=== PATIENT | male | born 1945 | race Caucasian/White ===

== ENCOUNTER 2021-03-04 10:43 | Emergency (ER) | payer OTHER ==
[~2021-03-04] VITALS: Ht 172 cm; Wt 83.9 kg
[2021-03-04] MEDS ORDERED: TRM50T PO (12:24)
[2021-03-04] MEDS ORDERED: PREG100C PO (12:24)
--- NOTE | 2021-03-04 12:25 | ED Lower Extremity ---
General Chief Complaint: Lower Extremity Stated Complaint: LOWER EXT PAIN Nursing Triage Note: PT AMBULATORY TO ER. PT REPORTS HX OF DIABETIC NEUROPATHY. PT STATES HAS BEEN OUT OF HIS LYRICA FOR THE PAST 8-10 DAYS, [facility] DENIES INJURY/TRAUMA. (LIBRADO HERNANDES) History of Present Illness Date Seen by Provider: Mar 04, 2021 Time Seen by Provider: 11:30 Initial Comments 75 year old male presents for chronic leg pain, due to diabetic neuropathy. [facility], they usually arrive approximately 5 to 7 days after he runs out of his medication. He has noncompliant with his management of his diabetes, he takes his medications but does not ever check his blood sugar and is not willing to have his blood sugar checked while here today. [facility] and was referred here after making a comment about how bad the pain was and the only way he will be pain free is after he dies. He denies suicidal or homicidal thoughts. Reporting he has no way to harm himself, even if he wanted to. He recently moved from [place] to [place], because his sister sold the house he was staying in. His healthcare is through the [facility] [place]. He has no family in [place], he does talk to his daughter in [place] and son in . He has a dog and speaks about how important the dog is and that he wouldn't hurt himself because no one would take care of the dog. He admits to his leg pain being so severe, he has to take Ambien at night and many nights he cries for hours because of the pain. He also reports on rare occasion taking 2 Lyrica at bedtime, to help with the pain. K-[facility] reviewed, Lyrica was filled in [place] on 03/02/21 but the shipment hasn't arrived at his home. Onset: other (ongoing) Severity: moderate Pain/Injury Location: bilateral leg, bilateral thigh Method of Injury: other (LIBRADO HERNANDES) Allergies and Home Medications Allergies Coded Allergies: No Known Drug Allergies (Unverified , 03/04/21) Patient Home Medication List Home Medication List Reviewed: Yes (LIBRADO HERNANDES) Pregabalin (Lyrica) 100 Mg Capsule, 100 MG PO TID Prescribed by: LIBRADO HERNANDES on 03/04/21 1225 Tramadol HCl (Tramadol HCl) 50 Mg Tablet, 50 MG PO Q6H PRN for PAIN Prescribed by: LIBRADO HERNANDES on 03/04/21 1225 Review of Systems Constitutional: no symptoms reported, see HPI Musculoskeletal: see HPI, muscle pain (bilat LEs, ankles/feet) Psychiatric/Neurological: See HPI, Depressed (LIBRADO HERNANDES) All Other Systems Reviewed Negative Unless Noted: Yes (LIBRADO HERNANDES) Past Dngwmzr-Igmdie-Syodbd Hx Patient Social History Tobacco Use?: No Use of E-Cig and/or Vaping dev: No Substance use?: No Alcohol Use?: No Pt feels they are or have been: No (LIBRADO HERNANDES) Immunizations Up To Date First/Initial COVID19 Vaccinat: APR 2020 Second COVID19 Vaccination Brandon: MAY 2020 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 oz. kg; 28.00 BMI Method: General Appearance: WD/WN, mild distress Neck: non-tender, full range of motion, supple, normal inspection Cardiovascular: normal peripheral pulses, regular rate, rhythm Respiratory: chest non-tender, lungs clear, normal breath sounds Gastrointestinal: normal bowel sounds, non tender, soft Ankles: bilateral ankle normal inspection, bilateral ankle normal range of motion, bilateral ankle no evidence of injury, bilateral ankle soft tissue tenderness Feet: bilateral foot normal inspection, bilateral foot normal range of motion, bilateral foot no evidence of injury, bilateral foot soft tissue tenderness Neurologic/Tendon: normal sensation, normal motor functions, normal tendon functions Neurologic/Psychiatric: no motor/sensory deficits, alert, normal mood/affect, oriented x 3 Skin: normal color, warm/dry (LIBRADO HERNANDES) Progress/Results/Core Measures Results/Orders Vital Signs/I&O 03/04/21 03/04/21 03/04/21 10:47 11:10 12:26 Temp 36.4 Pulse 78 57 70 Resp 20 18 18 B/P (MAP) 169/101 (123) 152/88 138/85 Pulse Ox 98 96 96 O2 Delivery Room Air Room Air O2 Flow Rate (WALLY KIM MD) Blood Pressure Mean: 109 Progress Progress Note : Time: 11:30 Progress Note Patient seen and evaluated, extensive amount of time spent with counseling patient. He understands that there is a need to be checking his blood sugars, we discussed different meters that he can keep a sensor on his arm and would not have to do daily fingersticks. He will talk to his primary care provider about that. He has no ulcers or breakdown to his feet. Discussed the fact that his medications are in route but will probably not be here for a day or 2 and with the holiday it could be prolonged to next week. He is willing to pay ou t-of-pocket for prescription, to have the Lyrica and tramadol available. At length making comments about or suicidal ideations, he understands that if he ever has these feelings that he would call his son or 911. He declined wanting mental health consult in no by the patient indicated the need for this. Discharge instructions and careful follow-up with his PCP were recommended. Return precautions reviewed. (LIBRADO HERNANDES) Departure Impression Primary Impression: Diabetic neuropathy Qualified Codes: E11.49 - Type 2 diabetes mellitus with other diabetic neurological complication Additional Impressions: Neuropathic pain Noncompliance with medication regimen Disposition: HOME, SELF-CARE Condition: Stable Departure-Patient Inst. Decision time for Depature: 12:15 (LIBRADO HERNANDES) Referrals: NO,LOCAL PHYSICIAN (PCP) Primary Care Physician Patient Instructions: Diabetic Neuropathy (DC) Add. Discharge Instructions: Continue to take your home medications as prescribed. Discuss your care and concerns with your son and daughter. Schedule an appointment with Vel Robles NP for early March to get your medications delivered in time. Call [phone], if you ever have thoughts to harm yourself or others. Return to the emergency department for new, urgent healthcare needs. All discharge instructions reviewed with patient and/or family. Voiced understanding. Scripts Pregabalin (Lyrica) 100 Mg Capsule 100 MG PO TID, #21 CAP 0 Refills Prov: LIBRADO HERNANDES 03/04/21 Tramadol HCl (Tramadol HCl) 50 Mg Tablet 50 MG PO Q6H PRN for PAIN, #20 TAB 0 Refills Prov: LIBRADO HERNANDES 03/04/21 ATTENDING PHYSICIAN NOTE: I was physically present as attending physician in the emergency department during the care of this patient, but I was not directly involved in the decision making or delivery of care for this patient. (WALLY KIM MD) LIBRADO HERNANDES Mar 04, 2021 12:25 WALLY KIM MD Mar 04, 2021 21:01
[2021-03-04 12:26] VITALS: BP 138/85
== END 2021-03-04 12:26 | disposition home or self-care (01) ==
LOC: ER 10:46
DX: E11.40 Type 2 diabetes mellitus with diabetic neuropathy, unspecified (principal); Z91.14 Patient's other noncompliance with medication regimen
CPT/HCPCS: 99281

== ENCOUNTER 2021-05-08 05:33 | Outpatient (CLI) | payer OTHER ==
[~2021-05-08] VITALS: Ht 170.8 cm; Wt 86.4 kg
[~2021-05-08 05:33] MED LIST: PREG100C PO; TRM50T PO
[2021-05-08] MEDS ORDERED: LISI10TA25 PO (13:02)
[2021-05-08] MEDS ORDERED: GLIM2TAB4 PO (13:02)
[2021-05-08] MEDS ORDERED: MTP100TCR PO (13:02)
[2021-05-08] MEDS ORDERED: INSU100V5 SQ (13:02)
[2021-05-08] MEDS ORDERED: ALLO300T2 PO (13:02)
[2021-05-08] MEDS ORDERED: METF-399 PO (13:02)
[2021-05-08] MEDS ORDERED: FURO20TA4 PO (13:02)
[2021-05-08] MEDS ORDERED: ATOR80TA76 PO (13:02)
[2021-05-08] MEDS ORDERED: ZOLP5TAB7 PO (13:02)
[2021-05-08] MEDS ORDERED: MULT-1136 PO (13:02)
[2021-05-08] MEDS ORDERED: LISI20TA26 PO (13:02)
== END 2021-05-08 13:05 ==
LOC: PREOP 05:33
PROVIDERS: ATTEND Specialist
DX: Z01.818 Encounter for other preprocedural examination (principal)

== ENCOUNTER 2021-05-15 06:30 | Day surgery (SDC) | payer OTHER ==
[~2021-05-15] VITALS: Ht 170 cm; Wt 86.4 kg
[~2021-05-15 06:30] MED LIST changes: +ALLO300T2 PO; +ATOR80TA76 PO; +FURO20TA4 PO; +GLIM2TAB4 PO; +INSU100V5 SQ; +LISI10TA25 PO; +LISI20TA26 PO; +METF-399 PO; +MTP100TCR PO; +MULT-1136 PO; +ZOLP5TAB7 PO
[2021-05-15] MEDS: TETRACAINE 0.5% OPHTH SOLN 4 ML BTL (SINGLE DOSE ONLY) OU PRN ×4 (11:07→11:33)
[2021-05-15] MEDS ORDERED: TIMOLOL MALEATE 0.5% 5 ML (TIMOPTIC) BTL OU PRN (11:15)
[2021-05-15] MEDS ORDERED: acetaZOLAMIDE ER 500 MG CAP (DIAMOX SEQUELS) PO ONE (11:15)
[2021-05-15] MEDS ORDERED: LIDOCAINE PF 1% 2 ML VIAL IR PRN (11:15)
[2021-05-15] MEDS ORDERED: POVIDONE (BETADINE) OPHTH SOLN 5% 30 ML OP ONE (11:15)
[2021-05-15] MEDS ORDERED: MOXIFLOXACIN OPHTH SOLN 5 MG/ML 0.3 ML SYRINGE OP ONE (11:15)
[2021-05-15] MEDS: PHENYLEPHRINE 10% OPHTH (NEO-SYN) 5 ML BTL OU SCH ×3 (11:18→11:34)
[2021-05-15] MEDS: TROPICAMIDE 1% OPH SOLN (MYDRIACYL) 15 ML BTL OP SCH ×3 (11:18→11:34)
[2021-05-15] MEDS ORDERED: DEXTROSE 50% 50 ML (IMS) SYR ONE (11:18)
[2021-05-15 11:30] VITALS: BP 127/78
[2021-05-15] MEDS ORDERED: DEXTROSE 50% 50 ML (IMS) SYR IV ONE (11:30)
--- NOTE | 2021-05-15 11:51 | Ophthalmologist Pre-Op Note ---
Pre-Operative Progress Note H&P Reviewed The H&P was reviewed, patient examined and no changes noted. Date H&P Reviewed: May 15, 2021 Time H&P Reviewed: 11:50 Pre-Op Dx Cataract, Left Eye LISA BOLAÑOS MD May 15, 2021 11:50
[2021-05-15] MEDS ORDERED: MIDAZOLAM 2 MG/2 ML (VERSED) VIAL ONE (11:59)
--- NOTE | 2021-05-15 12:15 | Ophthalmology Operative Report ---
Cataract removal/placement IOL PREOPERATIVE DIAGNOSIS: Cataract Left Eye POSTOPERATIVE DIAGNOSIS: Cataract Left Eye PROCEDURE: Cataract removal and placement of posterior chamber implant, left eye SURGEON: Lj Bolaños ANESTHESIA: Topical with sedation COMPLICATIONS: None ESTIMATED BLOOD LOSS: Minimal DESCRIPTION OF PROCEDURE: After proper informed consent was obtained, the patient, a 75 male, was taken to the Operating Room and the left eye was anesthetized with tetracaine. The left eye was then prepped and draped in the usual manner. A wire lid speculum was placed. A paracentesis was made at the left hand position. Preservative free lidocaine was injected into the anterior chamber followed by viscoelastic. A clear corneal incision was made in the temporal position. A capsulorrhexis was preformed and the central nuclear and cortical material were removed. The posterior capsule was polished and an Wilberto 19.0 AU00T0 was placed into the capsular bag. The residual viscoelastic was aspirated and balanced saline solution was injected into the anterior chamber. Moxifloxacin was injected into the anterior chamber. The wound was checked and found to be water tight. The patient tolerated the procedure well without complications. LJ BOLAÑOS MD May 15, 2021 12:15
[2021-05-15 12:25] VITALS: BP 118/74
== END 2021-05-15 12:26 | disposition home or self-care (01) ==
LOC: SDC 06:30
PROVIDERS: ATTEND Specialist
DX: E11.36 Type 2 diabetes mellitus with diabetic cataract (principal); E11.40 Type 2 diabetes mellitus with diabetic neuropathy, unspecified; H25.9 Unspecified age-related cataract; Z79.4 Long term (current) use of insulin; Z79.84 Long term (current) use of oral hypoglycemic drugs
CPT/HCPCS: 82947

== ENCOUNTER 2021-05-29 06:00 | Day surgery (SDC) | payer OTHER ==
[~2021-05-29] VITALS: Ht 170.8 cm; Wt 86.4 kg
[2021-05-29 06:10] VITALS: BP 125/73
[2021-05-29] MEDS ORDERED: MOXIFLOXACIN OPHTH SOLN 5 MG/ML 0.3 ML SYRINGE OP ONE (06:15)
[2021-05-29] MEDS ORDERED: LIDOCAINE PF 1% 2 ML VIAL IR PRN (06:15)
[2021-05-29] MEDS ORDERED: POVIDONE (BETADINE) OPHTH SOLN 5% 30 ML OP ONE (06:15)
[2021-05-29] MEDS ORDERED: TIMOLOL MALEATE 0.5% 5 ML (TIMOPTIC) BTL OU PRN (06:15)
[2021-05-29] MEDS: TETRACAINE 0.5% OPHTH SOLN 4 ML BTL (SINGLE DOSE ONLY) OU PRN ×4 (06:18→06:36)
[2021-05-29] MEDS: PHENYLEPHRINE 10% OPHTH (NEO-SYN) 5 ML BTL OU SCH ×3 (06:24→06:36)
[2021-05-29] MEDS: TROPICAMIDE 1% OPH SOLN (MYDRIACYL) 15 ML BTL OP SCH ×3 (06:25→06:36)
[2021-05-29] MEDS ORDERED: acetaZOLAMIDE ER 500 MG CAP (DIAMOX SEQUELS) PO ONE (07:30)
--- NOTE | 2021-05-29 07:32 | Ophthalmologist Pre-Op Note ---
Pre-Operative Progress Note H&P Reviewed The H&P was reviewed, patient examined and no changes noted. Date H&P Reviewed: May 29, 2021 Time H&P Reviewed: 07:31 Pre-Op Dx Cataract, Right Eye LISA BOLAÑOS MD May 29, 2021 07:32
[2021-05-29] MEDS ORDERED: MIDAZOLAM 2 MG/2 ML (VERSED) VIAL ONE (07:39)
--- NOTE | 2021-05-29 07:58 | Ophthalmology Operative Report ---
Cataract removal/placement IOL PREOPERATIVE DIAGNOSIS: Cataract Right Eye POSTOPERATIVE DIAGNOSIS: Cataract Right Eye PROCEDURE: Cataract removal and placement of posterior chamber implant, right eye SURGEON: Lj Bolaños ANESTHESIA: Topical with sedation COMPLICATIONS: None ESTIMATED BLOOD LOSS: Minimal DESCRIPTION OF PROCEDURE: After proper informed consent was obtained, the patient, a 75 male, was taken to the Operating Room and the right eye was anesthetized with tetracaine. The right eye was then prepped and draped in the usual manner. A wire lid speculum was placed. A paracentesis was made at the left hand position. Preservative free lidocaine was injected into the anterior chamber followed by viscoelastic. A clear corneal incision was made in the temporal position. A capsulorrhexis was preformed and the central nuclear and cortical material were removed. The posterior capsule was polished and Wilberto 20.0 AU00T0 IOL was placed into the capsular bag. The residual viscoelastic was aspirated and balanced saline solution was injected into the anterior chamber. Moxifloxacin was injected into the anterior chamber. The wound was checked and found to be water tight. The patient tolerated the procedure well without complications. LJ BOLAÑOS MD May 29, 2021 07:58
[2021-05-29 08:05] VITALS: BP 125/73
--- NOTE | 2021-05-29 12:44 | Anesthesia-General Post-Op ---
MAC Patient Condition Mental Status/LOC: Same as Preop Cardiovascular: Satisfactory Nausea/Vomiting: Absent Respiratory: Satisfactory Pain: Controlled Complications: Absent Post Op Complications Complications None Follow Up Care/Instructions Patient Instructions None needed. Anesthesiology Discharge Order Discharge Order Patient is doing well, no complaints, stable vital signs, no apparent adverse anesthesia problems. No complications reported per nursing. ROC MCKAY CRNA May 29, 2021 12:43
--- NOTE | 2021-06-03 07:05 | Anesthesia-General Post-Op ---
MAC Significant Intra-Op Events Notes post op addendum for mac anesthesia on 05/15/21 at 1230 Patient Condition Mental Status/LOC: Same as Preop Cardiovascular: Satisfactory Nausea/Vomiting: Absent Respiratory: Satisfactory Pain: Controlled Complications: Absent Post Op Complications Complications None Follow Up Care/Instructions Patient Instructions None needed. Anesthesiology Discharge Order Discharge Order Patient is doing well, no complaints, stable vital signs, no apparent adverse anesthesia problems. No complications reported per nursing. ROC MCKAY CRNA Jun 03, 2021 07:05
== END 2021-05-29 08:05 | disposition home or self-care (01) ==
LOC: SDC 06:00
PROVIDERS: ATTEND Specialist
DX: E11.36 Type 2 diabetes mellitus with diabetic cataract (principal); H25.9 Unspecified age-related cataract; E11.40 Type 2 diabetes mellitus with diabetic neuropathy, unspecified
CPT/HCPCS: 82947

== ENCOUNTER 2021-07-09 14:24 | Emergency (ER) | payer OTHER ==
[~2021-07-09] VITALS: Ht 170 cm; Wt 89.8 kg
[2021-07-09] MEDS ORDERED: LACTATED RINGERS 1,000 ML IV SCH (15:15)
--- NOTE | 2021-07-09 15:15 | ED Cardiac General ---
History of Present Illness General Chief Complaint: Cardiac/General Problems Stated Complaint: WEAKNESS,DIZZINESS,LOW BP Nursing Triage Note: PT SENT OVER FROM HOME HEALTH NURSE FOR HYPOTENSION STARTING TODAY. PT DENIES ANY CP OR SOA. REPROTS INITIALLY FELT DIZZY BUT FEELS LIKE THAT IS BETTER, Source: patient Exam Limitations: no limitations History of Present Illness Date Seen by Provider: Jul 09, 2021 Time Seen by Provider: 15:12 Initial Comments To ER from home with reports of dizziness and low blood pressure. He was referred to the emergency room by his home health nurse. He is not sure why he has home health. He denies any fevers or chills. Denies any nausea or vomit ing. His blood pressure was reportedly 80s over 50s at home and he was symptomatic as he was having dizziness. He does take medication for high blood pressure. He denies feeling ill yesterday or any recent illnesses. He states he does not think he needs any blood work or any other treatment done. Timing/Duration: changing over time Severity: moderate Activities at Onset: none Prior CP/Workup: no prior chest pain NTG SL BOWLING PIN SETTERS INSTALLER: No ASA po BOWLING PIN SETTERS INSTALLER: No Associated Systoms: Denies Symptoms Allergies and Home Medications Allergies Coded Allergies: No Known Drug Allergies (Unverified , 03/04/21) Patient Home Medication List Home Medication List Reviewed: Yes Allopurinol (Allopurinol) 300 Mg Tablet, 300 MG PO DAILY, (Reported) Entered as Reported by: FRANKLIN GARCIA on 05/08/21 1302 Atorvastatin Calcium (Atorvastatin Calcium) 80 Mg Tablet, 40 MG PO HS, (Reported) Entered as Reported by: FRANKLIN GARCIA on 05/08/21 130 Furosemide (Furosemide) 20 Mg Tablet, 20 MG PO DAILY, (Reported) Entered as Reported by: FRANKLIN GARCIA on 05/08/21 1302 Glimepiride (Glimepiride) 2 Mg Tablet, 2 MG PO DAILY, (Reported) Entered as Reported by: FRANKLIN GARCIA on 05/08/21 130 Insulin Determir (Levemir) 1,000 Units/10 Ml Soln, 45 UNITS SQ HS, (Reported) Entered as Reported by: FRANKLIN GARCIA on 05/08/21 1302 Lisinopril (Lisinopril) 10 Mg Tablet, 10 MG PO DAILY, (Reported) Entered as Reported by: FRANKLIN GARCIA on 05/08/21 1302 Lisinopril (Lisinopril) 20 Mg Tablet, 20 MG PO HS, (Reported) Entered as Reported by: FRANKLIN GARCIA on 05/08/21 1302 Metformin HCl (Metformin HCl) 1,000 Mg Tablet, 1,000 MG PO BID, (Reported) Entered as Reported by: FRANKLIN GARCIA on 05/08/21 1302 Metoprolol Succinate (Metoprolol Succinate) 100 Mg Tab.er.24h, 50 MG PO BID, (Reported) Entered as Reported by: FRANKLIN GARCIA on 05/08/21 1302 Multivitamin (Multivitamin) 1 Each Tablet, 1 EACH PO DAILY, (Reported) Entered as Reported by: FRANKLIN GARCIA on 05/08/21 1302 Pregabalin (Lyrica) 100 Mg Capsule, 100 MG PO TID Prescribed by: LIBRADO HERNANDES on 03/04/21 1225 Tramadol HCl (Tramadol HCl) 50 Mg Tablet, 50 MG PO Q6H PRN for PAIN Prescribed by: LIBRADO HERNANDES on 03/04/21 1225 Zolpidem Tartrate (Zolpidem Tartrate) 5 Mg Tablet, 5 MG PO HS, (Reported) Entered as Reported by: FRANKLIN GARCIA on 05/08/21 1302 Review of Systems Review of Systems Constitutional: see HPI EENTM: No Symptoms Reported Respiratory: No Symptoms Reported Cardiovascular: No Symptoms Reported Gastrointestinal: No Symptoms Reported; Denies Abdominal Pain, Denies Constipated, Denies Diarrhea, Denies Nausea Genitourinary: No Symptoms Reported Musculoskeletal: no symptoms reported Skin: no symptoms reported Psychiatric/Neurological: No Symptoms Reported Endocrine: No Symptoms Reported Hematologic/Lymphatic: No Symptoms Reported Past Hzyjftq-Veuyex-Lzwlvi Hx Patient Social History Tobacco Use?: No Substance use?: No Alcohol Use?: No Pt feels they are or have been: No Immunizations Up To Date First/Initial COVID19 Vaccinat: APR 2020 Second COVID19 Vaccination Brandon: MAY 2020 Third COVID19 Vaccination Date: APR 2020 Past Medical History Surgery/Hospitalization HX: PMH: DM, HTN, NEUROPATHY Physical Exam Vital Signs Vital Signs - First Documented 07/09/21 14:46 Temp 35.8 Pulse 99 Resp 16 B/P (MAP) 89/74 (79) Pulse Ox 96 Capillary Refill : Less Than 3 Seconds Height, Weight, BMI Height: '" Weight: lbs. oz. kg; 31.00 BMI Method: General Appearance: No Apparent Distress, WD/WN, Other (Sitting up on the edge of the bed he is alert and talkative though I would question that he may have some early dementia given his poor recall of medical history, not sure why he has home health. Currently his blood pressure is 82/54 with a heart rate of 92. Respiratory rate 25.) Neck: Full Range of Motion, Normal Inspection Respiratory: No Accessory Muscle Use, No Respiratory Distress Cardiovascular: Regular Rate, Rhythm, Normal Peripheral Pulses Gastrointestinal: Normal Bowel Sounds, Non Tender, Soft Neurologic/Psychiatric: Alert, Oriented x3 (He knows he is at the hospital, he knows that he is here because of low blood pressure and he knows his name.) Skin: Normal Color, Warm/Dry Progress/Results/Core Measures Results/Orders Lab Results Laboratory Tests Test 07/09/21 15:10 07/09/21 15:19 Range/Units White Blood Count 8.4 4.3-11.0 10^3/uL Red Blood Count 4.97 4.30-5.52 10^6/uL Hemoglobin 16.0 13.3-17.7 g/dL Hematocrit 48 40-54 % Mean Corpuscular Volume 96 80-99 fL Mean Corpuscular Hemoglobin 32 25-34 pg Mean Corpuscular Hemoglobin Concent 34 32-36 g/dL Red Cell Distribution Width 13.9 10.0-14.5 % Platelet Count 213 130-400 10^3/uL Mean Platelet Volume 11.7 9.0-12.2 fL Immature Granulocyte % (Auto) 0 % Neutrophils (%) (Auto) 54 42-75 % Lymphocytes (%) (Auto) 40 12-44 % Monocytes (%) (Auto) 6 0-12 % Eosinophils (%) (Auto) 1 0-10 % Basophils (%) (Auto) 0 0-10 % Neutrophils # (Auto) 4.5 1.8-7.8 X 10^3 Lymphocytes # (Auto) 3.3 1.0-4.0 X 10^3 Monocytes # (Auto) 0.5 0.0-1.0 X 10^3 Eosinophils # (Auto) 0.0 0.0-0.3 10^3/uL Basophils # (Auto) 0.0 0.0-0.1 10^3/uL Immature Granulocyte # (Auto) 0.0 0.0-0.1 10^3/uL Sodium Level 137 135-145 MMOL/L Potassium Level 4.4 3.6-5.0 MMOL/L Chloride Level 98 98-107 MMOL/L Carbon Dioxide Level 24 21-32 MMOL/L Anion Gap 15 H 5-14 MMOL/L Blood Urea Nitrogen 47 H 7-18 MG/DL Creatinine 1.72 H 0.60-1.30 MG/DL Estimat Glomerular Filtration Rate 41 BUN/Creatinine Ratio 27 Glucose Level 234 H 70-105 MG/DL Calcium Level 10.0 8.5-10.1 MG/DL Corrected Calcium 10.2 H 8.5-10.1 MG/DL Total Bilirubin 0.6 0.1-1.0 MG/DL Aspartate Amino Transf (AST/SGOT) 14 5-34 U/L Alanine Aminotransferase (ALT/SGPT) 7 0-55 U/L Alkaline Phosphatase 58 40-136 U/L Total Protein 8.0 6.4-8.2 GM/DL Albumin 3.7 3.2-4.5 GM/DL Urine Color YELLOW Urine Clarity CLEAR Urine pH 6.0 5-9 Urine Specific [place] <=1.005 1.016-1.022 Urine Protein NEGATIVE NEGATIVE Urine Glucose (UA) 3+ H NEGATIVE Urine Ketones NEGATIVE NEGATIVE Urine Nitrite NEGATIVE NEGATIVE Urine Bilirubin NEGATIVE NEGATIVE Urine Urobilinogen 0.2 < = 1.0 MG/DL Urine Leukocyte Esterase NEGATIVE NEGATIVE Urine RBC (Auto) NEGATIVE NEGATIVE Urine RBC 0-2 /HPF Urine WBC 0-2 /HPF Urine Squamous Epithelial Cells RARE /HPF Urine Crystals NONE /LPF Urine Bacteria TRACE /HPF Urine Casts PRESENT /LPF Urine Hyaline Casts 0-2 H /LPF Urine Mucus NEGATIVE /LPF Urine Culture Indicated NO My Orders Orders - MALCOLM GRAF APRN Ua Culture If Indicated (07/09/21 15:10) Cbc With Automated Diff (07/09/21 15:10) Comprehensive Metabolic Panel (07/09/21 15:10) Ed Iv/Invasive Line Start (07/09/21 15:10) Lactated Ringers (Lr 1000 Ml Iv Solution (07/09/21 15:15) Vital Signs/I&O 07/09/21 14:46 Temp 35.8 Pulse 99 Resp 16 B/P (MAP) 89/74 (79) Pulse Ox 96 Blood Pressure Mean: 79 Departure Communication (Admissions) 1620 he was given 1 L of LR. Subsequently his blood pressure has risen to consistently 103 then 104 then 105 systolic over 60s diastolic. He states that his dizziness is gone. I do not want to give him any more fluids for the sake of potential fluid overload. We will discharged home. Impression Primary Impression: Volume depletion Additional Impression: Hypotension Disposition: 01 HOME, SELF-CARE Condition: Stable Departure-Patient Inst. Decision time for Depature: 16:20 Referrals: NO,LOCAL PHYSICIAN (PCP/Family) Primary Care Physician Patient Instructions: Dehydration, Adult ED MALCOLM GRAF [employer] Jul 09, 2021 15:15
[2021-07-09 15:23] LABS: BILIRUBIN,URINE NEGATIVE (NEGATIVE); CLARITY,URINE CLEAR; COLOR,URINE YELLOW; GLUCOSE, URINE (UA) 3+ (NEGATIVE); KETONES,URINE NEGATIVE (NEGATIVE); LEUKOCYTE ESTERASE ,URINE NEGATIVE (NEGATIVE); NITRITE,URINE NEGATIVE (NEGATIVE); PROTEIN,URINE NEGATIVE (NEGATIVE)
[2021-07-09 15:26] LABS: BASOPHILS % (AUTO) 0 % (0-10); EOSINOPHILS % (AUTO) 1 % (0-10); HEMATOCRIT 48 % (40-54); LYMPHOCYTES # (AUTO) 3.3 X 10^3 (1.0-4.0); LYMPHOCYTES % (AUTO) 40 % (12-44); MEAN CORPUSCULAR HEMOGLOBIN 32 pg (25-34); MEAN CORPUSCULAR HGB CONC 34 g/dL (32-36); MEAN CORPUSCULAR VOLUME 96 fL (80-99); MEAN PLATELET VOLUME 11.7 fL (9.0-12.2); MONOCYTES # (AUTO) 0.5 X 10^3 (0.0-1.0); MONOCYTES % (AUTO) 6 % (0-12); NEUTROPHILS # (AUTO) 4.5 X 10^3 (1.8-7.8); NEUTROPHILS % (AUTO) 54 % (42-75); PLATELET COUNT 213 10^3/uL (130-400); WHITE BLOOD COUNT 8.4 10^3/uL (4.3-11.0)
[2021-07-09 15:36] LABS: ALBUMIN 3.7 GM/DL (3.2-4.5); POTASSIUM 4.4 MMOL/L (3.6-5.0)
[2021-07-09 15:41] LABS: BILIRUBIN,TOTAL 0.6 MG/DL (0.1-1.0)
[2021-07-09 15:42] LABS: CREATININE SERUM 1.72 MG/DL (0.60-1.30)
[2021-07-09 15:48] LABS: BACTERIA,URINE TRACE /HPF; HYALINE CASTS, URINE 0-2 /LPF; RBC,URINE 0-2 /HPF; SQUAMOUS EPITHELIAL CELL,UR RARE /HPF; WBC,URINE 0-2 /HPF
[2021-07-09 16:28] VITALS: BP 107/87
== END 2021-07-09 16:28 | disposition home or self-care (01) ==
LOC: EDUNIT# 14:24 → ER 14:25
DX: E86.9 Volume depletion, unspecified (principal); I95.9 Hypotension, unspecified; I10 Essential (primary) hypertension; Z79.899 Other long term (current) drug therapy
CPT/HCPCS: 36415; 80053; 81000; 85025

== ENCOUNTER 2022-01-20 16:20 | Observation (INO) | payer OTHER, MEDICARE ==
[2022-01-20] VITALS (8 sets, daily range): BP systolic 91–130; BP diastolic 62–112
[~2022-01-20] VITALS: Ht 170.2 cm; Wt 98.7 kg
--- NOTE | 2022-01-20 16:42 | ED General ---
General Chief Complaint: Cardiac/General Problems Stated Complaint: LOW BLOOD PRESSURE Source of Information: Patient, Family History of Present Illness Date Seen by Provider: Jan 20, 2022 Time Seen by Provider: 16:30 Initial Comments Patient is a 76-year-old male sent to the emergency department by a [facility] nurse practitioner for hypotension. Patient had a scheduled appointment to see his primary provider next week however he has had multiple falls, 3 in the last 2 or 3 weeks. At 1 point on Tuesday he had fallen on the ground in his house and laid there for 24 hours until he was assisted back up. Apparently the patient declined to come to the emergency department or see a physician after his falls. He has called the police at least 4 times for assistance over the last several days. environmental services associate was called for a welfare check as well. He has been very weak and fatigued. He has not eaten much in the last several days. He states that he has had diarrhea yesterday and took 3 Imodium tablets to control that. He has a history of diabetes on insulin, hypertension. 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 He lives alone. His daughter is with him at presentation today. Laying down in the bed his systolic blood pressure is 101, when we sit him up he goes to 81/59. He is not tachycardic. Oxygen saturations are normal. He really has no complaints and is quite irritated that he has to be in the emergency department. He denies pain or injury as a result of his falls. No recent fevers, chills, productive cough. Only complaint was the diarrhea yesterday. Nonblack no nbloody. He has urinated a couple of times today. But he states for the 24 hours she was on the floor he did not urinate at all. All other review of systems reviewed and negative except as stated. Timing/Duration: 3-4 Days Severity: Severe Associated Systoms: Malaise, Weakness Allergies and Home Medications Allergies Coded Allergies: No Known Drug Allergies (Unverified , 03/04/21) Patient Home Medication List Home Medication List Reviewed: Yes Allopurinol (Allopurinol) 300 Mg Tablet, 300 MG PO DAILY, (Reported) Entered as Reported by: FRANKLIN GARCIA on 05/08/21 1302 Atorvastatin Calcium (Atorvastatin Calcium) 80 Mg Tablet, 40 MG PO HS, (Reported) Entered as Reported by: FRANKLIN GARCIA on 05/08/21 130 Furosemide (Furosemide) 20 Mg Tablet, 20 MG PO DAILY, (Reported) Entered as Reported by: FRANKLIN GARCIA on 05/08/21 130 Glimepiride (Glimepiride) 2 Mg Tablet, 2 MG PO DAILY, (Reported) Entered as Reported by: FRANKLIN GARCIA on 05/08/21 130 Insulin Determir (Levemir) 1,000 Units/10 Ml Soln, 45 UNITS SQ HS, (Reported) Entered as Reported by: FRANKLIN GARCIA on 05/08/21 130 Lisinopril (Lisinopril) 10 Mg Tablet, 10 MG PO DAILY, (Reported) Entered as Reported by: FRANKLIN GARCIA on 05/08/21 130 Lisinopril (Lisinopril) 20 Mg Tablet, 20 MG PO HS, (Reported) Entered as Reported by: FRANKLIN GARCIA on 05/08/21 130 Metformin HCl (Metformin HCl) 1,000 Mg Tablet, 1,000 MG PO BID, (Reported) Entered as Reported by: FRANKLIN GARCIA on 05/08/21 130 Metoprolol Succinate (Metoprolol Succinate) 100 Mg Tab.er.24h, 50 MG PO BID, (Reported) Entered as Reported by: FRANKLIN GARCIA on 05/08/21 130 Multivitamin (Multivitamin) 1 Each Tablet, 1 EACH PO DAILY, (Reported) Entered as Reported by: FRANKLIN GARCIA on 05/08/21 130 Pregabalin (Lyrica) 100 Mg Capsule, 100 MG PO TID Prescribed by: LIBRADO HERNANDES on 03/04/21 1225 Tramadol HCl (Tramadol HCl) 50 Mg Tablet, 50 MG PO Q6H PRN for PAIN Prescribed by: LIBRADO HERNANDES on 03/04/21 1225 Zolpidem Tartrate (Zolpidem Tartrate) 5 Mg Tablet, 5 MG PO HS, (Reported) Entered as Reported by: FRANKLIN GARCIA on 05/08/21 130 Review of Systems Review of Systems Constitutional: see HPI EENTM: no symptoms reported Respiratory: no symptoms reported Cardiovascular: no symptoms reported Gastrointestinal: no symptoms reported Genitourinary: no symptoms reported Musculoskeletal: no symptoms reported Skin: no symptoms reported All Other Systems Reviewed Negative Unless Noted: Yes Past Fasjbze-Sqfmyq-Pqmqgc Hx Immunizations Up To Date First/Initial COVID19 Vaccinat: APR 2020 Second COVID19 Vaccination Brandon: MAY 2020 Third COVID19 Vaccination Date: APR 2020 Past Medical History Surgery/Hospitalization HX: PMH: DM, HTN, NEUROPATHY Physical Exam Vital Signs Vital Signs - First Documented 01/20/22 16:27 Temp 36.6 Pulse 89 Resp 18 B/P (MAP) 91/66 (74) Pulse Ox 97 O2 Delivery Room Air Capillary Refill : Height, Weight, BMI Height: '" Weight: lbs. oz. kg; 31.00 BMI Method: General Appearance: No Apparent Distress, WD/WN Eyes: Bilateral Eye Normal Inspection, Bilateral Eye PERRL, Bilateral Eye EOMI HEENT: PERRL/EOMI, Other (slightly dry oral mucosa) Neck: Normal Inspection Respiratory: Lungs Clear, Normal Breath Sounds, No Accessory Muscle Use, No Respiratory Distress Cardiovascular: Regular Rate, Rhythm Gastrointestinal: Normal Bowel Sounds, No Pulsatile Mass, Non Tender, Soft Extremity: Normal Inspection, Pedal Edema (1+ bilateral PE) Neurologic/Psychiatric: Alert, Oriented x3, No Motor/Sensory Deficits, Normal Mood/Affect, import/export analyst II-XII Norm as Tested Skin: Warm/Dry, Pallor Progress/Results/Core Measures Suspected Sepsis SIRS Temperature: Pulse: Respiratory Rate: Laboratory Tests 01/20/22 16:45: White Blood Count 8.7 Blood Pressure / Mean: Laboratory Tests 01/20/22 16:45: Creatinine 2.69H, Platelet Count 239, Total Bilirubin 0.2 Results/Orders Lab Results Laboratory Tests Test 01/20/22 16:45 Range/Units White Blood Count 8.7 4.3-11.0 10^3/uL Red Blood Count 3.33 L 4.30-5.52 10^6/uL Hemoglobin 10.5 L 13.3-17.7 g/dL Hematocrit 32 L 40-54 % Mean Corpuscular Volume 96 80-99 fL Mean Corpuscular Hemoglobin 32 25-34 pg Mean Corpuscular Hemoglobin Concent 33 32-36 g/dL Red Cell Distribution Width 13.8 10.0-14.5 % Platelet Count 239 130-400 10^3/uL Mean Platelet Volume 12.6 H 9.0-12.2 fL Immature Granulocyte % (Auto) 0 % Neutrophils (%) (Auto) 54 42-75 % Lymphocytes (%) (Auto) 37 12-44 % Monocytes (%) (Auto) 6 0-12 % Eosinophils (%) (Auto) 2 0-10 % Basophils (%) (Auto) 0 0-10 % Neutrophils # (Auto) 4.7 1.8-7.8 10^3/uL Lymphocytes # (Auto) 3.2 1.0-4.0 10^3/uL Monocytes # (Auto) 0.6 0.0-1.0 10^3/uL Eosinophils # (Auto) 0.2 0.0-0.3 10^3/uL Basophils # (Auto) 0.0 0.0-0.1 10^3/uL Immature Granulocyte # (Auto) 0.0 0.0-0.1 10^3/uL Sodium Level 140 135-145 MMOL/L Potassium Level 4.2 3.6-5.0 MMOL/L Chloride Level 107 98-107 MMOL/L Carbon Dioxide Level 23 21-32 MMOL/L Anion Gap 10 5-14 MMOL/L Blood Urea Nitrogen 65 H 7-18 MG/DL Creatinine 2.69 H 0.60-1.30 MG/DL Estimat Glomerular Filtration Rate 24 BUN/Creatinine Ratio 24 Glucose Level 65 L 70-105 MG/DL Calcium Level 8.8 8.5-10.1 MG/DL Corrected Calcium 9.8 8.5-10.1 MG/DL Total Bilirubin 0.2 0.1-1.0 MG/DL Aspartate Amino Transf (AST/SGOT) 14 5-34 U/L Alanine Aminotransferase (ALT/SGPT) 17 0-55 U/L Alkaline Phosphatase 57 40-136 U/L Total Protein 7.1 6.4-8.2 GM/DL Albumin 2.7 L 3.2-4.5 GM/DL My Orders Orders - GRAZYNA GOLDMAN MD Ekg Tracing (01/20/22 16:31) Ed Iv/Invasive Line Start (01/20/22 16:42) Cbc With Automated Diff (01/20/22 16:42) Comprehensive Metabolic Panel (01/20/22 16:42) Chest 1 View, Ap/Pa Only (01/20/22 16:42) Ns Iv 1000 Ml (Sodium Chloride 0.9%) (01/20/22 18:00) Vital Signs/I&O 01/20/22 01/20/22 16:27 16:55 Temp 36.6 Pulse 89 90 Resp 18 18 B/P (MAP) 91/66 (74) 88/62 (71) Pulse Ox 97 98 O2 Delivery Room Air Capillary Refill : ECG Initial ECG Impression Date: Jan 20, 2022 Initial ECG Impression Time: 16:34 Initial ECG Rhythm: Normal Sinus Initial ECG Intervals GA interval 232 QRS 181 QTC 457 Comment PVC noted, wide QRS complex, first-degree AV block. Q waves in inferior leads no ST segment elevation or depression, right bundle branch block Diagnostic Imaging Diagonstic Imaging: Xray Plain Films/CT/US/NM/MRI: chest Comments [facility]. [place], [place] NAME: PETER OTREGA [facility] REC#: [id number] PT STATUS: REG ER : 1945 PHYSICIAN: GRAZYNA GOLDMAN MD ADMIT DATE: 01/20/22/ER Signed Date of Exam:01/20/22 CHEST 1 VIEW, AP/PA ONLY INDICATION: Weakness and hypotension. Frontal chest obtained at 4:42 p.m. There is no prior study for comparison. FINDINGS: Heart is mildly enlarged. There is elevation of the left hemidiaphragm. There is no focal infiltrate or pneumothorax or pleural fluid. IMPRESSION: Mild cardiomegaly. Elevation of the left hemidiaphragm. No consolidation or pneumothorax or pleural fluid. Dictated by: Dictated on workstation # [id number] Dict: 01/20/221653 Trans: 01/20/221707 [id number] Interpreted by: ARCADIO CARPENTER MD Electronically signed by: ARCADIO CARPENTER MD 01/20/22 1708 Departure Communication (Admissions) Time/Spoke to Admitting Phy: 18:[address] Cleaning Impression Primary Impression: Acute kidney injury Additional Impressions: Hypotension Dehydration Diabetes Disposition: ADMITTED INPATIENT Condition: Stable Admissions Decision to Admit Reason: Admit from ER (General) Decision to Admit/Date: Jan 20, 2022 Time/Decision to Admit Time: 18:02 Departure-Patient Inst. Referrals: NO,LOCAL PHYSICIAN (PCP/Family) Primary Care Physician GRAZYNA GOLDMAN MD Jan 20, 2022 16:42
[2022-01-20 16:50] LABS: BASOPHILS % (AUTO) 0 % (0-10); EOSINOPHILS # (AUTO) 0.2 10^3/uL (0.0-0.3); EOSINOPHILS % (AUTO) 2 % (0-10); HEMATOCRIT 32 % (40-54); HEMOGLOBIN 10.5 g/dL (13.3-17.7); LYMPHOCYTES # (AUTO) 3.2 10^3/uL (1.0-4.0); LYMPHOCYTES % (AUTO) 37 % (12-44); MEAN CORPUSCULAR HEMOGLOBIN 32 pg (25-34); MEAN CORPUSCULAR HGB CONC 33 g/dL (32-36); MEAN CORPUSCULAR VOLUME 96 fL (80-99); MEAN PLATELET VOLUME 12.6 fL (9.0-12.2); MONOCYTES # (AUTO) 0.6 10^3/uL (0.0-1.0); MONOCYTES % (AUTO) 6 % (0-12); NEUTROPHILS # (AUTO) 4.7 10^3/uL (1.8-7.8); NEUTROPHILS % (AUTO) 54 % (42-75); PLATELET COUNT 239 10^3/uL (130-400); WHITE BLOOD COUNT 8.7 10^3/uL (4.3-11.0)
[2022-01-20 16:56] LABS: ALBUMIN 2.7 GM/DL (3.2-4.5)
[2022-01-20 16:57] LABS: POTASSIUM 4.2 MMOL/L (3.6-5.0)
--- NOTE | 2022-01-20 16:57 | Diagnostic Imaging Report ---
INDICATION: Weakness and hypotension. Frontal chest obtained at 4:42 p.m. There is no prior study for comparison. FINDINGS: Heart is mildly enlarged. There is elevation of the left hemidiaphragm. There is no focal infiltrate or pneumothorax or pleural fluid. IMPRESSION: Mild cardiomegaly. Elevation of the left hemidiaphragm. No consolidation or pneumothorax or pleural fluid. Dictated by: Dictated on workstation # [id number]
[2022-01-20 16:58] LABS: CALCIUM 8.8 MG/DL (8.5-10.1)
[2022-01-20 16:59] LABS: TOTAL PROTEIN 7.1 GM/DL (6.4-8.2)
[2022-01-20 17:01] LABS: BILIRUBIN,TOTAL 0.2 MG/DL (0.1-1.0)
[2022-01-20 17:03] LABS: CREATININE SERUM 2.69 MG/DL (0.60-1.30)
[2022-01-20] MEDS: NS IV 1000 ML 1,000 ML IV SCH ×3 (17:56→22:02)
[2022-01-20] MEDS ORDERED: FLU QUAD HIGH DOSE 240 MCG/0.7 ML 2022-23 (FLUZONE) IM ONE (19:15)
[2022-01-20] MEDS ORDERED: RT-ALBUTEROL SULF 2.5 MG/3 ML PRE-MIX VIAL INH PRN (19:45)
[2022-01-20] MEDS: inSUlin ASPART (NovoLOG) 1 UNIT/0.01 ML (CHARGE PER UNIT) SC SCH (23:09)
[2022-01-21] VITALS: BP 118/71
[2022-01-21 04:00] VITALS: BP 132/79
[2022-01-21] MEDS: NS IV 1000 ML 1,000 ML IV SCH ×2 (04:41→06:25)
[2022-01-21 06:36] LABS: POTASSIUM 4.4 MMOL/L (3.6-5.0)
[2022-01-21] MEDS: inSUlin ASPART (NovoLOG) 1 UNIT/0.01 ML (CHARGE PER UNIT) SC SCH ×2 (06:36→10:39)
[2022-01-21 06:37] LABS: CALCIUM 8.6 MG/DL (8.5-10.1)
[2022-01-21 06:41] LABS: CREATININE SERUM 2.08 MG/DL (0.60-1.30)
[2022-01-21 07:45] VITALS: BP 137/69
[2022-01-21] MEDS ORDERED: GABAPENTIN 100 MG (NEURONTIN) CAP PO SCH (09:00)
[2022-01-21 10:43] LABS: BILIRUBIN,URINE NEGATIVE (NEGATIVE); CLARITY,URINE CLEAR; COLOR,URINE YELLOW; GLUCOSE, URINE (UA) 3+ (NEGATIVE); KETONES,URINE NEGATIVE (NEGATIVE); LEUKOCYTE ESTERASE ,URINE NEGATIVE (NEGATIVE); NITRITE,URINE NEGATIVE (NEGATIVE); PH,URINE 5.5 (5-9); PROTEIN,URINE NEGATIVE (NEGATIVE)
[2022-01-21] MEDS ORDERED: LISI20TA26 PO (11:09)
[2022-01-21] MEDS ORDERED: INSU100I29 SQ ×2 (11:09→16:32)
[2022-01-21] MEDS ORDERED: FURO40TA4 PO (11:09)
[2022-01-21] MEDS ORDERED: VITA100T8 PO (11:09)
[2022-01-21] MEDS ORDERED: PREG200C28 PO (11:09)
[2022-01-21] MEDS ORDERED: EMPA25TA PO (11:09)
[2022-01-21] MEDS ORDERED: ASCO-262 PO (11:09)
[2022-01-21] MEDS ORDERED: FISH1CAP15 PO (11:09)
[2022-01-21] MEDS ORDERED: TRAM50TA3 PO (11:09)
[2022-01-21] MEDS ORDERED: CHOL20003 PO (11:09)
[2022-01-21] MEDS ORDERED: NAPR220T66 PO (11:09)
[2022-01-21 11:14] LABS: BACTERIA,URINE NEGATIVE /HPF; SQUAMOUS EPITHELIAL CELL,UR RARE /HPF
[2022-01-21 11:59] VITALS: BP 109/76
--- NOTE | 2022-01-21 13:50 | Physical Therapy Evaluation ---
PT Evaluation-General Medical Diagnosis Admission Date Jan 20, 2022 at 18:05 Medical Diagnosis: HAYLEY, Hypotension, Dehydration Onset Date: Jan 20, 2022 Therapy Diagnosis Therapy Diagnosis: General Weakness, Impaired Mobility Precautions Precautions/Isolations: Fall Prevention, Standard Precautions Weight Bear Status Right Lower Extremity: Right Full Weight Bearing Left Lower Extremity: Left Full Weight Bearing Referral Physician: Hermila Reason for Referral: Evaluation/Treatment Medical History Pertinent Medical History: DM, HTN Current History ER secondary due to hypotension and fall with refusal to go to ER Reviewed History: Yes Social History Home: Single Level Current Living Status: Alone Entry Into Home: Stairs With Railing PT Steps Into Home: 3 Prior Prior Level of Function SCALE: Activities may be completed with or without assistive devices. 8-Ilyrlwbnto-dclxeod completes the activity by him/herself with no assistance from a helper. 5-Set-up or Clean-up Assistance-helper sets up or cleans up; patient completes activity. [place] assists only prior to or following the activity. 4-Supervision or Touching Assistance-helper provides verbal cues and/or touching/steadying and/or contact guard assistance as patient completes activity. Assistance may be provided throughout the activity or intermittently. 3-Partial/Moderate Assistance-helper does LESS THAN HALF the effort. [place] lifts, holds or supports trunk or limbs, but provides less than half the effort. 2-Substantial/Maximal Assistance-helper does MORE THAN HALF the effort. [place] lifts or holds trunk or limbs and provides more than half the effort. 0-Qdynnjxvt-fzligu does ALL the effort. Patient does none of the effort to complete the activity. Or, the assistance of 2 or more helpers is required for the patient to complete the activity. If activity was not attempted, code reason: 7-Patient Refused. 9-Not Applicable-not attempted and the patient did not perform the activity before the current illness, exacerbation or injury. 10-Not Attempted due to Environmental Limitations-(lack of equipment, weather restraints, etc.). 88-Not Attempted due to Medical Conditions or Safety Concerns. Bed Mobility: 6 Transfers (B,C,W/C): 6 Gait: 6 Stairs: 6 Indoor Mobility (Ambulation): Independent Stairs: Independent Prior Devices Use: Walker Prior Device Use: Lift Chair PT Evaluation-Current Subjective Patient in recliner pre-tx, reports pain in feet but unable to score, agrees to PT. Pt/Family Goals Return home to independence. Objective Patient Orientation: Person, Place, Situation Attachments: IV ROM/Strength ROM Lower Extremities BLE grossly WFL except diminished hip flexion on L Strength Lower Extremities RLE grossly 4/5, LLE (hip flexion 3/5, knee flexion 3/5, knee extension 3+/5, DF 3+/5) Neuromuscular (Tone, Coordination, Reflexes) Coordination intact Sensory Vision: Wears Glasses Hearing: Functional Sensation Right Lower Extremit: Intact Sensation Left Lower Extremity: Intact Transfers Sit to Stand (QC): 2 Max A from low surface Gait Does the Patient Walk?: Yes Mode of Locomotion: Walk Anticipated Mode of Locomotion: Walk Walk 10 feet (QC): 4 Walk 50 ft with 2 Turns(QC): 4 Walk 150 ft (QC): 4 Distance: 150' Gait Assistive Device: FWW Comments/Gait Description SBA with ambulation, takes a little time to get going. Balance Sitting Static: Normal Sitting Dynamic: Normal Standing Static: Fair Standing Dynamic: Fair Treatment Ambulation, LE Strengthening (AP x10, LAQ x10, Marching x10) Assessment/Needs Patient in recliner post-tx with nurse call, phone, tray, all needs met. Patient needed Max A hsq-jq-wavfs with low recliner and had 2 episodes of LOB but self corrected. Suggested that patient have some form of physical therapy when patient is released home due to weakness and impaired balance. Rehab Potential: Fair PT Shelter Goals Application Support Analyst Goals PT Shelter Goals Time Frame: Jan 30, 2022 Roll Left & Right (QC): 6 Sit to Lying (QC): 6 Lying-Sitting on Side/Bed(QC): 6 Sit to Stand (QC): 6 Chair/Pvx-jq-Vibst Xfer(QC): 6 Toilet Transfer (QC): 6 Does the Patient Walk: Yes Walk 10 feet (QC): 6 Walk 50ft with 2 Turns (QC): 6 Walk 150 ft (QC): 6 PT Plan Problem List Problem List: Activity Tolerance, Functional Strength, Safety, Balance, Gait, Transfer, Bed Mobility, ROM Treatment/Plan Treatment Plan: Continue Plan of Care Treatment Plan: Bed Mobility, Education, Functional Activity Darcie, Functional Strength, Gait, Safety, Therapeutic Exercise, Transfers Treatment Duration: Jan 30, 2022 Frequency: 6 times per week Estimated Hrs Per Day: .25 hour per day Safety Risks/Education Patient Education: Gait Training, Correct Positioning, Safety Issues Teaching Recipient: Patient Teaching Methods: Demonstration, Discussion Response to Teaching: Reinforcement Needed Discharge Recommendations Therapy Discharge Recommendati: Home & Family, Post Acute PT Time Time In: 1255 Time Out: 1318 DATE: Jan 21, 2022 Total Billed Treatment Time: 23 Total Billed Treatment 1 visit EVM 10min FA 13min MIRZA LI PT Jan 21, 2022 13:50
--- NOTE | 2022-01-21 14:15 | Occupational Therapy Eval ---
OT Evaluation-General/PLF Medical Diagnosis Admission Date Jan 20, 2022 at 18:05 Medical Diagnosis: HAYLEY, Hypotension, Dehydration Onset Date: Jan 20, 2022 Therapy Diagnosis Therapy Diagnosis: reduced adl status Precautions Precautions/Isolations: Fall Prevention, Standard Precautions Referral Physician: Hermila Referral Reason: Evaluation/Treatment Medical History Pertinent Medical History: DM, HTN, Neuropathy Current History Pt presented to hospital with hypertension, c/o multiple falls, and weakne ss/fatigue. Per chart, pt had a recent fall where he could not get back up and stayed on the floor for over 24 hours. Pt reports living alone in a single story home. He states that he has been independent with adls however with "difficulty." "I probably could do them better than what I have been." Pt states that he uses a walker but wants to "throw it in the river." Pt verbalizes that his 2 children are supportive but live too far away to really help (RICHARDSON and Joseline, [place]). He verbalizes that he hasn't had much of an appetite and does not clarify how IADLs get completed around the home. Pt does have some insight that he will probably need to move into an assisted living but does not want to go to any rehab facility. Social History Home: Single Level Current Living Status: Alone Entry Into Home: Stairs With Railing Steps Into Home: 3 ADL-Prior Level of Function SCALE: Activities may be completed with or without assistive devices. 9-Dpdnablkby-vspmpkb completes the activity by him/herself with no assistance f rom a helper. 5-Set-up or Clean-up Assistance-helper sets up or cleans up; patient completes activity. [place] assists only prior to or following the activity. 4-Supervision or Touching Assistance-helper provides verbal cues and/or touching/steadying and/or contact guard assistance as patient completes activity. Assistance may be provided throughout the activity or intermittently. 3-Partial/Moderate Assistance-helper does LESS THAN HALF the effort. [place] lifts, holds or supports trunk or limbs, but provides less than half the effort. 2-Substantial/Maximal Assistance-helper does MORE THAN HALF the effort. [place] lifts or holds trunk or limbs and provides more than half the effort. 8-[place] does ALL the effort. Patient does none of the effort to complete the activity. Or, the assistance of 2 or more helpers is required for the patient to complete the activity. If activity was not attempted, code reason: 7-Patient Refused. 9-Not Applicable-not attempted and the patient did not perform the activity before the current illness, exacerbation or injury. 10-Not Attempted due to Environmental Limitations-(lack of equipment, weather restraints, etc.). 88-Not Attempted due to Medical Conditions or Safety Concerns. Self Care: Independent Functional Cognition: Unknown DME/Equipment: Bath Chair, Grab Bars, Tub/Shower OT Current Status Subjective Pt reports 8/10 pain in bilateral toes, L knee, and headache. Appearance Pt returned to sitting in chair, all needs within reach at OT departure. Mental Status/Objective Patient Orientation: Person, Place Attachments: IV, Telemetry Current Glasses/Contacts: Yes Hand Dominance: Right Upper Extremity ROM R shoulder AROM: ~70 degrees, ~110 degrees AAROM L shoulder AROM: ~130 degrees, ~180 degrees AAROM Upper Extremity Strength 3/5 grossly Poor cd storage and materials make up helper strength ADL-Treatment Lower Body Dressing (QC): 1 (per clinical judgment) On/Off Footwear (QC): 1 Pt sitting in recliner at OT arrival. BUE tremors notable. Pt reports he "sometimes" has difficulty eating secondary to weakness, tremors, and poor sensation in hands. He states that he often will "drop" utensils during meals. Pt unable to reach bilateral feet, thus is dependent to don socks. Max a to stand from low recliner, CGA once standing. He reports he uses a lift chair at home and will even sleep in it. At this time, pt likely max a for LB dressing due to poor flexibility and inability to reach feet. Anticipate at least steadying assist needed to manage clothing over waist. Education OT Patient Education: Correct positioning, Modified ADL techniques, Progress toward Goal/Update tx plan, Purpose of tx/functional activities, Rehab process, Safety issues, Transfer techniques Teaching Recipient: Patient Teaching Methods: Demonstration, Discussion Response to Teaching: Verbalize Understanding, Return Demonstration, Reinforcement Needed OT Prison Goals Die Cutter Apprentice Goals Time Frame: Feb 04, 2022 Eating (QC): 5 Oral Hygiene (QC): 5 Toileting Hygiene (QC): 4 Shower/Bathe Self (QC): 4 Upper Body Dressing (QC): 4 Lower Body Dressing (QC): 4 On/Off Footwear (QC): 4 1=Demonstrate adherence to instructed precautions during ADL tasks. 2=Patient will verbalize/demonstrate understanding of assistive devices/modifications for ADL. 3=Patient will improve strength/tolerance for activity to enable patient to perform ADL's. OT Education/Plan Problem List/Assessment Assessment: Decreased Activ Tolerance, Decreased Safety Aware, Decreased UE Strength, Impaired Cognition, Impaired Funct Balance, Impaired I ADL's, Impaired Self-Care Skills, Restricted Funct UE ROM Discharge Recommendations Plan/Recommendations: Continue POC Therapy Discharge Recommendati: Assisted Living, Post Acute OT Treatment Plan/Plan of Care Treatment,Training & Education: Yes Patient would benefit from OT for education, treatment and training to promote independence in ADL's, mobility, safety and/or upper extremity function for ADL's. Plan of Care: ADL Retraining, Cognitive Retraining, Functional Mobility, Group Exercise/Act as Ind, UE Funct Exercise/Act Treatment Duration: Feb 04, 2022 Frequency: 3 times per week (3-5x/week) Estimated Hrs Per Day: .25 hour per day Agreement: Yes Rehab Potential: Good Time Start Time: 13:40 Stop Time: 13:55 DATE: Jan 21, 2022 Total Time Billed (hr/min): 15 Billed Treatment Time 1 visit Evelin Carrion OT Jan 21, 2022 14:15
[2022-01-21] MEDS ORDERED: ACETAMINOPHEN 500 MG TAB (TYLENOL) PO NR (15:30)
--- NOTE | 2022-01-21 16:35 | Discharge Summary ---
Discharge Summary Reconcile Patient Problems Problems Reviewed?: Yes Instructions for Patient Via [facility], Assessment/Instructions Take medications as prescribed. Stop Lisinopril. Decrease your insulin to 20 units daily. Follow up with your PCP in a week or two. You are being set up with home health. Return with worsening weakness, shortness of breath, or if you feel like you are getting worse. Physician to follow Patient: SD Hospital Course Date of Admission: Jan 20, 2022 at 18:05 Admission Diagnosis : Family Physician/Provider: No,Local Physician Date of Discharge: 01/21/22 Discharge Diagnosis: [ ] Hospital Course: [ ] Labs and Pending Lab Test: Laboratory Tests 01/20/22 16:45: White Blood Count 8.7, Red Blood Count 3.33L, Hemoglobin 10.5L, Hematocrit 32L, Mean Corpuscular Volume 96, Mean Corpuscular Hemoglobin 32, Mean Corpuscular Hemoglobin Concent 33, Red Cell Distribution Width 13.8, Platelet Count 239, Roxane n Platelet Volume 12.6H, Immature Granulocyte % (Auto) 0, Neutrophils (%) (Auto) 54, Lymphocytes (%) (Auto) 37, Monocytes (%) (Auto) 6, Eosinophils (%) (Auto) 2, Basophils (%) (Auto) 0, Neutrophils # (Auto) 4.7, Lymphocytes # (Auto) 3.2, Monocytes # (Auto) 0.6, Eosinophils # (Auto) 0.2, Basophils # (Auto) 0.0, Immature Granulocyte # (Auto) 0.0, Sodium Level 140, Potassium Level 4.2, Chloride Level 107, Carbon Dioxide Level 23, Anion Gap 10, Blood Urea Nitrogen 65H, Creatinine 2.69H, Estimat Glomerular Filtration Rate 24, BUN/Creatinine Ratio 24, Glucose Level 65L, Calcium Level 8.8, Corrected Calcium 9.8, Total Bilirubin 0.2, Aspartate Amino Transf (AST/SGOT) 14, Alanine Aminotransferase (ALT/SGPT) 17, Alkaline Phosphatase 57, Total Protein 7.1, Albumin 2.7L 01/20/22 21:08: Glucometer 65L 01/21/22 06:00: Sodium Level 139, Potassium Level 4.4, Chloride Level 111H, Carbon Dioxide Level 18L, Anion Gap 10, Blood Urea Nitrogen 55H, Creatinine 2.08H, Estimat Glomerular Filtration Rate 33, BUN/Creatinine Ratio 26, Glucose Level 77, Calcium Level 8.6 01/21/22 06:07: Glucometer 80 01/21/22 10:32: Urine Color YELLOW, Urine Clarity CLEAR, Urine pH 5.5, Urine Specific [place] 1.010L, Urine Protein NEGATIVE, Urine Glucose (UA) 3+H, Urine Ketones NEGATIVE, Urine Nitrite NEGATIVE, Urine Bilirubin NEGATIVE, Urine Urobilinogen 0.2, Urine Leukocyte Esterase NEGATIVE, Urine RBC (Auto) NEGATIVE, Urine RBC NONE, Urine WBC NONE, Urine Squamous Epithelial Cells RARE, Urine Crystals NONE, Urine Bacteria NEGATIVE, Urine Casts NONE, Urine Mucus NEGATIVE, Urine Culture Indicated NO 01/21/22 10:34: Glucometer 143H Home Meds Active Reported Aleve (Naproxen Sodium) 220 Mg Tablet 220-440 Mg PO BID PRN Vitamin D3 (Cholecalciferol (Vitamin D3)) 50 Mcg (2000 Unit) Capsule 50 Mcg PO 1200 Fish Oil 1,200 mg Fish Oil (Fish Oil/Dha/Epa) 1,200 Mg-144 Mg-216 Mg Capsule 1 Each PO 1200 Vitamin E (Vitamin E Mixed) 100 Unit Tablet 100 Unit PO 1200 Vitamin C (Ascorbate Calcium) 500 Mg Tablet 500 Mg PO 1200 Tramadol HCl 50 Mg Tablet 50-100 Mg PO HS PRN Pregabalin 200 Mg Capsule 200 Mg PO TID Furosemide 40 Mg Tablet 40 Mg PO DAILY Jardiance (Empagliflozin) 25 Mg Tablet 12.5 Mg PO DAILY TAKES OF A 25MG TAB Levemir Flextouch (Insulin Detemir) 100 Unit/Ml (3 Ml) Insuln.pen 40 Unit SQ HS Lisinopril 20 Mg Tablet 10 Mg PO DAILY TAKES OF A 20MG TAB Multivitamin 1 Each Tablet 1 Each PO 1200 Atorvastatin Calcium 80 Mg Tablet 40 Mg PO HS TAKES OF AN 80MG TAB Zolpidem Tartrate 5 Mg Tablet 5 Mg PO HS PRN Lisinopril 20 Mg Tablet 20 Mg PO HS Allopurinol 300 Mg Tablet 300 Mg PO DAILY Metoprolol Succinate 100 Mg Tab.er.24h 50 Mg PO BID TAKES OF A 100MG TAB Metformin HCl 1,000 Mg Tablet 1,000 Mg PO BID Patient Allergies: Coded Allergies: No Known Drug Allergies (Unverified , 03/04/21) Home Health Need/Face to Face Date of Face to Face: Jan 21, 2022 Clinical Findings: Generalized weakness and fatigue, Instability, Muscle weakness, Unsteady gait I have seen Pt [id number]: Yes Discharged To: Home Diagnosis/Conditions: HTN T2DM Neuropathy Debility CKD Problems/Diagnosis/Condition: (1) Acute kidney injury superimposed on chronic kidney disease (2) Debility (3) Hypotension (4) Diabetes (5) Neuropathic pain Patient is Homebound due to: Matt fall risk due to instabilty, Muscle weakness Homebound Status Due to the above stated illness, injury or surgical procedure (medical condition or diagnosis) and associated clinical findings, the patient is homebound because of his/her inability to leave home except with aid of a suppo rtive device and/or person AND leaving the home requires a considerable and taxing effort or is medically contraindicated. Pt req the following assistanc: Aid of another person Home Health Nursing Orders Home Health Services Order: Nursing Services, Materials Development Engineer-Evaluate & Treat, Physical Therapy-Evaluate & Treat Home Health Infusion Therapy Line Start Date: Jan 20, 2022 Therapy Orders Therapy Orders: OT (must have SN or PT order), Physical Therapy Therapy Specific Orders: Eval assistive deivces, Teach enviro modifications/safety, Gait training, Increase strength/endurance Certify Stmt I certify that this patient is under my care and that I, a nurse practitioner or a physician; a assistant case manager working with me, had a face to face encounter that - meets the physician face to face encounter requirements with this patient as dated. Discharge Physical Exam General: Alert, Oriented X3, Cooperative, No Acute Distress HEENT: Atraumatic, EOMI, Mucous Memb Moist/[place] Lungs: Clear to Auscultation, Normal Air Movement Heart: Regular Rate, No Murmurs Abdomen: Normal Bowel Sounds, Soft, No Tenderness Extremities: No Tenderness/Swelling, Other (pedal edema) Skin: No Rashes, No Significant Lesion Neuro: Normal Speech, Normal Tone Psych/Mental Status: Mental Status NL, Mood NL ALIS ANDERSON MD Jan 21, 2022 16:35
[2022-01-21 17:18] VITALS: BP 124/83
== END 2022-01-21 16:31 | disposition home health service (06) ==
LOC: EDUNIT# 16:20 → ER 16:21 → UNDOADMOB 18:05 → CSD 18:05 → UNDODISOB 01-21 16:31
PROVIDERS: ADMIT Internal Medicine; ATTEND Internal Medicine
DX: N17.9 Acute kidney failure, unspecified (principal); I95.9 Hypotension, unspecified; E11.9 Type 2 diabetes mellitus without complications; M79.2 Neuralgia and neuritis, unspecified; Z79.899 Other long term (current) drug therapy; Z79.84 Long term (current) use of oral hypoglycemic drugs
CPT/HCPCS: 36415; 71045; 80048; 80053; 81000; 82947; 85025; 93005; 94760; 96361

== ENCOUNTER 2022-01-26 12:11 | Observation (INO) | payer OTHER, MEDICARE ==
[~2022-01-26] VITALS: Ht 170.2 cm; Wt 89.0 kg
[~2022-01-26 12:11] MED LIST changes: +ASCO-262 PO; +CHOL20003 PO; +EMPA25TA PO; +FISH1CAP15 PO; +FURO40TA4 PO; +INSU100I29 SQ; +NAPR220T66 PO; +PREG200C28 PO; +TRAM50TA3 PO; +VITA100T8 PO
[2022-01-26 13:01] LABS: BILIRUBIN,URINE NEGATIVE (NEGATIVE); CLARITY,URINE CLEAR; COLOR,URINE YELLOW; GLUCOSE, URINE (UA) 3+ (NEGATIVE); KETONES,URINE NEGATIVE (NEGATIVE); LEUKOCYTE ESTERASE ,URINE NEGATIVE (NEGATIVE); NITRITE,URINE NEGATIVE (NEGATIVE); PH,URINE 5.5 (5-9); PROTEIN,URINE 1+ (NEGATIVE)
--- NOTE | 2022-01-26 13:19 | ED General ---
General Chief Complaint: General Problems/Pain Stated Complaint: WEAKNESS Nursing Triage Note: PT TO ED BY EMS WITH C/O WEAKNESS. EMS REPORTS PHYSICAL THERAPY WAS LEAVING UPON THEIR ARRIVAL, BUT THEY DID NOT CALL EMS. PT REPORTS HE HAS BEEN WEAK X 3 WEAKS. HAS NO OTHER COMPLAINTS AT THIS TIME. PT STATES "I DON'T WANT AN IV" AND "I DON'T WANT TO BE HERE." Source of Information: Patient Exam Limitations: No Limitations (FLO CASTLE APRN) History of Present Illness Date Seen by Provider: Jan 26, 2022 Time Seen by Provider: 12:30 Initial Comments Patient is a 76-year-old male who presents to the emergency department via EMS for evaluation of persistent/worsening weakness. Patient was admitted to this facility on 01/20 and was discharged on 01/21 with plan for home PT/OT. He reports that his home PT was working with him and recommended he call EMS to present to the emergency department for further evaluation as he felt he needed more help than he could provide in the home setting. Patient states he has a lift chair that he is able to get out of with no assistance but he states he sat on the couch and was unable to get up until his physical therapist came today and helped him. Patient currently lives by himself. His son and daughter both live relatively far away. He denies any other acute complaints. He states he does have generalized pain that is not necessarily new. He has not been able to follow-up with his PCP since discharge from the hospital. States he last saw his PCP approximately 2 weeks ago. States he has been taking his medicines as instructed upon discharge from hospital. States the majority of his pain is in his bilateral knees and lower extremities. Denies any new chest pain, shortness of air, or any focal weakness. (FLO CASTLE APRN) Allergies and Home Medications Allergies Coded Allergies: No Known Drug Allergies (Unverified , 03/04/21) Patient Home Medication List Home Medication List Reviewed: Yes (FLO CASTLE APRN) Home Medication List Reviewed: Yes (GRAZYNA GOLDMAN MD) Allopurinol (Allopurinol) 300 Mg Tablet, 300 MG PO DAILY, (Reported) Entered as Reported by: FRANKLIN GARCIA on 05/08/21 1302 Last Action: Continued Ascorbate Calcium (Vitamin C) 500 Mg Tablet, 500 MG PO 1200, (Reported) Entered as Reported by: ES STUART on 01/21/221108 Last Action: Held Atorvastatin Calcium (Atorvastatin Calcium) 80 Mg Tablet, 40 MG PO HS, (Reported) Entered as Reported by: FRANKLIN GARCIA on 05/08/211301 Last Action: Continued Cholecalciferol (Vitamin D3) (Vitamin D3) 50 Mcg (2000 Unit) Capsule, 50 MCG PO 1200, (Reported) Entered as Reported by: ES STUART on 01/21/221108 Last Action: Held Empagliflozin (Jardiance) 25 Mg Tablet, 12.5 MG PO DAILY, (Reported) Entered as Reported by: ES STUART on 01/21/221108 Last Action: Held Fish Oil/Dha/Epa (Fish Oil 1,200 mg Fish Oil) 1,200 Mg-144 Mg-216 Mg Capsule, 1 EACH PO 1200, (Reported) Entered as Reported by: ES STUART on 01/21/221108 Last Action: Held Furosemide (Furosemide) 40 Mg Tablet, 40 MG PO DAILY, (Reported) Entered as Reported by: ES STUART on 01/21/221108 Last Action: Held Insulin Detemir (Levemir Flextouch) 100 Unit/Ml (3 Ml) Insuln.pen, 20 UNIT SQ HS Prescribed by: ALIS ANDERSON on 01/21/221631 Last Action: Held Metformin HCl (Metformin HCl) 1,000 Mg Tablet, 1,000 MG PO BID, (Reported) Entered as Reported by: FRANKLIN GARCIA on 05/08/211301 Last Action: Held Metoprolol Succinate (Metoprolol Succinate) 100 Mg Tab.er.24h, 50 MG PO BID, (Reported) Entered as Reported by: FRANKLIN GARCIA on 05/08/211301 Last Action: Continued Multivitamin (Multivitamin) 1 Each Tablet, 1 EACH PO 1200, (Reported) Entered as Reported by: FRANKLIN GARCIA on 05/08/211301 Last Action: Held Naproxen Sodium (Aleve) 220 Mg Tablet, 220-440 MG PO BID PRN for PAIN-MILD (1- 4), (Reported) Entered as Reported by: ES STUART on 01/21/221108 Last Action: Held Pregabalin (Pregabalin) 200 Mg Capsule, 200 MG PO TID, (Reported) Entered as Reported by: ES STUART on 01/21/221108 Last Action: Held Tramadol HCl (Tramadol HCl) 50 Mg Tablet, 50-100 MG PO HS PRN for PAIN-MODERATE (5-7), (Reported) Entered as Reported by: ES STUART on 01/21/221108 Last Action: Held Vitamin E Mixed (Vitamin E) 100 Unit Tablet, 100 UNIT PO 1200, (Reported) Entered as Reported by: ES STUART on 01/21/221108 Last Action: Held Zolpidem Tartrate (Zolpidem Tartrate) 5 Mg Tablet, 5 MG PO HS PRN for SLEEP, (Reported) Entered as Reported by: FRANKLIN GARCIA on 05/08/21 1302 Last Action: Continued Review of Systems Review of Systems Constitutional: see HPI, weakness EENTM: no symptoms reported Respiratory: no symptoms reported Cardiovascular: no symptoms reported Gastrointestinal: no symptoms reported Genitourinary: no symptoms reported Musculoskeletal: see HPI, joint pain Skin: no symptoms reported Psychiatric/Neurological: Weakness (FLO CASTLE APRN) Past Avnafvp-Jywlev-Asfqfp Hx Patient Social History Tobacco Use?: No Use of E-Cig and/or Vaping dev: No Substance use?: No Alcohol Use?: No Pt feels they are or have been: No (FOL CASTLE APRN) Immunizations Up To Date Influenza Vaccine Up-to-Date: No; Not Current First/Initial COVID19 Vaccinat: RECEIVED, UNK WHEN Second COVID19 Vaccination Brandon: RECEIVED, UNK WHEN Third COVID19 Vaccination Date: RECEIVED, UNK WHEN (FLO CASTLE CLINICAL DOCUMENTATION MANAGER) Past Medical History Surgery/Hospitalization HX: PMH: DM 2, HTN, NEUROPATHY PSH: LENS REPLACED IN BILATERAL EYES, (FLO CASTLE APRN) Physical Exam Vital Signs Vital Signs - First Documented 01/26/22 12:13 Temp 36.3 Pulse 100 Resp 17 B/P (MAP) 138/81 (100) Pulse Ox 96 O2 Delivery Room Air (GRAZYNA GOLDMAN MD) Vital Signs Capillary Refill : Less Than 3 Seconds (FLO CASTLE APRN) Height, Weight, BMI Height: '" Weight: lbs. oz. kg; 34.00 BMI Method: General Appearance: No Apparent Distress, WD/WN HEENT: PERRL/EOMI, Normal ENT Inspection, Pharynx Normal Neck: Full Range of Motion, Normal Inspection, Non Tender, Supple Respiratory: Chest Non Tender, Lungs Clear, Normal Breath Sounds, No Accessory Muscle Use, No Respiratory Distress Cardiovascular: Regular Rate, Rhythm Gastrointestinal: Normal Bowel Sounds, No Pulsatile Mass, Non Tender, Soft Back: Normal Inspection, No Vertebral Tenderness Extremity: Normal Capillary Refill, Normal Inspection, Normal Range of Motion Neurologic/Psychiatric: Alert, Oriented x3, No Motor/Sensory Deficits, Normal Mood/Affect Skin: Normal Color, Warm/Dry (FLO CASTLE CLINICAL DOCUMENTATION MANAGER) Progress/Results/Core Measures Suspected Sepsis SIRS Temperature: Pulse: 100 Respiratory Rate: 17 Laboratory Tests 01/26/22 13:18: White Blood Count 10.0 Blood Pressure 138 /81 Mean: 100 Laboratory Tests 01/26/22 13:18: Creatinine 1.68H, Platelet Count 245, Total Bilirubin 0.6 (FLO CASTLE CLINICAL DOCUMENTATION MANAGER) Results/Orders Lab Results Laboratory Tests Test 01/26/22 05:15 01/26/22 12:51 01/26/22 13:18 Range/Units Lyme Disease Screen IgG & IgM Ab 0.04 0.00-0.89 Index Lyme Antibody Interpretation Negative Negative Ehrlichia chaffeensis IgG Antibody <1:16 <1:16 Ehrlichia chaffeensis IgM Antibody <1:10 <1:10 Spotted Fever Group IgG Antibody <1:16 <1:16 Spotted Fever Group IgM Antibody <1:10 <1:10 Urine Color YELLOW Urine Clarity CLEAR Urine pH 5.5 5-9 Urine Specific [place] 1.015 L 1.016-1.022 Urine Protein 1+ H NEGATIVE Urine Glucose (UA) 3+ H NEGATIVE Urine Ketones NEGATIVE NEGATIVE Urine Nitrite NEGATIVE NEGATIVE Urine Bilirubin NEGATIVE NEGATIVE Urine Urobilinogen 1.0 < = 1.0 MG/DL Urine Leukocyte Esterase NEGATIVE NEGATIVE Urine RBC (Auto) NEGATIVE NEGATIVE Urine RBC RARE /HPF Urine WBC NONE /HPF Urine Squamous Epithelial Cells 0-2 /HPF Urine Crystals NONE /LPF Urine Bacteria NEGATIVE /HPF Urine Casts NONE /LPF Urine Mucus NEGATIVE /LPF Urine Culture Indicated NO White Blood Count 10.0 4.3-11.0 10^3/uL Red Blood Count 3.12 L 4.30-5.52 10^6/uL Hemoglobin 10.1 L 13.3-17.7 g/dL Hematocrit 29 L 40-54 % Mean Corpuscular Volume 94 80-99 fL Mean Corpuscular Hemoglobin 32 25-34 pg Mean Corpuscular Hemoglobin Concent 34 32-36 g/dL Red Cell Distribution Width 14.1 10.0-14.5 % Platelet Count 245 130-400 10^3/uL Mean Platelet Volume 11.8 9.0-12.2 fL Immature Granulocyte % (Auto) 0 % Neutrophils (%) (Auto) 71 42-75 % Lymphocytes (%) (Auto) 23 12-44 % Monocytes (%) (Auto) 6 0-12 % Eosinophils (%) (Auto) 0 0-10 % Basophils (%) (Auto) 0 0-10 % Neutrophils # (Auto) 7.1 1.8-7.8 10^3/uL Lymphocytes # (Auto) 2.3 1.0-4.0 10^3/uL Monocytes # (Auto) 0.6 0.0-1.0 10^3/uL Eosinophils # (Auto) 0.0 0.0-0.3 10^3/uL Basophils # (Auto) 0.0 0.0-0.1 10^3/uL Immature Granulocyte # (Auto) 0.0 0.0-0.1 10^3/uL Sodium Level 138 135-145 MMOL/L Potassium Level 3.9 3.6-5.0 MMOL/L Chloride Level 105 98-107 MMOL/L Carbon Dioxide Level 21 21-32 MMOL/L Anion Gap 12 5-14 MMOL/L Blood Urea Nitrogen 28 H 7-18 MG/DL Creatinine 1.68 H 0.60-1.30 MG/DL Estimat Glomerular Filtration Rate 42 BUN/Creatinine Ratio 17 Glucose Level 206 H 70-105 MG/DL Calcium Level 9.7 8.5-10.1 MG/DL Corrected Calcium 10.7 H 8.5-10.1 MG/DL Total Bilirubin 0.6 0.1-1.0 MG/DL Aspartate Amino Transf (AST/SGOT) 8 5-34 U/L Alanine Aminotransferase (ALT/SGPT) 10 0-55 U/L Alkaline Phosphatase 46 40-136 U/L B-Type Natriuretic Peptide 294.9 H <100.0 PG/ML Total Protein 7.3 6.4-8.2 GM/DL Albumin 2.8 L 3.2-4.5 GM/DL (GRAZYNA GOLDMAN MD) Vital Signs/I&O 01/26/22 12:13 Temp 36.3 Pulse 100 Resp 17 B/P (MAP) 138/81 (100) Pulse Ox 96 O2 Delivery Room Air (GRAZYNA GOLDMAN MD) Vital Signs/I&O Capillary Refill : Less Than 3 Seconds (FLO CASTLE APRN) Blood Pressure Mean: 100 Progress Note : Progress Note Patient is nontoxic and well-hydrated on exam. Vital signs are reassuring other than some very mild intermittent tachycardia in the low 100s. Patient is awake alert and oriented and answers all questions appropriately. EMS state patient was stable in route. Patient denies any chest pain or shortness of breath. Laboratory evaluation largely unremarkable other than some chronic changes that are actually improved from his last admission. Chest x-ray is largely reassuring with no acute findings. Will admit for further evaluation and possible inpatient rehab admission if patient qualifies due to his persistently worsening weakness and debility. Hospitalist kindly agreed to the admission. Patient was updated on plan of care and understanding verbalized. (FLO CASTLE APRN) ECG EKG : EKG Time: 12:51 Rate: 95 Rhythm: Normal Sinus Intervals: Normal Comment Polymorphic PVCs noted; slightly widened QRS noted; nonspecific ST changes without any overt evidence of ischemic change (FLO CASTLE APRN) Departure Impression Primary Impression: Generalized weakness Additional Impression: Debility Disposition: ADMITTED INPATIENT Condition: Stable Admissions Decision to Admit/Date: Jan 26, 2022 Time/Decision to Admit Time: 14:30 (FLO CASTLE APRN) Departure-Patient Inst. Referrals: NO,LOCAL PHYSICIAN (PCP/Family) Primary Care Physician FLO CASTLE APRN Jan 26, 2022 13:19 GRAZYNA GOLDMAN MD Jan 29, 2022 06:45
--- NOTE | 2022-01-26 13:20 | Diagnostic Imaging Report ---
INDICATION: Increased debility, weakness. COMPARISON: 01/20/2022. TECHNIQUE: Single radiograph of the chest dated 01/26/2022. FINDINGS: The cardiac silhouette is borderline enlarged, stable from prior examination. Mild central pulmonary vascular congestion. Stable chronic elevation left hemidiaphragm. The lungs are clear focal pulmonary opacity. No significant pleural effusion. No pneumothorax. No acute osseous abnormality. IMPRESSION: Mild central pulmonary vascular congestion, slightly increased since the prior examination. There is, however no significant interstitial edema or pleural effusion. Stable chronic elevation left hemidiaphragm. Dictated by: Dictated on workstation # [id number]
[2022-01-26 13:21] LABS: BACTERIA,URINE NEGATIVE /HPF; RBC,URINE RARE /HPF; SQUAMOUS EPITHELIAL CELL,UR 0-2 /HPF
[2022-01-26 13:26] LABS: BASOPHILS % (AUTO) 0 % (0-10); EOSINOPHILS % (AUTO) 0 % (0-10); HEMATOCRIT 29 % (40-54); HEMOGLOBIN 10.1 g/dL (13.3-17.7); LYMPHOCYTES # (AUTO) 2.3 10^3/uL (1.0-4.0); LYMPHOCYTES % (AUTO) 23 % (12-44); MEAN CORPUSCULAR HEMOGLOBIN 32 pg (25-34); MEAN CORPUSCULAR HGB CONC 34 g/dL (32-36); MEAN CORPUSCULAR VOLUME 94 fL (80-99); MEAN PLATELET VOLUME 11.8 fL (9.0-12.2); MONOCYTES # (AUTO) 0.6 10^3/uL (0.0-1.0); MONOCYTES % (AUTO) 6 % (0-12); NEUTROPHILS # (AUTO) 7.1 10^3/uL (1.8-7.8); NEUTROPHILS % (AUTO) 71 % (42-75); PLATELET COUNT 245 10^3/uL (130-400)
[2022-01-26 13:47] LABS: ALBUMIN 2.8 GM/DL (3.2-4.5); POTASSIUM 3.9 MMOL/L (3.6-5.0)
[2022-01-26 13:48] LABS: CALCIUM 9.7 MG/DL (8.5-10.1)
[2022-01-26 13:50] LABS: TOTAL PROTEIN 7.3 GM/DL (6.4-8.2)
[2022-01-26 13:52] LABS: BILIRUBIN,TOTAL 0.6 MG/DL (0.1-1.0)
[2022-01-26 13:53] LABS: CREATININE SERUM 1.68 MG/DL (0.60-1.30)
--- NOTE | 2022-01-26 14:43 | History & Physical-Hospitalist ---
History of Present Illness HPI/Chief Complaint Pt is a 76yoCm with a PMH of neuropathy and recent admission for weakness and HAYLEY who presented to the ER due to weakness. He was sent home last week with home health and his PT saw him today and felt that he was too weak to remain at home. Patient states he has fallen multiple times and has had to call the fire department to come to his house to help him up. Last time he was ont he ground for over 24 hours and dehydrated on arrival. He states preceding this he had a URI illness with muscles aches, cough, and even some neck stiffness. He denies any headache or fever with it though. He was not tested for COVID or Flu at the time. He denies any recent known tick exposure or being outdoors much. He does have some pets that are in and out of the house though. Source: patient Date Seen 01/26/22 Time Seen by a Provider: 15:45 Attending Physician No,Local Physician PCP Admitting Physician: Attending Physician: Referring Physician Date of Admission Home Medications & Allergies Home Medications Reviewed patient Home Medication Reconciliation performed by pharmacy medication reconciliations military administrative technician and/or nursing. Patients Allergies have been reviewed. Allergies Allergies Coded Allergies No Known Drug Allergies (Xlyeywryre28/22/21) Past Nsittvw-Ycxgfd-Fegnld Hx Patient Social History Employed/Student: retired Tobacco Use?: No Use of E-Cig and/or Vaping dev: No Substance use?: No Alcohol Use?: No Pt feels they are or have been: No Immunizations Up To Date First/Initial COVID19 Vaccinat: RECEIVED, UNK WHEN Second COVID19 Vaccination Brandon: RECEIVED, UNK WHEN Tetanus Booster (TDap): Less Than 5 Years Current Status Advance Directives: No Communicates: Verbally Primary Language: Macedonian Preferred Spoken Language: Macedonian Is interpretation needed?: No Sensory deficits: Vision impairment Past Medical History Neuropathy Renal Failure (CKD3) Family Medical History Reviewed Nursing Family Hx No Pertinent Family Hx Review of Systems Constitutional: malaise, weakness EENTM: no symptoms reported Respiratory: no symptoms reported Cardiovascular: no symptoms reported Gastrointestinal: no symptoms reported Genitourinary: no symptoms reported Musculoskeletal: joint pain, muscle pain Psychiatric/Neurological: No Symptoms Reported Physical Exam Physical Exam Vital Signs Vital Signs - First Documented 01/26/22 01/29/22 12:13 16:05 Temp 36.3 Pulse 100 Resp 17 B/P (MAP) 138/81 (100) Pulse Ox 96 O2 Delivery Room Air O2 Flow Rate 10.00 Capillary Refill : Less Than 3 Seconds Height, Weight, BMI Height: '" Weight: lbs. oz. kg; 34.00 BMI Method: General Appearance: No Apparent Distress, WD/WN HEENT: PERRL/EOMI, Moist Mucous Membranes; No Scleral Icterus (L), No Scleral Icterus (R) Neck: Normal Inspection, Supple Respiratory: Lungs Clear, No Accessory Muscle Use, No Respiratory Distress Cardiovascular: Regular Rate, Rhythm, No JVD, No Murmur Gastrointestinal: Normal Bowel Sounds, Non Tender, Soft Extremity: Normal Capillary Refill, No Calf Tenderness, No Pedal Edema Neurologic/Psychiatric: Alert, Oriented x3, Normal Mood/Affect Skin: Normal Color, Warm/Dry Results Results/Procedures Labs Patient resulted labs reviewed. Imaging: Reviewed Imaging Report Imaging [facility] [place], [place] NAME: PETER ORTEGA [facility] REC#: [id number] PT STATUS: REG ER : 1945 PHYSICIAN: FLO CASTLE APRN ADMIT DATE: 01/26/22/ER Signed Date of Exam:01/26/22 CHEST 1 VIEW, AP/PA ONLY INDICATION: Increased debility, weakness. COMPARISON: 01/20/2022. TECHNIQUE: Single radiograph of the chest dated 01/26/2022. FINDINGS: The cardiac silhouette is borderline enlarged, stable from prior examination. Mild central pulmonary vascular congestion. Stable chronic elevation left hemidiaphragm. The lungs are clear focal pulmonary opacity. No significant pleural effusion. No pneumothorax. No acute osseous abnormality. IMPRESSION: Mild central pulmonary vascular congestion, slightly increased since the prior examination. There is, however no significant interstitial edema or pleural effusion. Stable chronic elevation left hemidiaphragm. Dictated by: Dictated on workstation # [id number] Dict: 01/26/22 1316 Trans: 01/26/22 1514 [id number] Interpreted by: FLEX GARCIA MD Electronically signed by: FLEX GARCIA MD 01/26/22 1514 Assessment/Plan Admission Diagnosis Generalized weakness Admission Status: Observation Reason for Inpatient Admission: see below Assessment and Plan Generalized weakness CKD Stage 3 PT/OT Failed outpatient with home health IRU consulted, appreciate recs May need nursing facility if unable to participate adequately with therapy for IRF Diagnosis/Problems Diagnosis/Problems (1) CKD (chronic kidney disease) Qualifiers: Chronic kidney disease stage: stage 3 (moderate) Chronic kidney disease stage 3 subtype: stage 3b (GFR 30-44) Qualified Codes: N18.32 - Chronic kidney disease, stage 3b (2) Generalized weakness LEVAR CULP MD Jan 26, 2022 2:43 pm
[2022-01-26] MEDS ORDERED: PREGABALIN 100 MG (LYRICA) CAPSULE PO ONE (16:00)
[2022-01-26 16:58] VITALS: BP 151/75
[2022-01-26] MEDS ORDERED: CALCIUM CARBONATE 500 MG (TUMS) TAB.CHEW PO PRN (17:00)
[2022-01-26] MEDS ORDERED: polyethylene glycoL POWDER 17 GM (MIRALAX) PACK PO PRN (17:00)
[2022-01-26] MEDS ORDERED: ONDANSETRON 4 MG/2 ML (SDV) Z0FRAN IV PRN (17:00)
[2022-01-26] MEDS ORDERED: PATIENT MAY USE OWN MEDS, ALL PO SCH (17:00)
[2022-01-26] MEDS ORDERED: MELATONIN 3 MG TABLET PO PRN (17:00)
[2022-01-26] MEDS ORDERED: FLU QUAD HIGH DOSE 240 MCG/0.7 ML 2022-23 (FLUZONE) IM ONE (18:00)
[2022-01-26 19:17] VITALS: BP 113/63
[2022-01-26] MEDS ORDERED: PREGABALIN 100 MG (LYRICA) CAPSULE ONE (20:12)
[2022-01-26] MEDS: PREGABALIN 100 MG (LYRICA) CAPSULE PO SCH (20:15)
[2022-01-26 23:23] VITALS: BP 99/59
[2022-01-27 03:55] VITALS: BP 102/62
[2022-01-27 05:58] LABS: HEMATOCRIT 26 % (40-54); HEMOGLOBIN 8.8 g/dL (13.3-17.7); MEAN CORPUSCULAR HEMOGLOBIN 32 pg (25-34); MEAN CORPUSCULAR HGB CONC 34 g/dL (32-36); MEAN CORPUSCULAR VOLUME 94 fL (80-99); MEAN PLATELET VOLUME 12.4 fL (9.0-12.2); PLATELET COUNT 218 10^3/uL (130-400); WHITE BLOOD COUNT 7.8 10^3/uL (4.3-11.0)
[2022-01-27 06:12] LABS: CALCIUM 8.7 MG/DL (8.5-10.1); CREATININE SERUM 1.45 MG/DL (0.60-1.30); POTASSIUM 3.7 MMOL/L (3.6-5.0)
[2022-01-27 07:45] VITALS: BP 108/68
[2022-01-27] MEDS: PREGABALIN 100 MG (LYRICA) CAPSULE PO SCH ×3 (08:03→19:53)
--- NOTE | 2022-01-27 09:06 | Physical Therapy Evaluation ---
PT Evaluation-General Medical Diagnosis Admission Date Jan 26, 2022 at 14:33 Medical Diagnosis: General Weakness Onset Date: Jan 26, 2022 Therapy Diagnosis Therapy Diagnosis: Generalized Weakness, Impaired Mobility Precautions Precautions/Isolations: Fall Prevention, Standard Precautions Weight Bear Status Right Lower Extremity: Right Full Weight Bearing Left Lower Extremity: Left Full Weight Bearing Referral Physician: Linda Reason for Referral: Evaluation/Treatment Medical History Pertinent Medical History: DM, HTN, Neuropathy Additional Medical History PMH: DM 2, HTN, NEUROPATHY Reviewed History: Yes Social History Home: Single Level Current Living Status: Alone Entry Into Home: Ramp Prior Prior Level of Function SCALE: Activities may be completed with or without assistive devices. 5-Zjkpwvoceb-nwoymhc completes the activity by him/herself with no assistance from a helper. 5-Set-up or Clean-up Assistance-helper sets up or cleans up; patient completes activity. [place] assists only prior to or following the activity. 4-Supervision or Touching Assistance-helper provides verbal cues and/or touching/steadying and/or contact guard assistance as patient completes activity. Assistance may be provided throughout the activity or intermittently. 3-Partial/Moderate Assistance-helper does LESS THAN HALF the effort. Mantee lifts, holds or supports trunk or limbs, but provides less than half the effort. 2-Substantial/Maximal Assistance-helper does MORE THAN HALF the effort. [place]ee lifts or holds trunk or limbs and provides more than half the effort. 9-Lnbdbjweb-xlirjw does ALL the effort. Patient does none of the effort to complete the activity. Or, the assistance of 2 or more helpers is required for the patient to complete the activity. If activity was not attempted, code reason: 7-Patient Refused. 9-Not Applicable-not attempted and the patient did not perform the activity before the current illness, exacerbation or injury. 10-Not Attempted due to Environmental Limitations-(lack of equipment, weather restraints, etc.). 88-Not Attempted due to Medical Conditions or Safety Concerns. Bed Mobility: 6 Transfers (B,C,W/C): 6 Gait: 6 Indoor Mobility (Ambulation): Independent Prior Devices Use: Walker, Other-see list below Prior Device Use: Lift Chair PT Evaluation-Current Subjective Patient in bed pre-tx, reports pain in feet and other places but did not rate or specify pain in other areas, agrees to PT. Pt/Family Goals Return home to independence Objective Patient Orientation: Person, Place, Situation ROM/Strength ROM Lower Extremities BLE grossly WFL Strength Lower Extremities BLE grossly 3/5 partly due to pain Neuromuscular (Tone, Coordination, Reflexes) Coordination intact Sensory Vision: Functional Hearing: Functional Sensation Right Lower Extremit: Intact Sensation Left Lower Extremity: Intact Transfers Lying to Sitting/Side of Bed(Q: 3 Sit to Stand (QC): 3 Min A with transfers, sit to stand from elevated bed Balance Sitting Static: Normal Sitting Dynamic: Normal Standing Static: Normal Standing Dynamic: Fair Treatment LE Strengthening (AP x15, LAQ x15, Hip Flexion x15), Transfer Assessment/Needs Patient has blister on medial L foot, pain all over but mostly in feet from neuropathy patient reported. Patient needs Min A with transfers and bed mobility, and is unsteady while standing. Patient in recliner post-tx with tray, nurse call, phone, all needs met. Rehab Potential: Fair PT Intermediate Goals Sap Gatherer Goals PT Intermediate Goals Time Frame: Feb 03, 2022 Roll Left & Right (QC): 4 (SBA) Sit to Lying (QC): 4 (SBA) Lying-Sitting on Side/Bed(QC): 4 (SBA) Sit to Stand (QC): 4 (SBA) Chair/Igq-ka-Zmrjw Xfer(QC): 4 (SBA) Toilet Transfer (QC): 4 (SBA) Walk 10 feet (QC): 4 (CGA) PT Plan Problem List Problem List: Activity Tolerance, Functional Strength, Safety, Balance, Gait, Transfer, Bed Mobility, ROM Treatment/Plan Treatment Plan: Continue Plan of Care Treatment Plan: Bed Mobility, Education, Functional Activity Darcie, Functional Strength, Gait, Safety, Therapeutic Exercise, Transfers Treatment Duration: Feb 03, 2022 Frequency: 6 times per week Estimated Hrs Per Day: .25 hour per day Patient and/or Family Agrees t: Yes Safety Risks/Education Patient Education: Transfer Techniques, Correct Positioning, Safety Issues Teaching Recipient: Patient Teaching Methods: Demonstration, Discussion Response to Teaching: Reinforcement Needed Discharge Recommendations Plan Patient will perform bed mobility and transfer training, endurance and balance training, gait and functional strengthening in order to be independent at home. Therapy Discharge Recommendati: Scheduled Assistance, Home & Family, Post Acute PT Time Time In: 834 Time Out: 851 DATE: Jan 27, 2022 Total Billed Treatment Time: 17 Total Billed Treatment 1 visit EVM 17min DARYA KIM PT Jan 27, 2022 09:06
--- NOTE | 2022-01-27 11:13 | Progress Note - Hospitalist ---
Subjective HPI/CC On Admission Date Seen by Provider: Jan 27, 2022 Pt is a 76yoCm with a PMH of neuropathy and recent admission for weakness and HAYLEY who presented to the ER due to weakness. He was sent home last week with home health and his PT saw him today and felt that he was too weak to remain at home. Patient states he has fallen multiple times and has had to call the fire department to come to his house to help him up. Last time he was ont he ground for over 24 hours and dehydrated on arrival. He states preceding this he had a URI illness with muscles aches, cough, and even some neck stiffness. He denies any headache or fever with it though. He was not tested for COVID or Flu at the time. He denies any recent known tick exposure or being outdoors much. He does have some pets that are in and out of the house though. Subjective/Events-last exam Pt reports feeling a litter better today. Worked with PT. We discussed his Hgb results and how much it had dropped in a few months. He denies any dark stool but has had to have an EGD in the past but does not think it showed anything though this was 10-15 years ago. He had a colonscopy at the [facility] roughly 4-5 years ago. Objective Exam Vital Signs Vital Signs Date Time Temp Pulse Resp B/P (MAP) Pulse Ox O2 Delivery O2 Flow Rate FiO2 01/28/22 11:49 36.5 87 19 113/68 (83) 97 Room Air Capillary Refill : Less Than 3 Seconds General Appearance: No Apparent Distress, WD/WN Respiratory: Lungs Clear, No Respiratory Distress Cardiovascular: Regular Rate, Rhythm, No Murmur Neurologic/Psychiatric: Alert, Oriented x3 Results/Procedures Lab Laboratory Tests 01/28/22 05:32 Patient resulted labs reviewed. Assessment/Plan Assessment and Plan Assess & Plan/Chief Complaint Generalized weakness CKD Stage 3 PT/OT Failed outpatient with home health IRU eval placed May need nursing facility if unable to participate adequately with therapy for IRF Nomrocytic anemia Hgb 8.8 this AM from spring FOBT ordered- no BM since last week Surgery consulted- will likely need at least EGD May be due to CKD as well or at least contributing to this Diagnosis/Problems Diagnosis/Problems (1) CKD (chronic kidney disease) Qualifiers: Chronic kidney disease stage: stage 3 (moderate) Chronic kidney disease stage 3 subtype: stage 3b (GFR 30-44) Qualified Codes: N18.32 - Chronic kidney disease, stage 3b (2) Generalized weakness LEVAR CULP MD Jan 27, 2022 11:13
--- NOTE | 2022-01-27 11:26 | Occupational Therapy Eval ---
OT Evaluation-General/PLF Medical Diagnosis Admission Date Jan 26, 2022 at 14:33 Medical Diagnosis: General Weakness Onset Date: Jan 26, 2022 Therapy Diagnosis Therapy Diagnosis: Reduced ADL status Precautions Precautions/Isolations: Fall Prevention, Standard Precautions Referral Physician: Linda Referral Reason: Evaluation/Treatment Medical History Pertinent Medical History: DM, HTN, Neuropathy Current History Pt came in to ER with c/o of weakness. Pt reports living at home alone with home health PT and OT. Pt reports being independent with ADLs and IADLs but stated that it takes him a really long time and that it is hard to complete everything. He said that he is very weak and can't do much. Pt's daughter was in the room and was able to help answer some questions. He appeared to be slightly confused with some questions and the daughter had to answer for him. For example he said he had a ramp and daughter stated he didn't. After further questioning he confused ramp with railings. He was using a walker at home. Reviewed History: Yes Social History Home: Single Level Current Living Status: Alone Entry Into Home: Stairs With Railing Steps Into Home: 4 ADL-Prior Level of Function SCALE: Activities may be completed with or without assistive devices. 9-Chrrwzqdat-qdcbmgs completes the activity by him/herself with no assistance from a helper. 5-Set-up or Clean-up Assistance-helper sets up or cleans up; patient completes activity. [place] assists only prior to or following the activity. 4-Supervision or Touching Assistance-helper provides verbal cues and/or touching/steadying and/or contact guard assistance as patient completes activity. Assistance may be provided throughout the activity or intermittently. 3-Partial/Moderate Assistance-helper does LESS THAN HALF the effort. [place] lifts, holds or supports trunk or limbs, but provides less than half the effort. 2-Substantial/Maximal Assistance-helper does MORE THAN HALF the effort. [place] lifts or holds trunk or limbs and provides more than half the effort. 2-Ejnxcrwcz-nuzqaj does ALL the effort. Patient does none of the effort to complete the activity. Or, the assistance of 2 or more helpers is required for the patient to complete the activity. If activity was not attempted, code reason: 7-Patient Refused. 9-Not Applicable-not attempted and the patient did not perform the activity before the current illness, exacerbation or injury. 10-Not Attempted due to Environmental Limitations-(lack of equipment, weather restraints, etc.). 88-Not Attempted due to Medical Conditions or Safety Concerns. Self Care: Independent Functional Cognition: Needed Some Help DME/Equipment: Bath Chair, Tub/Shower OT Current Status Subjective Pt laying in bed upon arrival with daughter present. He was reluctant to partici hernandez in therapy eval. He reported his pain being 9.5/10. Appearance Pt was left sitting EOB with inpatient nursing aide present in room. All needs were within reach. Mental Status/Objective Patient Orientation: Person, Place, Time, Situation Attachments: IV Current Glasses/Contacts: Yes Hearing Aids: No Dentures/Partials: No Hand Dominance: Right Upper Extremity ROM Left: ~55 degrees at shoulder AROM; ~130 degrees at shoulders AAROM Right:~150 degrees at shoulders All movements with UE created pain for pt Upper Extremity Strength Not formally tested due to pain with movement Pegger Dobby Looms strength: moderately impaired ADL-Treatment On/Off Footwear (QC): 3 (min-mod assist with footwear-due to pain) Supine<>sit: Min assist. Pt increasingly weak with all movements. Pt reports betito n at 9.5/10 and refused any OOB activities. Pt sitting EOB and attempted to doff/don socks; ultimately requiring mod assist to don. Pt not able to complete footwear secondary to pain, weakness and fatigue. Pt is extremely weak and does require OT services for strengthening, improving independence with ADLs, balance, coordination, endurance and energy conservation. Conversation with pt and pt's daughter regarding home environment and their next steps. Pt's daughter stated that she would like him to move back to [place] to live in a [address]+ apartment community and get assist in home there. She understands that he needs to get stronger before making the move. Education OT Patient Education: Correct positioning, Energy conservation, Modified ADL techniques, Progress toward Goal/Update tx plan, Purpose of tx/functional activities, Reviewed precautions, Rehab process, Safety issues Teaching Recipient: Patient, Family Teaching Methods: Demonstration, Discussion Response to Teaching: Verbalize Understanding, Reinforcement Needed OT Correction Goals Sales Analytics Manager Goals Time Frame: Feb 10, 2022 Eating (QC): 5 Oral Hygiene (QC): 5 Toileting Hygiene (QC): 5 Shower/Bathe Self (QC): 4 Upper Body Dressing (QC): 5 Lower Body Dressing (QC): 4 On/Off Footwear (QC): 5 Additional Goals: 1-Demonstrate ADL Tasks, 2-Verbalize Understanding, 3-Impro veStrength/Darcie 1=Demonstrate adherence to instructed precautions during ADL tasks. 2=Patient will verbalize/demonstrate understanding of assistive devices/modifications for ADL. 3=Patient will improve strength/tolerance for activity to enable patient to perform ADL's. OT Education/Plan Problem List/Assessment Assessment: Decreased Activ Tolerance, Decreased Safety Aware, Decreased UE Strength, Impaired Bed Mobility, Impaired Cognition, Impaired Coordination, I mpaired Funct Balance, Impaired I ADL's, Impaired Self-Care Skills, Restricted Funct UE ROM Discharge Recommendations Plan/Recommendations: Continue POC Therapy Discharge Recommendati: Assisted Living, Post Acute OT Barriers to Progress At this time, pt unable to tolerate intensive 3 hours of therapy. Treatment Plan/Plan of Care Treatment,Training & Education: Yes Patient would benefit from OT for education, treatment and training to promote independence in ADL's, mobility, safety and/or upper extremity function for ADL's. Plan of Care: ADL Retraining, Caregiver Training, Functional Mobility, Group Exercise/Act as Ind, UE Funct Exercise/Act, UE Neuromus Re-Ed/Coord Treatment Duration: Feb 10, 2022 Frequency: 3 times per week (3-5x/week) Estimated Hrs Per Day: .25 hour per day Agreement: Yes Rehab Potential: Fair Time Start Time: 11:03 Stop Time: 11:18 DATE: Jan 27, 2022 Total Time Billed (hr/min): 15 Billed Treatment Time 1 visit Evelin Carrion OT Jan 27, 2022 11:26
[2022-01-27 11:30] VITALS: BP 126/71
[2022-01-27 16:00] VITALS: BP 114/67
[2022-01-27] MEDS: inSUlin ASPART (NovoLOG) 1 UNIT/0.01 ML (CHARGE PER UNIT) SC SCH ×2 (18:00→21:33)
--- NOTE | 2022-01-27 18:11 | CONSULTATION REPORT ---
DATE OF SERVICE: 01/27/2022 HISTORY OF PRESENT ILLNESS: The patient is a 76-year-old male who was brought to the Emergency Department with persistent weakness. He states he was admitted on 01/20/2022 and was discharged the following day with plans for home PT and OT. The patient states that he became significantly weaker and at one point could only crawl. He has had laboratory work done before and his initial hemoglobin was 16 and there has been a steady drop in his hemoglobin where today this is in the 8 range. The patient states that he is not from here and is just living here temporarily and that his son and daughter both live in different states. Upon further questioning, he reports that he has noticed some darker stools in the past few weeks. He also states that he did have an EGD and colonoscopy approximately 5-6 years ago at the [facility] in [place]. He does not remember any results. PAST MEDICAL HISTORY: Hypertension, gastroesophageal reflux disease, hypercholesterolemia, diabetes, atrial fibrillation, neuropathy. PAST SURGICAL HISTORY: Bilateral eye lens implantation, lumbar vertebrae, ORIF. ALLERGIES: NO KNOWN DRUG ALLERGIES. MEDICATIONS: Allopurinol 300 mg daily, atorvastatin 80 mg daily, Jardiance 12.5 mg daily, furosemide 40 mg daily, detemir insulin 20 units each day at bedtime, metformin 1000 mg b.i.d., metoprolol 50 mg b.i.d., pregabalin 200 mg t.i.d., tramadol p.r.n., zolpidem 5 mg each day at bedtime, furosemide 20 mg daily, glimepiride 2 mg daily, Levemir insulin 45 units each day at bedtime, lisinopril 10 mg q.a.m. and 20 mg q.p.m., pregabalin 100 mg t.i.d. SOCIAL HISTORY: Negative smoking, negative alcohol. FAMILY HISTORY: Noncontributory. VITAL SIGNS: Temperature 37.7, blood pressure 114/67, pulse 93, respirations 18, pulse ox 94% on room air. REVIEW OF SYSTEMS: Well-nourished male, currently in no acute distress. He does feel weak; however, he is able to ambulate. He also does have exertional shortness of breath. No cough or sputum production. No chest pain, palpitations, diaphoresis. No nausea or vomiting and does state that he has had some issues with heartburn, reflux as well as acid indigestion in the past. He did state that before admission, he did have diarrhea and has also noticed slightly darker stools in the past few weeks. No red blood per rectum. No fever or chills. No recent inappropriate weight loss. All other review of systems negative. PHYSICAL EXAMINATION: CHEST: Clear, good breath sounds bilaterally. HEART: Regular, no murmurs. EXTREMITIES: No lower extremity edema. Negative Homans sign. HEENT: No scleral icterus. No cervical lymphadenopathy. GASTROINTESTINAL: Abdomen is soft, nontender, nondistended. SKIN: Warm and dry. LABORATORY DATA: WBC 7.8, hemoglobin 8.8, hematocrit 26, platelets 218, BUN 31, creatinine 1.45. ASSESSMENT AND PLAN: A 76-year-old male with symptomatic anemia as well as history of gastroesophageal reflux disease and darker stools. On this admission, we will schedule him for an EGD and colonoscopy. We will also continue to monitor his hemoglobin and hematocrit and also manage his other medical problems with the help of internal medicine. Job ID: [id number] DocumentID: [id number] Dictated Date: 01/27/2022 17:48:37 Environmental Analyst Date: 01/27/2022 18:09:00 Dictated By: JEFFREY RICE MD
[2022-01-27] MEDS: meTOprolol SUCCINATE 100 MG (TOPROL XL) TAB PO SCH (19:54)
[2022-01-27 20:13] VITALS: BP 106/71
[2022-01-27 23:10] VITALS: BP 107/70
[2022-01-27] MEDS: ACETAMINOPHEN 325 MG TABLET PO PRN (23:17)
[2022-01-28 03:37] VITALS: BP 107/69
[2022-01-28] MEDS: inSUlin ASPART (NovoLOG) 1 UNIT/0.01 ML (CHARGE PER UNIT) SC SCH ×4 (05:27→21:18)
[2022-01-28 05:54] LABS: HEMATOCRIT 27 % (40-54); MEAN CORPUSCULAR HEMOGLOBIN 32 pg (25-34); MEAN CORPUSCULAR HGB CONC 34 g/dL (32-36); MEAN CORPUSCULAR VOLUME 94 fL (80-99); MEAN PLATELET VOLUME 11.7 fL (9.0-12.2); PLATELET COUNT 213 10^3/uL (130-400); WHITE BLOOD COUNT 7.3 10^3/uL (4.3-11.0)
[2022-01-28 06:16] LABS: POTASSIUM 3.8 MMOL/L (3.6-5.0)
[2022-01-28 06:17] LABS: CALCIUM 8.9 MG/DL (8.5-10.1)
[2022-01-28 06:22] LABS: CREATININE SERUM 1.39 MG/DL (0.60-1.30)
[2022-01-28 07:46] VITALS: BP 114/69
[2022-01-28] MEDS: PREGABALIN 100 MG (LYRICA) CAPSULE PO SCH ×3 (09:02→20:26)
[2022-01-28] MEDS: ALLOPURINOL 300 MG (ZYLOPRIM) TAB PO SCH (09:03)
[2022-01-28] MEDS: meTOprolol SUCCINATE 100 MG (TOPROL XL) TAB PO SCH ×2 (09:03→20:27)
--- NOTE | 2022-01-28 10:03 | Physical Therapy Daily Note ---
PT Daily Note-Current Subjective Patient agrees to PT. Pain Numeric Pain Scale: 8 Location: Right, Left Pain Description: Chronic Section J - Health Conditions 1. Rarely or not at all 2. Occasionally 3. Frequently 4. Almost constantly 8. Unable to answer Pain Effect on Sleep: 2 Pain Interference with Therapy: 2 Pain Interference w/Day-to-Day: 2 Mental Status Patient Orientation: Normal For Age Transfers SCALE: Activities may be completed with or without assistive devices. 0-Clrswzwxdd-hrcwkhg completes the activity by him/herself with no assistance from a helper. 5-Set-up or Clean-up Assistance-helper sets up or cleans up; patient completes activity. [place] assists only prior to or following the activity. 4-Supervision or Touching Assistance-helper provides verbal cues and/or touching/steadying and/or contact guard assistance as patient completes activity. Assistance may be provided throughout the activity or intermittently. 3-Partial/Moderate Assistance-helper does LESS THAN HALF the effort. [place] lifts, holds or supports trunk or limbs, but provides less than half the effort. 2-Substantial/Maximal Assistance-helper does MORE THAN HALF the effort. [place] lifts or holds trunk or limbs and provides more than half the effort. 3-Awymjdxqt-jpfrie does ALL the effort. Patient does none of the effort to complete the activity. Or, the assistance of 2 or more helpers is required for the patient to complete the activity. If activity was not attempted, code reason: 7-Patient Refused. 9-Not Applicable-not attempted and the patient did not perform the activity before the current illness, exacerbation or injury. 10-Not Attempted due to Environmental Limitations-(lack of equipment, weather restraints, etc.). 88-Not Attempted due to Medical Conditions or Safety Concerns. Sit to Stand (QC): 4 (from elevated EOB) Weight Bearing Right Lower Extremity: Right Full Weight Bearing Left Lower Extremity: Left Full Weight Bearing Gait Training Distance: 225' Walk 10 feet (QC): 4 (SBA) Walk 50 ft with 2 Turns(QC): 4 (SBA) Walk 150 ft (QC): 4 (SBA) Gait Assistive Device: FWW slow, shuffle gait sequence (patient c/o bilateral foot pain from neuropathy) Exercises Seated Therapy Exercises: Ankle pumps, Long arc quads, Hip flexion Seated Reps: 15 Assessment Patient incontinent urine requiring assist to cleanse and change clothing. Patient much improved on this date with increase in ambulation distance. Patient remains sitting EOB. PT attempted to educate patient on importance of elevating bilateral LE due to edema, however, patient declined to do so. PT Custodial Goals [place] Goals PT Custodial Goals Time Frame: Feb 03, 2022 Roll Left & Right (QC): 4 (SBA) Sit to Lying (QC): 4 (SBA) Lying-Sitting on Side/Bed(QC): 4 (SBA) Sit to Stand (QC): 4 (SBA) Chair/Qgt-ch-Gjjzq Xfer(QC): 4 (SBA) Toilet Transfer (QC): 4 (SBA) Walk 10 feet (QC): 4 (CGA) PT Plan Treatment/Plan Treatment Plan: Continue Plan of Care Treatment Plan: Bed Mobility, Education, Functional Activity Darcie, Functional Strength, Gait, Safety, Therapeutic Exercise, Transfers Treatment Duration: Feb 03, 2022 Frequency: 6 times per week Estimated Hrs Per Day: .25 hour per day Patient and/or Family Agrees t: Yes Time Time In: 910 Time Out: 933 DATE: Jan 28, 2022 Total Billed Treatment Time: 23 Total Billed Treatment 1 visit FA x 2 23 min MIRZA LI PT Jan 28, 2022 10:03
--- NOTE | 2022-01-28 11:46 | Occupational Ther Daily Note ---
OT Current Status-Daily Note Subjective Pt alert, sitting EOB with family in room. Pt agrees to therapy. No c/o pain. Pt appears confused. Mental Status/Objective Patient Orientation: Person, Confused Attachments: IV ADL-Treatment Sit to supine independent. Stood with CGA while pt placed and held urinal, PINON emptied and charted output. Verbal cues and CGA to ambulate using FWW from bed to recliner. Nrsg aware of position and chair alarm. Call light/phone in reach. All needs met. Family present in room. Therapy Code Descriptions/Definitions Functional [place] Measure: 0=Not Assessed/NA 4=Minimal Assistance 1=Total Assistance 5=Supervision or Setup 2=Maximal Assistance 6=Modified [place] 3=Moderate Assistance 7=Complete IndependenceSCALE: Activities may be completed with or without assistive devices. 2-Iqowehyvpr-oqhqiiu completes the activity by him/herself with no assistance from a helper. 5-Set-up or Clean-up Assistance-helper sets up or cleans up; patient completes activity. [place] assists only prior to or following the activity. 4-Supervision or Touching Assistance-helper provides verbal cues and/or touching/steadying and/or contact guard assistance as patient completes activity. Assistance may be provided throughout the activity or intermittently. 3-Partial/Moderate Assistance-helper does LESS THAN HALF the effort. [place] lifts, holds or supports trunk or limbs, but provides less than half the effort. 2-Substantial/Maximal Assistance-helper does MORE THAN HALF the effort. [place] lifts or holds trunk or limbs and provides more than half the effort. 7-Bszixpvsa-rgmram does ALL the effort. Patient does none of the effort to complete the activity. Or, the assistance of 2 or more helpers is required for the patient to complete the activity. If activity was not attempted, code reason: 7-Patient Refused. 9-Not Applicable-not attempted and the patient did not perform the activity before the current illness, exacerbation or injury. 10-Not Attempted due to Environmental Limitations-(lack of equipment, weather restraints, etc.). 88-Not Attempted due to Medical Conditions or Safety Concerns. OT Blanker Operator Goals Blanker Operator Goals Time Frame: Feb 10, 2022 Eating (QC): 5 Oral Hygiene (QC): 5 Toileting Hygiene (QC): 5 Shower/Bathe Self (QC): 4 Upper Body Dressing (QC): 5 Lower Body Dressing (QC): 4 On/Off Footwear (QC): 5 Additional Goals: 1-Demonstrate ADL Tasks, 2-Verbalize Understanding, 3- ImproveStrength/Darcie 1=Demonstrate adherence to instructed precautions during ADL tasks. 2=Patient will verbalize/demonstrate understanding of assistive devices/modifications for ADL. 3=Patient will improve strength/tolerance for activity to enable patient to perform ADL's. OT Education/Plan Problem List/Assessment Assessment: Decreased Activ Tolerance, Decreased Safety Aware, Impaired Cognition, Impaired Self-Care Skills Discharge Recommendations Plan/Recommendations: Continue POC Treatment Plan/Plan of Care Patient would benefit from OT for education, treatment and training to promote independence in ADL's, mobility, safety and/or upper extremity function for ADL's. Plan of Care: ADL Retraining, Caregiver Training, Functional Mobility, Group Exercise/Act as Ind, UE Funct Exercise/Act, UE Neuromus Re-Ed/Coord Treatment Duration: Feb 10, 2022 Frequency: 3 times per week (3-5x/week) Estimated Hrs Per Day: .25 hour per day Agreement: Yes Rehab Potential: Fair Time Start Time: 11:00 Stop Time: 11:10 DATE: Jan 28, 2022 Total Time Billed (hr/min): 10 Billed Treatment Time 1 visit-ADL 1 (10 min) MIKE PLAZA Jan 28, 2022 11:46
[2022-01-28 11:49] VITALS: BP 113/68
[2022-01-28] MEDS: MILK OF MAGNESIA 400 MG/5 ML 30 ML UDC PO SCH ×8 (11:57→23:53)
--- NOTE | 2022-01-28 12:29 | Progress Note - Hospitalist ---
Subjective HPI/CC On Admission Date Seen by Provider: Jan 28, 2022 Pt is a 76yoCm with a PMH of neuropathy and recent admission for weakness and HAYLEY who presented to the ER due to weakness. He was sent home last week with home health and his PT saw him today and felt that he was too weak to remain at home. Patient states he has fallen multiple times and has had to call the fire department to come to his house to help him up. Last time he was ont he ground for over 24 hours and dehydrated on arrival. He states preceding this he had a URI illness with muscles aches, cough, and even some neck stiffness. He denies any headache or fever with it though. He was not tested for COVID or Flu at the time. He denies any recent known tick exposure or being outdoors much. He does have some pets that are in and out of the house though. Subjective/Events-last exam Pt reports feeling much better. Hgb stable. We discussed plan for colonoscopy and EGD Tuesday. Objective Exam Vital Signs Vital Signs Date Time Temp Pulse Resp B/P (MAP) Pulse Ox O2 Delivery O2 Flow Rate FiO2 01/28/22 11:49 36.5 87 19 113/68 (83) 97 Room Air Capillary Refill : Less Than 3 Seconds General Appearance: No Apparent Distress, WD/WN Respiratory: Lungs Clear, No Respiratory Distress Cardiovascular: Regular Rate, Rhythm, No Murmur Neurologic/Psychiatric: Alert, Oriented x3 Results/Procedures Lab Laboratory Tests 01/28/22 05:32 Patient resulted labs reviewed. Imaging: Reviewed Imaging Report Assessment/Plan Assessment and Plan Assess & Plan/Chief Complaint Generalized weakness CKD Stage 3 PT/OT Failed outpatient with home health Did much better with therapy today- daughter requested referral to IRU in [place]- referral sent Normocytic anemia Hgb stable this AM FOBT ordered- no BM since last week still Surgery consulted- appreciate recs, planning onf EGD/colonoscopy 01/29 May be due to CKD as well or at least contributing to this Iron studies ordered Diagnosis/Problems Diagnosis/Problems (1) CKD (chronic kidney disease) Qualifiers: Chronic kidney disease stage: stage 3 (moderate) Chronic kidney disease stage 3 subtype: stage 3b (GFR 30-44) Qualified Codes: N18.32 - Chronic kidney disease, stage 3b (2) Generalized weakness LEVAR CULP MD Jan 28, 2022 12:29
[2022-01-28 15:48] VITALS: BP 111/69
--- NOTE | 2022-01-28 16:49 | Progress Note ---
Subjective Date Seen by a Provider: Jan 28, 2022 Time Seen by a Provider: 16:40 Subjective/Events-last exam Patient seen with Dr. Crews. Patient reports doing ok. Colonic prep in progress for tomorrow and patient reports having bowel movements. Denies any nausea or vomiting. Objective Exam Vital Signs Date Time Temp Pulse Resp B/P (MAP) Pulse Ox O2 Delivery O2 Flow Rate FiO2 01/28/22 15:48 37.1 84 20 111/69 (83) 95 Room Air 01/28/22 11:49 36.5 87 19 113/68 (83) 97 Room Air 01/28/22 09:12 94 Room Air 01/28/22 07:46 37.0 70 19 114/69 (84) 94 Room Air 01/28/22 03:37 36.1 78 18 107/69 (82) 95 Room Air 01/27/22 23:10 37.4 81 18 107/70 (82) 95 Room Air 01/27/22 20:13 37.8 98 18 106/71 (83) 97 Room Air 01/27/22 19:56 Room Air I & O 01/28/22 07:00 Intake Total 1690 ml Output Total 1700 ml Balance -10 ml Capillary Refill : Less Than 3 Seconds General Appearance: No Apparent Distress, WD/WN Neck: Normal Inspection, Supple Respiratory: No Accessory Muscle Use, No Respiratory Distress Cardiovascular: Regular Rate, Rhythm, No Murmur Gastrointestinal: normal bowel sounds, non tender, soft Extremity: Normal Inspection, Normal Range of Motion Neurologic/Psychiatric: Alert, Oriented x3 Skin: Normal Color, Warm/Dry Results Lab Laboratory Tests 01/27/22 21:05: Glucometer 158H 01/28/22 05:23: Glucometer 147H 01/28/22 05:32: White Blood Count 7.3, Red Blood Count 2.85L, Hemoglobin 9.0L, Hematocrit 27L, Mean Corpuscular Volume 94, Mean Corpuscular Hemoglobin 32, Mean Corpuscular Hemoglobin Concent 34, Red Cell Distribution Width 14.1, Platelet Count 213, Mean Platelet Volume 11.7, Sodium Level 137, Potassium Level 3.8, Chloride Level 107, Carbon Dioxide Level 20L, Anion Gap 10, Blood Urea Nitrogen 27H, Creatinine 1.39H, Estimat Glomerular Filtration Rate 53, BUN/Creatinine Ratio 19, Glucose Level 142H, Calcium Level 8.9 01/28/22 11:47: Glucometer 245H 01/28/22 12:42: Assessment/Plan Assessment/Plan Assess & Plan/Chief Complaint A 76-year-old male with symptomatic anemia as well as history of gastroesophageal reflux disease and darker stools. VSS Hgb 9.0 Will start clear liquid diet Colonic prep in progress Will schedule for EGD and colonoscopy for tomorrow ARIES VALDEZ APRN Jan 28, 2022 16:49
--- NOTE | 2022-01-28 16:56 | Progress Note-Pre Operative ---
Pre-Operative Progress Note Date of Available H&P: Jan 28, 2022 Date H&P Reviewed: Jan 28, 2022 Time H&P Reviewed: 16:30 History & Physical: No changes noted Pre-Operative Diagnosis: sx anemia JEFFREY RICE MD Jan 28, 2022 16:56
[2022-01-28 19:27] VITALS: BP 119/72
[2022-01-28] MEDS: ZOLPIDEM 5 MG (AMBIEN) TAB PO PRN (20:27)
[2022-01-28 23:17] VITALS: BP 117/65
[2022-01-29] VITALS (8 sets, daily range): BP systolic 100–141; BP diastolic 55–77
[2022-01-29] MEDS: MILK OF MAGNESIA 400 MG/5 ML 30 ML UDC PO SCH ×8 (01:55→16:31)
[2022-01-29] MEDS: inSUlin ASPART (NovoLOG) 1 UNIT/0.01 ML (CHARGE PER UNIT) SC SCH ×4 (05:21→21:44)
[2022-01-29] MEDS: meTOprolol SUCCINATE 100 MG (TOPROL XL) TAB PO SCH ×2 (09:01→20:09)
[2022-01-29] MEDS: PREGABALIN 100 MG (LYRICA) CAPSULE PO SCH ×3 (09:02→20:09)
[2022-01-29] MEDS: ALLOPURINOL 300 MG (ZYLOPRIM) TAB PO SCH (09:02)
--- NOTE | 2022-01-29 09:26 | Progress Note - Hospitalist ---
Subjective HPI/CC On Admission Date Seen by Provider: Jan 29, 2022 Pt is a 76yoCm with a PMH of neuropathy and recent admission for weakness and HAYLEY who presented to the ER due to weakness. He was sent home last week with home health and his PT saw him today and felt that he was too weak to remain at home. Patient states he has fallen multiple times and has had to call the fire department to come to his house to help him up. Last time he was ont he ground for over 24 hours and dehydrated on arrival. He states preceding this he had a URI illness with muscles aches, cough, and even some neck stiffness. He denies any headache or fever with it though. He was not tested for COVID or Flu at the time. He denies any recent known tick exposure or being outdoors much. He does have some pets that are in and out of the house though. Subjective/Events-last exam Pt reports having rough night being up with his colonoscopy prep. Otherwise no complaints. Objective Exam Vital Signs Vital Signs Date Time Temp Pulse Resp B/P (MAP) Pulse Ox O2 Delivery O2 Flow Rate FiO2 01/29/22 08:00 Room Air 01/29/22 07:56 37.4 81 18 116/65 (82) 90 Capillary Refill : Less Than 3 Seconds General Appearance: No Apparent Distress, WD/WN Respiratory: Lungs Clear, No Respiratory Distress Cardiovascular: Regular Rate, Rhythm, No Murmur Neurologic/Psychiatric: Alert, Oriented x3 Results/Procedures Lab Patient resulted labs reviewed. Imaging: Reviewed Imaging Report Assessment/Plan Assessment and Plan Assess & Plan/Chief Complaint Generalized weakness CKD Stage 3 PT/OT Creatinine improved and stable now Referrals sent to SNF here and inpatient rehab unit in [facility] work consulted, appreciate their help Normocytic anemia Hgb stable this AM FOBT negative Surgery consulted- appreciate recs, planning EGD/colonoscopy today May be due to CKD as well or at least contributing to this Iron studies low- will replace IV iron while admitted SCDs only Diagnosis/Problems Diagnosis/Problems (1) CKD (chronic kidney disease) Qualifiers: Chronic kidney disease stage: stage 3 (moderate) Chronic kidney disease stage 3 subtype: stage 3b (GFR 30-44) Qualified Codes: N18.32 - Chronic kidney disease, stage 3b (2) Generalized weakness LEVAR CULP MD Jan 29, 2022 9:26 am
--- NOTE | 2022-01-29 09:32 | Physical Therapy Progress Note ---
Therapy Progress Note Patient declined PT on this date due to up multiple time due to colon prep for procedure today. PT will resume tomorrow a.m. 1 ref MIRZA LI PT Jan 29, 2022 09:32
--- NOTE | 2022-01-29 10:53 | Occupational Ther Daily Note ---
OT Current Status-Daily Note Subjective Pt in shower with unit aide upon arrival. He needed encouragement to work with OT during shower. Appearance Pt was left laying in bed with all needs within reach. Mental Status/Objective Patient Orientation: Person, Place, Time, Situation Attachments: IV ADL-Treatment Therapy Code Descriptions/Definitions Functional [place] Measure: 0=Not Assessed/NA 4=Minimal Assistance 1=Total Assistance 5=Supervision or Setup 2=Maximal Assistance 6=Modified [place] 3=Moderate Assistance 7=Complete IndependenceSCALE: Activities may be completed with or without assistive devices. 5-Npriorwqoy-onlcgmw completes the activity by him/herself with no assistance from a helper. 5-Set-up or Clean-up Assistance-helper sets up or cleans up; patient completes activity. [place] assists only prior to or following the activity. 4-Supervision or Touching Assistance-helper provides verbal cues and/or touching/steadying and/or contact guard assistance as patient completes activity. Assistance may be provided throughout the activity or intermittently. 3-Partial/Moderate Assistance-helper does LESS THAN HALF the effort. [place] lifts, holds or supports trunk or limbs, but provides less than half the effort. 2-Substantial/Maximal Assistance-helper does MORE THAN HALF the effort. [place] lifts or holds trunk or limbs and provides more than half the effort. 2-Xarsftuin-fpoxpi does ALL the effort. Patient does none of the effort to complete the activity. Or, the assistance of 2 or more helpers is required for the patient to complete the activity. If activity was not attempted, code reason: 7-Patient Refused. 9-Not Applicable-not attempted and the patient did not perform the activity before the current illness, exacerbation or injury. 10-Not Attempted due to Environmental Limitations-(lack of equipment, weather restraints, etc.). 88-Not Attempted due to Medical Conditions or Safety Concerns. Oral Hygiene (QC): 5 Shower/Bathe Self (QC): 2 Upper Body Dressing (QC): 4 Lower Body Dressing (QC): 2 On/Off Footwear: 1 Pt completed shower 90% in sitting with max assist for buttocks, hair and applying soap to wash cloths. He required cues for sequencing and initiation. Pt required therapist to dry back, lower legs, feet and buttocks. Pt required set up assist to brush teeth seated in shower. He attempted to thread legs but was too fatigued and weak to continue. Pt required max assist to thread bilateral legs into briefs and pants. Mod assist to ad operations intern shower. Pt able to pull up LB clothing over hips. Dependent for donning socks. SBA for donning shirt. Education OT Patient Education: Correct positioning, Energy conservation, Modified ADL techniques, Progress toward Goal/Update tx plan, Purpose of tx/functional activities, Reviewed precautions, Rehab process, Safety issues Teaching Recipient: Patient Teaching Methods: Demonstration, Discussion Response to Teaching: Verbalize Understanding, Return Demonstration, Reinforcement Needed OT Radioisotope Technologist Goals Fdc Goals Time Frame: Feb 10, 2022 Eating (QC): 5 Oral Hygiene (QC): 5 Toileting Hygiene (QC): 5 Shower/Bathe Self (QC): 4 Upper Body Dressing (QC): 5 Lower Body Dressing (QC): 4 On/Off Footwear (QC): 5 Additional Goals: 1-Demonstrate ADL Tasks, 2-Verbalize Understanding, 3-Improve Strength/Darcie 1=Demonstrate adherence to instructed precautions during ADL tasks. 2=Patient will verbalize/demonstrate understanding of assistive devices/modifications for ADL. 3=Patient will improve strength/tolerance for activity to enable patient to pe rform ADL's. OT Education/Plan Problem List/Assessment Assessment: Decreased Activ Tolerance, Decreased Safety Aware, Decreased UE Strength, Impaired Coordination, Impaired Funct Balance, Impaired I ADL's, Impa ired Self-Care Skills Discharge Recommendations Plan/Recommendations: Continue POC Therapy Discharge Recommendati: Assisted Living, Post Acute OT Treatment Plan/Plan of Care Treatment,Training & Education: Yes Patient would benefit from OT for education, treatment and training to promote independence in ADL's, mobility, safety and/or upper extremity function for ADL's. Plan of Care: ADL Retraining, Caregiver Training, Functional Mobility, Group Exercise/Act as Ind, UE Funct Exercise/Act, UE Neuromus Re-Ed/Coord Treatment Duration: Feb 10, 2022 Frequency: 3 times per week (3-5x/week) Estimated Hrs Per Day: .25 hour per day Agreement: Yes Rehab Potential: Fair Time Start Time: 10:12 Stop Time: 10:41 DATE: Jan 29, 2022 Total Time Billed (hr/min): 29 Billed Treatment Time 1 visit ADL x2 Evelin Padilla OT Jan 29, 2022 10:53
[2022-01-29] MEDS ORDERED: LACTATED RINGERS 1,000 ML IV ONE (14:22)
[2022-01-29] MEDS ORDERED: LACTATED RINGERS 1,000 ML IV STA (14:24)
[2022-01-29] MEDS ORDERED: HURRICAINE EXT TUBE (BENZOCAINE) ONE (14:26)
[2022-01-29] MEDS ORDERED: LIDOCAINE JELLY 2% 6 ML SYRINGE MM PRN (14:30)
[2022-01-29] MEDS ORDERED: HURRICAINE EXT TUBE (BENZOCAINE) XX PRN (14:30)
[2022-01-29] MEDS ORDERED: PROPOFOL INJECTION 50 ML IV ONE (15:26)
[2022-01-29] MEDS ORDERED: LIDOCAINE JELLY 2% 6 ML SYRINGE ONE (15:29)
--- NOTE | 2022-01-29 16:11 | Progress Note-Post Operative ---
Post-Operative Progess Note Surgeon (s)/Lighthouse Keeper (s) Surgeon JEFFREY RICE MD Lighthouse Keeper: none Pre-Operative Diagnosis sx anemia Post-Operative Diagnosis reflux esophagitis(grade B), small HH(2cm), moderate gastritis. chronic stage 2 ext and int hemorrhoids, severe sigmoid diverticulosis. Procedure & Operative Findings Date of Procedure 01/29/22 Procedure Performed/Findings EGD with bx. colonoscopy. Anesthesia Type mac Estimated Blood Loss Estimated blood loss (mL): minimal Specimens/Packing Specimens Removed ge jxn, antrum JEFFREY RICE MD Jan 29, 2022 16:11
[2022-01-29] MEDS ORDERED: PANT40TA2 PO (16:12)
--- NOTE | 2022-01-29 16:13 | Discharge Inst-Surgical ---
D/C Lap Instructions-KIDO New, Converted, or Re-Newed RX: RX on Chart Follow Up PRN Activity as tolerated High Fiber Diet 25g or more per day Avoid Alcohol, Caffeine, Spicy [place] and Acid foods. Drink 64 fluid oz or more of fluids per day. Symptoms to Report: Fever over 101 degree F, Nausea/Vomiting If any problems/questions: Contact your physician or go to Emergency Room JEFFREY RICE MD Jan 29, 2022 16:13
[2022-01-29] MEDS: ZOLPIDEM 5 MG (AMBIEN) TAB PO PRN (21:45)
[2022-01-30] VITALS (7 sets, daily range): BP systolic 101–132; BP diastolic 57–80
--- NOTE | 2022-01-30 01:27 | OPERATIVE REPORT ---
DATE OF SERVICE: 01/29/2022 ADMITTING PHYSICIAN: Dr. Mckeon. INDICATIONS: The patient is a 76-year-old male who was brought to the Emergency Department with persistent weakness. He was admitted on 01/20/2022 and was discharged home the following day with plans for home physical therapy and occupational therapy. The patient states that he became significantly weaker and at one point could only crawl. Upon further examination, he had had some laboratory work done in the past and his initial hemoglobin was as high as 16. However, there has been a steady drop in his hemoglobin where upon this admission, this was in the 8 range. The patient states that he is not from here and is temporarily living here and that both his son and daughter both live in different states. Upon further questioning, he reports that he has had some darker stools in the past few weeks. He states that he did have an EGD and colonoscopy approximately 6 years ago at the [place] [facility] in [place]. DESCRIPTION OF PROCEDURE: The patient was brought to the endoscopy suite and laid in the left lateral decubitus position. After adequate IV pain and sedative medications and monitored anesthesia care, the mouthpiece was applied. The endoscope was then placed in the mouth, visualizing the pharynx and hypopharyngeal region. Vocal cords, epiglottis and vallecula identified and appeared to be normal. The endoscope was then gently intubated at the esophageal opening. Esophagus insufflated. The endoscope was then advanced through the first, second and third portions of the esophagus at the level of the GE junction; a reflux esophagitis, [place] grade B identified. No ulcers or strictures identified in this region. A biopsy was taken with forceps with the visualization of good hemostasis. The endoscope was then advanced into the stomach and the endoscope was retroflexed, visualizing a small hiatal hernia approximately 2 cm in size. There was a moderate diffuse gastritis; however, there were no formal ulcerations, polyps or any active bleeding sources identified. A biopsy was taken of the antrum to rule out H. pylori with visualization of good hemostasis. The endoscope was then advanced through the pylorus into the first and second portion of the duodenum, which appeared normal with no ulcerations or any bleeding sources. The endoscope was then slowly withdrawn while taking a second look and suctioning of residual air with no additional findings. A digital rectal examination was performed, which revealed chronic stage II external and internal hemorrhoids, not actively edematous nor inflamed and no bleeding. Normal sphincter tone was felt and there were no palpable masses. Prostate gland was palpable and appeared normal. The endoscope was then gently intubated into the anus and the rectum was gently insufflated. The endoscope was then advanced through the valves of [place] of the rectum with no polyps or neoplasms identified. We then proceeded through the sigmoid colon where severe diverticulosis identified. There were no mucosal inflammatory changes to indicate any diverticulitis as well as no old or new blood to indicate any recent diverticular bleed. The endoscope was then advanced through the remainder of the descending, transverse and ascending colon to the cecum, which were normal. No polyps, neoplasms or any active bleeding sources identified. The endoscope was then slowly withdrawn, taking a second look and suctioning of residual air with no additional findings. The patient tolerated the procedure well. We will recommend the necessary lifestyle and dietary accommodation including small and more frequent meals, avoidance of eating at night as well as head elevation while lying supine. He also needs to avoid caffeinated beverages, spicy, greasy and acidic foods and we will also start him on Protonix 40 mg daily. He also needs to proceed with a high fiber diet with the addition of a fiber supplement, which should equal or exceed 30 grams daily to promote soft stools on a daily basis. We feel that he may have had an acute episode of diverticular bleed at some point, which caused his hemoglobin to drop and become symptomatically anemic. Since he has been admitted, his hemoglobin has remained stable and has even increased to 9.0. Hopefully, with a high fiber diet that promote soft stools on a daily basis that would decrease the pressure and pulsion problems that would exacerbate any bleeding or other complications associated with severe diverticulosis. Job ID: [id number] DocumentID: [id number] Dictated Date: 01/29/2022 16:19:02 Legal Aid Date: 01/30/2022 01:25:00 Dictated By: MD AIME GÓMEZ
[2022-01-30] MEDS: inSUlin ASPART (NovoLOG) 1 UNIT/0.01 ML (CHARGE PER UNIT) SC SCH ×4 (05:28→20:53)
[2022-01-30] MEDS: PREGABALIN 100 MG (LYRICA) CAPSULE PO SCH ×3 (08:35→20:49)
[2022-01-30] MEDS: meTOprolol SUCCINATE 100 MG (TOPROL XL) TAB PO SCH ×2 (08:35→20:52)
[2022-01-30] MEDS: ALLOPURINOL 300 MG (ZYLOPRIM) TAB PO SCH (08:35)
[2022-01-30] MEDS ORDERED: PANTOPRAZOLE 40 MG (PROTONIX) VIAL IV SCH (09:00)
--- NOTE | 2022-01-30 09:40 | Progress Note - Hospitalist ---
Subjective HPI/CC On Admission Date Seen by Provider: Jan 30, 2022 Pt is a 76yoCm with a PMH of neuropathy and recent admission for weakness and HAYLEY who presented to the ER due to weakness. He was sent home last week with home health and his PT saw him today and felt that he was too weak to remain at home. Patient states he has fallen multiple times and has had to call the fire department to come to his house to help him up. Last time he was ont he ground for over 24 hours and dehydrated on arrival. He states preceding this he had a URI illness with muscles aches, cough, and even some neck stiffness. He denies any headache or fever with it though. He was not tested for COVID or Flu at the time. He denies any recent known tick exposure or being outdoors much. He does have some pets that are in and out of the house though. Subjective/Events-last exam Pt reports doing well. No complaints. Requesting to switch IV protonix to PO. We discussed iron levels and plan to replenish. Agreeable to IV iron. Objective Exam Vital Signs Vital Signs Date Time Temp Pulse Resp B/P (MAP) Pulse Ox O2 Delivery O2 Flow Rate FiO2 01/30/22 07:58 36.7 73 18 130/80 (97) 95 Room Air 01/29/22 16:10 10.00 Capillary Refill : Less Than 3 Seconds General Appearance: No Apparent Distress, Chronically ill, Obese Respiratory: Lungs Clear, No Respiratory Distress Cardiovascular: Regular Rate, Rhythm, No Murmur Neurologic/Psychiatric: Alert, Oriented x3 Results/Procedures Lab Patient resulted labs reviewed. Imaging: Reviewed Imaging Report Assessment/Plan Assessment and Plan Assess & Plan/Chief Complaint Generalized weakness CKD Stage 3 PT/OT Creatinine stable Referrals sent to SNF here and inpatient rehab unit in [facility] declined patient as he is too functional, hopeful for DC to SNF Thursday 02/01 Social work consulted, appreciate their help Normocytic anemia Hgb pending today FOBT negative Surgery consulted- EGD/Colonoscopy showed moderate gastritis, HH, esophagitis, severe sigmoid diverticulosis May be due to CKD as well or at least contributing to this Iron studies low- will replace IV iron while admitted SCDs only Diagnosis/Problems Diagnosis/Problems (1) CKD (chronic kidney disease) Qualifiers: Chronic kidney disease stage: stage 3 (moderate) Chronic kidney disease stage 3 subtype: stage 3b (GFR 30-44) Qualified Codes: N18.32 - Chronic kidney disease, stage 3b (2) Generalized weakness LEVAR CULP MD Jan 30, 2022 9:40 am
--- NOTE | 2022-01-30 09:47 | Anesthesia-General Post-Op ---
MAC Significant Intra-Op Events Notes late entry 01/29/22 @ 1700 Patient Condition Mental Status/LOC: Same as Preop Cardiovascular: Satisfactory Nausea/Vomiting: Absent Respiratory: Satisfactory Pain: Controlled Complications: Absent Post Op Complications Complications None Follow Up Care/Instructions Patient Instructions None needed. Anesthesiology Discharge Order Discharge Order Patient is doing well, no complaints, stable vital signs, no apparent adverse anesthesia problems. No complications reported per nursing. RACHID BECKHAM CRNA Jan 30, 2022 09:47
[2022-01-30] MEDS: IRON SUCROSE 200 MG/10 ML (VENOFER) VIAL IV SCH (09:58)
[2022-01-30] MEDS: ACETAMINOPHEN 325 MG TABLET PO PRN (10:10)
--- NOTE | 2022-01-30 11:20 | Physical Therapy Daily Note ---
PT Daily Note-Current Subjective Patient in bed pre tx, agrees to PT, has pain in right foot/ankle (unrated) Pain Section J - Health Conditions 1. Rarely or not at all 2. Occasionally 3. Frequently 4. Almost constantly 8. Unable to answer Pain Effect on Sleep: 2 Pain Interference with Therapy: 2 Pain Interference w/Day-to-Day: 2 Appearance Patient in bed post tx with nurse call, phone, tray, all needs met, bed alarm on. Mental Status Patient Orientation: Person, Place, Situation Transfers SCALE: Activities may be completed with or without assistive devices. 7-Xpnhubpjpz-eqkvryc completes the activity by him/herself with no assistance from a helper. 5-Set-up or Clean-up Assistance-helper sets up or cleans up; patient completes activity. [place] assists only prior to or following the activity. 4-Supervision or Touching Assistance-helper provides verbal cues and/or touching/steadying and/or contact guard assistance as patient completes activity. Assistance may be provided throughout the activity or intermittently. 3-Partial/Moderate Assistance-helper does LESS THAN HALF the effort. [place] lifts, holds or supports trunk or limbs, but provides less than half the effort. 2-Substantial/Maximal Assistance-helper does MORE THAN HALF the effort. [place] lifts or holds trunk or limbs and provides more than half the effort. 4-Rakyqoyuz-kfkgye does ALL the effort. Patient does none of the effort to complete the activity. Or, the assistance of 2 or more helpers is required for the patient to complete the activity. If activity was not attempted, code reason: 7-Patient Refused. 9-Not Applicable-not attempted and the patient did not perform the activity before the current illness, exacerbation or injury. 10-Not Attempted due to Environmental Limitations-(lack of equipment, weather restraints, etc.). 88-Not Attempted due to Medical Conditions or Safety Concerns. Roll Left & Right (QC): 4 Sit to Lying (QC): 4 Lying to Sitting/Side of Bed(Q: 3 Sit to Stand (QC): 4 (min assist to stand from a lower surface (toilet)) Chair/Uha-uu-Dpvpl Xfer(QC): 4 patient has some increased swelling in his right foot and ankle, no increased pain after standing though Weight Bearing Right Lower Extremity: Right Full Weight Bearing Left Lower Extremity: Left Full Weight Bearing Gait Training Distance: 200' Walk 10 feet (QC): 4 Walk 50 ft with 2 Turns(QC): 4 Walk 150 ft (QC): 4 Gait Assistive Device: FWW after getting back to his room he needs to use the restroom, needs assist with pants and to stand from the toilet when done Treatments bed mobility and transfers, ambulation, toileting Assessment Current Status: Fair Progress mostly CGA for mobility, needs min assist to stand from lower surfaces and for supine to sit PT Central Processing Technician Goals Central Processing Technician Goals PT Central Processing Technician Goals Time Frame: Feb 03, 2022 Roll Left & Right (QC): 4 (SBA) Sit to Lying (QC): 4 (SBA) Lying-Sitting on Side/Bed(QC): 4 (SBA) Sit to Stand (QC): 4 (SBA) Chair/Ica-fa-Hducq Xfer(QC): 4 (SBA) Toilet Transfer (QC): 4 (SBA) Walk 10 feet (QC): 4 (CGA) PT Plan Problem List Problem List: Activity Tolerance, Functional Strength, Safety, Balance, Gait, Transfer, Bed Mobility, ROM Treatment/Plan Treatment Plan: Continue Plan of Care Treatment Plan: Bed Mobility, Education, Functional Activity Darcie, Functional Strength, Gait, Safety, Therapeutic Exercise, Transfers Treatment Duration: Feb 03, 2022 Frequency: 6 times per week Estimated Hrs Per Day: .25 hour per day Patient and/or Family Agrees t: Yes Safety Risks/Education Patient Education: Gait Training, Transfer Techniques, Correct Positioning, Safety Issues Teaching Recipient: Patient Teaching Methods: Demonstration, Discussion Response to Teaching: Reinforcement Needed Time Time In: 1049 Time Out: 1107 DATE: Jan 30, 2022 Total Billed Treatment Time: 18 Total Billed Treatment 1 visit GT 18' DARYA KIM PT Jan 30, 2022 11:20
[2022-01-30] MEDS: ZOLPIDEM 5 MG (AMBIEN) TAB PO PRN (20:50)
[2022-01-31 03:48] VITALS: BP 114/69
[2022-01-31 05:45] LABS: HEMATOCRIT 29 % (40-54); HEMOGLOBIN 9.4 g/dL (13.3-17.7); MEAN CORPUSCULAR HEMOGLOBIN 31 pg (25-34); MEAN CORPUSCULAR HGB CONC 33 g/dL (32-36); MEAN CORPUSCULAR VOLUME 94 fL (80-99); MEAN PLATELET VOLUME 11.3 fL (9.0-12.2); PLATELET COUNT 243 10^3/uL (130-400); WHITE BLOOD COUNT 6.6 10^3/uL (4.3-11.0)
[2022-01-31 06:12] LABS: CALCIUM 8.6 MG/DL (8.5-10.1); CREATININE SERUM 1.21 MG/DL (0.60-1.30); POTASSIUM 3.9 MMOL/L (3.6-5.0)
[2022-01-31] MEDS: inSUlin ASPART (NovoLOG) 1 UNIT/0.01 ML (CHARGE PER UNIT) SC SCH ×4 (06:21→19:52)
[2022-01-31 07:39] VITALS: BP 120/69
[2022-01-31] MEDS: meTOprolol SUCCINATE 100 MG (TOPROL XL) TAB PO SCH ×2 (08:48→19:53)
[2022-01-31] MEDS: PREGABALIN 100 MG (LYRICA) CAPSULE PO SCH ×3 (08:48→19:53)
[2022-01-31] MEDS: PANTOPRAZOLE 40 MG (PROTONIX) TAB PO SCH (08:48)
[2022-01-31] MEDS: ALLOPURINOL 300 MG (ZYLOPRIM) TAB PO SCH (08:48)
--- NOTE | 2022-01-31 10:51 | Progress Note - Hospitalist ---
Subjective HPI/CC On Admission Date Seen by Provider: Jan 31, 2022 Pt is a 76yoCm with a PMH of neuropathy and recent admission for weakness and HAYLEY who presented to the ER due to weakness. He was sent home last week with home health and his PT saw him today and felt that he was too weak to remain at home. Patient states he has fallen multiple times and has had to call the fire department to come to his house to help him up. Last time he was ont he ground for over 24 hours and dehydrated on arrival. He states preceding this he had a URI illness with muscles aches, cough, and even some neck stiffness. He denies any headache or fever with it though. He was not tested for COVID or Flu at the time. He denies any recent known tick exposure or being outdoors much. He does have some pets that are in and out of the house though. Subjective/Events-last exam Pt reports feeling well. No complaints. Discussed plan for DC to SNF tomorrow. Objective Exam Vital Signs Vital Signs Date Time Temp Pulse Resp B/P (MAP) Pulse Ox O2 Delivery O2 Flow Rate FiO2 01/31/22 08:59 Room Air 01/31/22 07:39 37.2 86 18 120/69 (86) 92 01/29/22 16:10 10.00 Capillary Refill : Less Than 3 Seconds General Appearance: No Apparent Distress, Chronically ill Respiratory: Lungs Clear, No Respiratory Distress Cardiovascular: Regular Rate, Rhythm, No Murmur Neurologic/Psychiatric: Alert, Oriented x3 Results/Procedures Lab Laboratory Tests 01/31/22 05:30 Patient resulted labs reviewed. Imaging: Reviewed Imaging Report Assessment/Plan Assessment and Plan Assess & Plan/Chief Complaint Generalized weakness CKD Stage 3 IDDMII PT/OT Creatinine stable Referrals sent to SNF here and inpatient rehab unit in [facility] declined patient as he is too functional, hopeful for DC to SNF Thursday 02/01 Social work consulted, appreciate their help Refusing accu checks SSI as able Normocytic anemia Hgb pending today FOBT negative Surgery consulted- EGD/Colonoscopy showed moderate gastritis, HH, esophagitis, severe sigmoid diverticulosis May be due to CKD as well or at least contributing to this Iron studies low- will replace IV iron while admitted HTN HLD Continue home meds SCDs only Diagnosis/Problems Diagnosis/Problems (1) CKD (chronic kidney disease) Qualifiers: Chronic kidney disease stage: stage 3 (moderate) Chronic kidney disease stage 3 subtype: stage 3b (GFR 30-44) Qualified Codes: N18.32 - Chronic kidney disease, stage 3b (2) Generalized weakness LEVAR CULP MD Jan 31, 2022 10:51
[2022-01-31 11:08] VITALS: BP 115/69
[2022-01-31 15:34] VITALS: BP 115/59
[2022-01-31 19:21] VITALS: BP 121/73
[2022-01-31 23:11] VITALS: BP 116/58
[2022-02-01 04:20] VITALS: BP 121/70
[2022-02-01] MEDS: inSUlin ASPART (NovoLOG) 1 UNIT/0.01 ML (CHARGE PER UNIT) SC SCH ×4 (04:53→20:41)
[2022-02-01 07:25] VITALS: BP 131/66
--- NOTE | 2022-02-01 08:49 | Physical Therapy Daily Note ---
PT Daily Note-Current Subjective Patient reports he is leaving today. Agrees to PT. Pain Section J - Health Conditions 1. Rarely or not at all 2. Occasionally 3. Frequently 4. Almost constantly 8. Unable to answer Pain Effect on Sleep: 2 Pain Interference with Therapy: 2 Pain Interference w/Day-to-Day: 2 Mental Status Patient Orientation: Normal For Age Transfers SCALE: Activities may be completed with or without assistive devices. 0-Qsgaiigzlq-fwghwpx completes the activity by him/herself with no assistance from a helper. 5-Set-up or Clean-up Assistance-helper sets up or cleans up; patient completes activity. [place] assists only prior to or following the activity. 4-Supervision or Touching Assistance-helper provides verbal cues and/or touching/steadying and/or contact guard assistance as patient completes activity. Assistance may be provided throughout the activity or intermittently. 3-Partial/Moderate Assistance-helper does LESS THAN HALF the effort. [place] lifts, holds or supports trunk or limbs, but provides less than half the effort. 2-Substantial/Maximal Assistance-helper does MORE THAN HALF the effort. [place] lifts or holds trunk or limbs and provides more than half the effort. 0-Wibrwhcde-jqtzow does ALL the effort. Patient does none of the effort to complete the activity. Or, the assistance of 2 or more helpers is required for the patient to complete the activity. If activity was not attempted, code reason: 7-Patient Refused. 9-Not Applicable-not attempted and the patient did not perform the activity before the current illness, exacerbation or injury. 10-Not Attempted due to Environmental Limitations-(lack of equipment, weather restraints, etc.). 88-Not Attempted due to Medical Conditions or Safety Concerns. Lying to Sitting/Side of Bed(Q: 6 Sit to Stand (QC): 4 Weight Bearing Right Lower Extremity: Right Full Weight Bearing Left Lower Extremity: Left Full Weight Bearing Gait Training Distance: 300' Walk 10 feet (QC): 4 Walk 50 ft with 2 Turns(QC): 4 Walk 150 ft (QC): 4 Gait Assistive Device: FWW extended UE's with FWW use/functional gait sequence Assessment Patient tolerated treatment well and is left sitting EOB with bed alarm activated. PT Skilled Nursing Goals [employer] Goals PT Skilled Nursing Goals Time Frame: Feb 03, 2022 Roll Left & Right (QC): 4 (SBA) Sit to Lying (QC): 4 (SBA) Lying-Sitting on Side/Bed(QC): 4 (SBA) Sit to Stand (QC): 4 (SBA) Chair/Eae-db-Rxkvg Xfer(QC): 4 (SBA) Toilet Transfer (QC): 4 (SBA) Walk 10 feet (QC): 4 (CGA) PT Plan Treatment/Plan Treatment Plan: Continue Plan of Care Treatment Plan: Bed Mobility, Education, Functional Activity Darcie, Functional Strength, Gait, Safety, Therapeutic Exercise, Transfers Treatment Duration: Feb 03, 2022 Frequency: 6 times per week Estimated Hrs Per Day: .25 hour per day Patient and/or Family Agrees t: Yes Time Time In: 800 Time Out: 815 DATE: Feb 01, 2022 Total Billed Treatment Time: 15 Total Billed Treatment 1 visit FA 15 min MIRZA LI PT Feb 01, 2022 08:49
[2022-02-01] MEDS: IRON SUCROSE 200 MG/10 ML (VENOFER) VIAL IV SCH (08:59)
[2022-02-01] MEDS: PREGABALIN 100 MG (LYRICA) CAPSULE PO SCH ×3 (08:59→20:41)
[2022-02-01] MEDS: ALLOPURINOL 300 MG (ZYLOPRIM) TAB PO SCH (08:59)
[2022-02-01] MEDS: meTOprolol SUCCINATE 100 MG (TOPROL XL) TAB PO SCH ×2 (08:59→20:41)
[2022-02-01] MEDS: PANTOPRAZOLE 40 MG (PROTONIX) TAB PO SCH (08:59)
[2022-02-01 11:16] VITALS: BP 107/70
--- NOTE | 2022-02-01 11:46 | Occupational Ther Daily Note ---
OT Current Status-Daily Note Subjective Pt reports pain all over body, L knee, Bilateral shoulders, elbows, cold hands, and back. Declines getting out of bed but agreeable to UE exercises. Appearance Pt left supine in bed, all needs within reach at OT departure. Mental Status/Objective Patient Orientation: Person, Place Attachments: IV ADL-Treatment Therapy Code Descriptions/Definitions Functional [place] Measure: 0=Not Assessed/NA 4=Minimal Assistance 1=Total Assistance 5=Supervision or Setup 2=Maximal Assistance 6=Modified [place] 3=Moderate Assistance 7=Complete IndependenceSCALE: Activities may be completed with or without assistive devices. 6-Wnzvukcdmd-bafwban completes the activity by him/herself with no assistance from a helper. 5-Set-up or Clean-up Assistance-helper sets up or cleans up; patient completes activity. [place] assists only prior to or following the activity. 4-Supervision or Touching Assistance-helper provides verbal cues and/or touching/steadying and/or contact guard assistance as patient completes activ ity. Assistance may be provided throughout the activity or intermittently. 3-Partial/Moderate Assistance-helper does LESS THAN HALF the effort. [place] lifts, holds or supports trunk or limbs, but provides less than half the effort. 2-Substantial/Maximal Assistance-helper does MORE THAN HALF the effort. [place] lifts or holds trunk or limbs and provides more than half the effort. 5-Yctxxddff-smarwe does ALL the effort. Patient does none of the effort to complete the activity. Or, the assistance of 2 or more helpers is required for the patient to complete the activity. If activity was not attempted, code reason: 7-Patient Refused. 9-Not Applicable-not attempted and the patient did not perform the activity before the current illness, exacerbation or injury. 10-Not Attempted due to Environmental Limitations-(lack of equipment, weather restraints, etc.). 88-Not Attempted due to Medical Conditions or Safety Concerns. Other Treatment Pt declines getting out of bed but agreeable to UE exercises. He reports pain in bilateral shoulders, elbows, and hands. Initially pt only able to perform ~110 degrees shoulder flexion due to c/o pain. Post stretching facilitated by therapist, pt able to return to full range. Mild grimacing throughout exercises. 1x8 all planes. Pt appeared in slightly better mood post exercises. Education OT Patient Education: Correct positioning, Exercise program, Purpose of tx/functional activities Teaching Recipient: Patient Teaching Methods: Demonstration, Discussion Response to Teaching: Verbalize Understanding, Return Demonstration, Reinforcement Needed OT Chcf Goals Chcf Goals Time Frame: Feb 10, 2022 Eating (QC): 5 Oral Hygiene (QC): 5 Toileting Hygiene (QC): 5 Shower/Bathe Self (QC): 4 Upper Body Dressing (QC): 5 Lower Body Dressing (QC): 4 On/Off Footwear (QC): 5 Additional Goals: 1-Demonstrate ADL Tasks, 2-Verbalize Understanding, 3- ImproveStrength/Darcie 1=Demonstrate adherence to instructed precautions during ADL tasks. 2=Patient will verbalize/demonstrate understanding of assistive devices/modifications for ADL. 3=Patient will improve strength/tolerance for activity to enable patient to perform ADL's. OT Education/Plan Problem List/Assessment Assessment: Decreased Activ Tolerance, Decreased UE Strength, Restricted Funct UE ROM Discharge Recommendations Plan/Recommendations: Continue POC Treatment Plan/Plan of Care Treatment,Training & Education: Yes Patient would benefit from OT for education, treatment and training to promote independence in ADL's, mobility, safety and/or upper extremity function for ADL's. Plan of Care: ADL Retraining, Caregiver Training, Functional Mobility, Group Exercise/Act as Ind, UE Funct Exercise/Act, UE Neuromus Re-Ed/Coord Treatment Duration: Feb 10, 2022 Frequency: 3 times per week (3-5x/week) Estimated Hrs Per Day: .25 hour per day Agreement: Yes Rehab Potential: Fair Time Start Time: 11:28 Stop Time: 11:40 DATE: Feb 01, 2022 Total Time Billed (hr/min): 12 Billed Treatment Time 1 visit EX Evelin Padilla OT Feb 01, 2022 11:46
[2022-02-01 16:15] VITALS: BP 121/68
--- NOTE | 2022-02-01 17:10 | Progress Note - Hospitalist ---
Subjective HPI/CC On Admission Date Seen by Provider: Feb 01, 2022 Time Seen by Provider: 10:40 Pt is a 76yoCm with a PMH of neuropathy and recent admission for weakness and HAYLEY who presented to the ER due to weakness. He was sent home last week with home health and his PT saw him today and felt that he was too weak to remain at home. Patient states he has fallen multiple times and has had to call the fire department to come to his house to help him up. Last time he was ont he ground for over 24 hours and dehydrated on arrival. He states preceding this he had a URI illness with muscles aches, cough, and even some neck stiffness. He denies any headache or fever with it though. He was not tested for COVID or Flu at the time. He denies any recent known tick exposure or being outdoors much. He does have some pets that are in and out of the house though. Subjective/Events-last exam He is having right knee and ankle pain. He says this has been present for several weeks. He says he had a viral illness. He denies any rash. He has no other complaints. Objective Exam Vital Signs Vital Signs Date Time Temp Pulse Resp B/P (MAP) Pulse Ox O2 Delivery O2 Flow Rate FiO2 02/01/22 16:15 37.8 93 16 121/68 (85) 94 Room Air 01/29/22 16:10 10.00 Capillary Refill : Less Than 3 Seconds General Appearance: No Apparent Distress, Obese Respiratory: Lungs Clear, No Respiratory Distress Cardiovascular: Regular Rate, Rhythm, No Murmur Gastrointestinal: Normal Bowel Sounds, Soft Extremity: Normal Inspection; No Inflammation; Pedal Edema Neurologic/Psychiatric: Alert, Normal Mood/Affect Skin: Normal Color, Warm/Dry Results/Procedures Lab Patient resulted labs reviewed. Imaging: Reviewed Imaging Report Assessment/Plan Assessment and Plan Assess & Plan/Chief Complaint Generalized weakness Debility CKD 3 T2DM PT/OT Creatinine stable Awaiting insurance approval for [employer] work assisting Refusing accuchecks Sliding scale insulin Normocytic anemia Iron deficiency Hgb stable FOBT negative Surgery following, EGD/Colonoscopy showed moderate gastritis, HH, esophagitis, severe sigmoid diverticulosis May be due to CKD Iron studies low, s/p IV iron infusion HTN HLD Continue home meds DVT prophylaxis: SCDs only Diagnosis/Problems Diagnosis/Problems (1) Generalized weakness (2) Debility (3) CKD (chronic kidney disease) Qualifiers: Chronic kidney disease stage: stage 3 (moderate) Chronic kidney disease stage 3 subtype: stage 3b (GFR 30-44) Qualified Codes: N18.32 - Chronic kidney disease, stage 3b (4) Acute kidney injury superimposed on chronic kidney disease Status: Acute (5) Anemia Status: Acute (6) Iron deficiency Status: Acute (7) Diabetes Status: Acute Qualifiers: Diabetes mellitus type: type 2 Diabetes mellitus [facility] insulin use: with [facility] use (8) Neuropathic pain Status: Acute ALIS ANDERSON MD Feb 01, 2022 17:10
[2022-02-01 20:05] VITALS: BP 118/65
[2022-02-02] VITALS (7 sets, daily range): BP systolic 113–137; BP diastolic 62–73
[2022-02-02] MEDS: inSUlin ASPART (NovoLOG) 1 UNIT/0.01 ML (CHARGE PER UNIT) SC SCH ×4 (06:41→20:12)
[2022-02-02] MEDS: PREGABALIN 100 MG (LYRICA) CAPSULE PO SCH ×3 (08:48→20:11)
[2022-02-02] MEDS: ALLOPURINOL 300 MG (ZYLOPRIM) TAB PO SCH (08:48)
[2022-02-02] MEDS: PANTOPRAZOLE 40 MG (PROTONIX) TAB PO SCH (08:48)
[2022-02-02] MEDS: meTOprolol SUCCINATE 100 MG (TOPROL XL) TAB PO SCH ×2 (08:48→20:11)
--- NOTE | 2022-02-02 08:49 | Occupational Ther Daily Note ---
OT Current Status-Daily Note Subjective Pt in bathroom on arrival. Pt agrees to therapy. C/o no pain at this time. Mental Status/Objective Patient Orientation: Person, Place, Time, Situation ADL-Treatment Pt required min assist for sit to stand from toilet with FWW. Pt able to bend over and hike pants over hips with SBA. Pt ambulated with FWW to EOB. PT took over care at this time. Pt EOB post tx. Phone/call light in reach. All needs met in room. Therapy Code Descriptions/Definitions Functional [place] Measure: 0=Not Assessed/NA 4=Minimal Assistance 1=Total Assistance 5=Supervision or Setup 2=Maximal Assistance 6=Modified [place] 3=Moderate Assistance 7=Complete IndependenceSCALE: Activities may be completed with or without assistive devices. 3-Uvszrvmbgx-cqzlxpu completes the activity by him/herself with no assistance from a helper. 5-Set-up or Clean-up Assistance-helper sets up or cleans up; patient completes activity. [place] assists only prior to or following the activity. 4-Supervision or Touching Assistance-helper provides verbal cues and/or touching/steadying and/or contact guard assistance as patient completes activity. Assistance may be provided throughout the activity or intermittently. 3-Partial/Moderate Assistance-helper does LESS THAN HALF the effort. [place] lifts, holds or supports trunk or limbs, but provides less than half the effort. 2-Substantial/Maximal Assistance-helper does MORE THAN HALF the effort. [place] l ifts or holds trunk or limbs and provides more than half the effort. 1-Uddklisdn-jvnclt does ALL the effort. Patient does none of the effort to complete the activity. Or, the assistance of 2 or more helpers is required for the patient to complete the activity. If activity was not attempted, code reason: 7-Patient Refused. 9-Not Applicable-not attempted and the patient did not perform the activity before the current illness, exacerbation or injury. 10-Not Attempted due to Environmental Limitations-(lack of equipment, weather restraints, etc.). 88-Not Attempted due to Medical Conditions or Safety Concerns. Toileting Hygiene (QC): 4 Toilet Transfer (QC): 4 OT Adzing And Boring Machine Feeder Goals Correction Goals Time Frame: Feb 10, 2022 Eating (QC): 5 Oral Hygiene (QC): 5 Toileting Hygiene (QC): 5 Shower/Bathe Self (QC): 4 Upper Body Dressing (QC): 5 Lower Body Dressing (QC): 4 On/Off Footwear (QC): 5 Additional Goals: 1-Demonstrate ADL Tasks, 2-Verbalize Understanding, 3- ImproveStrength/Darcie 1=Demonstrate adherence to instructed precautions during ADL tasks. 2=Patient will verbalize/demonstrate understanding of assistive devices/modifications for ADL. 3=Patient will improve strength/tolerance for activity to enable patient to perform ADL's. OT Education/Plan Problem List/Assessment Assessment: Decreased Activ Tolerance, Impaired I ADL's, Impaired Self-Care Skills Discharge Recommendations Plan/Recommendations: Continue POC Treatment Plan/Plan of Care Patient would benefit from OT for education, treatment and training to promote independence in ADL's, mobility, safety and/or upper extremity function for ADL's. Plan of Care: ADL Retraining, Caregiver Training, Functional Mobility, Group Exercise/Act as Ind, UE Funct Exercise/Act, UE Neuromus Re-Ed/Coord Treatment Duration: Feb 10, 2022 Frequency: 3 times per week (3-5x/week) Estimated Hrs Per Day: .25 hour per day Agreement: Yes Rehab Potential: Fair Time Start Time: 08:30 Stop Time: 08:38 DATE: Feb 02, 2022 Total Time Billed (hr/min): 8 Billed Treatment Time 1 visit ADL (8 min) MIKE PLAZA Feb 02, 2022 08:49
--- NOTE | 2022-02-02 09:15 | Physical Therapy Daily Note ---
PT Daily Note-Current Subjective Patient agrees to PT. Declined gait belt use. Pain Section J - Health Conditions 1. Rarely or not at all 2. Occasionally 3. Frequently 4. Almost constantly 8. Unable to answer Pain Effect on Sleep: 2 Pain Interference with Therapy: 2 Pain Interference w/Day-to-Day: 2 Mental Status Patient Orientation: Normal For Age Transfers SCALE: Activities may be completed with or without assistive devices. 0-Joabmsnfui-esvkdmy completes the activity by him/herself with no assistance from a helper. 5-Set-up or Clean-up Assistance-helper sets up or cleans up; patient completes activity. [place] assists only prior to or following the activity. 4-Supervision or Touching Assistance-helper provides verbal cues and/or touching/steadying and/or contact guard assistance as patient completes activity. Assistance may be provided throughout the activity or intermittently. 3-Partial/Moderate Assistance-helper does LESS THAN HALF the effort. [place] lifts, holds or supports trunk or limbs, but provides less than half the effort. 2-Substantial/Maximal Assistance-helper does MORE THAN HALF the effort. [place] lifts or holds trunk or limbs and provides more than half the effort. 7-Hnjwuqqee-ketxow does ALL the effort. Patient does none of the effort to complete the activity. Or, the assistance of 2 or more helpers is required for the patient to complete the activity. If activity was not attempted, code reason: 7-Patient Refused. 9-Not Applicable-not attempted and the patient did not perform the activity before the current illness, exacerbation or injury. 10-Not Attempted due to Environmental Limitations-(lack of equipment, weather restraints, etc.). 88-Not Attempted due to Medical Conditions or Safety Concerns. Sit to Stand (QC): 5 Weight Bearing Right Lower Extremity: Right Full Weight Bearing Left Lower Extremity: Left Full Weight Bearing Gait Training Distance: 500' Walk 10 feet (QC): 5 Walk 50 ft with 2 Turns(QC): 5 Walk 150 ft (QC): 5 Gait Assistive Device: FWW steady functional gait sequence Assessment Patient remains seated EOB with needs met. Patient asked to talk to SW about POC. PT Domestic Maid Goals Domestic Maid Goals PT Domestic Maid Goals Time Frame: Feb 03, 2022 Roll Left & Right (QC): 4 (SBA) Sit to Lying (QC): 4 (SBA) Lying-Sitting on Side/Bed(QC): 4 (SBA) Sit to Stand (QC): 4 (SBA) Chair/Nhy-jy-Qbwla Xfer(QC): 4 (SBA) Toilet Transfer (QC): 4 (SBA) Walk 10 feet (QC): 4 (CGA) PT Plan Treatment/Plan Treatment Plan: Continue Plan of Care Treatment Plan: Bed Mobility, Education, Functional Activity Darcie, Functional Strength, Gait, Safety, Therapeutic Exercise, Transfers Treatment Duration: Feb 03, 2022 Frequency: 6 times per week Estimated Hrs Per Day: .25 hour per day Patient and/or Family Agrees t: Yes Time Time In: 838 Time Out: 852 DATE: Feb 02, 2022 Total Billed Treatment Time: 14 Total Billed Treatment 1 visit FA 14 min MIRZA LI PT Feb 02, 2022 09:15
--- NOTE | 2022-02-02 15:03 | Physical Therapy Daily Note ---
PT Daily Note-Current Subjective Patient in bed pre tx, agrees to PT, has 9/10 pain in right foot. Patient agrees to practice stairs before he goes home. Pain Section J - Health Conditions 1. Rarely or not at all 2. Occasionally 3. Frequently 4. Almost constantly 8. Unable to answer Pain Effect on Sleep: 2 Pain Interference with Therapy: 2 Pain Interference w/Day-to-Day: 2 Appearance Patient in bed post tx with nurse call, phone, tray, all needs met, bed alarm on. Mental Status Patient Orientation: Person, Place, Situation Transfers SCALE: Activities may be completed with or without assistive devices. 8-Xtisqnmcjz-azhiyto completes the activity by him/herself with no assistance from a helper. 5-Set-up or Clean-up Assistance-helper sets up or cleans up; patient completes activity. [place] assists only prior to or following the activity. 4-Supervision or Touching Assistance-helper provides verbal cues and/or touching/steadying and/or contact guard assistance as patient completes activity. Assistance may be provided throughout the activity or intermittently. 3-Partial/Moderate Assistance-helper does LESS THAN HALF the effort. [place] lifts, holds or supports trunk or limbs, but provides less than half the effort. 2-Substantial/Maximal Assistance-helper does MORE THAN HALF the effort. [place] lifts or holds trunk or limbs and provides more than half the effort. 4-Banbisyzu-insjcc does ALL the effort. Patient does none of the effort to complete the activity. Or, the assistance of 2 or more helpers is required for the patient to complete the activity. If activity was not attempted, code reason: 7-Patient Refused. 9-Not Applicable-not attempted and the patient did not perform the activity before the current illness, exacerbation or injury. 10-Not Attempted due to Environmental Limitations-(lack of equipment, weather restraints, etc.). 88-Not Attempted due to Medical Conditions or Safety Concerns. Roll Left & Right (QC): 4 Sit to Lying (QC): 4 Lying to Sitting/Side of Bed(Q: 4 Sit to Stand (QC): 4 Weight Bearing Right Lower Extremity: Right Full Weight Bearing Left Lower Extremity: Left Full Weight Bearing Gait Training Distance: 500' Walk 10 feet (QC): 4 Walk 50 ft with 2 Turns(QC): 4 Walk 150 ft (QC): 4 Gait Persons Needed: 1 Gait Assistive Device: FWW SBA, slow but steady ambulation Stair Training Stair Training: Handrails/: 2 handrails #of Steps: 4 1 Step (curb) (QC): 4 4 Steps (QC): 4 Stairs: Pattern: Step to CGA, cues for safety and foot placement Treatments bed mobility and transfers, ambulation, stair training Assessment Current Status: Fair Progress needs somebody with him to go up and down stairs PT Fpc Goals Fpc Goals PT Glass Sagger Goals Time Frame: Feb 03, 2022 Roll Left & Right (QC): 4 (SBA) Sit to Lying (QC): 4 (SBA) Lying-Sitting on Side/Bed(QC): 4 (SBA) Sit to Stand (QC): 4 (SBA) Chair/Fdh-bb-Thmcy Xfer(QC): 4 (SBA) Toilet Transfer (QC): 4 (SBA) Walk 10 feet (QC): 4 (CGA) PT Plan Problem List Problem List: Activity Tolerance, Functional Strength, Safety, Balance, Gait, Transfer, Bed Mobility, ROM Treatment/Plan Treatment Plan: Continue Plan of Care Treatment Plan: Bed Mobility, Education, Functional Activity Darcie, Functional Strength, Gait, Safety, Therapeutic Exercise, Transfers Treatment Duration: Feb 03, 2022 Frequency: 6 times per week Estimated Hrs Per Day: .25 hour per day Patient and/or Family Agrees t: Yes Safety Risks/Education Patient Education: Gait Training, Transfer Techniques, Steps, Correct Positioning, Safety Issues Teaching Recipient: Patient Teaching Methods: Demonstration, Discussion Response to Teaching: Reinforcement Needed Time Time In: 1443 Time Out: 1455 DATE: Feb 02, 2022 Total Billed Treatment Time: 12 Total Billed Treatment 1 visit FA 12' DARYA KIM PT Feb 02, 2022 15:03
--- NOTE | 2022-02-02 16:47 | D/C HH Face to Face Order ---
D/C Face to Face Orders Instructions for Patient Via [facility], Patient Instructions/FollowUp: Take medications as prescribed. Follow up with your PCP. Return with worsening weakness, pain, or if you feel like you are getting worse. You are being set up with [facility]. Physician to follow Patient: [facility] Dis[facility] Diet for Home: ADA Diet, Low Sodium Diet Patient Data-Allergies,Ht & Wt Patient Allergies: Coded Allergies: No Known Drug Allergies (Unverified , 03/04/21) Home Health Need/Face to Face Date of Face to Face: Feb 02, 2022 Clinical Findings: Generalized weakness and fatigue, Instability, Muscle weakness, Unsteady gait I have seen Pt pjtk-fe-kywn: Yes Discharged To: Home Diagnosis/Conditions: Hypertension Hyperlipidemia Diabetes Chronic kidney disease Anemia Debility Problems/Diagnosis/Condition: (1) HTN (hypertension) (2) HLD (hyperlipidemia) (3) T2DM (type 2 diabetes mellitus) (4) CKD (chronic kidney disease) (5) Anemia (6) Debility Patient is Homebound due to: Matt fall risk due to instabilty, Muscle weakness Homebound Status Due to the above stated illness, injury or surgical procedure (medical condition or diagnosis) and associated clinical findings, the patient is homebound because of his/her inability to leave home except with aid of a supportive device and/or person AND leaving the home requires a considerable and taxing effort or is medically contraindicated. Pt req the following assistanc: Aid of another person, Walker Home Health Nursing Orders Home Health Services Order: Nursing Services, Barrel Stave Inspector-Evaluate & Treat, Physical Therapy-Evaluate & Treat Home Health Infusion Therapy Line Start Date: Jan 26, 2022 Therapy Orders Therapy Orders: OT (must have SN or PT order), Physical Therapy Therapy Specific Orders: Eval assistive deivces, Teach enviro modifications/safety, Gait training, Increase strength/endurance Certify Stmt I certify that this patient is under my care and that I, a nurse practitioner or a physician; a cataloging assistant working with me, had a face to face encounter that - meets the physician face to face encounter requirements with this patient as dated. ALIS ANDERSON MD Feb 02, 2022 16:47
--- NOTE | 2022-02-02 17:02 | Progress Note - Hospitalist ---
Subjective HPI/CC On Admission Date Seen by Provider: Feb 02, 2022 Time Seen by Provider: 10:45 Pt is a 76yoCm with a PMH of neuropathy and recent admission for weakness and HAYLEY who presented to the ER due to weakness. He was sent home last week with home health and his PT saw him today and felt that he was too weak to remain at home. Patient states he has fallen multiple times and has had to call the fire department to come to his house to help him up. Last time he was ont he ground for over 24 hours and dehydrated on arrival. He states preceding this he had a URI illness with muscles aches, cough, and even some neck stiffness. He denies any headache or fever with it though. He was not tested for COVID or Flu at the time. He denies any recent known tick exposure or being outdoors much. He does have some pets that are in and out of the house though. Subjective/Events-last exam He is doing well. He walked with therapy. Objective Exam Vital Signs Vital Signs Date Time Temp Pulse Resp B/P (MAP) Pulse Ox O2 Delivery O2 Flow Rate FiO2 02/02/22 16:12 37.4 62 20 114/66 (82) 91 Room Air 01/29/22 16:10 10.00 Capillary Refill : Less Than 3 Seconds General Appearance: No Apparent Distress, Obese Respiratory: Lungs Clear, No Respiratory Distress Cardiovascular: Regular Rate, Rhythm, No Murmur Gastrointestinal: Normal Bowel Sounds, Soft Extremity: Normal Inspection, No Pedal Edema Neurologic/Psychiatric: Alert, Normal Mood/Affect Skin: Normal Color, Warm/Dry Results/Procedures Lab Patient resulted labs reviewed. Imaging: Reviewed Imaging Report Assessment/Plan Assessment and Plan Assess & Plan/Chief Complaint Generalized weakness Debility CKD 3 PT/OT Creatinine stable Insurance denied SNF Plan for home with home health Social work assisting T2DM Sliding scale insulin Normocytic anemia Iron deficiency Hgb stable FOBT negative Surgery following, EGD/Colonoscopy showed moderate gastritis, HH, esophagitis, severe sigmoid diverticulosis May be due to CKD Iron studies low, s/p IV iron infusion HTN HLD Continue home meds DVT prophylaxis: SCDs only Diagnosis/Problems Diagnosis/Problems (1) Generalized weakness (2) Debility (3) CKD (chronic kidney disease) Qualifiers: Chronic kidney disease stage: stage 3 (moderate) Chronic kidney disease stage 3 subtype: stage 3b (GFR 30-44) Qualified Codes: N18.32 - Chronic kidney disease, stage 3b (4) Acute kidney injury superimposed on chronic kidney disease Status: Acute (5) Anemia Status: Acute (6) Iron deficiency Status: Acute (7) Diabetes Status: Acute Qualifiers: Diabetes mellitus type: type 2 Diabetes mellitus usp insulin use: with terminal gauger use (8) Neuropathic pain Status: Acute ALIS ANDERSON MD Feb 02, 2022 17:02
[2022-02-02] MEDS: ZOLPIDEM 5 MG (AMBIEN) TAB PO PRN (23:32)
[2022-02-03 03:19] VITALS: BP 112/70
[2022-02-03] MEDS: inSUlin ASPART (NovoLOG) 1 UNIT/0.01 ML (CHARGE PER UNIT) SC SCH (05:47)
[2022-02-03 07:32] VITALS: BP 117/62
[2022-02-03] MEDS: IRON SUCROSE 200 MG/10 ML (VENOFER) VIAL IV SCH (08:25)
[2022-02-03] MEDS: ALLOPURINOL 300 MG (ZYLOPRIM) TAB PO SCH (08:25)
[2022-02-03] MEDS: PREGABALIN 100 MG (LYRICA) CAPSULE PO SCH (08:25)
[2022-02-03] MEDS: PANTOPRAZOLE 40 MG (PROTONIX) TAB PO SCH (08:25)
[2022-02-03] MEDS: meTOprolol SUCCINATE 100 MG (TOPROL XL) TAB PO SCH (08:26)
--- NOTE | 2022-02-03 10:19 | Physical Therapy Daily Note ---
PT Daily Note-Current Subjective Patient in bed pre-tx, reports pain in feet but did not score, agrees to PT. Pain Section J - Health Conditions 1. Rarely or not at all 2. Occasionally 3. Frequently 4. Almost constantly 8. Unable to answer Pain Effect on Sleep: 2 Pain Interference with Therapy: 2 Pain Interference w/Day-to-Day: 2 Appearance Patient in bed post-tx with bed alarm on, nurse call, phone, tray, all needs met. Mental Status Patient Orientation: Person, Place, Situation Transfers SCALE: Activities may be completed with or without assistive devices. 7-Rfelsedosj-uqdnper completes the activity by him/herself with no assistance from a helper. 5-Set-up or Clean-up Assistance-helper sets up or cleans up; patient completes activity. [place] assists only prior to or following the activity. 4-Supervision or Touching Assistance-helper provides verbal cues and/or touching/steadying and/or contact guard assistance as patient completes activity. Assistance may be provided throughout the activity or intermittently. 3-Partial/Moderate Assistance-helper does LESS THAN HALF the effort. [place] lifts, holds or supports trunk or limbs, but provides less than half the effort. 2-Substantial/Maximal Assistance-helper does MORE THAN HALF the effort. [place] lifts or holds trunk or limbs and provides more than half the effort. 0-Hkqnxeibu-tzkber does ALL the effort. Patient does none of the effort to complete the activity. Or, the assistance of 2 or more helpers is required for the patient to complete the activity. If activity was not attempted, code reason: 7-Patient Refused. 9-Not Applicable-not attempted and the patient did not perform the activity before the current illness, exacerbation or injury. 10-Not Attempted due to Environmental Limitations-(lack of equipment, weather restraints, etc.). 88-Not Attempted due to Medical Conditions or Safety Concerns. Roll Left & Right (QC): 4 Sit to Lying (QC): 4 Lying to Sitting/Side of Bed(Q: 4 Sit to Stand (QC): 4 Chair/Fgp-jl-Ggsxe Xfer(QC): 4 Toilet Transfer (QC): 4 SBA with bed mobility and transfers Weight Bearing Right Lower Extremity: Right Full Weight Bearing Left Lower Extremity: Left Full Weight Bearing Gait Training Does the Patient Walk?: Yes Distance: 400' Walk 10 feet (QC): 4 Walk 50 ft with 2 Turns(QC): 4 Walk 150 ft (QC): 4 Gait Persons Needed: 1 Gait Assistive Device: FWW SBA with ambulation, patient walks with good gait speed, foot clearance, and step length. Patient has forward posturing when walking and needs verbal cueing to stand up straighter. Exercises Supine Ex: Ankle pumps, Heel Slides Supine Reps: 15 Treatments Ambulation, LE Strengthening Assessment Current Status: Fair Progress Patient demonstrated good endurance not needing any breaks during ambulation or exercises. Patient needed to use restroom and was taken. Patient stated at end of treatment "I'm a bit afraid to go home because if my son leaves me alone, I can't cook because I always burn my hands." PT Chcf Goals Chcf Goals PT Chcf Goals Time Frame: Feb 03, 2022 Roll Left & Right (QC): 4 (SBA) Sit to Lying (QC): 4 (SBA) Lying-Sitting on Side/Bed(QC): 4 (SBA) Sit to Stand (QC): 4 (SBA) Chair/Gzj-ht-Innto Xfer(QC): 4 (SBA) Toilet Transfer (QC): 4 (SBA) Walk 10 feet (QC): 4 (CGA) PT Plan Problem List Problem List: Activity Tolerance, Functional Strength, Safety, Balance, Gait, Transfer, Bed Mobility, ROM Treatment/Plan Treatment Plan: Continue Plan of Care Treatment Plan: Bed Mobility, Education, Functional Activity Darcie, Functional Strength, Gait, Safety, Therapeutic Exercise, Transfers Treatment Duration: Feb 03, 2022 Frequency: 6 times per week Estimated Hrs Per Day: .25 hour per day Patient and/or Family Agrees t: Yes Safety Risks/Education Patient Education: Gait Training, Transfer Techniques, Correct Positioning, Safety Issues Teaching Recipient: Patient Teaching Methods: Demonstration, Discussion Response to Teaching: Reinforcement Needed Time Time In: 0948 Time Out: 1005 DATE: Feb 03, 2022 Total Billed Treatment Time: 17 Total Billed Treatment 1 visit FA 17' DARYA KIM PT Feb 03, 2022 10:19
[2022-02-03 11:18] VITALS: BP 117/62
--- NOTE | 2022-02-08 08:56 | Discharge Summary ---
Discharge Summary Hospital Course Problems/Dx: (1) Generalized weakness (2) Debility (3) CKD (chronic kidney disease) Qualifiers: Qualified Codes: N18.31 - Chronic kidney disease, stage 3a (4) Acute kidney injury superimposed on chronic kidney disease Status: Acute (5) Anemia Status: Acute (6) Iron deficiency Status: Acute (7) Diabetes Status: Acute Qualifiers: (8) Neuropathic pain Status: Acute Hospital Course Date of Admission: Jan 26, 2022 at 14:33 Admission Diagnosis : Weakness Family Physician/Provider: MelissaLocal Physician Date of Discharge: 02/03/22 Discharge Diagnosis: Weakness, debility, HAYLEY on CKD 3a, iron deficiency anemia Hospital Course: Bandar Crabtree is a 76 year old male who presented with weakness. He has been having issues with falls. His physical therapist recommended that he come in due to inability to care for himself at home. He was dehydrated and had an HAYLEY on CKD 3a which improved with fluids. He was also anemic and found to be iron deficient. Surgery was consulted and performed EGD/colonoscopy. He was found to have esophagitis/gastritis, hiatal hernia, and diverticulosis. He was given an iron infusion. He was started on a PPI. He worked with therapy and an attempt was made to get him to a correction facility, but he improved and no longer required their services. He was discharged home with home health in improved, stable condition. Labs and Pending Lab Test: Home Meds Active Protonix (Pantoprazole Sodium) 40 Mg Tablet.dr 40 Mg PO DAILY Levemir Flextouch (Insulin Detemir) 100 Unit/Ml (3 Ml) Insuln.pen 20 Unit SQ HS 30 Days Reported Aleve (Naproxen Sodium) 220 Mg Tablet 220-440 Mg PO BID PRN Vitamin D3 (Cholecalciferol (Vitamin D3)) 50 Mcg (2000 Unit) Capsule 50 Mcg PO 1200 Fish Oil 1,200 mg Fish Oil (Fish Oil/Dha/Epa) 1,200 Mg-144 Mg-216 Mg Capsule 1 Each PO 1200 Vitamin E (Vitamin E Mixed) 100 Unit Tablet 100 Unit PO 1200 Vitamin C (Ascorbate Calcium) 500 Mg Tablet 500 Mg PO 1200 Tramadol HCl 50 Mg Tablet 50-100 Mg PO HS PRN Pregabalin 200 Mg Capsule 200 Mg PO TID Furosemide 40 Mg Tablet 40 Mg PO DAILY Jardiance (Empagliflozin) 25 Mg Tablet 12.5 Mg PO DAILY TAKES OF A 25MG TAB Multivitamin 1 Each Tablet 1 Each PO 1200 Atorvastatin Calcium 80 Mg Tablet 40 Mg PO HS TAKES OF AN 80MG TAB Zolpidem Tartrate 5 Mg Tablet 5 Mg PO HS PRN Allopurinol 300 Mg Tablet 300 Mg PO DAILY Metoprolol Succinate 100 Mg Tab.er.24h 50 Mg PO BID TAKES OF A 100MG TAB Metformin HCl 1,000 Mg Tablet 1,000 Mg PO BID Assessment/Pt Instructions See instructions Discharge Planning: >30 minutes discharge planning Discharge Instructions Discharge Diet: No Restrictions Activity as Tolerated: Yes Consultations Surgery Discharge Physical Examination Vital Signs Vital Signs Date Time Temp Pulse Resp B/P (MAP) Pulse Ox O2 Delivery O2 Flow Rate FiO2 02/03/22 11:18 37.1 75 18 117/62 95 Room Air Allergies: Coded Allergies: No Known Drug Allergies (Unverified , 03/04/21) Discharge Summary Date of Admission Jan 26, 2022 at 14:33 Date of Discharge Feb 03, 2022 at 11:18 Discharge Date: Feb 03, 2022 Discharge Time: 11:18 Admission Diagnosis Generalized weakness Consults/Procedures Consulations Surgery Procedures EGD/colonoscopy Discharge Diagnosis Generalized weakness Debility CKD 3 T2DM Normocytic anemia Iron deficiency HTN HLD (1) Generalized weakness (2) Debility (3) CKD (chronic kidney disease) Qualifiers: Qualified Codes: N18.31 - Chronic kidney disease, stage 3a (4) Acute kidney injury superimposed on chronic kidney disease Status: Acute (5) Anemia Status: Acute (6) Iron deficiency Status: Acute (7) Diabetes Status: Acute Qualifiers: (8) Neuropathic pain Status: Acute ALIS ANDERSON MD Feb 08, 2022 08:55
== END 2022-02-03 08:00 | disposition home health service (06) ==
LOC: EDUNIT# 12:11 → ER 12:12 → UNDOADMOB 14:33 → 4TH 14:33 → UNDODISOB 02-03 08:00
PROVIDERS: ADMIT Family Medicine; ATTEND Internal Medicine
DX: R53.1 Weakness (principal); R53.81 Other malaise; E11.22 Type 2 diabetes mellitus with diabetic chronic kidney disease; N18.31 Chronic kidney disease, stage 3a; N17.9 Acute kidney failure, unspecified; E78.5 Hyperlipidemia, unspecified; I12.9 Hypertensive chronic kidney disease with stage 1 through stage 4 chronic kidney disease, or unspecified chronic kidney disease; D64.9 Anemia, unspecified; M79.2 Neuralgia and neuritis, unspecified; K21.00 Gastro-esophageal reflux disease with esophagitis, without bleeding; K44.9 Diaphragmatic hernia without obstruction or gangrene; K57.30 Diverticulosis of large intestine without perforation or abscess without bleeding
CPT/HCPCS: 36415; 71045; 80048; 80053; 81000; 82274; 82728; 82947; 83540; 83550; 83880; 85025; 85027; 86618; 86666; 86668; 86757; 87636; 90471; 90662; 93005; 96372; 96375; 96376; G0378

== ENCOUNTER 2022-02-13 16:15 | Inpatient (IN) | payer OTHER, MEDICARE ==
[~2022-02-13] VITALS: Ht 167 cm; Wt 89.0 kg
[~2022-02-13 16:15] MED LIST changes: +PANT40TA2 PO
[2022-02-13 16:49] LABS: BASOPHILS % (AUTO) 0 % (0-10); EOSINOPHILS % (AUTO) 0 % (0-10); HEMATOCRIT 34 % (40-54); HEMOGLOBIN 11.3 g/dL (13.3-17.7); LYMPHOCYTES # (AUTO) 2.2 10^3/uL (1.0-4.0); LYMPHOCYTES % (AUTO) 13 % (12-44); MEAN CORPUSCULAR HEMOGLOBIN 31 pg (25-34); MEAN CORPUSCULAR HGB CONC 33 g/dL (32-36); MEAN CORPUSCULAR VOLUME 94 fL (80-99); MEAN PLATELET VOLUME 11.9 fL (9.0-12.2); MONOCYTES # (AUTO) 0.9 10^3/uL (0.0-1.0); MONOCYTES % (AUTO) 5 % (0-12); NEUTROPHILS # (AUTO) 13.1 10^3/uL (1.8-7.8); NEUTROPHILS % (AUTO) 81 % (42-75); PLATELET COUNT 350 10^3/uL (130-400); WHITE BLOOD COUNT 16.3 10^3/uL (4.3-11.0)
[2022-02-13 16:57] LABS: ALBUMIN 2.8 GM/DL (3.2-4.5)
[2022-02-13 16:58] LABS: POTASSIUM 4.3 MMOL/L (3.6-5.0)
[2022-02-13 16:59] LABS: CALCIUM 9.7 MG/DL (8.5-10.1)
[2022-02-13 17:00] LABS: TOTAL PROTEIN 8.2 GM/DL (6.4-8.2)
[2022-02-13] MEDS ORDERED: dilTIAZem DRIP PRE-MIX 125 ML IV SCH (17:00)
[2022-02-13] MEDS ORDERED: NS IV 1000 ML 1,000 ML IV SCH (17:00)
--- NOTE | 2022-02-13 17:00 | ED General ---
General Chief Complaint: General Problems/Pain Stated Complaint: WEAKNESS Nursing Triage Note: PT TO [facility] BY [facility] WITH CC OF GENERAL WEAKNESS, PT STATES HE WAS ON THE COUCH FOR A FEW DAYS, BEING VAGUE WITH HX AND NOT BEING FORWARD WITH ANSWERING QUESTIONS. PT STATES HE ACCIDENTALLY HIT HIS MED ALERT BUTTON, DOES'T WANT TO BE HERE BUT KNOWS HE NEEDS TO BE HERE Source of Information: Patient, EMS, Old Records Exam Limitations: No Limitations History of Present Illness Date Seen by Provider: Feb 13, 2022 Time Seen by Provider: 16:25 Initial Comments This 76-year-old gentleman presents to the emergency room via EMS with complaints of profound weakness. He apparently accidentally hit his medical alert button today. Fire department arrived and assessed him. He was followed to be profoundly weak. Apparently fire department noted his oxygen saturation to be 75% on room air. EMS states it was 95% on room air by their assessment and he maintains a normal oxygen saturation on room air at present. Patient did not intend to hit his medical alert button but presented to the emergency room with EMS because of his inability to stand or walk. He was able to crawl around his house yesterday. He has been on his couch since this morning and unable to get up. He has not taken any medications in the past 2 days. He was recently admitted to the hospital from January 26 through for acute renal failure, weakness, and other medical conditions. He denies any shortness of breath. He has an unusual wide linear necrotic appearing wound on the medial aspect of his left foot. He is afebrile. He is tachycardic and appears to be in atrial fibrillation. He apparently has had 1 prior episode of atrial fibrillation. He has insulin-dependent diabetes. He is alert and conversational. He has a global weakness but does not appear to have any focal neurologic deficits. Allergies and Home Medications Allergies Coded Allergies: No Known Drug Allergies (Unverified , 03/04/21) Patient Home Medication List Home Medication List Reviewed: Yes Allopurinol (Allopurinol) 300 Mg Tablet, 300 MG PO DAILY, (Reported) Entered as Reported by: FRANKLIN GARCIA on 05/08/21 1302 Ascorbate Calcium (Vitamin C) 500 Mg Tablet, 500 MG PO 1200, (Reported) Entered as Reported by: ES STUART on 01/21/22 1109 Atorvastatin Calcium (Atorvastatin Calcium) 80 Mg Tablet, 40 MG PO HS, (Reported) Entered as Reported by: FRANKLIN GARCIA on 05/08/21 1302 Cholecalciferol (Vitamin D3) (Vitamin D3) 50 Mcg (2000 Unit) Capsule, 50 MCG PO 1200, (Reported) Entered as Reported by: ES STUART on 01/21/22 110 Empagliflozin (Jardiance) 25 Mg Tablet, 12.5 MG PO DAILY, (Reported) Entered as Reported by: ES STUART on 01/21/22 110 Fish Oil/Dha/Epa (Fish Oil 1,200 mg Fish Oil) 1,200 Mg-144 Mg-216 Mg Capsule, 1 EACH PO 1200, (Reported) Entered as Reported by: ES STUART on 01/21/22 110 Furosemide (Furosemide) 40 Mg Tablet, 40 MG PO DAILY, (Reported) Entered as Reported by: ES STUART on 01/21/221108 Insulin Detemir (Levemir Flextouch) 100 Unit/Ml (3 Ml) Insuln.pen, 20 UNIT SQ HS Prescribed by: ALIS ANDERSON on 01/21/22 163 Metformin HCl (Metformin HCl) 1,000 Mg Tablet, 1,000 MG PO BID, (Reported) Entered as Reported by: FRANKLIN GARCIA on 05/08/21 130 Metoprolol Succinate (Metoprolol Succinate) 100 Mg Tab.er.24h, 50 MG PO BID, (Reported) Entered as Reported by: FRANKLIN GARCIA on 05/08/21 130 Multivitamin (Multivitamin) 1 Each Tablet, 1 EACH PO 1200, (Reported) Entered as Reported by: FRANKLIN GARCIA on 05/08/21 130 Naproxen Sodium (Aleve) 220 Mg Tablet, 220-440 MG PO BID PRN for PAIN-MILD (1- 4), (Reported) Entered as Reported by: ES STUART on 01/21/22 110 Pantoprazole Sodium (Protonix) 40 Mg Tablet.dr, 40 MG PO DAILY Prescribed by: JEFFREY RICE on 01/29/22 1612 Pregabalin (Pregabalin) 200 Mg Capsule, 200 MG PO TID, (Reported) Entered as Reported by: ES STUART on 01/21/22 110 Tramadol HCl (Tramadol HCl) 50 Mg Tablet, 50-100 MG PO HS PRN for PAIN-MODERATE (5-7), (Reported) Entered as Reported by: ES STUART on 01/21/22 1109 Vitamin E Mixed (Vitamin E) 100 Unit Tablet, 100 UNIT PO 1200, (Reported) Entered as Reported by: ES STUART on 01/21/22 1109 Zolpidem Tartrate (Zolpidem Tartrate) 5 Mg Tablet, 5 MG PO HS PRN for SLEEP, (Reported) Entered as Reported by: FRANKLIN GARCIA on 05/08/21 1302 Review of Systems Review of Systems Constitutional: see HPI EENTM: no symptoms reported Respiratory: no symptoms reported Gastrointestinal: no symptoms reported Genitourinary: no symptoms reported Musculoskeletal: no symptoms reported Skin: see HPI Psychiatric/Neurological: See HPI Hematologic/Lymphatic: No Symptoms Reported Immunological/Allergic: no symptoms reported Past Ytkemhs-Qzjrkj-Bvidnt Hx Patient Social History Tobacco Use?: No Substance use?: No Alcohol Use?: No Immunizations Up To Date First/Initial COVID19 Vaccinat: RECEIVED, UNK WHEN Second COVID19 Vaccination Brandon: RECEIVED, UNK WHEN Third COVID19 Vaccination Date: RECEIVED, UNK WHEN Past Medical History Surgery/Hospitalization HX: PMH: DM 2, HTN, NEUROPATHY, A FIB "ONCE" PSH: LENS REPLACED IN BILATERAL EYES, Surgeries: Yes Abdominal (EGD and colonoscopy), Eye Surgery Respiratory: No Cardiac: Yes Atrial Fibrillation Neurological: Yes (Tremor) Neuropathy Genitourinary: Yes Renal Failure Gastrointestinal: Yes Diverticulosis (Severe), Hiatal Hernia Musculoskeletal: No Endocrine: Yes Diabetes, Insulin dep HEENT: Yes Cataract Cancer: No Psychosocial: No Blood Disorders: Yes (Anemia) Family Medical History No Pertinent Family Hx Physical Exam-Suspected Sepsis Physical Exam Vital Signs Vital Signs - First Documented 02/13/22 16:18 Temp 35.9 Pulse 116 Resp 20 B/P (MAP) 124/89 (101) Pulse Ox 96 O2 Delivery Room Air Capillary Refill : Less Than 3 Seconds Blood Pressure Mean: 101 Height, Weight, BMI Height: '" Weight: lbs. oz. kg; 31.00 BMI Method: General Appearance: No Apparent Distress, WD/WN HEENT: PERRL/EOMI, Normal ENT Inspection (Mucous membranes moist) Neck: Normal Inspection; No JVD Respiratory: Lungs Clear, Normal Breath Sounds, No Accessory Muscle Use Cardiovascular: No Murmur, Irregularly Irregular, Tachycardia, Other (Mild edema in the lower extremities) Gastrointestinal: Non Tender, Soft; No Distended Extremity: Other (Neuropathic tenderness in the lower extremities. Linear region of necrotic appearing skin on the medial aspect of the great toe and extending up to the medial aspect of the foot. Mild lower extremity edema) Neurologic/Psychiatric: Alert, Oriented x3, welt butter hand II-XII Norm as Tested, Other (Global motor weakness without focal deficit. Irritable mood.) Skin: normal color, warm/dry, other (See extremity exam) Focused Exam Sepsis Stage: Sepsis Reason for ruling out sepsis: Sepsis uncertain but possible given lab values. No source identified. Possible Source: Other (No source identified) Lactate Level 02/13/22 17:01: Lactic Acid Level 1.45 Time of Focused Exam: 19:20 Respiratory: Normal Breath Sounds, No Accessory Muscle Use, No Respiratory Distress Cardiovascular: Tachycardia Capillary Refill: Less Than 3 Seconds Skin: normal color, warm/dry Lactic Acid Level Within 3hrs of presentation: Admin fluids, Admin ABX, Blood cultures prior to ABX's, Lactate level Progress/Results/Core Measures Suspected Sepsis SIRS Temperature: Pulse: 116 Respiratory Rate: 20 Laboratory Tests 02/13/22 16:25: White Blood Count 16.3H Blood Pressure 124 /89 Mean: 101 02/13/22 17:01: Lactic Acid Level 1.45 Laboratory Tests 02/13/22 16:25: Creatinine 2.05H, INR Comment 1.5H, Platelet Count 350, Total Bilirubin 1.3H Results/Orders Lab Results Laboratory Tests Test 02/13/22 16:25 02/13/22 16:58 02/13/22 17:01 Range/Units White Blood Count 16.3 H 4.3-11.0 10^3/uL Red Blood Count 3.64 L 4.30-5.52 10^6/uL Hemoglobin 11.3 L 13.3-17.7 g/dL Hematocrit 34 L 40-54 % Mean Corpuscular Volume 94 80-99 fL Mean Corpuscular Hemoglobin 31 25-34 pg Mean Corpuscular Hemoglobin Concent 33 32-36 g/dL Red Cell Distribution Width 14.1 10.0-14.5 % Platelet Count 350 130-400 10^3/uL Mean Platelet Volume 11.9 9.0-12.2 fL Immature Granulocyte % (Auto) 0 % Neutrophils (%) (Auto) 81 H 42-75 % Lymphocytes (%) (Auto) 13 12-44 % Monocytes (%) (Auto) 5 0-12 % Eosinophils (%) (Auto) 0 0-10 % Basophils (%) (Auto) 0 0-10 % Neutrophils # (Auto) 13.1 H 1.8-7.8 10^3/uL Lymphocytes # (Auto) 2.2 1.0-4.0 10^3/uL Monocytes # (Auto) 0.9 0.0-1.0 10^3/uL Eosinophils # (Auto) 0.0 0.0-0.3 10^3/uL Basophils # (Auto) 0.0 0.0-0.1 10^3/uL Immature Granulocyte # (Auto) 0.1 0.0-0.1 10^3/uL Neutrophils % (Manual) 76 % Lymphocytes % (Manual) 16 % Monocytes % (Manual) 8 % Blood Morphology Comment NORMAL Prothrombin Time 18.6 H 12.2-14.7 SEC INR Comment 1.5 H 0.8-1.4 Activated Partial Thromboplast Time 40 H 24-35 SEC Sodium Level 139 135-145 MMOL/L Potassium Level 4.3 3.6-5.0 MMOL/L Chloride Level 101 98-107 MMOL/L Carbon Dioxide Level 21 21-32 MMOL/L Anion Gap 17 H 5-14 MMOL/L Blood Urea Nitrogen 51 H 7-18 MG/DL Creatinine 2.05 H 0.60-1.30 MG/DL Estimat Glomerular Filtration Rate 33 BUN/Creatinine Ratio 25 Glucose Level 200 H 70-105 MG/DL Calcium Level 9.7 8.5-10.1 MG/DL Corrected Calcium 10.7 H 8.5-10.1 MG/DL Magnesium Level 1.7 1.6-2.4 MG/DL Total Bilirubin 1.3 H 0.1-1.0 MG/DL Aspartate Amino Transf (AST/SGOT) 17 5-34 U/L Alanine Aminotransferase (ALT/SGPT) 13 0-55 U/L Alkaline Phosphatase 50 40-136 U/L Total Creatine Kinase 32 30-200 U/L C-Reactive Protein High Sensitivity 26.45 H 0.00-0.50 MG/DL Total Protein 8.2 6.4-8.2 GM/DL Albumin 2.8 L 3.2-4.5 GM/DL Thyroid Stimulating Hormone (TSH) 0.66 0.35-4.94 UIU/ML Free Thyroxine 1.05 0.70-1.48 NG/DL Serum Alcohol < 10 <10 MG/DL Urine Color ORANGE Urine Clarity CLEAR Urine pH 5.5 5-9 Urine Specific [place] 1.025 H 1.016-1.022 Urine Protein 1+ H NEGATIVE Urine Glucose (UA) 3+ H NEGATIVE Urine Ketones NEGATIVE NEGATIVE Urine Nitrite NEGATIVE NEGATIVE Urine Bilirubin 1+ H NEGATIVE Urine Urobilinogen 1.0 < = 1.0 MG/DL Urine Leukocyte Esterase NEGATIVE NEGATIVE Urine RBC (Auto) TRACE-I H NEGATIVE Urine RBC NONE /HPF Urine WBC NONE /HPF Urine Squamous Epithelial Cells NONE /HPF Urine Renal Epithelial Cells NONE /HPF Urine Crystals NONE /LPF Urine Bacteria NEGATIVE /HPF Urine Casts NONE /LPF Urine Mucus NEGATIVE /LPF Urine Culture Indicated NO Urine Opiates Screen NEGATIVE NEGATIVE Urine Oxycodone Screen NEGATIVE NEGATIVE Urine Methadone Screen NEGATIVE NEGATIVE Urine Propoxyphene Screen NEGATIVE NEGATIVE Urine Barbiturates Screen NEGATIVE NEGATIVE Ur Tricyclic Antidepressants Screen NEGATIVE NEGATIVE Urine Phencyclidine Screen NEGATIVE NEGATIVE Urine Amphetamines Screen NEGATIVE NEGATIVE Urine Methamphetamines Screen NEGATIVE NEGATIVE Urine Benzodiazepines Screen NEGATIVE NEGATIVE Urine Cocaine Screen NEGATIVE NEGATIVE Urine Cannabinoids Screen NEGATIVE NEGATIVE Lactic Acid Level 1.45 0.50-2.00 MMOL/L My Orders Orders - WALLY KIM MD Cbc With Automated Diff (02/13/22 16:41) Comprehensive Metabolic Panel (02/13/22 16:41) Creatine Kinase (02/13/22 16:41) Hs C Reactive Protein (02/13/22 16:41) Magnesium (02/13/22 16:41) Ua Culture If Indicated (02/13/22 16:41) Ed Iv/Invasive Line Start (02/13/22 16:41) Thyroid Stimulating Hormone (02/13/22 16:46) Free T4 (Free Thyroxine) (02/13/22 16:46) Diltiazem Injection (Cardizem Injection) (02/13/22 17:00) Alcohol (02/13/22 16:48) Drug Screen Stat (Urine) (02/13/22 16:48) Manual Differential (02/13/22 16:25) Ns Iv 1000 Ml (Sodium Chloride 0.9%) (02/13/22 17:00) Blood Culture (02/13/22 16:53) Sputum Culture (02/13/22 16:53) Protime With Inr (02/13/22 16:53) Partial Thromboplastin Time (02/13/22 16:53) Chest 1 View, Ap/Pa Only (02/13/22 16:53) O2 (02/13/22 16:53) Remove Rings In Anticipation O (02/13/22 16:53) Lactic Acid Analyzer (02/13/22 16:53) Cho 75g/M 1snack (21-2400 Abner) (02/13/22 Dinner) Gabapentin Capsule/Tablet (Neurontin Cap (02/13/22 18:00) Cefepime Injection (Maxipime Injection) (02/13/22 18:15) Foot, Left, 3 Views (02/13/22 18:15) Code/Resuscitation (02/13/22 18:38) Apixaban Tablet (Eliquis Tablet) (02/13/22 19:30) Medications Given in ED Current Medications Medications Dose Ordered Sig/Ministerio Route Start Time Stop Time Status Last Admin Dose Admin Apixaban 5 mg ONCE ONCE PO 02/13/22 19:30 02/13/22 19:31 DC 02/13/22 19:36 5 MG Cefepime HCl 2000 mg/Sodium Chloride 50 ml @ 100 mls/hr ONCE ONCE IV 02/13/22 18:15 02/13/22 18:44 DC 02/13/22 18:39 100 MLS/HR Diltiazem HCl 10 mg ONCE ONCE IVP 02/13/22 17:00 02/13/22 17:01 DC 02/13/22 17:04 10 MG Gabapentin 300 mg ONCE ONCE PO 02/13/22 18:00 02/13/22 18:01 DC 02/13/22 18:05 300 MG Vital Signs/I&O 02/13/22 02/13/22 02/13/22 02/13/22 16:18 17:04 17:13 20:03 Temp 35.9 36.6 Pulse 116 118 117 101 Resp 20 10 B/P (MAP) 124/89 (101) 110/82 95/77 111/73 (86) Pulse Ox 96 100 O2 Delivery Room Air 02/13/22 02/13/22 02/13/22 02/13/22 20:20 20:26 20:28 20:30 Pulse 113 101 113 103 Resp 10 B/P (MAP) 107/73 125/68 (87) 111/73 (86) Pulse Ox 100 99 100 O2 Delivery Room Air Room Air Room Air 02/13/22 02/13/22 02/13/22 02/13/22 20:37 20:45 21:00 22:09 Pulse 108 92 89 Resp 28 23 7 B/P (MAP) 96/84 (88) 107/96 (100) 103/73 (83) Pulse Ox 100 100 100 100 O2 Delivery Room Air Room Air Room Air Room Air 02/13/22 02/14/22 02/14/22 02/14/22 23:04 00:00 00:00 01:53 Temp 36.6 Pulse 107 85 85 Resp 28 19 B/P (MAP) 116/81 (93) 124/63 (83) 124/63 Pulse Ox 100 100 O2 Delivery Room Air Room Air 02/14/22 00:00 Intake Total 1050 ml Balance 1050 ml Capillary Refill : Less Than 3 Seconds Blood Pressure Mean: 101 Progress Note #1: Time: 17:05 Progress Note Patient was interviewed and examined. Report received from EMS. Chart reviewed from prior visit. Elevated WBC noted. Septic work-up will be pursued. IV fluids and Cardizem bolus with drip have been ordered. Progress Note #2: Time: 19:35 Progress Note Patient is stable at this time on Cardizem at 15 mg/h. Heart rate is maintaining in the 110s most of the time. We have had some difficulty measuring blood pressures due to his tremor and positional changes. When nurses obtain blood pressure in a controlled fashion, his systolic blood pressures are in the 110s. He was treated with cefepime as a precaution due to the elevated WBC and CRP. Patient will be admitted to the ICU on Cardizem drip. We discussed CODE S TATUS and he would like a DNR order. Progress Note #3: Time: 19:43 Progress Note Report was given to eICU provider, Dr. Jackson. ECG Initial ECG Impression Date: Feb 13, 2022 Initial ECG Impression Time: 16:42 Initial ECG Rate: 123 Initial ECG Rhythm: A Fib/Flutter Initial ECG Impression: Atrial Fibrillation w/RVR Comment New onset atrial fibrillation with RVR. No ischemic ST changes. Right bundle branch block. Left axis deviation. Diagnostic Imaging Diagonstic Imaging: Xray Plain Films/CT/US/NM/MRI: other (left foot) Comments NAME: PETER [facility]TEGA [facility] REC#: [id number] PT STATUS: REG ER : 1945 PHYSICIAN: WALLY KIM MD ADMIT DATE: 02/13/22/ER Draft Date of Exam:02/13/22 FOOT, LEFT, 3 VIEWS INDICATION: Foot pain. COMPARISON: None available. TECHNIQUE: Three radiographs of the left foot dated February 13, 2022. FINDINGS: No acute fracture or dislocation. No destructive osseous process. 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 The Lisfranc joint is well aligned. Additional mild scattered osseous degenerative changes. Small posterior and plantar calcaneal enthesophytes. Os trigonum present. No suspicious radiopaque foreign body. IMPRESSION: No acute osseous abnormality with scattered degenerative changes, including severe degenerative changes involving the 1st MTP joint. Dictated on workstation # [id number] Dict: 02/13/221832 Trans: 02/13/221836 [facility] [id number] Interpreted by: FLEX GARCIA MD Diagonstic Imaging: Xray Plain Films/CT/US/NM/MRI: chest Comments NAME: PETER ORTEGA [facility] REC#: [id number] PT STATUS: REG ER : 1945 PHYSICIAN: WALLY KIM MD ADMIT DATE: 02/13/22/ER Signed Date of Exam:02/13/22 CHEST 1 VIEW, AP/PA ONLY INDICATION: Weakness. COMPARISON: 01/26/2022. TECHNIQUE: Single radiograph of the chest dated February 13, 2022. FINDINGS: The cardiac silhouette is borderline enlarged, but stable from the prior examination. No significant pulmonary vascular congestion. Chronic elevation of the left hemidiaphragm. The lungs are clear of focal pulmonary opacity. Tortuosity of the descending thoracic aorta. No significant pleural effusion. No pneumothorax. Scattered osseous degenerative changes without acute osseous abnormality. IMPRESSION: Borderline cardiomegaly without pulmonary vascular congestion. Chronic elevation of the left hemidiaphragm. Dictated by: Dictated on workstation # [id number] Dict: 02/13/22 172 Trans: 02/13/221837 [facility] [id number] Interpreted by: LFEX GARCIA MD Electronically signed by: FLEX GARCIA MD 02/13/221837 Departure Communication (Admissions) Time/Spoke to Admitting Phy: 19:30 Dr. Mckeon Time/Spoke to Consulting Phy: 19:30 Dr. Tubbs Impression Primary Impression: Atrial fibrillation with RVR Additional Impressions: Acute kidney injury Generalized weakness Leukocytosis Qualified Codes: D72.829 - Elevated white blood cell count, unspecified Disposition: ADMITTED INPATIENT Condition: Stable Admissions Decision to Admit Reason: Admit from ER (General) Decision to Admit/Date: Feb 13, 2022 Time/Decision to Admit Time: 19:30 Departure-Patient Inst. Referrals: NO,LOCAL PHYSICIAN (PCP/Family) Primary Care Physician WALLY KIM MD Feb 13, 2022 17:00
[2022-02-13 17:02] LABS: BILIRUBIN,TOTAL 1.3 MG/DL (0.1-1.0)
[2022-02-13 17:04] LABS: CREATININE SERUM 2.05 MG/DL (0.60-1.30); LYMPHOCYTES % (MANUAL) 16 %; MONOCYTES % (MANUAL) 8 %; NEUTROPHILS % (MANUAL) 76 %
[2022-02-13 17:05] LABS: RBC MORPH NORMAL
[2022-02-13 17:06] LABS: INR 1.5 (0.8-1.4); PROTHROMBIN TIME PATIENT 18.6 SEC (12.2-14.7)
[2022-02-13 17:07] LABS: MAGNESIUM 1.7 MG/DL (1.6-2.4)
[2022-02-13 17:09] LABS: CLARITY,URINE CLEAR; COLOR,URINE ORANGE; GLUCOSE, URINE (UA) 3+ (NEGATIVE); KETONES,URINE NEGATIVE (NEGATIVE); LEUKOCYTE ESTERASE ,URINE NEGATIVE (NEGATIVE); NITRITE,URINE NEGATIVE (NEGATIVE); PH,URINE 5.5 (5-9); PROTEIN,URINE 1+ (NEGATIVE)
[2022-02-13 17:19] LABS: BACTERIA,URINE NEGATIVE /HPF; BILIRUBIN,URINE 1+ (NEGATIVE)
[2022-02-13 17:20] LABS: AMPHETAMINE SCREEN, URINE NEGATIVE (NEGATIVE); BARBITURATE SCREEN URINE NEGATIVE (NEGATIVE); BENZODIAZEPINES SCREEN URINE NEGATIVE (NEGATIVE); CANNABINOID SCREEN, URINE NEGATIVE (NEGATIVE); COCAINE SCREEN URINE NEGATIVE (NEGATIVE); METHADONE STAT NEGATIVE (NEGATIVE); OPIATE SCREEN URINE NEGATIVE (NEGATIVE); OXYCODONE STAT NEGATIVE (NEGATIVE); PROPOXYPHENE STAT NEGATIVE (NEGATIVE); TRICYCLIC ANTIDEPRESSANTS SCRE NEGATIVE (NEGATIVE)
--- NOTE | 2022-02-13 17:26 | Diagnostic Imaging Report ---
INDICATION: Weakness. COMPARISON: 01/26/2022. TECHNIQUE: Single radiograph of the chest dated February 13, 2022. FINDINGS: The cardiac silhouette is borderline enlarged, but stable from the prior examination. No significant pulmonary vascular congestion. Chronic elevation of the left hemidiaphragm. The lungs are clear of focal pulmonary opacity. Tortuosity of the descending thoracic aorta. No significant pleural effusion. No pneumothorax. Scattered osseous degenerative changes without acute osseous abnormality. IMPRESSION: Borderline cardiomegaly without pulmonary vascular congestion. Chronic elevation of the left hemidiaphragm. Dictated by: Dictated on workstation # [id number]
[2022-02-13 17:28] LABS: FREE T4 (FREE THYROXINE) 1.05 NG/DL (0.70-1.48)
[2022-02-13] MEDS ORDERED: GABAPENTIN 300 MG (NEURONTIN) CAP PO ONE (18:00)
[2022-02-13] MEDS ORDERED: CEFEPIME INJECTION 2,000 MG in NS (IVPB) 50 ML IV ONE (18:15)
--- NOTE | 2022-02-13 18:38 | Diagnostic Imaging Report ---
INDICATION: Foot pain. COMPARISON: None available. TECHNIQUE: Three radiographs of the left foot dated February 13, 2022. FINDINGS: No acute fracture or dislocation. No destructive osseous process. 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 The Lisfranc joint is well aligned. Additional mild scattered osseous degenerative changes. Small posterior and plantar calcaneal enthesophytes. Os trigonum present. No suspicious radiopaque foreign body. IMPRESSION: No acute osseous abnormality with scattered degenerative changes, including severe degenerative changes involving the 1st MTP joint. Dictated by: Dictated on workstation # [id number]
[2022-02-13] MEDS ORDERED: APIXABAN 5 MG (ELIQUIS) TABLET PO ONE (19:30)
--- NOTE | 2022-02-13 21:15 | Tele-ICU Progress Note ---
Progress Note 76M DM, HTN, neuropathy, afib "once", recent admit 01/26-02/09 for generalized weakness is now admitted with the same. Had initially been admitted 01/20-01/21 after being found hypotensive and PMD. Had multiple recent falls and HAYLEY. Was thought to be dehydrated, given IVF and discharged home. On 01/26 seen by home PT for eval, sent him to ED due to concerns for safety and inability to care for himself. However, after working with PT on that admit, he was stronger and no lo nger qualified for placement and was discharged home. Since discharge has become progressively weak. Yesterday was able to crawl around, today unable to get up from the couch. He reported that he had accidentally pressed his life alert button prompting EMS eval. He is again found to have an HAYLEY, from 1.2 at discharge to 2.05. No evidence of rhabdo. Found to be in afib with RVR, cardizem gtt initatied. On arrival to ICU, BP 96/84, HR 90. Dose of eliquis given. No evidence of sepsis or infection, given critical illness was given empric cefepime. - afib: currently rate controlled with cardizem. BP borderline, although repeat improved to 107/96. If BP dropping, will pattern changer and repairer. Otherwise eliquis given. - HAYLEY: likely prerenal. Continue volume resuscitation. Avoid hypotension, nephrotoxins. Follow renal function and UOP. - DM: insulin sliding scale. - Failure to thrive: will need placement. Hopefully will qualify on this occassion. Seems to do well with assisstance and rehab. - possible sepsis: no overt signs of infection or sepsis. Will monitor off abx. Low threshhold to restart abx. PCT still pending. Diagnosis: A total of 18 minutes of critical care time was devoted to this patient, including reviewing this patient's available data, including medical history, events of note and test results. I have overseen the activities of other members of the care team under my direct supervision during events of the note . This was required to treat and/or prevent further deterioration of critical care conditions ( as above ). Service provided to a patient admitted to ICU bed via interactive E-CARE system with real-time audio and video telecommunications from [facility] hub located in [place], [place] Focused Exam Lactate Level 02/13/22 17:01: Lactic Acid Level 1.45 Height, Weight, BMI Height: '" Weight: lbs. oz. kg; 31.19 BMI Method: Time of Focused Exam: 19:20 LAURIE BEAN MD Feb 13, 2022 21:15
[2022-02-13] MEDS ORDERED: MAGNESIUM 1 GM/100 ML IVPB 100 ML IV ONE (21:20)
[2022-02-13] MEDS ORDERED: LACTATED RINGERS 1,000 ML IV ONE (21:20)
[2022-02-13] MEDS: LACTATED RINGERS 1,000 ML IV SCH (21:28)
[2022-02-13] MEDS: MAGNESIUM 1 GM/100 ML IVPB 100 ML IV SCH ×2 (21:28→23:00)
[2022-02-13] MEDS ORDERED: ONDANSETRON 4 MG/2 ML (SDV) Z0FRAN IV PRN (22:00)
[2022-02-13] MEDS: GABAPENTIN 300 MG (NEURONTIN) CAP PO PRN (22:05)
[2022-02-14] MEDS: CEFEPIME 1,000 MG/NS 50 ML IVPB IV SCH ×6 (01:52→18:14)
[2022-02-14] MEDS ORDERED: dilTIAZem DRIP PRE-MIX 125 ML IV SCH (02:00)
[2022-02-14 03:58] LABS: BASOPHILS % (AUTO) 0 % (0-10); EOSINOPHILS % (AUTO) 0 % (0-10); HEMATOCRIT 29 % (40-54); HEMOGLOBIN 9.5 g/dL (13.3-17.7); LYMPHOCYTES # (AUTO) 1.6 10^3/uL (1.0-4.0); LYMPHOCYTES % (AUTO) 12 % (12-44); MEAN CORPUSCULAR HEMOGLOBIN 31 pg (25-34); MEAN CORPUSCULAR HGB CONC 33 g/dL (32-36); MEAN CORPUSCULAR VOLUME 93 fL (80-99); MEAN PLATELET VOLUME 11.9 fL (9.0-12.2); MONOCYTES # (AUTO) 0.9 10^3/uL (0.0-1.0); MONOCYTES % (AUTO) 7 % (0-12); NEUTROPHILS # (AUTO) 10.6 10^3/uL (1.8-7.8); NEUTROPHILS % (AUTO) 80 % (42-75); PLATELET COUNT 267 10^3/uL (130-400); WHITE BLOOD COUNT 13.2 10^3/uL (4.3-11.0)
[2022-02-14 04:36] LABS: ALBUMIN 2.3 GM/DL (3.2-4.5); BILIRUBIN,TOTAL 0.8 MG/DL (0.1-1.0); CALCIUM 9.1 MG/DL (8.5-10.1); CREATININE SERUM 1.58 MG/DL (0.60-1.30); PHOSPHORUS 3.2 MG/DL (2.3-4.7); POTASSIUM 3.9 MMOL/L (3.6-5.0); TOTAL PROTEIN 6.7 GM/DL (6.4-8.2)
[2022-02-14] MEDS: inSUlin ASPART (NovoLOG) 1 UNIT/0.01 ML (CHARGE PER UNIT) SC SCH ×4 (05:55→20:00)
[2022-02-14] MEDS: LACTATED RINGERS 1,000 ML IV SCH ×4 (07:01→23:35)
--- NOTE | 2022-02-14 08:54 | History & Physical-Hospitalist ---
History of Present Illness HPI/Chief Complaint Patient is a 76-year-old male with past medical history of chronic kidney disease known to me from recent admission who presented to the emergency department due to weakness. He was just discharged from the hospital last week after an admission for generalized weakness. He had been admitted 2 weeks ago for weakness and was discharged home with home health and failed. Despite this he was denied skilled benefits after his last hospitalization and returned home with home health. He states since returning home he has continued to worsen and was unable to get up from his couch. He states has been crawling around on the floor for couple of days because he was unable to stand. He had been working to get into a facility near his daughter in [place] but he states that that does not look feasible now due to the expense. On arrival here he was found to have atrial fibrillation with rapid ventricular rate which he states is not new but he was not previously on any medications for it. He was also found to have an acute kidney injury with a creatinine of 2.05. He was admitted to the ICU for IV Cardizem and fluids. He did have a leukocytosis of concerning lesion on his foot so he was started on antibiotics to cover for infection. This morning he reports feeling a little bit better but mostly just still weak. Source: patient Date Seen 02/14/22 Time Seen by a Provider: 08:50 Attending Physician No,Local Physician PCP Admitting Physician: Levar Mckeon MD Attending Physician: Levar Mckeon MD Referring Physician Date of Admission Feb 13, 2022 at 19:30 Home Medications & Allergies Home Medications Reviewed patient Home Medication Reconciliation performed by pharmacy medication reconciliations communication electronic technician and/or nursing. Patients Allergies have been reviewed. Allergies Allergies Coded Allergies No Known Drug Allergies (Ylctmhxmil07/22/21) Past Ndkwqhy-Zqikwl-Xqgqoh Hx Patient Social History Employed/Student: retired Tobacco Use?: No Use of E-Cig and/or Vaping dev: No Substance use?: No Alcohol Use?: No Pt feels they are or have been: No Immunizations Up To Date First/Initial COVID19 Vaccinat: RECEIVED, UNK WHEN Second COVID19 Vaccination Brandon: RECEIVED, UNK WHEN Tetanus Booster (TDap): More Than 5 Years Current Status Advance Directives: Yes Communicates: Verbally Primary Language: Ugandan Preferred Spoken Language: Ugandan Is interpretation needed?: No Implanted or Applied Medical D: None Past Medical History Surgeries: Abdominal (EGD and colonoscopy), Eye Surgery Atrial Fibrillation Neuropathy Renal Failure Diverticulosis (Severe), Hiatal Hernia Diabetes, Insulin dep Cataract Blood Disorders: Yes (Anemia) Family Medical History Reviewed Nursing Family Hx No Pertinent Family Hx Review of Systems Constitutional: No chills, No fever; malaise, weakness EENTM: no symptoms reported Respiratory: No cough, No short of breath Cardiovascular: no symptoms reported Gastrointestinal: no symptoms reported Genitourinary: no symptoms reported Musculoskeletal: see HPI Skin: no symptoms reported Psychiatric/Neurological: No Symptoms Reported Physical Exam Physical Exam Vital Signs Vital Signs - First Documented 02/16/22 02/16/22 00:40 03:13 Temp 37.0 Pulse 65 Resp 20 B/P (MAP) 128/66 (86) Pulse Ox 93 O2 Delivery Room Air O2 Flow Rate 2.00 Capillary Refill : Less Than 3 Seconds Height, Weight, BMI Height: '" Weight: lbs. oz. kg; 31.91 BMI Method: General Appearance: No Apparent Distress, WD/WN HEENT: PERRL/EOMI, Moist Mucous Membranes Neck: Normal Inspection, Supple Respiratory: Lungs Clear, No Accessory Muscle Use, No Respiratory Distress Cardiovascular: No Murmur, Normal Peripheral Pulses, Irregularly Irregular, Tachycardia (100s) Gastrointestinal: Normal Bowel Sounds, Non Tender, Soft Extremity: Normal Capillary Refill, No Calf Tenderness, No Pedal Edema, Other (left foot lesion on medial aspect of foot with healing wounded) Neurologic/Psychiatric: Alert, Oriented x3, Normal Mood/Affect Results Results/Procedures Labs Laboratory Tests 02/21/22 05:36 02/22/22 06:04 Patient resulted labs reviewed. Imaging: Reviewed Imaging Report Imaging [facility], [place] NAME: PETER ORTEGA [facility] REC#: [id number] PT STATUS: REG ER : 1945 PHYSICIAN: WALLY KIM MD ADMIT DATE: 02/13/22/ER Signed Date of Exam:02/13/22 CHEST 1 VIEW, AP/PA ONLY INDICATION: Weakness. COMPARISON: 01/26/2022. TECHNIQUE: Single radiograph of the chest dated February 13, 2022. FINDINGS: The cardiac silhouette is borderline enlarged, but stable from the prior examination. No significant pulmonary vascular congestion. Chronic elevation of the left hemidiaphragm. The lungs are clear of focal pulmonary opacity. Tortuosity of the descending thoracic aorta. No significant pleural effusion. No pneumothorax. Scattered osseous degenerative changes without acute osseous abnormality. IMPRESSION: Borderline cardiomegaly without pulmonary vascular congestion. Chronic elevation of the left hemidiaphragm. Dictated by: Dictated on workstation # [id number] Dict: 02/13/221720 Trans: 02/13/221837 [facility] [id number] Interpreted by: FLEX GARCIA MD Electronically signed by: FLEX GARCIA MD 02/13/221837 [facility] [place] NAME: PETER ORTEGA [facility] REC#: [id number] PT STATUS: REG ER : 1945 PHYSICIAN: WALLY KIM MD ADMIT DATE: 02/13/22/ER Signed Date of Exam:02/13/22 FOOT, LEFT, 3 VIEWS INDICATION: Foot pain. COMPARISON: None available. TECHNIQUE: Three radiographs of the left foot dated February 13, 2022. FINDINGS: No acute fracture or dislocation. No destructive osseous process. 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 The Lisfranc joint is well aligned. Additional mild scattered osseous degenerative changes. Small posterior and plantar calcaneal enthesophytes. Os trigonum present. No suspicious radiopaque foreign body. IMPRESSION: No acute osseous abnormality with scattered degenerative changes, including severe degenerative changes involving the 1st MTP joint. Dictated by: Dictated on workstation # [id number] Dict: 02/13/221832 Trans: 02/13/221937 [facility] [id number] Interpreted by: FLEX GARCIA MD Electronically signed by: FLEX GARCIA MD 02/13/221937 Assessment/Plan Admission Diagnosis Atrial fibrillation with RVR Admission Status: Inpatient Order (span 2 midnights) Reason for Inpatient Admission: see below Assessment and Plan Atrial fibrillation with RVR HTN HLD Currently on cardizem gtt rate improved Eliquis for stroke ppx Cardiology consulted, appreciate recs Echo Continue home meds when med rec done Acute on CKD Generalized weakness Creatinine elevated on arrival IVF Trend, down to 1.58 Monitor UOP PT/OT IDDMII SSI Fasting blood sugar 199 this AM Resume Levemir Leukocytosis Covered with antibiotics due to wound on foot Await cultures Deescalate if negative cultures Anemia Hgb up from last visit Received IV iron Had EGD/Colonoscopy during last visit DVT ppx: Eliquis as above LEVAR MCKEON MD Feb 14, 2022 08:53
[2022-02-14] MEDS: APIXABAN 5 MG (ELIQUIS) TABLET PO SCH ×2 (09:12→20:35)
--- NOTE | 2022-02-14 11:18 | Tele-ICU Progress Note ---
Progress Note video rounds completed 76 y/o with AF/RVR on diltiazem drip and CKD admitted with weakness Recently hospitalized and discharged. PE: lethargic appearing HR: 70-80 A fib BP" 98/61 O2 sat: 100% IMP: AFIB, rate now controlled PLAN: Cardiology following Focused Exam Lactate Level 02/13/22 17:01: Lactic Acid Level 1.45 Height, Weight, BMI Height: '" Weight: lbs. oz. kg; 31.91 BMI Method: Time of Focused Exam: 19:20 Labs Laboratory Tests 02/13/22 16:25 02/14/22 03:33 02/14/22 03:37 Results Results/Procedures Labs Laboratory Tests 02/13/22 16:25 02/14/22 03:33 02/14/22 03:37 Patient resulted labs reviewed. Imaging: Reviewed Imaging Report Results Labs Labs Laboratory Tests 02/13/22 16:25: White Blood Count 16.3H, Red Blood Count 3.64L, Hemoglobin 11.3L, Hematocrit 34L , Mean Corpuscular Volume 94, Mean Corpuscular Hemoglobin 31, Mean Corpuscular Hemoglobin Concent 33, Red Cell Distribution Width 14.1, Platelet Count 350, Mean Platelet Volume 11.9, Immature Granulocyte % (Auto) 0, Neutrophils (%) (Auto) 81H, Lymphocytes (%) (Auto) 13, Monocytes (%) (Auto) 5, Eosinophils (%) (Auto) 0, Basophils (%) (Auto) 0, Neutrophils # (Auto) 13.1H, Lymphocytes # (Auto) 2.2, Monocytes # (Auto) 0.9, Eosinophils # (Auto) 0.0, Basophils # (Auto) 0.0, Immature Granulocyte # (Auto) 0.1, Neutrophils % (Manual) 76, Lymphocytes % (Manual) 16, Monocytes % (Manual) 8, Blood Morphology Comment NORMAL, Prothrombin Time 18.6H, INR Comment 1.5H, Activated Partial Thromboplast Time 40 H, Sodium Level 139, Potassium Level 4.3, Chloride Level 101, Carbon Dioxide Level 21, Anion Gap 17H, Blood Urea Nitrogen 51H, Creatinine 2.05H, Estimat Glomerular Filtration Rate 33, BUN/Creatinine Ratio 25, Glucose Level 200H, Calcium Level 9.7, Corrected Calcium 10.7H, Magnesium Level 1.7, Total Bilirubin 1.3H, Aspartate Amino Transf (AST/SGOT) 17, Alanine Aminotransferase (ALT/SGPT) 13, Alkaline Phosphatase 50, Total Creatine Kinase 32, C-Reactive Protein High Sensitivity 26.45H, Total Protein 8.2, Albumin 2.8L, Procalcitonin 0.29H, Thyroid Stimulating Hormone (TSH) 0.66, Free Thyroxine 1.05, Serum Alcohol < 10 02/13/22 16:58: Urine Color ORANGE, Urine Clarity CLEAR, Urine pH 5.5, Urine Specific [place] 1.025H, Urine Protein 1+H, Urine Glucose (UA) 3+H, Urine Ketones NEGATIVE, Urine Nitrite NEGATIVE, Urine Bilirubin 1+H, Urine Urobilinogen 1.0, Urine Leukocyte Esterase NEGATIVE, Urine RBC (Auto) TRACE-IH, Urine RBC NONE, Urine WBC NONE, Urine Squamous Epithelial Cells NONE, Urine Renal Epithelial Cells NONE, Urine Crystals NONE, Urine Bacteria NEGATIVE, Urine Casts NONE, Urine Mucus NEGATIVE, Urine Culture Indicated NO, Urine Opiates Screen NEGATIVE, Urine Oxycodone Screen NEGATIVE, Urine Methadone Screen NEGATIVE, Urine Propoxyphene Screen NEGATIVE, Urine Barbiturates Screen NEGATIVE, Ur Tricyclic Antidepressants Screen NEGATIVE, Urine Phencyclidine Screen NEGATIVE, Urine Amphetamines Screen NEGATIVE, Urine Methamphetamines Screen NEGATIVE, Urine Benzodiazepines Screen NEGATIVE, Urine Cocaine Screen NEGATIVE, Urine Cannabinoids Screen NEGATIVE 02/13/22 17:01: Lactic Acid Level 1.45 02/14/22 03:33: Sodium Level 138, Potassium Level 3.9, Chloride Level 106, Carbon Dioxide Level 20L, Anion Gap 12, Blood Urea Nitrogen 44H, Creatinine 1.58H, Estimat Glomerular Filtration Rate 45, BUN/Creatinine Ratio 28, Glucose Level 198H, Calcium Level 9.1, Corrected Calcium 10.5H, Magnesium Level 2.0, Total Bilirubin 0.8, Aspartate Amino Transf (AST/SGOT) 22, Alanine Aminotransferase (ALT/SGPT) 16, Alkaline Phosphatase 46, C-Reactive Protein High Sensitivity 20.84H, Total Protein 6.7, Albumin 2.3L, Procalcitonin 0.24H, Phosphorus Level 3.2 02/14/22 03:37: White Blood Count 13.2H, Red Blood Count 3.11L, Hemoglobin 9.5L, Hematocrit 29L, Mean Corpuscular Volume 93, Mean Corpuscular Hemoglobin 31, Mean Corpuscular Hemoglobin Concent 33, Red Cell Distribution Width 14.3, Platelet Count 267, Mean Platelet Volume 11.9, Immature Granulocyte % (Auto) 1, Neutrophils (%) (Auto) 80H, Lymphocytes (%) (Auto) 12, Monocytes (%) (Auto) 7, Eosinophils (%) (Auto) 0, Basophils (%) (Auto) 0, Neutrophils # (Auto) 10.6H, Lymphocytes # (Auto) 1.6, Monocytes # (Auto) 0.9, Eosinophils # (Auto) 0.0, Basophils # (Auto) 0.0, Immature Granulocyte # (Auto) 0.1 02/14/22 11:16: Glucometer 236H HENNA ADAMS MD Feb 14, 2022 11:18
[2022-02-14] MEDS: ACETAMINOPHEN 500 MG TAB (TYLENOL) PO PRN ×2 (12:13→18:03)
--- NOTE | 2022-02-14 13:42 | Consultation-Cardiology ---
HPI-Cardiology Cardiology Consultation: Date of Consultation 02/14/22 Time Seen by a Provider: 12:30 Date of Admission Attending Physician No,Local Physician Admitting Physician Admitting Physician: Maddie Mckeon MD Attending Physician: Maddie Mckeon MD Consulting Physician SRI KEENAN MD, MA, FACP, FACC, FSCAI, CCDS Physician requesting consult: Dr Mckeon HPI: Chief Complaint: Reason for Card consult: A Fib with RVR 76 yo man hospitalized with gen malaise and weakness and inability to get out of his chair at home. Has had poor oral intake. Denies shortness of breath at rest. Denies cp. Denies palp or syncope. Was diagnosed with HAYLEY and A Fib with RVR at this admission. Denies focal weakness. Denies vomiting. Mild intermittent nausea. Denies diarrhea. Denies swelling Review of Systems-Cardiology Review of Systems Constitutional: As described under HPI Eyes: No vision change Ears/Nose/Throat: No ear discharge, No nasal drainage, No recent hearing loss Respiratory: As described under HPI Cardiovascular: As described under HPI Genitourinary: No dysuria, No hematuria, No urine frequency changes Skin: No rash, No ulcerations Psychiatric/Neurological: No seizure, No focal weakness, No syncope Hematologic: No bleeding abnormalities NAL-Lyebsy-Pzmbmx Hx Patient Social History Employed/Student: retired Have you traveled recently?: No Alcohol Use?: No Pt feels they are or have been: No Past Medical History PMH As described under Assessment. Family Medical History Family Medical History: Does not report fam h/o early CAD Allergies and Home Medications Allergies Coded Allergies: No Known Drug Allergies (Unverified , 03/04/21) Patient Home Medication List Home Medication List Reviewed: Yes Allopurinol (Allopurinol) 300 Mg Tablet, 300 MG PO DAILY, (Reported) Entered as Reported by: FRANKLIN GARCIA on 05/08/21 1302 Ascorbate Calcium (Vitamin C) 500 Mg Tablet, 500 MG PO 1200, (Reported) Entered as Reported by: ES STUART on 01/21/22 1109 Atorvastatin Calcium (Atorvastatin Calcium) 80 Mg Tablet, 40 MG PO HS, (Reported) Entered as Reported by: FRANKLIN GARCIA on 05/08/21 1302 Cholecalciferol (Vitamin D3) (Vitamin D3) 50 Mcg (2000 Unit) Capsule, 50 MCG PO 1200, (Reported) Entered as Reported by: ES STUART on 01/21/22 110 Empagliflozin (Jardiance) 25 Mg Tablet, 12.5 MG PO DAILY, (Reported) Entered as Reported by: ES STUART on 01/21/22 110 Fish Oil/Dha/Epa (Fish Oil 1,200 mg Fish Oil) 1,200 Mg-144 Mg-216 Mg Capsule, 1 EACH PO 1200, (Reported) Entered as Reported by: ES STUART on 01/21/22 110 Furosemide (Furosemide) 40 Mg Tablet, 40 MG PO DAILY, (Reported) Entered as Reported by: ES STUART on 01/21/22 110 Insulin Detemir (Levemir Flextouch) 100 Unit/Ml (3 Ml) Insuln.pen, 20 UNIT SQ HS Prescribed by: ALIS ANDERSON on 01/21/22 163 Metformin HCl (Metformin HCl) 1,000 Mg Tablet, 1,000 MG PO BID, (Reported) Entered as Reported by: FRANKLIN GARCIA on 05/08/21 130 Metoprolol Succinate (Metoprolol Succinate) 100 Mg Tab.er.24h, 50 MG PO BID, (Reported) Entered as Reported by: FRANKLIN GARCIA on 05/08/21 130 Multivitamin (Multivitamin) 1 Each Tablet, 1 EACH PO 1200, (Reported) Entered as Reported by: FRANKLIN GARCIA on 05/08/21 1302 Naproxen Sodium (Aleve) 220 Mg Tablet, 220-440 MG PO BID PRN for PAIN-MILD (1- 4), (Reported) Entered as Reported by: ES STUART on 01/21/22 110 Pantoprazole Sodium (Protonix) 40 Mg Tablet.dr, 40 MG PO DAILY Prescribed by: JEFFREY RICE on 01/29/22 1612 Pregabalin (Pregabalin) 200 Mg Capsule, 200 MG PO TID, (Reported) Entered as Reported by: ES STUART on 01/21/22 110 Tramadol HCl (Tramadol HCl) 50 Mg Tablet, 50-100 MG PO HS PRN for PAIN-MODERATE (5-7), (Reported) Entered as Reported by: ES STUART on 01/21/22 110 Vitamin E Mixed (Vitamin E) 100 Unit Tablet, 100 UNIT PO 1200, (Reported) Entered as Reported by: ES STUART on 01/21/22 1109 Zolpidem Tartrate (Zolpidem Tartrate) 5 Mg Tablet, 5 MG PO HS PRN for SLEEP, (Reported) Entered as Reported by: FRANKLIN GARCIA on 05/08/21 1302 Physical Exam-Cardiology Physical Exam Vital Signs/I&O 02/14/22 02/14/22 02/14/22 02/14/22 01:53 02:00 03:00 04:00 Pulse 85 94 93 73 Resp 22 15 15 B/P (MAP) 124/63 137/70 (92) 111/71 (84) 93/58 (70) Pulse Ox 100 100 100 O2 Delivery Room Air Room Air Room Air 02/14/22 02/14/22 02/14/22 02/14/22 05:00 06:00 07:00 07:00 Pulse 81 80 76 78 Resp 25 23 15 B/P (MAP) 116/67 (83) 116/60 (78) 91/59 (70) Pulse Ox 100 100 100 O2 Delivery Room Air Room Air Room Air 02/14/22 02/14/22 02/14/22 02/14/22 08:00 08:00 08:00 09:00 Temp 36.5 Pulse 85 73 Resp 24 17 B/P (MAP) 122/64 (83) 111/90 (97) Pulse Ox 100 100 100 O2 Delivery Room Air Room Air Room Air 02/14/22 02/14/22 02/14/22 10:00 11:00 12:00 Pulse 88 85 70 Resp 15 21 18 B/P (MAP) 121/77 (92) 106/64 (78) 109/56 (73) Pulse Ox 98 100 100 O2 Delivery Room Air Room Air Room Air 02/14/22 00:00 Intake Total 1650 ml Output Total 100 ml Balance 1550 ml Capillary Refill : Less Than 3 Seconds Constitutional: AAO x 3, well-developed, well-nourished, other (weak appearing) HEENT: EOMI; No xanthelasmas are seen Neck: carotid pulses are 2 + bilaterally, with good upstrokes Respiratory: No accessory muscle use; other (fair to good air entry, diminished at the bases) Cardiovascular: irregularly irregular, S1 and S2, systolic murmur (soft GENEVA at card base) Gastrointestinal: No tender; soft; No guarding, No rebound; audible bowel sounds Extremities: No clubbing, No cyanosis Neurologic/Psychiatric: oriented x 3, other (moves all limbs equally) Skin: normal color, warm/dry; No rash on exposed areas, No ulcerations on exposed areas Data Review Labs Laboratory Tests 02/13/22 16:25: White Blood Count 16.3H, Red Blood Count 3.64L, Hemoglobin 11.3L, Hematocrit 34L , Mean Corpuscular Volume 94, Mean Corpuscular Hemoglobin 31, Mean Corpuscular Hemoglobin Concent 33, Red Cell Distribution Width 14.1, Platelet Count 350, Mean Platelet Volume 11.9, Immature Granulocyte % (Auto) 0, Neutrophils (%) (Auto) 81H, Lymphocytes (%) (Auto) 13, Monocytes (%) (Auto) 5, Eosinophils (%) (Auto) 0, Basophils (%) (Auto) 0, Neutrophils # (Auto) 13.1H, Lymphocytes # (Auto) 2.2, Monocytes # (Auto) 0.9, Eosinophils # (Auto) 0.0, Basophils # (Auto) 0.0, Immature Granulocyte # (Auto) 0.1, Neutrophils % (Manual) 76, Lymphocytes % (Manual) 16, Monocytes % (Manual) 8, Blood Morphology Comment NORMAL, Prothrombin Time 18.6H, INR Comment 1.5H, Activated Partial Thromboplast Time 4 0H, Sodium Level 139, Potassium Level 4.3, Chloride Level 101, Carbon Dioxide Level 21, Anion Gap 17H, Blood Urea Nitrogen 51H, Creatinine 2.05H, Estimat Glomerular Filtration Rate 33, BUN/Creatinine Ratio 25, Glucose Level 200H, Calcium Level 9.7, Corrected Calcium 10.7H, Magnesium Level 1.7, Total Bilirubin 1.3H, Aspartate Amino Transf (AST/SGOT) 17, Alanine Aminotransferase (ALT/SGPT) 13, Alkaline Phosphatase 50, Total Creatine Kinase 32, C-Reactive Protein High Sensitivity 26.45H, Total Protein 8.2, Albumin 2.8L, Procalcitonin 0.29H, Thyroid Stimulating Hormone (TSH) 0.66, Free Thyroxine 1.05, Serum Alcohol < 10 02/13/22 16:58: Urine Color ORANGE, Urine Clarity CLEAR, Urine pH 5.5, Urine Specific [place] 1.025H, Urine Protein 1+H, Urine Glucose (UA) 3+H, Urine Ketones NEGATIVE, Urine Nitrite NEGATIVE, Urine Bilirubin 1+H, Urine Urobilinogen 1.0, Urine Leukocyte Esterase NEGATIVE, Urine RBC (Auto) TRACE-IH, Urine RBC NONE, Urine WBC NONE, Urine Squamous Epithelial Cells NONE, Urine Renal Epithelial Cells NONE, Urine Crystals NONE, Urine Bacteria NEGATIVE, Urine Casts NONE, Urine Mucus NEGATIVE, Urine Culture Indicated NO, Urine Opiates Screen NEGATIVE, Urine Oxycodone Screen NEGATIVE, Urine Methadone Screen NEGATIVE, Urine Propoxyphene Screen NEGATIVE, Urine Barbiturates Screen NEGATIVE, Ur Tricyclic Antidepressants Screen NEGATIVE, Urine Phencyclidine Screen NEGATIVE, Urine Amphetamines Screen NEGATIVE, Urine Methamphetamines Screen NEGATIVE, Urine Benzodiazepines Screen NEGATIVE, Urine Cocaine Screen NEGATIVE, Urine Cannabinoids Screen NEGATIVE 02/13/22 17:01: Lactic Acid Level 1.45 02/14/22 03:33: Sodium Level 138, Potassium Level 3.9, Chloride Level 106, Carbon Dioxide Level 20L, Anion Gap 12, Blood Urea Nitrogen 44H, Creatinine 1.58H, Estimat Glomerular Filtration Rate 45, BUN/Creatinine Ratio 28, Glucose Level 198H, Calcium Level 9.1, Corrected Calcium 10.5H, Magnesium Level 2.0, Total Bilirubin 0.8, Aspartate Amino Transf (AST/SGOT) 22, Alanine Aminotransferase (ALT/SGPT) 16, Alkaline Phosphatase 46, C-Reactive Protein High Sensitivity 20.84H, Total Protein 6.7, Albumin 2.3L, Procalcitonin 0.24H, Phosphorus Level 3.2 02/14/22 03:37: White Blood Count 13.2H, Red Blood Count 3.11L, Hemoglobin 9.5L, Hematocrit 29L, Mean Corpuscular Volume 93, Mean Corpuscular Hemoglobin 31, Mean Corpuscular Hemoglobin Concent 33, Red Cell Distribution Width 14.3, Platelet Count 267, Mean Platelet Volume 11.9, Immature Granulocyte % (Auto) 1, Neutrophils (%) (Auto) 80H, Lymphocytes (%) (Auto) 12, Monocytes (%) (Auto) 7, Eosinophils (%) (Auto) 0, Basophils (%) (Auto) 0, Neutrophils # (Auto) 10.6H, Lymphocytes # (Auto) 1.6, Monocytes # (Auto) 0.9, Eosinophils # (Auto) 0.0, Basophils # (Auto) 0.0, Immature Granulocyte # (Auto) 0.1 02/14/22 11:16: Glucometer 236H Laboratory Tests 02/13/22 16:25 02/14/22 03:33 02/14/22 03:37 A/P-Cardiology Assessment/Admission Diagnosis PAF with RVR seen on 02/13/22 - first diagnosed several years earlier, according to the patient, but he is unable to provide any details - TSH normal (0.66) on 02/13/22 RBBB on ECG HAYLEY, likely due to pre-renal azotemia due to poor oral intake Gen weakness and malaise - etiology undetermined Discussion and Recomendations * Long-acting oral dilt for vent rate control * OAC for stroke prophylaxis * ivf to treat pre-renal azotemia * Dr Mckeon evaluating gen malaise / failure thrive * Echo * Monitor labs and correct any abnormalities SRI KEENAN MD [facility] Feb 14, 2022 13:42
[2022-02-14 19:09] VITALS: BP 120/57
[2022-02-14 23:48] VITALS: BP 116/62
[2022-02-15] MEDS: ACETAMINOPHEN 500 MG TAB (TYLENOL) PO PRN ×3 (00:52→21:36)
[2022-02-15] MEDS: GABAPENTIN 300 MG (NEURONTIN) CAP PO PRN (00:53)
[2022-02-15] MEDS: CEFEPIME 1,000 MG/NS 50 ML IVPB IV SCH ×2 (02:36)
[2022-02-15 03:41] VITALS: BP 104/61
[2022-02-15] MEDS: inSUlin ASPART (NovoLOG) 1 UNIT/0.01 ML (CHARGE PER UNIT) SC SCH ×4 (05:48→21:20)
[2022-02-15 06:04] LABS: BASOPHILS % (AUTO) 0 % (0-10); EOSINOPHILS % (AUTO) 0 % (0-10); HEMATOCRIT 28 % (40-54); HEMOGLOBIN 9.3 g/dL (13.3-17.7); LYMPHOCYTES # (AUTO) 2.3 10^3/uL (1.0-4.0); LYMPHOCYTES % (AUTO) 19 % (12-44); MEAN CORPUSCULAR HEMOGLOBIN 31 pg (25-34); MEAN CORPUSCULAR HGB CONC 33 g/dL (32-36); MEAN CORPUSCULAR VOLUME 93 fL (80-99); MEAN PLATELET VOLUME 11.8 fL (9.0-12.2); MONOCYTES # (AUTO) 0.7 10^3/uL (0.0-1.0); MONOCYTES % (AUTO) 6 % (0-12); NEUTROPHILS % (AUTO) 75 % (42-75); PLATELET COUNT 258 10^3/uL (130-400)
[2022-02-15 06:24] LABS: ALBUMIN 2.2 GM/DL (3.2-4.5); BILIRUBIN,TOTAL 0.7 MG/DL (0.1-1.0); CALCIUM 9.1 MG/DL (8.5-10.1); CREATININE SERUM 1.22 MG/DL (0.60-1.30); MAGNESIUM 1.8 MG/DL (1.6-2.4); PHOSPHORUS 2.8 MG/DL (2.3-4.7); POTASSIUM 3.7 MMOL/L (3.6-5.0); TOTAL PROTEIN 6.5 GM/DL (6.4-8.2)
[2022-02-15] MEDS: LACTATED RINGERS 1,000 ML IV SCH ×3 (06:35→14:28)
[2022-02-15 08:00] VITALS: BP 123/56
[2022-02-15] MEDS ORDERED: CEFEPIME 1,000 MG/NS 50 ML IVPB IV SCH ×2 (08:30)
[2022-02-15] MEDS: APIXABAN 5 MG (ELIQUIS) TABLET PO SCH (08:39)
--- NOTE | 2022-02-15 09:33 | Occupational Therapy Eval ---
OT Evaluation-General/PLF Medical Diagnosis Admission Date Feb 13, 2022 at 19:30 Medical Diagnosis: afib with RVR, HAYLEY Onset Date: Feb 14, 2022 Therapy Diagnosis Therapy Diagnosis: decreased ADL status, weakness Precautions Precautions/Isolations: Fall Prevention, Standard Precautions Referral Physician: Linda Referral Reason: Evaluation/Treatment Medical History Pertinent Medical History: DM, HTN, Neuropathy Additional Medical History CKD, afib, neuropathy, renal failure, diverticulosis, DM, cataract Current History ED via EMS c/o general weakness, has been on couch last few days. D/C'd from hospital last week. Social History Home: Single Level Current Living Status: Alone Entry Into Home: Stairs With Railing Steps Into Home: 4 ADL-Prior Level of Function SCALE: Activities may be completed with or without assistive devices. 5-Iicdfgmcsj-knglmmb completes the activity by him/herself with no assistance from a helper. 5-Set-up or Clean-up Assistance-helper sets up or cleans up; patient completes activity. [place] assists only prior to or following the activity. 4-Supervision or Touching Assistance-helper provides verbal cues and/or touching/steadying and/or contact guard assistance as patient completes activity. Assistance may be provided throughout the activity or intermittently. 3-Partial/Moderate Assistance-helper does LESS THAN HALF the effort. [place] lifts, holds or supports trunk or limbs, but provides less than half the effort. 2-Substantial/Maximal Assistance-helper does MORE THAN HALF the effort. [place] lifts or holds trunk or limbs and provides more than half the effort. 8-Qkmpdjiwm-ydzhhk does ALL the effort. Patient does none of the effort to complete the activity. Or, the assistance of 2 or more helpers is required for the patient to complete the activity. If activity was not attempted, code reason: 7-Patient Refused. 9-Not Applicable-not attempted and the patient did not perform the activity before the current illness, exacerbation or injury. 10-Not Attempted due to Environmental Limitations-(lack of equipment, weather restraints, etc.). 88-Not Attempted due to Medical Conditions or Safety Concerns. ADL PLOF Comments Pt reports IND with ADLs and functional mobility using walker prior to recent hospitalizations. Since he has been in the hospital a couple times in the last month, pt has had more difficulty getting around the house and completing self care tasks. Self Care: Independent Functional Cognition: Independent DME/Equipment: Bath Chair, Tub/Shower OT Current Status Subjective Pt in bed, agreeable to OT Tx. Mental Status/Objective Patient Orientation: Person, Confused, Place, Situation Current Upper Extremity ROM RUE AROM shoulder flexion to approx 70 degrees, AAROM to approx 90 degrees. LUE AROM to approx 90 degrees. Upper Extremity Coordination decreased. Tremors noted with movements. Pt states he has had these tremors for a little while Upper Extremity Strength grossly 3/5 ADL-Treatment Eating (QC): 5 Lower Body Dressing (QC): 2 On/Off Footwear (QC): 1 Other Treatments Pt in bed, agreeable to OT Tx. Pt declined OOB activities, stating he isn't feeling too well today and has had multiple people in his room this morning with various tests. Pt agreeable to bed level activity. Pt attempted footwear, unable to reach feet to don socks. Pt required total assist with footwear at this time. Pt would require assistance threading BLEs into pants. In order to increase BUE strength and activity tolerance, pt completed x5 reps AAROM BUE exercises: shoulder flexion, front punch, elbow flexion/extension. Post tx, pt in bed, call light in reach and all needs met. Education OT Patient Education: Correct positioning, Energy conservation, Modified ADL techniques, Progress toward Goal/Update tx plan, Purpose of tx/functional activities, Rehab process Teaching Recipient: Patient Teaching Methods: Discussion Response to Teaching: Verbalize Understanding OT Nursing Home Goals Cloud Physicist Goals Time Frame: Mar 05, 2022 Eating (QC): 6 Oral Hygiene (QC): 6 Toileting Hygiene (QC): 4 Shower/Bathe Self (QC): 4 Upper Body Dressing (QC): 5 Lower Body Dressing (QC): 4 On/Off Footwear (QC): 4 Additional Goals: 1-Demonstrate ADL Tasks, 2-Verbalize Understanding, 3- ImproveStrength/Darcie 1=Demonstrate adherence to instructed precautions during ADL tasks. 2=Patient will verbalize/demonstrate understanding of assistive devices/modifications for ADL. 3=Patient will improve strength/tolerance for activity to enable patient to perform ADL's. OT Education/Plan Problem List/Assessment Assessment: Decreased Activ Tolerance, Decreased Safety Aware, Decreased UE Strength, Impaired Funct Balance, Impaired I ADL's, Impaired Self-Care Skills, Restricted Funct UE ROM Discharge Recommendations Plan/Recommendations: Continue POC Treatment Plan/Plan of Care Patient would benefit from OT for education, treatment and training to promote independence in ADL's, mobility, safety and/or upper extremity function for ADL's. Plan of Care: ADL Retraining, Functional Mobility, UE Funct Exercise/Act Treatment Duration: Mar 05, 2022 Frequency: 3 times per week (3-5 times per week) Estimated Hrs Per Day: .25 hour per day Agreement: Yes Rehab Potential: Guarded Time Start Time: 08:57 Stop Time: 09:07 DATE: Feb 15, 2022 Total Time Billed (hr/min): 10 Billed Treatment Time 1, MIGUEL ANGEL SCHWARTZ OT Feb 15, 2022 09:33
[2022-02-15] MEDS ORDERED: INSU100I29 SQ (09:49)
[2022-02-15] MEDS ORDERED: OMEP20CA18 PO (09:50)
[2022-02-15] MEDS ORDERED: UBID100C44 PO (09:50)
--- NOTE | 2022-02-15 10:33 | Progress Note - Cardiology ---
Cardiology SOAP Progress Note Subjective: Lying in bed C/O ROQUE No c/o CP, SOB or palpitations Objective: I&O/Vital Signs 02/15/22 02/15/22 02/16/22 02/16/22 19:50 20:59 00:40 01:37 Temp 36.6 37.0 Pulse 72 65 90 Resp 20 20 B/P (MAP) 139/66 (90) 128/66 (86) Pulse Ox 95 93 O2 Delivery Room Air Room Air Room Air O2 Flow Rate 2.00 2.00 02/16/22 02/16/22 03:13 07:03 Temp 37.4 Pulse 53 63 Resp 18 B/P (MAP) 122/60 (80) Pulse Ox 94 O2 Delivery Nasal Cannula O2 Flow Rate 2.00 02/16/22 00:00 Intake Total 1880 ml Output Total 850 ml Balance 1030 ml Constitutional: AAO x 3, well-developed, well-nourished, other (weak appearing) Respiratory: No accessory muscle use; other (fair to good air entry, diminished at the bases) Cardiovascular: irregularly irregular, S1 and S2, systolic murmur (soft GENEVA at card base) Gastrointestional: No tender; soft; No guarding, No rebound; audible bowel sounds Extremities: No clubbing, No cyanosis Neurologic/Psychiatric: oriented x 3, other (moves all limbs equally) Skin: normal color, warm/dry; No rash on exposed areas, No ulcerations on exposed areas Results/Procedures: Labs Laboratory Tests 02/15/22 09:38: Glucometer 176H 02/15/22 11:40: Influenza Type A (RT-PCR) Not Detected, Influenza Type B (RT-PCR) Not Detected, SARS-CoV-2 RNA (RT-PCR) DetectedH 02/15/22 14:46: Glucometer 160H 02/15/22 19:55: Glucometer 166H 02/16/22 05:35: White Blood Count 11.6H, Red Blood Count 2.95L, Hemoglobin 9.0L, Hematocrit 28L, Mean Corpuscular Volume 94, Mean Corpuscular Hemoglobin 31, Mean Corpuscular Hemoglobin Concent 33, Red Cell Distribution Width 14.2, Platelet Count 250, Mean Platelet Volume 11.5, Immature Granulocyte % (Auto) 1, Neutrophils (%) (Auto) 74, Lymphocytes (%) (Auto) 19, Monocytes (%) (Auto) 6, Eosinophils (%) (Auto) 1, Basophils (%) (Auto) 0, Neutrophils # (Auto) 8.6H, Lymphocytes # (Auto) 2.2, Monocytes # (Auto) 0.7, Eosinophils # (Auto) 0.1, Basophils # (Auto) 0.0, Immature Granulocyte # (Auto) 0.1, Sodium Level 138, Potassium Level 3.6, Chloride Level 106, Carbon Dioxide Level 21, Anion Gap 11, Blood Urea Nitrogen 23H, Creatinine 1.08, Estimat Glomerular Filtration Rate 72, BUN/Creatinine Ratio 21, Glucose Level 133H, Calcium Level 8.9, Corrected Calcium 10.3H, Phosphorus Level 2.5, Magnesium Level 1.6, Total Bilirubin 0.7, Aspartate Amino Transf (AST/SGOT) 25, Alanine Aminotransferase (ALT/SGPT) 24, Alkaline Phosphatase 41, Total Protein 6.3L, Albumin 2.2L Microbiology 02/13/22 MRSA Screen - Final, Complete MRSA not isolated 02/13/22 Blood Culture - Preliminary, Resulted No growth A/P: Assessment: PAF with RVR seen on 02/13/22 - first diagnosed several years earlier, according to the patient, but he is unable to provide any details - TSH normal (0.66) on 02/13/22 RBBB on ECG HAYLEY, likely due to pre-renal azotemia due to poor oral intake Gen weakness and malaise - etiology undetermined Plan: * Long-acting oral dilt for vent rate control * OAC for stroke prophylaxis * Renal function has improved following IVF hydration * Dr Mckeon evaluating gen malaise / failure thrive * Echo done today * Monitor labs and correct any abnormalities JUAN KURTZ Feb 15, 2022 10:32
--- NOTE | 2022-02-15 10:42 | Physical Therapy Evaluation ---
PT Evaluation-General Medical Diagnosis Admission Date Feb 13, 2022 at 19:30 Medical Diagnosis: afib with RVR, HAYLEY Onset Date: Feb 14, 2022 Therapy Diagnosis Therapy Diagnosis: generalized weakness/debility Precautions Precautions/Isolations: Fall Prevention, Standard Precautions, Pressure Ulcer Referral Physician: Linda Reason for Referral: Evaluation/Treatment Medical History Pertinent Medical History: DM, HTN, Neuropathy, Renal Insufficiency Additional Medical History multiple hospital admits recently Current History EMS from home secondary to profound weakness Reviewed History: Yes Social History Home: Single Level Current Living Status: Alone Entry Into Home: Stairs With Railing PT Steps Into Home: 4 Prior Prior Level of Function SCALE: Activities may be completed with or without assistive devices. 1-Lwddewsome-zpblnli completes the activity by him/herself with no assistance from a helper. 5-Set-up or Clean-up Assistance-helper sets up or cleans up; patient completes activity. [place] assists only prior to or following the activity. 4-Supervision or Touching Assistance-helper provides verbal cues and/or touching/steadying and/or contact guard assistance as patient completes activity . Assistance may be provided throughout the activity or intermittently. 3-Partial/Moderate Assistance-helper does LESS THAN HALF the effort. [place] lifts, holds or supports trunk or limbs, but provides less than half the effort. 2-Substantial/Maximal Assistance-helper does MORE THAN HALF the effort. [place] lifts or holds trunk or limbs and provides more than half the effort. 2-Oxjhuaphp-dqsuln does ALL the effort. Patient does none of the effort to complete the activity. Or, the assistance of 2 or more helpers is required for the patient to complete the activity. If activity was not attempted, code reason: 7-Patient Refused. 9-Not Applicable-not attempted and the patient did not perform the activity before the current illness, exacerbation or injury. 10-Not Attempted due to Environmental Limitations-(lack of equipment, weather restraints, etc.). 88-Not Attempted due to Medical Conditions or Safety Concerns. Bed Mobility: 6 Transfers (B,C,W/C): 6 Gait: 6 Stairs: 6 Indoor Mobility (Ambulation): Independent Stairs: Independent Prior Devices Use: Walker, Other-see list below Prior Device Use: cane PT Evaluation-Current Subjective Patient agrees to PT. Objective Patient Orientation: Person, Time, Situation Attachments: IV ROM/Strength ROM Lower Extremities bilateral LE WFL Strength Lower Extremities 3/5 grossly bilateral LE all planes Integumentary/Posture Integumentary refer to nursing notes Bladder Incontinence: Yes Posture WFL Neuromuscular (Tone, Coordination, Reflexes) diminished coordination due to weakness Sensory Vision: Functional Hearing: Functional Transfers Roll Left to Right (QC): 3 Sit to Lying (QC): 3 Lying to Sitting/Side of Bed(Q: 3 Sit to Stand (QC): 3 Gait Mode of Locomotion: Walk Anticipated Mode of Locomotion: Walk Walk 10 feet (QC): 3 Walk 50 ft with 2 Turns(QC): 7 Distance: 10' Gait Assistive Device: FWW Comments/Gait Description slightly unsteady, shuffle gait sequence Balance Sitting Static: Normal Sitting Dynamic: Normal Standing Static: Fair Standing Dynamic: Fair Assessment/Needs 76 y.o. male, will benefit from skilled PT to address functional strength and mobility to improve current LOF. Patient has had multiple hospital stays recently. PT to increase activity as tolerated by patient. Rehab Potential: Guarded PT Retirement Goals Retirement Goals PT Cafeteria Director Goals Time Frame: Mar 06, 2022 Roll Left & Right (QC): 6 Sit to Lying (QC): 6 Lying-Sitting on Side/Bed(QC): 6 Sit to Stand (QC): 6 Chair/Uvy-ar-Devtq Xfer(QC): 6 Toilet Transfer (QC): 6 Walk 10 feet (QC): 5 Walk 50ft with 2 Turns (QC): 5 Walk 150 ft (QC): 5 Walking 10ft on Uneven Surface: 4 1 Step (curb) (QC): 4 PT Plan Problem List Problem List: Activity Tolerance, Functional Strength, Safety, Balance, Gait, Transfer, Bed Mobility Treatment/Plan Treatment Plan: Continue Plan of Care Treatment Plan: Bed Mobility, Education, Functional Activity Darcie, Functional Strength, Gait, Safety, Therapeutic Exercise, Transfers Treatment Duration: Mar 06, 2022 Frequency: 6 times per week Estimated Hrs Per Day: .25 hour per day Patient and/or Family Agrees t: Yes Time Time In: 937 Time Out: 950 DATE: Feb 15, 2022 Total Billed Treatment Time: 13 Total Billed Treatment 1 visit EVMod 13 min MIRZA LI PT Feb 15, 2022 10:42
[2022-02-15 12:27] VITALS: BP 108/55
[2022-02-15] MEDS ORDERED: NIRMATRELVIR/RITONAVIR (PAXLOVID) TABLET PO SCH ×2 (13:00→13:30)
[2022-02-15] MEDS ORDERED: RELABEL FOR HOME USE MC SCH (13:15)
[2022-02-15] MEDS: NIRMATRELVIR/RITONAVIR (PAXLOVID) TABLET PO SCH ×2 (14:28→21:27)
[2022-02-15 15:25] VITALS: BP 146/76
--- NOTE | 2022-02-15 15:58 | Progress Note - Hospitalist ---
Subjective HPI/CC On Admission Date Seen by Provider: Feb 15, 2022 Time Seen by Provider: 12:00 Patient is a 76-year-old male with past medical history of chronic kidney disease known to me from recent admission who presented to the emergency department due to weakness. He was just discharged from the hospital last week after an admission for generalized weakness. He had been admitted 2 weeks ago for weakness and was discharged home with home health and failed. Despite this he was denied skilled benefits after his last hospitalization and returned home with home health. He states since returning home he has continued to worsen and was unable to get up from his couch. He states has been crawling around on the floor for couple of days because he was unable to stand. He had been working to get into a facility near his daughter in [place] but he states that that does not look feasible now due to the expense. On arrival here he was found to have atrial fibrillation with rapid ventricular rate which he states is not new but he was not previously on any medications for it. He was also found to have an acute kidney injury with a creatinine of 2.05. He was admitted to the ICU for IV Cardizem and fluids. He did have a leukocytosis of concerning lesion on his foot so he was started on antibiotics to cover for infection. This morning he reports feeling a little bit better but mostly just still weak. Subjective/Events-last exam He has been having a fever. He has had a headache. He continues to have weakness. Focused Exam Lactate Level 02/13/22 17:01: Lactic Acid Level 1.45 Time of Focused Exam: 19:20 Objective Exam Vital Signs Vital Signs Date Time Temp Pulse Resp B/P (MAP) Pulse Ox O2 Delivery O2 Flow Rate FiO2 02/15/22 15:25 37.0 65 18 146/76 (99) 95 Room Air 2.00 2.00 Capillary Refill : Less Than 3 Seconds General Appearance: No Apparent Distress, WD/WN Respiratory: Lungs Clear, No Respiratory Distress Cardiovascular: Regular Rate, Rhythm, No Murmur Gastrointestinal: Normal Bowel Sounds, Soft Extremity: Normal Inspection, No Pedal Edema Neurologic/Psychiatric: Alert, Normal Mood/Affect Skin: Normal Color, Warm/Dry Results/Procedures Lab Laboratory Tests 02/15/22 05:29 Patient resulted labs reviewed. Imaging: Reviewed Imaging Report Assessment/Plan Assessment and Plan Assess & Plan/Chief Complaint COVID-19 Paxlovid Atrial fibrillation with RVR HTN HLD Cardizem and Eliquis, decrease dosages while on Paxlovid Cardiology following Echo with normal EF, grade II diastolic dysfunction Acute on CKD Creatinine improved Debility Discharged home with home health twice recently with readmissions PT/OT IRF evaluation, previously walking 400-500' last admission, now only 10' IDDMII SSI Levemir Leukocytosis Improved Stop antibiotics Anemia Hgb up from last visit Received IV iron Had EGD/Colonoscopy during last visit DVT ppx: Eliquis as above Diagnosis/Problems Diagnosis/Problems (1) COVID-19 Status: Acute (2) Atrial fibrillation with RVR Status: Acute (3) Debility Status: Acute (4) Acute kidney injury superimposed on chronic kidney disease Status: Acute (5) HTN (hypertension) Status: Chronic (6) HLD (hyperlipidemia) Status: Chronic (7) T2DM (type 2 diabetes mellitus) Status: Chronic Qualifiers: Diabetes mellitus press tender long goods insulin use: with nursing home use ALIS ANDERSON MD Feb 15, 2022 15:58
--- NOTE | 2022-02-15 17:26 | Progress Note - Cardiology ---
Cardiology SOAP Progress Note Subjective: Gen malaise and weakness No n/v/d No cp or palp No focal weakness No syncope or shortness of breath at rest Objective: I&O/Vital Signs 02/15/22 02/15/22 02/15/22 02/15/22 07:42 08:00 08:00 11:57 Temp 37.2 Pulse 71 73 Resp 16 B/P (MAP) 123/56 (78) Pulse Ox 92 92 92 O2 Delivery Room Air Room Air Nasal Cannula O2 Flow Rate 2.00 02/15/22 02/15/22 02/15/22 12:27 12:55 15:25 Temp 38.1 37.0 Pulse 73 70 65 Resp 18 18 B/P (MAP) 108/55 (72) 146/76 (99) Pulse Ox 87 95 O2 Delivery Room Air Room Air O2 Flow Rate 2.00 2.00 02/15/22 00:00 Intake Total 2000 ml Output Total 1125 ml Balance 875 ml Constitutional: AAO x 3, well-developed, well-nourished, other (weak appearing) Respiratory: No accessory muscle use; other (fair to good air entry, diminished at the bases) Cardiovascular: irregularly irregular, S1 and S2, systolic murmur (soft [place] at card base) Gastrointestional: No tender; soft; No guarding, No rebound; audible bowel sounds Extremities: No clubbing, No cyanosis Neurologic/Psychiatric: oriented x 3, other (moves all limbs equally) Skin: normal color, warm/dry; No rash on exposed areas, No ulcerations on exposed areas Results/Procedures: Labs Laboratory Tests 02/14/22 19:12: Glucometer 154H 02/15/22 04:58: Glucometer 187H 02/15/22 05:29: White Blood Count 12.0H, Red Blood Count 3.01L, Hemoglobin 9.3L, Hematocrit 28L, Mean Corpuscular Volume 93, Mean Corpuscular Hemoglobin 31, Mean Corpuscular Hemoglobin Concent 33, Red Cell Distribution Width 14.4, Platelet Count 258, Mean Platelet Volume 11.8, Immature Granulocyte % (Auto) 0, Neutrophils (%) (Auto) 75, Lymphocytes (%) (Auto) 19, Monocytes (%) (Auto) 6, Eosinophils (%) (Auto) 0, Basophils (%) (Auto) 0, Neutrophils # (Auto) 9.0H, Lymphocytes # (Auto) 2.3, Monocytes # (Auto) 0.7, Eosinophils # (Auto) 0.0, Basophils # (Auto) 0.0, Immature Granulocyte # (Auto) 0.0, Sodium Level 139, Potassium Level 3.7, Chloride Level 106, Carbon Dioxide Level 22, Anion Gap 11, Blood Urea Nitrogen 32H, Creatinine 1.22, Estimat Glomerular Filtration Rate 62, BUN/Creatinine Ratio 26, Glucose Level 146H, Calcium Level 9.1, Corrected Calcium 10.5H, Phosphorus Level 2.8, Magnesium Level 1.8, Total Bilirubin 0.7, Aspartate Amino Transf (AST/SGOT) 24, Alanine Aminotransferase (ALT/SGPT) 21, Alkaline Phosphatase 42, Total Protein 6.5, Albumin 2.2L 02/15/22 09:38: Glucometer 176H 02/15/22 11:40: Influenza Type A (RT-PCR) Not Detected, Influenza Type B (RT-PCR) Not Detected, SARS-CoV-2 RNA (RT-PCR) DetectedH 02/15/22 14:46: Glucometer 160H Microbiology 02/13/22 MRSA Screen - Final, Complete MRSA not isolated 02/13/22 Blood Culture - Preliminary, Resulted No growth Laboratory Tests 02/14/22 03:33 02/14/22 03:37 02/15/22 05:29 A/P: Assessment: PAF with RVR seen on 02/13/22 - first diagnosed several years earlier, according to the patient, but he is unable to provide any details - TSH normal (0.66) on 02/13/22 - echo on 02-15-22: LVEF 50%, grade 2 rosas dysfunction, mild to mod LAE, mild AI, PASP 20-25 mmHg RBBB on ECG HAYLEY, likely due to pre-renal azotemia due to poor oral intake - improving with hydration Gen weakness and malaise - etiology undetermined Plan: * Long-acting oral dilt for vent rate control * OAC for stroke prophylaxis * Renal function has improved following IVF hydration * Dr Mckeon evaluating gen malaise / failure thrive * Echo reported above * Monitor labs and correct any abnormalities SRI KEENAN MD [facility] Feb 15, 2022 17:26
[2022-02-15 19:50] VITALS: BP 139/66
[2022-02-15] MEDS: APIXABAN 2.5 MG (ELIQUIS) TABLET PO SCH (21:26)
[2022-02-16] VITALS (7 sets, daily range): BP systolic 118–151; BP diastolic 56–88
[2022-02-16] MEDS: ACETAMINOPHEN 500 MG TAB (TYLENOL) PO PRN ×4 (03:17→22:44)
[2022-02-16 05:45] LABS: BASOPHILS % (AUTO) 0 % (0-10); EOSINOPHILS # (AUTO) 0.1 10^3/uL (0.0-0.3); EOSINOPHILS % (AUTO) 1 % (0-10); HEMATOCRIT 28 % (40-54); LYMPHOCYTES # (AUTO) 2.2 10^3/uL (1.0-4.0); LYMPHOCYTES % (AUTO) 19 % (12-44); MEAN CORPUSCULAR HEMOGLOBIN 31 pg (25-34); MEAN CORPUSCULAR HGB CONC 33 g/dL (32-36); MEAN CORPUSCULAR VOLUME 94 fL (80-99); MEAN PLATELET VOLUME 11.5 fL (9.0-12.2); MONOCYTES # (AUTO) 0.7 10^3/uL (0.0-1.0); MONOCYTES % (AUTO) 6 % (0-12); NEUTROPHILS # (AUTO) 8.6 10^3/uL (1.8-7.8); NEUTROPHILS % (AUTO) 74 % (42-75); PLATELET COUNT 250 10^3/uL (130-400); WHITE BLOOD COUNT 11.6 10^3/uL (4.3-11.0)
[2022-02-16 06:05] LABS: ALBUMIN 2.2 GM/DL (3.2-4.5); BILIRUBIN,TOTAL 0.7 MG/DL (0.1-1.0); CALCIUM 8.9 MG/DL (8.5-10.1); CREATININE SERUM 1.08 MG/DL (0.60-1.30); MAGNESIUM 1.6 MG/DL (1.6-2.4); PHOSPHORUS 2.5 MG/DL (2.3-4.7); POTASSIUM 3.6 MMOL/L (3.6-5.0); TOTAL PROTEIN 6.3 GM/DL (6.4-8.2)
[2022-02-16] MEDS: inSUlin ASPART (NovoLOG) 1 UNIT/0.01 ML (CHARGE PER UNIT) SC SCH ×4 (06:36→21:06)
[2022-02-16] MEDS: APIXABAN 2.5 MG (ELIQUIS) TABLET PO SCH ×2 (08:54→19:56)
[2022-02-16] MEDS: NIRMATRELVIR/RITONAVIR (PAXLOVID) TABLET PO SCH ×2 (08:55→19:57)
--- NOTE | 2022-02-16 09:38 | Physical Therapy Daily Note ---
PT Daily Note-Current Subjective Patient agrees to PT. Pain Section J - Health Conditions 1. Rarely or not at all 2. Occasionally 3. Frequently 4. Almost constantly 8. Unable to answer Pain Effect on Sleep: 2 Pain Interference with Therapy: 2 Pain Interference w/Day-to-Day: 2 Mental Status Patient Orientation: Person, Time, Situation Attachments: Oxygen, IV Transfers SCALE: Activities may be completed with or without assistive devices. 0-Tsuhfjgfgd-juizdqq completes the activity by him/herself with no assistance from a helper. 5-Set-up or Clean-up Assistance-helper sets up or cleans up; patient completes activity. [place] assists only prior to or following the activity. 4-Supervision or Touching Assistance-helper provides verbal cues and/or touching/steadying and/or contact guard assistance as patient completes activity. Assistance may be provided throughout the activity or intermittently. 3-Partial/Moderate Assistance-helper does LESS THAN HALF the effort. [place] lifts, holds or supports trunk or limbs, but provides less than half the effort. 2-Substantial/Maximal Assistance-helper does MORE THAN HALF the effort. [place] lifts or holds trunk or limbs and provides more than half the effort. 0-Qqnvsjzua-uzzrbw does ALL the effort. Patient does none of the effort to complete the activity. Or, the assistance of 2 or more helpers is required for the patient to complete the activity. If activity was not attempted, code reason: 7-Patient Refused. 9-Not Applicable-not attempted and the patient did not perform the activity before the current illness, exacerbation or injury. 10-Not Attempted due to Environmental Limitations-(lack of equipment, weather restraints, etc.). 88-Not Attempted due to Medical Conditions or Safety Concerns. Sit to Stand (QC): 4 (x 5 sets to FWW) Exercises Seated Therapy Exercises: Ankle pumps, Sit to stand (5 set SBA to CGA to FWW), Long arc quads, Hip flexion Seated Reps: 15 Assessment Patient had just complete OT session and tolerated minimal activity due to fatigue. Patient remains up in recliner with needs met. PT to continue to increase activity as tolerated by patient. PT Vacuum Cleaner Operator Goals Vacuum Cleaner Operator Goals PT Shelter Goals Time Frame: Mar 06, 2022 Roll Left & Right (QC): 6 Sit to Lying (QC): 6 Lying-Sitting on Side/Bed(QC): 6 Sit to Stand (QC): 6 Chair/Fso-an-Xrqxn Xfer(QC): 6 Toilet Transfer (QC): 6 Walk 10 feet (QC): 5 Walk 50ft with 2 Turns (QC): 5 Walk 150 ft (QC): 5 Walking 10ft on Uneven Surface: 4 1 Step (curb) (QC): 4 PT Plan Treatment/Plan Treatment Plan: Continue Plan of Care Treatment Plan: Bed Mobility, Education, Functional Activity Darcie, Functional Strength, Gait, Safety, Therapeutic Exercise, Transfers Treatment Duration: Mar 06, 2022 Frequency: 6 times per week Estimated Hrs Per Day: .25 hour per day Patient and/or Family Agrees t: Yes Time Time In: 856 Time Out: 908 DATE: Feb 16, 2022 Total Billed Treatment Time: 12 Total Billed Treatment 1 visit EX 12 min MIRZA LI PT Feb 16, 2022 09:38
--- NOTE | 2022-02-16 09:45 | Occupational Ther Daily Note ---
OT Current Status-Daily Note Subjective Pt alert, lying in bed. Pt reluctantly agrees to therapy after max encouragement. Pt c/o pain on L side of head, did not rate, nrsg aware and in room. Mental Status/Objective Patient Orientation: Person, Place, Time, Situation Attachments: IV, Oxygen (2L), Telemetry ADL-Treatment Min A for supine to EOB. CGA for safety for sit to stand from EOB. CGA using FWW to ambulate 5 steps to recliner from bed. Pt then was able to grasp drink and bring to mouth and place back in designated area. Left in care of PT. All needs met. Therapy Code Descriptions/Definitions Functional [place] Measure: 0=Not Assessed/NA 4=Minimal Assistance 1=Total Assistance 5=Supervision or Setup 2=Maximal Assistance 6=Modified [place] 3=Moderate Assistance 7=Complete IndependenceSCALE: Activities may be completed with or without assistive devices. 2-Arrdjptozt-fjyannf completes the activity by him/herself with no assistance from a helper. 5-Set-up or Clean-up Assistance-helper sets up or cleans up; patient completes activity. [place] assists only prior to or following the activity. 4-Supervision or Touching Assistance-helper provides verbal cues and/or touching/steadying and/or contact guard assistance as patient completes activity. Assistance may be provided throughout the activity or intermittently. 3-Partial/Moderate Assistance-helper does LESS THAN HALF the effort. [place] lifts, holds or supports trunk or limbs, but provides less than half the effort. 2-Substantial/Maximal Assistance-helper does MORE THAN HALF the effort. [place] lifts or holds trunk or limbs and provides more than half the effort. 4-Ppspsyhtz-yrlsqk does ALL the effort. Patient does none of the effort to complete the activity. Or, the assistance of 2 or more helpers is required for the patient to complete the activity. If activity was not attempted, code reason: 7-Patient Refused. 9-Not Applicable-not attempted and the patient did not perform the activity before the current illness, exacerbation or injury. 10-Not Attempted due to Environmental Limitations-(lack of equipment, weather restraints, etc.). 88-Not Attempted due to Medical Conditions or Safety Concerns. OT Assisted Goals Assisted Goals Time Frame: Mar 05, 2022 Eating (QC): 6 Oral Hygiene (QC): 6 Toileting Hygiene (QC): 4 Shower/Bathe Self (QC): 4 Upper Body Dressing (QC): 5 Lower Body Dressing (QC): 4 On/Off Footwear (QC): 4 Additional Goals: 1-Demonstrate ADL Tasks, 2-Verbalize Understanding, 3- ImproveStrength/Darcie 1=Demonstrate adherence to instructed precautions during ADL tasks. 2=Patient will verbalize/demonstrate understanding of assistive devices/modifications for ADL. 3=Patient will improve strength/tolerance for activity to enable patient to perform ADL's. OT Education/Plan Problem List/Assessment Assessment: Decreased Activ Tolerance Discharge Recommendations Plan/Recommendations: Continue POC Treatment Plan/Plan of Care Patient would benefit from OT for education, treatment and training to promote independence in ADL's, mobility, safety and/or upper extremity function for ADL's. Plan of Care: ADL Retraining, Functional Mobility, UE Funct Exercise/Act Treatment Duration: Mar 05, 2022 Frequency: 3 times per week (3-5 times per week) Estimated Hrs Per Day: .25 hour per day Agreement: Yes Rehab Potential: Guarded Time Start Time: 08:47 Stop Time: 09:02 DATE: Feb 16, 2022 Total Time Billed (hr/min): 15 Billed Treatment Time 1 visit-FA 1 (15 min) MIKE PLAZA Feb 16, 2022 09:45
[2022-02-16] MEDS: LACTATED RINGERS 1,000 ML IV SCH (11:48)
--- NOTE | 2022-02-16 12:12 | Progress Note - Cardiology ---
Cardiology SOAP Progress Note Objective: I&O/Vital Signs 02/16/22 02/16/22 02/16/22 02/17/22 19:46 20:04 23:05 01:00 Temp 37.0 36.9 Pulse 60 100 70 Resp 20 18 B/P (MAP) 151/88 (109) 137/77 (97) Pulse Ox 93 91 O2 Delivery Room Air Room Air Room Air 02/17/22 03:48 Temp 36.6 Pulse 73 Resp 20 B/P (MAP) 147/74 (98) Pulse Ox 94 O2 Delivery Nasal Cannula O2 Flow Rate 1.50 02/17/22 00:00 Intake Total 1290 ml Output Total 1150 ml Balance 140 ml Constitutional: AAO x 3, well-developed, well-nourished, other (weak appearing) Respiratory: No accessory muscle use; other (fair to good air entry, diminished at the bases) Cardiovascular: irregularly irregular, S1 and S2, systolic murmur (soft GENEVA at card base) Gastrointestional: No tender; soft; No guarding, No rebound; audible bowel sounds Extremities: No clubbing, No cyanosis Neurologic/Psychiatric: oriented x 3, other (moves all limbs equally) Skin: normal color, warm/dry; No rash on exposed areas, No ulcerations on exposed areas Results/Procedures: Labs Laboratory Tests 02/16/22 11:30: Glucometer 159H 02/16/22 15:07: Glucometer 130H 02/16/22 20:44: Glucometer 164H 02/17/22 05:05: White Blood Count 10.6, Red Blood Count 2.94L, Hemoglobin 9.1L, Hematocrit 28L, Mean Corpuscular Volume 95, Mean Corpuscular Hemoglobin 31, Mean Corpuscular Hemoglobin Concent 33, Red Cell Distribution Width 14.3, Platelet Count 268, Mean Platelet Volume 11.9, Immature Granulocyte % (Auto) 1, Neutrophils (%) (Auto) 71, Lymphocytes (%) (Auto) 21, Monocytes (%) (Auto) 6, Eosinophils (%) (Auto) 1, Basophils (%) (Auto) 0, Neutrophils # (Auto) 7.5, Lymphocytes # (Auto) 2.2, Monocytes # (Auto) 0.6, Eosinophils # (Auto) 0.1, Basophils # (Auto) 0.0, Immature Granulocyte # (Auto) 0.1, Sodium Level 137, Potassium Level 3.9, Chloride Level 106, Carbon Dioxide Level 23, Anion Gap 8, Blood Urea Nitrogen 17, Creatinine 0.96, Estimat Glomerular Filtration Rate 82, BUN/Creatinine Ratio 18, Glucose Level 120H, Calcium Level 8.7, Corrected Calcium 10.1, Total Bilirubin 0.5, Aspartate Amino Transf (AST/SGOT) 18, Alanine Aminotransferase (ALT/SGPT) 17, Alkaline Phosphatase 45, Total Protein 6.5, Albumin 2.2L Microbiology 02/13/22 MRSA Screen - Final, Complete MRSA not isolated 02/13/22 Blood Culture - Preliminary, Resulted No growth A/P: Assessment: PAF with RVR seen on 02/13/22 - first diagnosed several years earlier, according to the patient, but he is unable to provide any details - TSH normal (0.66) on 02/13/22 - echo on 02-15-22: LVEF 50%, grade 2 rosas dysfunction, mild to mod LAE, mild AI, PASP 20-25 mmHg RBBB on ECG HAYLEY, likely due to pre-renal azotemia due to poor oral intake - resolved COVID (+) Gen weakness and malaise - etiology undetermined Plan: * Long-acting oral dilt for vent rate control * OAC for stroke prophylaxis * Renal function has improved following IVF hydration * Monitor labs and correct any abnormalities * Dx with COVID on 02-15-22 - started on Paxlovid per medical services JUAN KURTZ Feb 16, 2022 12:12
[2022-02-16] MEDS: GABAPENTIN 300 MG (NEURONTIN) CAP PO PRN (15:34)
--- NOTE | 2022-02-16 16:19 | Progress Note - Cardiology ---
Cardiology SOAP Progress Note Subjective: Gen malaise and weakness Mild shortness of breath No focal weakness No n/v/d No cp or palp or syncope Objective: I&O/Vital Signs 02/16/22 02/16/22 02/16/22 02/16/22 07:03 08:00 08:00 11:08 Temp 36.7 Pulse 63 71 Resp 18 B/P (MAP) 130/85 (100) Pulse Ox 94 O2 Delivery Nasal Cannula Room Air Nasal Cannula O2 Flow Rate 2.00 2.00 02/16/22 02/16/22 02/16/22 02/16/22 11:34 11:49 12:00 13:27 Temp 36.9 Pulse 80 69 68 63 Resp 18 B/P (MAP) 124/68 (86) Pulse Ox 92 O2 Delivery Room Air 02/16/22 02/16/22 13:28 15:51 Temp 36.6 Pulse 73 66 Resp 20 B/P (MAP) 118/56 (76) Pulse Ox 91 O2 Delivery Room Air 02/16/22 00:00 Intake Total 1880 ml Output Total 850 ml Balance 1030 ml Constitutional: AAO x 3, well-developed, well-nourished, other (weak appearing) Respiratory: No accessory muscle use; other (fair to good air entry, diminished at the bases) Cardiovascular: irregularly irregular, S1 and S2, systolic murmur (soft [place] at card base) Gastrointestional: No tender; soft; No guarding, No rebound; audible bowel sounds Extremities: No clubbing, No cyanosis Neurologic/Psychiatric: oriented x 3, other (moves all limbs equally) Skin: normal color, warm/dry; No rash on exposed areas, No ulcerations on exposed areas Results/Procedures: Labs Laboratory Tests 02/15/22 19:55: Glucometer 166H 02/16/22 05:35: White Blood Count 11.6H, Red Blood Count 2.95L, Hemoglobin 9.0L, Hematocrit 28L, Mean Corpuscular Volume 94, Mean Corpuscular Hemoglobin 31, Mean Corpuscular Hemoglobin Concent 33, Red Cell Distribution Width 14.2, Platelet Count 250, Mean Platelet Volume 11.5, Immature Granulocyte % (Auto) 1, Neutrophils (%) (Auto) 74, Lymphocytes (%) (Auto) 19, Monocytes (%) (Auto) 6, Eosinophils (%) (Auto) 1, Basophils (%) (Auto) 0, Neutrophils # (Auto) 8.6H, Lymphocytes # (Auto) 2.2, Monocytes # (Auto) 0.7, Eosinophils # (Auto) 0.1, Basophils # (Auto) 0.0, Immature Granulocyte # (Auto) 0.1, Sodium Level 138, Potassium Level 3.6, Chloride Level 106, Carbon Dioxide Level 21, Anion Gap 11, Blood Urea Nitrogen 23H, Creatinine 1.08, Estimat Glomerular Filtration Rate 72, BUN/Creatinine Rat io 21, Glucose Level 133H, Calcium Level 8.9, Corrected Calcium 10.3H, Phosphorus Level 2.5, Magnesium Level 1.6, Total Bilirubin 0.7, Aspartate Amino Transf (AST/SGOT) 25, Alanine Aminotransferase (ALT/SGPT) 24, Alkaline Phosphatase 41, Total Protein 6.3L, Albumin 2.2L 02/16/22 11:30: Glucometer 159H 02/16/22 15:07: Glucometer 130H Microbiology 02/13/22 MRSA Screen - Final, Complete MRSA not isolated 02/13/22 Blood Culture - Preliminary, Resulted No growth Laboratory Tests 02/15/22 05:29 02/16/22 05:35 A/P: Assessment: PAF with RVR seen on 02/13/22 - first diagnosed several years earlier, according to the patient, but he is unable to provide any details - TSH normal (0.66) on 02/13/22 - echo on 02-15-22: LVEF 50%, grade 2 rosas dysfunction, mild to mod LAE, mild AI, PASP 20-25 mmHg RBBB on ECG HAYLEY, likely due to pre-renal azotemia due to poor oral intake - resolved COVID (+) Gen weakness and malaise - etiology undetermined Plan: * Long-acting oral dilt for vent rate control * OAC for stroke prophylaxis * Renal function has improved following IVF hydration * Monitor labs and correct any abnormalities * Dx with COVID on 02-15-22 - started on Paxlovid per Medical services SRI KEENAN MD FACP [facility] Feb 16, 2022 16:19
--- NOTE | 2022-02-16 16:55 | Progress Note - Hospitalist ---
Subjective HPI/CC On Admission Date Seen by Provider: Feb 16, 2022 Time Seen by Provider: 13:00 Patient is a 76-year-old male with past medical history of chronic kidney disease known to me from recent admission who presented to the emergency department due to weakness. He was just discharged from the hospital last week after an admission for generalized weakness. He had been admitted 2 weeks ago for weakness and was discharged home with home health and failed. Despite this he was denied skilled benefits after his last hospitalization and returned home with home health. He states since returning home he has continued to worsen and was unable to get up from his couch. He states has been crawling around on the floor for couple of days because he was unable to stand. He had been working to get into a facility near his daughter in [place] but he states that that does not look feasible now due to the expense. On arrival here he was found to have atrial fibrillation with rapid ventricular rate which he states is not new but he was not previously on any medications for it. He was also found to have an acute kidney injury with a creatinine of 2.05. He was admitted to the ICU for IV Cardizem and fluids. He did have a leukocytosis of concerning lesion on his foot so he was started on antibiotics to cover for infection. This morning he reports feeling a little bit better but mostly just still weak. Subjective/Events-last exam He is feeling ok. He is laying in bed. He has been out of bed. He denies pain. He denies shortness of breath. Focused Exam Lactate Level 02/13/22 17:01: Lactic Acid Level 1.45 Time of Focused Exam: 19:20 Objective Exam Vital Signs Vital Signs Date Time Temp Pulse Resp B/P (MAP) Pulse Ox O2 Delivery O2 Flow Rate FiO2 02/16/22 15:51 36.6 66 20 118/56 (76) 91 Room Air 02/16/22 11:08 2.00 Capillary Refill : Less Than 3 Seconds General Appearance: No Apparent Distress, Obese Respiratory: Lungs Clear, No Respiratory Distress Cardiovascular: Regular Rate, Rhythm, No Murmur Gastrointestinal: Normal Bowel Sounds, Soft Extremity: Normal Inspection, Pedal Edema Neurologic/Psychiatric: Alert, Normal Mood/Affect Skin: Normal Color, Warm/Dry Results/Procedures Lab Laboratory Tests 02/16/22 05:35 Patient resulted labs reviewed. Imaging: Reviewed Imaging Report Assessment/Plan Assessment and Plan Assess & Plan/Chief Complaint COVID-19 Paxlovid Atrial fibrillation with RVR HTN HLD Cardizem and Eliquis, decrease dosages while on Paxlovid Cardiology following Echo with normal EF, grade II diastolic dysfunction Acute on CKD Creatinine improved Debility Critical illness myopathy Recurrent hospitalizations Discharged home with home health twice recently with readmissions PT/OT IRF evaluation, previously walking 400-500' last admission, now only 10' IDDMII SSI Levemir Leukocytosis Improved Stop antibiotics Anemia Hgb up from last visit Received IV iron Had EGD/Colonoscopy during last visit DVT ppx: Eliquis as above Diagnosis/Problems Diagnosis/Problems (1) COVID-19 Status: Acute (2) Atrial fibrillation with RVR Status: Acute (3) Debility Status: Acute (4) Acute kidney injury superimposed on chronic kidney disease Status: Acute (5) HTN (hypertension) Status: Chronic (6) HLD (hyperlipidemia) Status: Chronic (7) T2DM (type 2 diabetes mellitus) Status: Chronic Qualifiers: Diabetes mellitus retirement insulin use: with retirement use ALIS ANDERSON MD Feb 16, 2022 16:55
[2022-02-16] MEDS: MAGNESIUM 1 GM/100 ML IVPB 100 ML IV SCH ×2 (17:59→19:56)
[2022-02-16] MEDS ORDERED: KCL 20 MEQ TAB (K-DUR) PO NR (18:00)
[2022-02-17 03:48] VITALS: BP 147/74
[2022-02-17] MEDS: LACTATED RINGERS 1,000 ML IV SCH ×2 (04:30→19:21)
[2022-02-17] MEDS: ACETAMINOPHEN 500 MG TAB (TYLENOL) PO PRN ×3 (04:31→20:45)
[2022-02-17 05:44] LABS: BASOPHILS % (AUTO) 0 % (0-10); EOSINOPHILS # (AUTO) 0.1 10^3/uL (0.0-0.3); EOSINOPHILS % (AUTO) 1 % (0-10); HEMATOCRIT 28 % (40-54); HEMOGLOBIN 9.1 g/dL (13.3-17.7); LYMPHOCYTES # (AUTO) 2.2 10^3/uL (1.0-4.0); LYMPHOCYTES % (AUTO) 21 % (12-44); MEAN CORPUSCULAR HEMOGLOBIN 31 pg (25-34); MEAN CORPUSCULAR HGB CONC 33 g/dL (32-36); MEAN CORPUSCULAR VOLUME 95 fL (80-99); MEAN PLATELET VOLUME 11.9 fL (9.0-12.2); MONOCYTES # (AUTO) 0.6 10^3/uL (0.0-1.0); MONOCYTES % (AUTO) 6 % (0-12); NEUTROPHILS # (AUTO) 7.5 10^3/uL (1.8-7.8); NEUTROPHILS % (AUTO) 71 % (42-75); PLATELET COUNT 268 10^3/uL (130-400); WHITE BLOOD COUNT 10.6 10^3/uL (4.3-11.0)
[2022-02-17 05:56] LABS: ALBUMIN 2.2 GM/DL (3.2-4.5); POTASSIUM 3.9 MMOL/L (3.6-5.0)
[2022-02-17 05:58] LABS: CALCIUM 8.7 MG/DL (8.5-10.1)
[2022-02-17 05:59] LABS: TOTAL PROTEIN 6.5 GM/DL (6.4-8.2)
[2022-02-17 06:01] LABS: BILIRUBIN,TOTAL 0.5 MG/DL (0.1-1.0)
[2022-02-17 06:02] LABS: CREATININE SERUM 0.96 MG/DL (0.60-1.30)
[2022-02-17] MEDS: inSUlin ASPART (NovoLOG) 1 UNIT/0.01 ML (CHARGE PER UNIT) SC SCH ×4 (06:15→20:46)
[2022-02-17 07:45] VITALS: BP 134/76
--- NOTE | 2022-02-17 08:36 | Occupational Ther Daily Note ---
OT Current Status-Daily Note Subjective Pt alert, lying in bed. Pt c/o headache, nrsg aware. Pt states that he is weak and just wants to be grungy. Pt stated that he doesn't know if he can do very much or walk very far today because he is so weak. Pt reluctant to work with PINON for OOB activities, requires max encouragement to participate. Mental Status/Objective Patient Orientation: Person, Place, Time, Situation Attachments: IV, Oxygen, Telemetry ADL-Treatment Pt declines oral care or washing up at this time. With FOB elevated, pt able to scoot self up in bed using headboard to pull on. Pt's breakfast delivered, pt reluctantly agrees to get OOB and sit in recliner to eat. CGA for supine to EOB. Sitting EOB, pt unable to reach toes of B feet, socks placed on toes then pt able to pull up over heel and up calf. Min A for sit to stand. CGA to ambulate 6' with FWW and vc for hand placement with sit to stands. Pt able to set up own meal and use regular utensils to eat. Pt has increased hand tremors while reaching and grasping for drink. After session, pt sitting in recliner with call light/phone in reach. All needs met in room. Therapy Code Descriptions/Definitions Functional [place] Measure: 0=Not Assessed/NA 4=Minimal Assistance 1=Total Assistance 5=Supervision or Setup 2=Maximal Assistance 6=Modified [place] 3=Moderate Assistance 7=Complete IndependenceSCALE: Activities may be completed with or without assistive devices. 3-Jqzakhmtnz-crleiqy completes the activity by him/herself with no assistance from a helper. 5-Set-up or Clean-up Assistance-helper sets up or cleans up; patient completes activity. [place] assists only prior to or following the activity. 4-Supervision or Touching Assistance-helper provides verbal cues and/or touching/steadying and/or contact guard assistance as patient completes activity. Assistance may be provided throughout the activity or intermittently. 3-Partial/Moderate Assistance-helper does LESS THAN HALF the effort. [place] lifts, holds or supports trunk or limbs, but provides less than half the effort. 2-Substantial/Maximal Assistance-helper does MORE THAN HALF the effort. [place] lifts or holds trunk or limbs and provides more than half the effort. 0-Ruqsjwlav-asscii does ALL the effort. Patient does none of the effort to complete the activity. Or, the assistance of 2 or more helpers is required for the patient to complete the activity. If activity was not attempted, code reason: 7-Patient Refused. 9-Not Applicable-not attempted and the patient did not perform the activity before the current illness, exacerbation or injury. 10-Not Attempted due to Environmental Limitations-(lack of equipment, weather restraints, etc.). 88-Not Attempted due to Medical Conditions or Safety Concerns. Eating (QC): 6 Oral Hygiene (QC): 7 On/Off Footwear: 3 Other Treatment Pt completed 2 B UE exercises 1 set 10 reps before fatiguing. B shldr flexion with elbow flex/ext against gravity, B shldr horizontal abd/add. Skilled instruction for correct technique and modifications when needed. OT Snf Goals Clock [place] Goals Time Frame: Mar 05, 2022 Eating (QC): 6 Oral Hygiene (QC): 6 Toileting Hygiene (QC): 4 Shower/Bathe Self (QC): 4 Upper Body Dressing (QC): 5 Lower Body Dressing (QC): 4 On/Off Footwear (QC): 4 Additional Goals: 1-Demonstrate ADL Tasks, 2-Verbalize Understanding, 3- ImproveStrength/Darcie 1=Demonstrate adherence to instructed precautions during ADL tasks. 2=Patient will verbalize/demonstrate understanding of assistive devices/modifications for ADL. 3=Patient will improve strength/tolerance for activity to enable patient to perform ADL's. OT Education/Plan Problem List/Assessment Assessment: Decreased Activ Tolerance, Decreased UE Strength, Impaired Self- Care Skills Discharge Recommendations Plan/Recommendations: Continue POC Treatment Plan/Plan of Care Patient would benefit from OT for education, treatment and training to promote independence in ADL's, mobility, safety and/or upper extremity function for ADL's. Plan of Care: ADL Retraining, Functional Mobility, UE Funct Exercise/Act Treatment Duration: Mar 05, 2022 Frequency: 3 times per week (3-5 times per week) Estimated Hrs Per Day: .25 hour per day Agreement: Yes Rehab Potential: Guarded Time Start Time: 07:22 Stop Time: 08:00 DATE: Feb 17, 2022 Total Time Billed (hr/min): 38 Billed Treatment Time 1 visit-EX 1 (10 min) ADL 2 (28 min) MIKE PLAZA Feb 17, 2022 08:36
[2022-02-17] MEDS: GABAPENTIN 300 MG (NEURONTIN) CAP PO PRN ×2 (10:15→20:45)
[2022-02-17] MEDS: APIXABAN 2.5 MG (ELIQUIS) TABLET PO SCH ×2 (10:15→20:45)
[2022-02-17] MEDS: NIRMATRELVIR/RITONAVIR (PAXLOVID) TABLET PO SCH ×2 (10:16→20:46)
--- NOTE | 2022-02-17 10:21 | Physical Therapy Daily Note ---
PT Daily Note-Current Subjective Pt sitting in recliner upon arrival. Pt asked to TF back to bed for comfort. Pain Location Body Site: Head Pain Description: Ache Comment: Reports across forehead as well as like a strap under chin from ear to ear Section J - Health Conditions 1. Rarely or not at all 2. Occasionally 3. Frequently 4. Almost constantly 8. Unable to answer Pain Effect on Sleep: 2 Pain Interference with Therapy: 2 Pain Interference w/Day-to-Day: 2 Mental Status Patient Orientation: Person, Place, Situation Attachments: Oxygen, IV Transfers SCALE: Activities may be completed with or without assistive devices. 1-Ivvsyhnoaq-sletgiq completes the activity by him/herself with no assistance from a helper. 5-Set-up or Clean-up Assistance-helper sets up or cleans up; patient completes activity. [place] assists only prior to or following the activity. 4-Supervision or Touching Assistance-helper provides verbal cues and/or touching/steadying and/or contact guard assistance as patient completes activity. Assistance may be provided throughout the activity or intermittently. 3-Partial/Moderate Assistance-helper does LESS THAN HALF the effort. [place] lifts, holds or supports trunk or limbs, but provides less than half the effort. 2-Substantial/Maximal Assistance-helper does MORE THAN HALF the effort. [place] lifts or holds trunk or limbs and provides more than half the effort. 1-Rruepgzug-ldaqin does ALL the effort. Patient does none of the effort to complete the activity. Or, the assistance of 2 or more helpers is required for the patient to complete the activity. If activity was not attempted, code reason: 7-Patient Refused. 9-Not Applicable-not attempted and the patient did not perform the activity before the current illness, exacerbation or injury. 10-Not Attempted due to Environmental Limitations-(lack of equipment, weather restraints, etc.). 88-Not Attempted due to Medical Conditions or Safety Concerns. Sit to Lying (QC): 5 Sit to Stand (QC): 4 Weight Bearing Full Weight Bearing Full Weight Bearing Gait Training Does the Patient Walk?: Yes Distance: 5' Gait Assistive Device: FWW Treatments Pt asks to TF to bed as he has a "horrible" headache. TF from sit to stand and amb. to EOB then TF to Supine in bed. Pt repositioned to comfort. Pt asks for pain med. and Nurse is advised. Assessment Current Status: Fair Progress Pain from headache limits tx. Pt is resistive to complete anything after TF to bed. PT Route Driver Goals Intermediate Goals PT Intermediate Goals Time Frame: Mar 06, 2022 Roll Left & Right (QC): 6 Sit to Lying (QC): 6 Lying-Sitting on Side/Bed(QC): 6 Sit to Stand (QC): 6 Chair/Prm-eo-Alrjo Xfer(QC): 6 Toilet Transfer (QC): 6 Walk 10 feet (QC): 5 Walk 50ft with 2 Turns (QC): 5 Walk 150 ft (QC): 5 Walking 10ft on Uneven Surface: 4 1 Step (curb) (QC): 4 PT Plan Problem List Problem List: Activity Tolerance Treatment/Plan Treatment Plan: Continue Plan of Care Treatment Plan: Bed Mobility, Education, Functional Activity Darcie, Functional Strength, Gait, Safety, Therapeutic Exercise, Transfers Treatment Duration: Mar 06, 2022 Frequency: 6 times per week Estimated Hrs Per Day: .25 hour per day Patient and/or Family Agrees t: Yes Safety Risks/Education Patient Education: Transfer Techniques, Correct Positioning Teaching Recipient: Patient Teaching Methods: Discussion Response to Teaching: Verbalize Understanding Time Time In: 947 Time Out: 1002 DATE: Feb 17, 2022 Total Billed Treatment Time: 15 Total Billed Treatment 1, FA (15m) LAURIE MELTON PTA Feb 17, 2022 10:21
[2022-02-17 11:18] VITALS: BP 127/72
--- NOTE | 2022-02-17 11:25 | Progress Note - Cardiology ---
Cardiology SOAP Progress Note Subjective: Lying in bed States he is feeling better No c/o CP, SOB or palpitations C/O ROQUE Objective: I&O/Vital Signs 02/18/22 02/18/22 02/19/22 02/19/22 19:46 21:00 00:07 03:14 Temp 36.5 36.5 36.5 Pulse 97 90 89 Resp 18 18 18 B/P (MAP) 122/76 (91) 130/76 (94) 144/84 (104) Pulse Ox 94 93 94 O2 Delivery Room Air Room Air Room Air Room Air O2 Flow Rate 0.00 0.00 02/19/22 00:00 Intake Total 1170 ml Output Total 1250 ml Balance -80 ml Constitutional: AAO x 3, well-developed, well-nourished, other (weak appearing) Respiratory: No accessory muscle use; other (fair to good air entry, diminished at the bases) Cardiovascular: irregularly irregular, S1 and S2, systolic murmur (soft GENEVA at card base) Gastrointestional: No tender; soft; No guarding, No rebound; audible bowel sounds Extremities: No clubbing, No cyanosis Neurologic/Psychiatric: oriented x 3, other (moves all limbs equally) Skin: normal color, warm/dry; No rash on exposed areas, No ulcerations on exposed areas Results/Procedures: Labs Laboratory Tests 02/18/22 11:02: Glucometer 148H 02/18/22 20:36: Glucometer 154H 02/19/22 05:38: White Blood Count 10.7, Red Blood Count 3.07L, Hemoglobin 9.4L, Hematocrit 29L, Mean Corpuscular Volume 93, Mean Corpuscular Hemoglobin 31, Mean Corpuscular Hemoglobin Concent 33, Red Cell Distribution Width 14.4, Platelet Count 276, Mean Platelet Volume 12.0, Immature Granulocyte % (Auto) 1, Neutrophils (%) (Auto) 74, Lymphocytes (%) (Auto) 20, Monocytes (%) (Auto) 5, Eosinophils (%) (Auto) 1, Basophils (%) (Auto) 0, Neutrophils # (Auto) 7.9H, Lymphocytes # (Auto) 2.1, Monocytes # (Auto) 0.5, Eosinophils # (Auto) 0.1, Basophils # (Auto) 0.0, Immature Granulocyte # (Auto) 0.1, Sodium Level 137, Potassium Level 3.4L, Chloride Level 104, Carbon Dioxide Level 21, Anion Gap 12, Blood Urea Nitrogen 13, Creatinine 0.90, Estimat Glomerular Filtration Rate 89, BUN/Creatinine Ratio 14, Glucose Level 131H, Calcium Level 8.5, Corrected Calcium 9.9, Total Bilirubin 0.4, Aspartate Amino Transf (AST/SGOT) 15, Alanine Aminotransferase (ALT/SGPT) 17, Alkaline Phosphatase 49, Total Protein 6.6, Albumin 2.3L 02/19/22 06:05: Glucometer 128H Microbiology 02/13/22 MRSA Screen - Final, Complete MRSA not isolated 02/13/22 Blood Culture - Final, Complete No growth A/P: Assessment: PAF with RVR seen on 02/13/22 - rate controlled - first diagnosed several years earlier, according to the patient, but he is unable to provide any details - TSH normal (0.66) on 02/13/22 - echo on 02-15-22: LVEF 50%, grade 2 rosas dysfunction, mild to mod LAE, mild AI, PASP 20-25 mmHg RBBB on ECG HAYLEY, likely due to pre-renal azotemia due to poor oral intake - resolved COVID (+) Gen weakness and malaise - etiology undetermined Plan: * Continue long-acting oral dilt for vent rate control * Continue OAC for stroke prophylaxis * Monitor labs and correct any abnormalities * Dx with COVID on 02-15-22 - started on Paxlovid per Medical services * Ok to discharge from a cardiac stand point when ok with medical services JUAN KURTZ Feb 17, 2022 11:24
--- NOTE | 2022-02-17 14:09 | Progress Note - Cardiology ---
Cardiology SOAP Progress Note Subjective: No new symptoms No cp or palp or syncope Objective: I&O/Vital Signs 02/17/22 02/17/22 02/17/22 02/17/22 03:48 07:16 07:45 08:00 Temp 36.6 37.7 Pulse 73 67 83 Resp 20 16 B/P (MAP) 147/74 (98) 134/76 (95) Pulse Ox 94 95 O2 Delivery Nasal Cannula Nasal Cannula Room Air O2 Flow Rate 1.50 2.00 02/17/22 02/17/22 08:26 11:18 Temp 37.4 Pulse 63 Resp 18 B/P (MAP) 127/72 (90) Pulse Ox 95 93 O2 Delivery Nasal Cannula Room Air O2 Flow Rate 2.00 02/17/22 00:00 Intake Total 1290 ml Output Total 1150 ml Balance 140 ml Constitutional: AAO x 3, well-developed, well-nourished, other (weak appearing) Respiratory: No accessory muscle use; other (fair to good air entry, diminished at the bases) Cardiovascular: irregularly irregular, S1 and S2, systolic murmur (soft [place] at card base) Gastrointestional: No tender; soft; No guarding, No rebound; audible bowel sounds Extremities: No clubbing, No cyanosis Neurologic/Psychiatric: oriented x 3, other (moves all limbs equally) Skin: normal color, warm/dry; No rash on exposed areas, No ulcerations on exposed areas Results/Procedures: Labs Laboratory Tests 02/16/22 15:07: Glucometer 130H 02/16/22 20:44: Glucometer 164H 02/17/22 05:05: White Blood Count 10.6, Red Blood Count 2.94L, Hemoglobin 9.1L, Hematocrit 28L, Mean Corpuscular Volume 95, Mean Corpuscular Hemoglobin 31, Mean Corpuscular Hemoglobin Concent 33, Red Cell Distribution Width 14.3, Platelet Count 268, Mean Platelet Volume 11.9, Immature Granulocyte % (Auto) 1, Neutrophils (%) (Auto) 71, Lymphocytes (%) (Auto) 21, Monocytes (%) (Auto) 6, Eosinophils (%) (Auto) 1, Basophils (%) (Auto) 0, Neutrophils # (Auto) 7.5, Lymphocytes # (Auto) 2.2, Monocytes # (Auto) 0.6, Eosinophils # (Auto) 0.1, Basophils # (Auto) 0.0, Immature Granulocyte # (Auto) 0.1, Sodium Level 137, Potassium Level 3.9, Chloride Level 106, Carbon Dioxide Level 23, Anion Gap 8, Blood Urea Nitrogen 17, Creatinine 0.96, Estimat Glomerular Filtration Rate 82, BUN/Creatinine Ratio 18, Glucose Level 120H, Calcium Level 8.7, Corrected Calcium 10.1, Total Bilirubin 0.5, Aspartate Amino Transf (AST/SGOT) 18, Alanine Aminotransferase (ALT/SGPT) 17, Alkaline Phosphatase 45, Total Protein 6.5, Albumin 2.2L 02/17/22 10:58: Glucometer 160H Microbiology 02/13/22 MRSA Screen - Final, Complete MRSA not isolated 02/13/22 Blood Culture - Preliminary, Resulted No growth Laboratory Tests 02/16/22 05:35 02/17/22 05:05 A/P: Assessment: PAF with RVR seen on 02/13/22 - rate controlled - first diagnosed several years earlier, according to the patient, but he is unable to provide any details - TSH normal (0.66) on 02/13/22 - echo on 02-15-22: LVEF 50%, grade 2 rosas dysfunction, mild to mod LAE, mild AI, PASP 20-25 mmHg RBBB on ECG HAYLEY, likely due to pre-renal azotemia due to poor oral intake - resolved COVID (+) Gen weakness and malaise - etiology undetermined Plan: * Continue long-acting oral dilt for vent rate control * Continue OAC for stroke prophylaxis * Monitor labs and correct any abnormalities * Dx with COVID on 02-15-22 - started on Paxlovid per Medical services * Ok to discharge from a cardiac stand point when ok with medical services Note: To limit exposure of the Cardiology team to Covid, only one member performs physical exam each day. Todays's exam was performed by FREDY Watson ALI MD [facility] Feb 17, 2022 14:09
--- NOTE | 2022-02-17 16:28 | Progress Note - Hospitalist ---
Subjective HPI/CC On Admission Date Seen by Provider: Mar 13, 2022 Time Seen by Provider: 11:30 Patient is a 76-year-old male with past medical history of chronic kidney disease known to me from recent admission who presented to the emergency department due to weakness. He was just discharged from the hospital last week after an admission for generalized weakness. He had been admitted 2 weeks ago for weakness and was discharged home with home health and failed. Despite this he was denied skilled benefits after his last hospitalization and returned home with home health. He states since returning home he has continued to worsen and was unable to get up from his couch. He states has been crawling around on the floor for couple of days because he was unable to stand. He had been working to get into a facility near his daughter in [place] but he states that that does not look feasible now due to the expense. On arrival here he was found to have atrial fibrillation with rapid ventricular rate which he states is not new but he was not previously on any medications for it. He was also found to have an acute kidney injury with a creatinine of 2.05. He was admitted to the ICU for IV Cardizem and fluids. He did have a leukocytosis of concerning lesion on his foot so he was started on antibiotics to cover for infection. This morning he reports feeling a little bit better but mostly just still weak. Subjective/Events-last exam He is feeling better. He has been up in his chair. He denies shortness of breath. He had a headache but it is better now. Focused Exam Time of Focused Exam: 19:20 Objective Exam Vital Signs Vital Signs Date Time Temp Pulse Resp B/P (MAP) Pulse Ox O2 Delivery O2 Flow Rate FiO2 02/17/22 13:39 73 02/17/22 11:18 37.4 18 127/72 (90) 93 Room Air 02/17/22 08:26 2.00 Capillary Refill : Less Than 3 Seconds General Appearance: No Apparent Distress, Obese Respiratory: Lungs Clear, No Respiratory Distress Cardiovascular: Regular Rate, Rhythm, No Murmur Gastrointestinal: Normal Bowel Sounds, Non Tender, Soft Extremity: Normal Inspection, No Pedal Edema Neurologic/Psychiatric: Alert, Normal Mood/Affect Skin: Normal Color, Warm/Dry Results/Procedures Lab Laboratory Tests 02/17/22 05:05 Patient resulted labs reviewed. Imaging: Reviewed Imaging Report Assessment/Plan Assessment and Plan Assess & Plan/Chief Complaint COVID-19 Paxlovid Atrial fibrillation with RVR HTN HLD Cardizem and Eliquis, decrease dosages while on Paxlovid Cardiology following Echo with normal EF, grade II diastolic dysfunction Acute on CKD Creatinine improved Debility Critical illness myopathy Recurrent hospitalizations Discharged home with home health twice recently with readmissions PT/OT IRF accepted, awaiting insurance approval IDDMII SSI Levemir Anemia Hgb up from last visit Received IV iron Had EGD/Colonoscopy during last visit DVT ppx: Eliquis as above Leukocytosis, resolved Diagnosis/Problems Diagnosis/Problems (1) COVID-19 Status: Acute (2) Atrial fibrillation with RVR Status: Acute (3) Debility Status: Acute (4) Acute kidney injury superimposed on chronic kidney disease Status: Acute (5) HTN (hypertension) Status: Chronic (6) HLD (hyperlipidemia) Status: Chronic (7) T2DM (type 2 diabetes mellitus) Status: Chronic Qualifiers: Diabetes mellitus termite helper insulin use: with termite helper use ALIS ANDERSON MD Feb 17, 2022 16:28
[2022-02-17 16:29] VITALS: BP 138/90
[2022-02-17 19:02] VITALS: BP 137/75
[2022-02-18 00:25] VITALS: BP 120/62
[2022-02-18] MEDS: GABAPENTIN 300 MG (NEURONTIN) CAP PO PRN ×2 (02:23→14:07)
[2022-02-18] MEDS: ACETAMINOPHEN 500 MG TAB (TYLENOL) PO PRN ×2 (02:23→14:07)
[2022-02-18 03:49] VITALS: BP 112/69
[2022-02-18 06:04] LABS: BASOPHILS % (AUTO) 0 % (0-10); EOSINOPHILS # (AUTO) 0.1 10^3/uL (0.0-0.3); EOSINOPHILS % (AUTO) 1 % (0-10); HEMATOCRIT 29 % (40-54); HEMOGLOBIN 9.6 g/dL (13.3-17.7); LYMPHOCYTES # (AUTO) 2.1 10^3/uL (1.0-4.0); LYMPHOCYTES % (AUTO) 22 % (12-44); MEAN CORPUSCULAR HEMOGLOBIN 31 pg (25-34); MEAN CORPUSCULAR HGB CONC 33 g/dL (32-36); MEAN CORPUSCULAR VOLUME 94 fL (80-99); MEAN PLATELET VOLUME 11.4 fL (9.0-12.2); MONOCYTES # (AUTO) 0.5 10^3/uL (0.0-1.0); MONOCYTES % (AUTO) 5 % (0-12); NEUTROPHILS % (AUTO) 72 % (42-75); PLATELET COUNT 275 10^3/uL (130-400); WHITE BLOOD COUNT 9.8 10^3/uL (4.3-11.0)
[2022-02-18] MEDS: inSUlin ASPART (NovoLOG) 1 UNIT/0.01 ML (CHARGE PER UNIT) SC SCH ×4 (06:11→20:58)
[2022-02-18 06:15] LABS: ALBUMIN 2.2 GM/DL (3.2-4.5); POTASSIUM 3.6 MMOL/L (3.6-5.0)
[2022-02-18 06:16] LABS: CALCIUM 8.6 MG/DL (8.5-10.1)
[2022-02-18 06:18] LABS: TOTAL PROTEIN 6.5 GM/DL (6.4-8.2)
[2022-02-18 06:19] LABS: BILIRUBIN,TOTAL 0.4 MG/DL (0.1-1.0)
[2022-02-18 06:21] LABS: CREATININE SERUM 0.98 MG/DL (0.60-1.30)
[2022-02-18] MEDS: LACTATED RINGERS 1,000 ML IV SCH ×2 (08:29→21:22)
[2022-02-18] MEDS: NIRMATRELVIR/RITONAVIR (PAXLOVID) TABLET PO SCH ×2 (08:30→21:17)
[2022-02-18] MEDS: APIXABAN 2.5 MG (ELIQUIS) TABLET PO SCH ×2 (08:30→21:16)
[2022-02-18 08:33] VITALS: BP 151/83
--- NOTE | 2022-02-18 08:58 | Occupational Ther Daily Note ---
OT Current Status-Daily Note Subjective Pt alert, lying in bed. Pt agrees to therapy. Pt states that he feels better today. Mental Status/Objective Patient Orientation: Person, Place, Time, Situation Attachments: IV ADL-Treatment Pt able to don L sock then assistance needed for R sock. Pt independent with bed mobility. Pt agrees to ambulate using FWW though declines ADLs until nrsg can assist at later time. CGA for ambulating using FWW from bed to door 3x's=21'. After session, pt lying in bed with call light/phone in reach. All needs met in room. Therapy Code Descriptions/Definitions Functional [place] Measure: 0=Not Assessed/NA 4=Minimal Assistance 1=Total Assistance 5=Supervision or Setup 2=Maximal Assistance 6=Modified [place] 3=Moderate Assistance 7=Complete IndependenceSCALE: Activities may be completed with or without assistive devices. 0-Kjmfmvseiq-lgrhcrk completes the activity by him/herself with no assistance from a helper. 5-Set-up or Clean-up Assistance-helper sets up or cleans up; patient completes activity. [place] assists only prior to or following the activity. 4-Supervision or Touching Assistance-helper provides verbal cues and/or touching/steadying and/or contact guard assistance as patient completes activity. Assistance may be provided throughout the activity or intermittently. 3-Partial/Moderate Assistance-helper does LESS THAN HALF the effort. [place] lifts, holds or supports trunk or limbs, but provides less than half the effort. 2-Substantial/Maximal Assistance-helper does MORE THAN HALF the effort. [place] lifts or holds trunk or limbs and provides more than half the effort. 3-Aqzzfwkmg-cnkgyv does ALL the effort. Patient does none of the effort to complete the activity. Or, the assistance of 2 or more helpers is required for the patient to complete the activity. If activity was not attempted, code reason: 7-Patient Refused. 9-Not Applicable-not attempted and the patient did not perform the activity before the current illness, exacerbation or injury. 10-Not Attempted due to Environmental Limitations-(lack of equipment, weather restraints, etc.). 88-Not Attempted due to Medical Conditions or Safety Concerns. On/Off Footwear: 3 OT Halfway Goals Halfway Goals Time Frame: Mar 05, 2022 Eating (QC): 6 Oral Hygiene (QC): 6 Toileting Hygiene (QC): 4 Shower/Bathe Self (QC): 4 Upper Body Dressing (QC): 5 Lower Body Dressing (QC): 4 On/Off Footwear (QC): 4 Additional Goals: 1-Demonstrate ADL Tasks, 2-Verbalize Understanding, 3- ImproveStrength/Darcie 1=Demonstrate adherence to instructed precautions during ADL tasks. 2=Patient will verbalize/demonstrate understanding of assistive devices/modifications for ADL. 3=Patient will improve strength/tolerance for activity to enable patient to perform ADL's. OT Education/Plan Problem List/Assessment Assessment: Decreased Activ Tolerance, Impaired Self-Care Skills Discharge Recommendations Plan/Recommendations: Continue POC Treatment Plan/Plan of Care Patient would benefit from OT for education, treatment and training to promote independence in ADL's, mobility, safety and/or upper extremity function for ADL's. Plan of Care: ADL Retraining, Functional Mobility, UE Funct Exercise/Act Treatment Duration: Mar 05, 2022 Frequency: 3 times per week (3-5 times per week) Estimated Hrs Per Day: .25 hour per day Agreement: Yes Rehab Potential: Guarded Time Start Time: 07:57 Stop Time: 08:21 DATE: Feb 18, 2022 Total Time Billed (hr/min): 24 Billed Treatment Time 1 visit-FA 2 (24 min) MIKE PLAZA Feb 18, 2022 08:58
--- NOTE | 2022-02-18 10:30 | Physical Therapy Daily Note ---
PT Daily Note-Current Subjective Patient agrees to PT. Pain Numeric Pain Scale: 5-Moderate Pain Location: Left Location Body Site: Knee Pain Description: Chronic Section J - Health Conditions 1. Rarely or not at all 2. Occasionally 3. Frequently 4. Almost constantly 8. Unable to answer Pain Effect on Sleep: 2 Pain Interference with Therapy: 2 Pain Interference w/Day-to-Day: 2 Transfers SCALE: Activities may be completed with or without assistive devices. 8-Frucjndxgw-rkqeoxr completes the activity by him/herself with no assistance from a helper. 5-Set-up or Clean-up Assistance-helper sets up or cleans up; patient completes activity. [place] assists only prior to or following the activity. 4-Supervision or Touching Assistance-helper provides verbal cues and/or touching/steadying and/or contact guard assistance as patient completes activity. Assistance may be provided throughout the activity or intermittently. 3-Partial/Moderate Assistance-helper does LESS THAN HALF the effort. [place] lifts, holds or supports trunk or limbs, but provides less than half the effort. 2-Substantial/Maximal Assistance-helper does MORE THAN HALF the effort. [place] lifts or holds trunk or limbs and provides more than half the effort. 6-Icaaceuyb-qnscxh does ALL the effort. Patient does none of the effort to complete the activity. Or, the assistance of 2 or more helpers is required for the patient to complete the activity. If activity was not attempted, code reason: 7-Patient Refused. 9-Not Applicable-not attempted and the patient did not perform the activity before the current illness, exacerbation or injury. 10-Not Attempted due to Environmental Limitations-(lack of equipment, weather restraints, etc.). 88-Not Attempted due to Medical Conditions or Safety Concerns. Roll Left & Right (QC): 6 Sit to Lying (QC): 6 Lying to Sitting/Side of Bed(Q: 6 Sit to Stand (QC): 4 Weight Bearing Full Weight Bearing Full Weight Bearing Gait Training Distance: 150' in room Walk 10 feet (QC): 4 Walk 50 ft with 2 Turns(QC): 4 Walk 150 ft (QC): 4 Gait Assistive Device: FWW flexed trunk and bilateral knee posture with FWW use Exercises Supine Ex: Ankle pumps, Quad Set, Heel Slides, Straight leg raise Supine Reps: 15 Assessment Patient has increase SOA with activity on this date. RN notified. Patient ceases treatment due to fatigue. Patient remains in bed per request. PT Fdc Goals Fdc Goals PT Fdc Goals Time Frame: Mar 06, 2022 Roll Left & Right (QC): 6 Sit to Lying (QC): 6 Lying-Sitting on Side/Bed(QC): 6 Sit to Stand (QC): 6 Chair/Kab-me-Etkio Xfer(QC): 6 Toilet Transfer (QC): 6 Walk 10 feet (QC): 5 Walk 50ft with 2 Turns (QC): 5 Walk 150 ft (QC): 5 Walking 10ft on Uneven Surface: 4 1 Step (curb) (QC): 4 PT Plan Treatment/Plan Treatment Plan: Continue Plan of Care Treatment Plan: Bed Mobility, Education, Functional Activity Darcie, Functional Strength, Gait, Safety, Therapeutic Exercise, Transfers Treatment Duration: Mar 06, 2022 Frequency: 6 times per week Estimated Hrs Per Day: .25 hour per day Patient and/or Family Agrees t: Yes Time Time In: 945 Time Out: 1008 DATE: Feb 18, 2022 Total Billed Treatment Time: 23 Total Billed Treatment 1 visit GT 13 min EX 10 min MIRZA LI PT Feb 18, 2022 10:30
[2022-02-18 12:49] VITALS: BP 136/72
--- NOTE | 2022-02-18 12:53 | Progress Note - Cardiology ---
Cardiology SOAP Progress Note Subjective: No cp or palp or syncope No shortness of breath No n/v/d Weakness and malaise are present but modestly improved No focal weakness Objective: I&O/Vital Signs 02/18/22 02/18/22 02/18/22 02/18/22 01:05 03:49 07:18 07:27 Temp 36.4 Pulse 77 74 85 Resp 18 B/P (MAP) 112/69 (83) Pulse Ox 92 O2 Delivery Room Air Room Air 02/18/22 02/18/22 08:33 12:49 Temp 37.4 37.2 Pulse 77 53 Resp 20 17 B/P (MAP) 151/83 (105) 136/72 (93) Pulse Ox 93 O2 Delivery Room Air Room Air 02/18/22 00:00 Intake Total 1310 ml Output Total 1885 ml Balance -575 ml Constitutional: AAO x 3, well-developed, well-nourished, other (weak appearing) Respiratory: No accessory muscle use; other (fair to good air entry, diminished at the bases) Cardiovascular: irregularly irregular, S1 and S2, systolic murmur (soft GENEVA at card base) Gastrointestional: No tender; soft; No guarding, No rebound; audible bowel sounds Extremities: No clubbing, No cyanosis Neurologic/Psychiatric: oriented x 3, other (moves all limbs equally) Skin: normal color, warm/dry; No rash on exposed areas, No ulcerations on exposed areas Results/Procedures: Labs Laboratory Tests 02/17/22 16:35: Glucometer 159H 02/18/22 05:34: Glucometer 116H 02/18/22 05:37: White Blood Count 9.8, Red Blood Count 3.10L, Hemoglobin 9.6L, Hematocrit 29L, Mean Corpuscular Volume 94, Mean Corpuscular Hemoglobin 31, Mean Corpuscular Hemoglobin Concent 33, Red Cell Distribution Width 14.4, Platelet Count 275, Mean Platelet Volume 11.4, Immature Granulocyte % (Auto) 1, Neutrophils (%) (Auto) 72, Lymphocytes (%) (Auto) 22, Monocytes (%) (Auto) 5, Eosinophils (%) (Auto) 1, Basophils (%) (Auto) 0, Neutrophils # (Auto) 7.0, Lymphocytes # (Auto) 2.1, Monocytes # (Auto) 0.5, Eosinophils # (Auto) 0.1, Basophils # (Auto) 0.0, Immature Granulocyte # (Auto) 0.1, Sodium Level 138, Potassium Level 3.6, Chloride Level 106, Carbon Dioxide Level 25, Anion Gap 7, Blood Urea Nitrogen 13, Creatinine 0.98, Estimat Glomerular Filtration Rate 80, BUN/Creatinine Ratio 13, Glucose Level 112H, Calcium Level 8.6, Corrected Calcium 10.0, Total Bilirubin 0.4, Aspartate Amino Transf (AST/SGOT) 16, Alanine Aminotransferase (ALT/SGPT) 16, Alkaline Phosphatase 45, Total Protein 6.5, Albumin 2.2L 02/18/22 11:02: Glucometer 148H Microbiology 02/13/22 MRSA Screen - Final, Complete MRSA not isolated 02/13/22 Blood Culture - Preliminary, Resulted No growth Laboratory Tests 02/17/22 05:05 02/18/22 05:37 A/P: Assessment: PAF with RVR seen on 02/13/22 - rate controlled - first diagnosed several years earlier, according to the patient, but he is unable to provide any details - TSH normal (0.66) on 02/13/22 - echo on 02-15-22: LVEF 50%, grade 2 rosas dysfunction, mild to mod LAE, mild AI, PASP 20-25 mmHg RBBB on ECG HAYLEY, likely due to pre-renal azotemia due to poor oral intake - resolved COVID (+) Gen weakness and malaise - etiology undetermined Plan: * Continue long-acting oral dilt for vent rate control * Continue OAC for stroke prophylaxis * Monitor labs and correct any abnormalities * Dx with COVID on 02-15-22 - started on Paxlovid per Medical services * Ok to discharge from a cardiac stand point when ok with Medical services * Outpt cardiac f/u advised [facility] Feb 18, 2022 12:53
--- NOTE | 2022-02-18 14:30 | Progress Note - Hospitalist ---
Subjective HPI/CC On Admission Date Seen by Provider: Feb 18, 2022 Time Seen by Provider: 11:10 Patient is a 76-year-old male with past medical history of chronic kidney disease known to me from recent admission who presented to the emergency department due to weakness. He was just discharged from the hospital last week after an admission for generalized weakness. He had been admitted 2 weeks ago for weakness and was discharged home with home health and failed. Despite this he was denied skilled benefits after his last hospitalization and returned home with home health. He states since returning home he has continued to worsen and was unable to get up from his couch. He states has been crawling around on the floor for couple of days because he was unable to stand. He had been working to get into a facility near his daughter in [place] but he states that that does not look feasible now due to the expense. On arrival here he was found to have atrial fibrillation with rapid ventricular rate which he states is not new but he was not previously on any medications for it. He was also found to have an acute kidney injury with a creatinine of 2.05. He was admitted to the ICU for IV Cardizem and fluids. He did have a leukocytosis of concerning lesion on his foot so he was started on antibiotics to cover for infection. This morning he reports feeling a little bit better but mostly just still weak. Subjective/Events-last exam He is feeling better. He denies pain. He denies shortness of breath. He is having some neuropathy. Focused Exam Time of Focused Exam: 19:20 Objective Exam Vital Signs Vital Signs Date Time Temp Pulse Resp B/P (MAP) Pulse Ox O2 Delivery O2 Flow Rate FiO2 02/18/22 12:49 37.2 53 17 136/72 (93) 93 Room Air 02/17/22 08:26 2.00 Capillary Refill : Less Than 3 Seconds General Appearance: No Apparent Distress, Obese Respiratory: Lungs Clear, No Respiratory Distress Cardiovascular: Regular Rate, Rhythm, No Murmur Gastrointestinal: Normal Bowel Sounds, Soft Extremity: Normal Inspection, No Pedal Edema Neurologic/Psychiatric: Alert, Motor Weakness Skin: Normal Color, Warm/Dry Results/Procedures Lab Laboratory Tests 02/18/22 05:37 Patient resulted labs reviewed. Imaging: Reviewed Imaging Report Assessment/Plan Assessment and Plan Assess & Plan/Chief Complaint COVID-19 Paxlovid Atrial fibrillation with RVR HTN HLD Cardizem and Eliquis, decrease dosages while on Paxlovid Cardiology following Echo with normal EF, grade II diastolic dysfunction Acute on CKD Creatinine improved Debility Critical illness myopathy Recurrent hospitalizations Discharged home with home health twice recently with readmissions PT/OT IRF accepted, awaiting insurance approval IDDMII SSI Levemir Anemia Hgb up from last visit Received IV iron Had EGD/Colonoscopy during last visit DVT ppx: Eliquis as above Leukocytosis, resolved Diagnosis/Problems Diagnosis/Problems (1) COVID-19 Status: Acute (2) Atrial fibrillation with RVR Status: Acute (3) Debility Status: Acute (4) Acute kidney injury superimposed on chronic kidney disease Status: Acute (5) HTN (hypertension) Status: Chronic (6) HLD (hyperlipidemia) Status: Chronic (7) T2DM (type 2 diabetes mellitus) Status: Chronic Qualifiers: Diabetes mellitus tank terminal gauger insulin use: with alf use ALIS ANDERSON MD Feb 18, 2022 14:30
[2022-02-18 15:19] VITALS: BP 135/63
[2022-02-18 19:46] VITALS: BP 122/76
[2022-02-19 00:07] VITALS: BP 130/76
[2022-02-19] MEDS: GABAPENTIN 300 MG (NEURONTIN) CAP PO PRN ×3 (00:21→20:29)
[2022-02-19] MEDS: ACETAMINOPHEN 500 MG TAB (TYLENOL) PO PRN ×3 (00:22→20:29)
[2022-02-19 03:14] VITALS: BP 144/84
[2022-02-19] MEDS: inSUlin ASPART (NovoLOG) 1 UNIT/0.01 ML (CHARGE PER UNIT) SC SCH ×4 (06:00→20:41)
[2022-02-19 06:13] LABS: BASOPHILS % (AUTO) 0 % (0-10); EOSINOPHILS # (AUTO) 0.1 10^3/uL (0.0-0.3); EOSINOPHILS % (AUTO) 1 % (0-10); HEMATOCRIT 29 % (40-54); HEMOGLOBIN 9.4 g/dL (13.3-17.7); LYMPHOCYTES # (AUTO) 2.1 10^3/uL (1.0-4.0); LYMPHOCYTES % (AUTO) 20 % (12-44); MEAN CORPUSCULAR HEMOGLOBIN 31 pg (25-34); MEAN CORPUSCULAR HGB CONC 33 g/dL (32-36); MEAN CORPUSCULAR VOLUME 93 fL (80-99); MONOCYTES # (AUTO) 0.5 10^3/uL (0.0-1.0); MONOCYTES % (AUTO) 5 % (0-12); NEUTROPHILS # (AUTO) 7.9 10^3/uL (1.8-7.8); NEUTROPHILS % (AUTO) 74 % (42-75); PLATELET COUNT 276 10^3/uL (130-400); WHITE BLOOD COUNT 10.7 10^3/uL (4.3-11.0)
[2022-02-19 06:36] LABS: ALBUMIN 2.3 GM/DL (3.2-4.5); BILIRUBIN,TOTAL 0.4 MG/DL (0.1-1.0); CALCIUM 8.5 MG/DL (8.5-10.1); CREATININE SERUM 0.9 MG/DL (0.60-1.30); POTASSIUM 3.4 MMOL/L (3.6-5.0); TOTAL PROTEIN 6.6 GM/DL (6.4-8.2)
[2022-02-19 08:00] VITALS: BP 127/71
[2022-02-19] MEDS: APIXABAN 2.5 MG (ELIQUIS) TABLET PO SCH ×2 (08:25→20:29)
[2022-02-19] MEDS: NIRMATRELVIR/RITONAVIR (PAXLOVID) TABLET PO SCH ×2 (08:26→20:29)
--- NOTE | 2022-02-19 08:51 | Occupational Ther Daily Note ---
OT Current Status-Daily Note Subjective Pt alert, lying in bed. Pt agrees to therapy. Pt educated on benefits of sitting up instead of lying in bed. Pt states that he just wants to lay down because he is dizzy. Report position to nrsg. Mental Status/Objective Patient Orientation: Person, Place, Time, Situation Attachments: IV ADL-Treatment Min A for supine to EOB, independent for EOB to supine. Min A for sit to stand and education for hand placement. Pt ambulated using FWW to bathroom CGA and assist with IV. CGA while pt hiked pants down over hips, min A to hike pants over hips. CGA for stand to sit then min A for sit to stand with toilet tr luana. CGA while pt stood at sink to complete oral care by self. Pt's hand demonstrate decreased tremors though pt states that he is not able to bend fingers. Will provide pt with therapy sponge. Pt is not tolerating sitting in recliner. After therapy, pt lying in bed with call light/phone in reach. All needs met in room. Therapy Code Descriptions/Definitions Functional Etlan Measure: 0=Not Assessed/NA 4=Minimal Assistance 1=Total Assistance 5=Supervision or Setup 2=Maximal Assistance 6=Modified Etlan 3=Moderate Assistance 7=Complete IndependenceSCALE: Activities may be completed with or without assistive devices. 6-Bzfhtypyib-ogdwrrh completes the activity by him/herself with no assistance from a helper. 5-Set-up or Clean-up Assistance-helper sets up or cleans up; patient completes activity. [place] assists only prior to or following the activity. 4-Supervision or Touching Assistance-helper provides verbal cues and/or touching/steadying and/or contact guard assistance as patient completes activity. Assistance may be provided throughout the activity or intermittently. 3-Partial/Moderate Assistance-helper does LESS THAN HALF the effort. [place] lifts, holds or supports trunk or limbs, but provides less than half the effort. 2-Substantial/Maximal Assistance-helper does MORE THAN HALF the effort. [place] lifts or holds trunk or limbs and provides more than half the effort. 4-Yiuaygtlr-lpoljg does ALL the effort. Patient does none of the effort to complete the activity. Or, the assistance of 2 or more helpers is required for the patient to complete the activity. If activity was not attempted, code reason: 7-Patient Refused. 9-Not Applicable-not attempted and the patient did not perform the activity before the current illness, exacerbation or injury. 10-Not Attempted due to Environmental Limitations-(lack of equipment, weather restraints, etc.). 88-Not Attempted due to Medical Conditions or Safety Concerns. Oral Hygiene (QC): 4 Toileting Hygiene (QC): 3 Toilet Transfer (QC): 3 OT Intermediate Goals Intermediate Goals Time Frame: Mar 05, 2022 Eating (QC): 6 Oral Hygiene (QC): 6 Toileting Hygiene (QC): 4 Shower/Bathe Self (QC): 4 Upper Body Dressing (QC): 5 Lower Body Dressing (QC): 4 On/Off Footwear (QC): 4 Additional Goals: 1-Demonstrate ADL Tasks, 2-Verbalize Understanding, 3- ImproveStrength/Darcie 1=Demonstrate adherence to instructed precautions during ADL tasks. 2=Patient will verbalize/demonstrate understanding of assistive devices/modifications for ADL. 3=Patient will improve strength/tolerance for activity to enable patient to perform ADL's. OT Education/Plan Problem List/Assessment Assessment: Decreased Activ Tolerance, Decreased UE Strength, Impaired Self- Care Skills Discharge Recommendations Plan/Recommendations: Continue POC Treatment Plan/Plan of Care Patient would benefit from OT for education, treatment and training to promote independence in ADL's, mobility, safety and/or upper extremity function for ADL's. Plan of Care: ADL Retraining, Functional Mobility, UE Funct Exercise/Act Treatment Duration: Mar 05, 2022 Frequency: 3 times per week (3-5 times per week) Estimated Hrs Per Day: .25 hour per day Agreement: Yes Rehab Potential: Guarded Time Start Time: 07:40 Stop Time: 08:14 DATE: Feb 19, 2022 Total Time Billed (hr/min): 34 Billed Treatment Time 1 visit-ADL 2 (34 min) MIKE PLAZA Feb 19, 2022 08:51
--- NOTE | 2022-02-19 09:53 | Progress Note - Cardiology ---
Cardiology SOAP Progress Note Subjective: Up ambulating in the room No c/o CP or SOB Continued gen weakness Objective: I&O/Vital Signs 02/19/22 02/19/22 02/19/22 02/19/22 00:07 03:14 07:58 08:00 Temp 36.5 36.5 36.2 Pulse 90 89 94 Resp 18 18 17 B/P (MAP) 130/76 (94) 144/84 (104) 127/71 (89) Pulse Ox 93 94 95 O2 Delivery Room Air Room Air Room Air Room Air O2 Flow Rate 0.00 0.00 02/19/22 00:00 Intake Total 1170 ml Output Total 1250 ml Balance -80 ml Constitutional: AAO x 3, well-developed, well-nourished, other (weak appearing) Respiratory: No accessory muscle use; other (fair to good air entry, diminished at the bases) Cardiovascular: irregularly irregular, S1 and S2, systolic murmur (soft GENEVA at card base) Gastrointestional: No tender; soft; No guarding, No rebound; audible bowel sounds Extremities: No clubbing, No cyanosis Neurologic/Psychiatric: oriented x 3, other (moves all limbs equally) Skin: normal color, warm/dry; No rash on exposed areas, No ulcerations on exposed areas Results/Procedures: Labs Laboratory Tests 02/18/22 11:02: Glucometer 148H 02/18/22 20:36: Glucometer 154H 02/19/22 05:38: White Blood Count 10.7, Red Blood Count 3.07L, Hemoglobin 9.4L, Hematocrit 29L, Mean Corpuscular Volume 93, Mean Corpuscular Hemoglobin 31, Mean Corpuscular Hemoglobin Concent 33, Red Cell Distribution Width 14.4, Platelet Count 276, Mean Platelet Volume 12.0, Immature Granulocyte % (Auto) 1, Neutrophils (%) (Auto) 74, Lymphocytes (%) (Auto) 20, Monocytes (%) (Auto) 5, Eosinophils (%) (Auto) 1, Basophils (%) (Auto) 0, Neutrophils # (Auto) 7.9H, Lymphocytes # (Auto) 2.1, Monocytes # (Auto) 0.5, Eosinophils # (Auto) 0.1, Basophils # (Auto) 0.0, Immature Granulocyte # (Auto) 0.1, Sodium Level 137, Potassium Level 3.4L, Chloride Level 104, Carbon Dioxide Level 21, Anion Gap 12, Blood Urea Nitrogen 13, Creatinine 0.90, Estimat Glomerular Filtration Rate 89, BUN/Creatinine Ratio 14, Glucose Level 131H, Calcium Level 8.5, Corrected Calcium 9.9, Total Bilirubi n 0.4, Aspartate Amino Transf (AST/SGOT) 15, Alanine Aminotransferase (ALT/SGPT) 17, Alkaline Phosphatase 49, Total Protein 6.6, Albumin 2.3L 02/19/22 06:05: Glucometer 128H Microbiology 02/13/22 MRSA Screen - Final, Complete MRSA not isolated 02/13/22 Blood Culture - Final, Complete No growth Laboratory Tests 02/18/22 05:37 02/19/22 05:38 A/P: Assessment: PAF with RVR seen on 02/13/22 - rate controlled - first diagnosed several years earlier, according to the patient, but he is unable to provide any details - TSH normal (0.66) on 02/13/22 - echo on 02-15-22: LVEF 50%, grade 2 rosas dysfunction, mild to mod LAE, mild AI, PASP 20-25 mmHg RBBB on ECG HAYLEY, likely due to pre-renal azotemia due to poor oral intake - resolved COVID (+) Gen weakness and malaise - etiology undetermined Plan: * Continue long-acting oral dilt for vent rate control * Continue OAC for stroke prophylaxis * Monitor labs and correct any abnormalities * Dx with COVID on 02-15-22 - started on Paxlovid per Medical services * Ok to discharge from a cardiac stand point when ok with Medical services * Outpt cardiac f/u advised JUAN KURTZ Feb 19, 2022 09:53
--- NOTE | 2022-02-19 09:55 | Physical Therapy Daily Note ---
PT Daily Note-Current Subjective Patient reluctantly agrees to PT. Pain Section J - Health Conditions 1. Rarely or not at all 2. Occasionally 3. Frequently 4. Almost constantly 8. Unable to answer Pain Effect on Sleep: 2 Pain Interference with Therapy: 2 Pain Interference w/Day-to-Day: 2 Transfers SCALE: Activities may be completed with or without assistive devices. 4-Ypxzudtzpt-jufjshh completes the activity by him/herself with no assistance from a helper. 5-Set-up or Clean-up Assistance-helper sets up or cleans up; patient completes activity. [place] assists only prior to or following the activity. 4-Supervision or Touching Assistance-helper provides verbal cues and/or touching/steadying and/or contact guard assistance as patient completes activity. Assistance may be provided throughout the activity or intermittently. 3-Partial/Moderate Assistance-helper does LESS THAN HALF the effort. [place] lifts, holds or supports trunk or limbs, but provides less than half the effort. 2-Substantial/Maximal Assistance-helper does MORE THAN HALF the effort. [place] lifts or holds trunk or limbs and provides more than half the effort. 4-Uupmjcqrl-uebwqu does ALL the effort. Patient does none of the effort to complete the activity. Or, the assistance of 2 or more helpers is required for the patient to complete the activity. If activity was not attempted, code reason: 7-Patient Refused. 9-Not Applicable-not attempted and the patient did not perform the activity before the current illness, exacerbation or injury. 10-Not Attempted due to Environmental Limitations-(lack of equipment, weather restraints, etc.). 88-Not Attempted due to Medical Conditions or Safety Concerns. Lying to Sitting/Side of Bed(Q: 6 Sit to Stand (QC): 4 Chair/Rgo-gb-Vweow Xfer(QC): 4 SBA for mobility Weight Bearing Full Weight Bearing Full Weight Bearing Gait Training Distance: 180' Walk 10 feet (QC): 4 Walk 50 ft with 2 Turns(QC): 4 Walk 150 ft (QC): 4 Gait Assistive Device: FWW slow, steady with no deviation Exercises Seated Therapy Exercises: Ankle pumps, Long arc quads, Hip flexion Seated Reps: 15 (x 2 sets) Assessment Patient tolerated treatment well and is up in recliner with needs met. Patient instructed to perform exercises during the day to increase strength. PT Snf Goals Snf Goals PT Snf Goals Time Frame: Mar 06, 2022 Roll Left & Right (QC): 6 Sit to Lying (QC): 6 Lying-Sitting on Side/Bed(QC): 6 Sit to Stand (QC): 6 Chair/Iuo-ve-Olovf Xfer(QC): 6 Toilet Transfer (QC): 6 Walk 10 feet (QC): 5 Walk 50ft with 2 Turns (QC): 5 Walk 150 ft (QC): 5 Walking 10ft on Uneven Surface: 4 1 Step (curb) (QC): 4 PT Plan Treatment/Plan Treatment Plan: Continue Plan of Care Treatment Plan: Bed Mobility, Education, Functional Activity Darcie, Functional Strength, Gait, Safety, Therapeutic Exercise, Transfers Treatment Duration: Mar 06, 2022 Frequency: 6 times per week Estimated Hrs Per Day: .25 hour per day Patient and/or Family Agrees t: Yes Time Time In: 830 Time Out: 853 DATE: Feb 19, 2022 Total Billed Treatment Time: 23 Total Billed Treatment 1 visit EX 8 min GT 15 min MIRZA LI PT Feb 19, 2022 09:54
[2022-02-19] MEDS ORDERED: KCL 20 MEQ TAB (K-DUR) PO ONE (10:00)
--- NOTE | 2022-02-19 10:26 | Progress Note - Cardiology ---
Cardiology SOAP Progress Note Subjective: No cp or palp or syncope Gen weakness and malaise No n/v No focal weakness Objective: I&O/Vital Signs 02/19/22 02/19/22 02/19/22 02/19/22 00:07 03:14 07:58 08:00 Temp 36.5 36.5 36.2 Pulse 90 89 94 Resp 18 18 17 B/P (MAP) 130/76 (94) 144/84 (104) 127/71 (89) Pulse Ox 93 94 95 O2 Delivery Room Air Room Air Room Air Room Air O2 Flow Rate 0.00 0.00 02/19/22 00:00 Intake Total 1170 ml Output Total 1250 ml Balance -80 ml Constitutional: AAO x 3, well-developed, well-nourished, other (weak appearing) Respiratory: No accessory muscle use; other (fair to good air entry, diminished at the bases) Cardiovascular: irregularly irregular, S1 and S2, systolic murmur (soft GENEVA at card base) Gastrointestional: No tender; soft; No guarding, No rebound; audible bowel so unds Extremities: No clubbing, No cyanosis Neurologic/Psychiatric: oriented x 3, other (moves all limbs equally) Skin: normal color, warm/dry; No rash on exposed areas, No ulcerations on exposed areas Results/Procedures: Labs Laboratory Tests 02/18/22 11:02: Glucometer 148H 02/18/22 20:36: Glucometer 154H 02/19/22 05:38: White Blood Count 10.7, Red Blood Count 3.07L, Hemoglobin 9.4L, Hematocrit 29L, Mean Corpuscular Volume 93, Mean Corpuscular Hemoglobin 31, Mean Corpuscular Hemoglobin Concent 33, Red Cell Distribution Width 14.4, Platelet Count 276, Mean Platelet Volume 12.0, Immature Granulocyte % (Auto) 1, Neutrophils (%) (Auto) 74, Lymphocytes (%) (Auto) 20, Monocytes (%) (Auto) 5, Eosinophils (%) (Auto) 1, Basophils (%) (Auto) 0, Neutrophils # (Auto) 7.9H, Lymphocytes # (Auto) 2.1, Monocytes # (Auto) 0.5, Eosinophils # (Auto) 0.1, Basophils # (Auto) 0.0, Immature Granulocyte # (Auto) 0.1, Sodium Level 137, Potassium Level 3.4L, Chloride Level 104, Carbon Dioxide Level 21, Anion Gap 12, Blood Urea Nitrogen 13, Creatinine 0.90, Estimat Glomerular Filtration Rate 89, BUN/Creatinine Ratio 14, Glucose Level 131H, Calcium Level 8.5, Corrected Calcium 9.9, Total Bilirubin 0.4, Aspartate Amino Transf (AST/SGOT) 15, Alanine Aminotransferase (ALT/SGPT) 17, Alkaline Phosphatase 49, Total Protein 6.6, Albumin 2.3L 02/19/22 06:05: Glucometer 128H Microbiology 02/13/22 MRSA Screen - Final, Complete MRSA not isolated 02/13/22 Blood Culture - Final, Complete No growth Laboratory Tests 02/18/22 05:37 02/19/22 05:38 A/P: Assessment: PAF with RVR seen on 02/13/22 - rate controlled - first diagnosed several years earlier, according to the patient, but he is unable to provide any details - TSH normal (0.66) on 02/13/22 - echo on 02-15-22: LVEF 50%, grade 2 rosas dysfunction, mild to mod LAE, mild AI, PASP 20-25 mmHg RBBB on ECG HAYLEY, likely due to pre-renal azotemia due to poor oral intake - resolved COVID (+) Gen weakness and malaise - etiology undetermined Plan: * Continue long-acting oral dilt for vent rate control * Continue OAC for stroke prophylaxis * Monitor labs and correct any abnormalities * Dx with COVID on 02-15-22 - started on Paxlovid per Medical services * Ok to discharge from a cardiac stand point when ok with Medical services * Outpt cardiac f/u advised Note: To limit exposure of the Cardiology team to Covid, only one member performs physical exam each day. Todays's exam was performed by FREDY Watson ALI [facility] Feb 19, 2022 10:25
[2022-02-19] MEDS: LACTATED RINGERS 1,000 ML IV SCH (11:28)
[2022-02-19 12:31] VITALS: BP 136/71
--- NOTE | 2022-02-19 12:37 | Progress Note - Hospitalist ---
Subjective HPI/CC On Admission Date Seen by Provider: Feb 19, 2022 Time Seen by Provider: 11:50 Patient is a 76-year-old male with past medical history of chronic kidney disease known to me from recent admission who presented to the emergency department due to weakness. He was just discharged from the hospital last week after an admission for generalized weakness. He had been admitted 2 weeks ago for weakness and was discharged home with home health and failed. Despite this he was denied skilled benefits after his last hospitalization and returned home with home health. He states since returning home he has continued to worsen and was unable to get up from his couch. He states has been crawling around on the floor for couple of days because he was unable to stand. He had been working to get into a facility near his daughter in [place] but he states that that does not look feasible now due to the expense. On arrival here he was found to have atrial fibrillation with rapid ventricular rate which he states is not new but he was not previously on any medications for it. He was also found to have an acute kidney injury with a creatinine of 2.05. He was admitted to the ICU for IV Cardizem and fluids. He did have a leukocytosis of concerning lesion on his foot so he was started on antibiotics to cover for infection. This morning he reports feeling a little bit better but mostly just still weak. Subjective/Events-last exam He is feeling better. He is up and walking to the bathroom. He denies pain. He is not short of breath. Focused Exam Time of Focused Exam: 19:20 Objective Exam Vital Signs Vital Signs Date Time Temp Pulse Resp B/P (MAP) Pulse Ox O2 Delivery O2 Flow Rate FiO2 02/19/22 12:31 35.9 89 18 136/71 (92) 92 Room Air 02/19/22 03:14 0.00 0.00 Capillary Refill : Less Than 3 Seconds General Appearance: No Apparent Distress, Obese Respiratory: Lungs Clear, No Respiratory Distress Cardiovascular: Regular Rate, Rhythm, No Murmur Gastrointestinal: Normal Bowel Sounds, Soft Extremity: Normal Inspection, No Pedal Edema Neurologic/Psychiatric: Alert, Normal Mood/Affect Results/Procedures Lab Laboratory Tests 02/19/22 05:38 Patient resulted labs reviewed. Imaging: Reviewed Imaging Report Assessment/Plan Assessment and Plan Assess & Plan/Chief Complaint COVID-19 Paxlovid Atrial fibrillation with RVR HTN HLD Cardizem and Eliquis, decrease dosages while on Paxlovid Cardiology following Echo with normal EF, grade II diastolic dysfunction Acute on CKD Creatinine improved Debility Critical illness myopathy Recurrent hospitalizations Discharged home with home health twice recently with falls and readmissions PT/OT Requiring medication monitoring and adjustment (Cardizem, Eliquis) while on Paxlovid IRF accepted, insurance denied, appeal pending IDDMII SSI Levemir Anemia Hgb up from last visit Received IV iron Had EGD/Colonoscopy during last visit DVT ppx: Eliquis as above Leukocytosis, resolved Diagnosis/Problems Diagnosis/Problems (1) COVID-19 Status: Acute (2) Atrial fibrillation with RVR Status: Acute (3) Debility Status: Acute (4) Acute kidney injury superimposed on chronic kidney disease Status: Acute (5) HTN (hypertension) Status: Chronic (6) HLD (hyperlipidemia) Status: Chronic (7) T2DM (type 2 diabetes mellitus) Status: Chronic Qualifiers: Diabetes mellitus terminal block assembler insulin use: with terminal block assembler use ALIS ANDERSON MD Feb 19, 2022 12:37
[2022-02-19 15:18] VITALS: BP 130/76
[2022-02-19 19:08] VITALS: BP 139/78
[2022-02-20 00:33] VITALS: BP 111/73
[2022-02-20] MEDS: LACTATED RINGERS 1,000 ML IV SCH ×3 (01:11→16:30)
[2022-02-20 04:31] VITALS: BP 129/75
[2022-02-20 06:00] LABS: BASOPHILS % (AUTO) 0 % (0-10); EOSINOPHILS # (AUTO) 0.1 10^3/uL (0.0-0.3); EOSINOPHILS % (AUTO) 1 % (0-10); HEMATOCRIT 28 % (40-54); HEMOGLOBIN 9.2 g/dL (13.3-17.7); LYMPHOCYTES % (AUTO) 18 % (12-44); MEAN CORPUSCULAR HEMOGLOBIN 31 pg (25-34); MEAN CORPUSCULAR HGB CONC 34 g/dL (32-36); MEAN CORPUSCULAR VOLUME 93 fL (80-99); MEAN PLATELET VOLUME 11.4 fL (9.0-12.2); MONOCYTES # (AUTO) 0.7 10^3/uL (0.0-1.0); MONOCYTES % (AUTO) 6 % (0-12); NEUTROPHILS # (AUTO) 8.3 10^3/uL (1.8-7.8); NEUTROPHILS % (AUTO) 74 % (42-75); PLATELET COUNT 286 10^3/uL (130-400); WHITE BLOOD COUNT 11.2 10^3/uL (4.3-11.0)
[2022-02-20] MEDS: inSUlin ASPART (NovoLOG) 1 UNIT/0.01 ML (CHARGE PER UNIT) SC SCH ×4 (06:00→21:50)
[2022-02-20 06:21] LABS: ALBUMIN 2.2 GM/DL (3.2-4.5); BILIRUBIN,TOTAL 0.5 MG/DL (0.1-1.0); CALCIUM 8.5 MG/DL (8.5-10.1); CREATININE SERUM 0.84 MG/DL (0.60-1.30); POTASSIUM 3.8 MMOL/L (3.6-5.0); TOTAL PROTEIN 6.7 GM/DL (6.4-8.2)
[2022-02-20 07:54] VITALS: BP 149/77
[2022-02-20] MEDS: APIXABAN 2.5 MG (ELIQUIS) TABLET PO SCH ×2 (08:43→19:44)
[2022-02-20] MEDS: NIRMATRELVIR/RITONAVIR (PAXLOVID) TABLET PO SCH (08:59)
[2022-02-20 12:23] VITALS: BP 121/73
--- NOTE | 2022-02-20 13:15 | Physical Therapy Progress Note ---
Therapy Progress Note Patient had just returned to bed after sitting in the chair for 3 hours. Pt refused therapy for today. Will resume on Tuesday. JACE HOWELL PT Feb 20, 2022 13:14
[2022-02-20 15:22] VITALS: BP 134/82
[2022-02-20] MEDS: ACETAMINOPHEN 500 MG TAB (TYLENOL) PO PRN (19:43)
[2022-02-20] MEDS: GABAPENTIN 300 MG (NEURONTIN) CAP PO PRN (19:43)
[2022-02-20 20:52] VITALS: BP 136/70
[2022-02-21] VITALS: BP 119/68
[2022-02-21 03:47] VITALS: BP 121/70
[2022-02-21] MEDS: inSUlin ASPART (NovoLOG) 1 UNIT/0.01 ML (CHARGE PER UNIT) SC SCH ×4 (06:03→20:13)
[2022-02-21 06:40] LABS: ALBUMIN 2.2 GM/DL (3.2-4.5); BILIRUBIN,TOTAL 0.5 MG/DL (0.1-1.0); CALCIUM 8.3 MG/DL (8.5-10.1); CREATININE SERUM 0.94 MG/DL (0.60-1.30); POTASSIUM 3.7 MMOL/L (3.6-5.0); TOTAL PROTEIN 6.3 GM/DL (6.4-8.2)
[2022-02-21 08:08] VITALS: BP 120/67
[2022-02-21] MEDS: LACTATED RINGERS 1,000 ML IV SCH (08:29)
[2022-02-21] MEDS: APIXABAN 2.5 MG (ELIQUIS) TABLET PO SCH ×2 (08:29→20:20)
[2022-02-21 11:13] VITALS: BP 121/68
--- NOTE | 2022-02-21 11:20 | Progress Note - Hospitalist ---
Subjective HPI/CC On Admission Date Seen by Provider: Feb 20, 2022 Time Seen by Provider: 13:00 Patient is a 76-year-old male with past medical history of chronic kidney disease known to me from recent admission who presented to the emergency department due to weakness. He was just discharged from the hospital last week after an admission for generalized weakness. He had been admitted 2 weeks ago for weakness and was discharged home with home health and failed. Despite this he was denied skilled benefits after his last hospitalization and returned home with home health. He states since returning home he has continued to worsen and was unable to get up from his couch. He states has been crawling around on the floor for couple of days because he was unable to stand. He had been working to get into a facility near his daughter in [place] but he states that that does not look feasible now due to the expense. On arrival here he was found to have atrial fibrillation with rapid ventricular rate which he states is not new but he was not previously on any medications for it. He was also found to have an acute kidney injury with a creatinine of 2.05. He was admitted to the ICU for IV Cardizem and fluids. He did have a leukocytosis of concerning lesion on his foot so he was started on antibiotics to cover for infection. This morning he reports feeling a little bit better but mostly just still weak. Subjective/Events-last exam Patient was hoping to be transferred down to acute rehab due to underlying significant deconditioning. This case is being appealed as insurance company. Otherwise he voices no complaints denies shortness of breath headache has had no chills or fever. Focused Exam Time of Focused Exam: 19:20 Objective Exam Vital Signs Vital Signs Date Time Temp Pulse Resp B/P (MAP) Pulse Ox O2 Delivery O2 Flow Rate FiO2 02/21/22 08:08 37.0 92 18 120/67 (84) 94 Room Air 02/19/22 03:14 0.00 0.00 Capillary Refill : Less Than 3 Seconds General Appearance: No Apparent Distress Respiratory: Chest Non Tender, Lungs Clear, Normal Breath Sounds, No Accessory Muscle Use, No Respiratory Distress Cardiovascular: Irregularly Irregular Gastrointestinal: Normal Bowel Sounds, No Organomegaly, No Pulsatile Mass, Non Tender, Soft Results/Procedures Lab Laboratory Tests 02/21/22 05:36 Patient resulted labs reviewed. Imaging: Reviewed Imaging Report Assessment/Plan Assessment and Plan Assess & Plan/Chief Complaint (1) COVID-19 Status: Acute Essentially resolved last dose of Paxlovid today (2) Atrial fibrillation with RVR rate currently controlled on oral therapy Status: Acute (3) Debility Status: Acute (4) Acute kidney injury superimposed on chronic kidney disease resolved. Status: Acute (5) HTN (hypertension) Status: Chronic (6) HLD (hyperlipidemia) Status: Chronic (7) T2DM (type 2 diabetes mellitus) Status: Chronic ANTHONY WILSON MD Feb 21, 2022 11:20
--- NOTE | 2022-02-21 11:23 | Progress Note - Hospitalist ---
Subjective HPI/CC On Admission Date Seen by Provider: Feb 21, 2022 Time Seen by Provider: 11:20 Patient is a 76-year-old male with past medical history of chronic kidney disease known to me from recent admission who presented to the emergency department due to weakness. He was just discharged from the hospital last week after an admission for generalized weakness. He had been admitted 2 weeks ago for weakness and was discharged home with home health and failed. Despite this he was denied skilled benefits after his last hospitalization and returned home with home health. He states since returning home he has continued to worsen and was unable to get up from his couch. He states has been crawling around on the floor for couple of days because he was unable to stand. He had been working to get into a facility near his daughter in [place] but he states that that does not look feasible now due to the expense. On arrival here he was found to have atrial fibrillation with rapid ventricular rate which he states is not new but he was not previously on any medications for it. He was also found to have an acute kidney injury with a creatinine of 2.05. He was admitted to the ICU for IV Cardizem and fluids. He did have a leukocytosis of concerning lesion on his foot so he was started on antibiotics to cover for infection. This morning he reports feeling a little bit better but mostly just still weak. Subjective/Events-last exam Patient reports that he is feeling well he refused physical therapy yesterday stating that he just gone back to bed after being up for 3 hours. He voices no complaints today. Focused Exam Time of Focused Exam: 19:20 Objective Exam Vital Signs Vital Signs Date Time Temp Pulse Resp B/P (MAP) Pulse Ox O2 Delivery O2 Flow Rate FiO2 02/21/22 08:08 37.0 92 18 120/67 (84) 94 Room Air 02/19/22 03:14 0.00 0.00 Capillary Refill : Less Than 3 Seconds General Appearance: No Apparent Distress Respiratory: Chest Non Tender, Lungs Clear, Normal Breath Sounds, No Accessory Muscle Use, No Respiratory Distress Cardiovascular: No Murmur, Irregularly Irregular Results/Procedures Lab Laboratory Tests 02/21/22 05:36 Patient resulted labs reviewed. Imaging: Reviewed Imaging Report Assessment/Plan Assessment and Plan Assess & Plan/Chief Complaint 02/21/2022: Awaiting appeals insurance company about transfer to acute rehab. If the answer is still no likely discharge to home although group home would likely be a better option considering several admissions for failure to thrive in the past month. (1) COVID-19 Status: Acute Essentially resolved last dose of Paxlovid today (2) Atrial fibrillation with RVR rate currently controlled on oral therapy Status: Acute (3) Debility Status: Acute (4) Acute kidney injury superimposed on chronic kidney disease resolved. Status: Acute (5) HTN (hypertension) Status: Chronic (6) HLD (hyperlipidemia) Status: Chronic (7) T2DM (type 2 diabetes mellitus) Status: Chronic ANTHONY WILSON MD Feb 21, 2022 11:23
[2022-02-21] MEDS: ACETAMINOPHEN 500 MG TAB (TYLENOL) PO PRN ×2 (11:36→20:20)
[2022-02-21] MEDS: GABAPENTIN 300 MG (NEURONTIN) CAP PO PRN ×2 (11:36→20:20)
[2022-02-21 11:54] LABS: ABSOLUTE RETIC # 52 10e9/uL (24-90); BASOPHILS % (AUTO) 0 % (0-10); EOSINOPHILS # (AUTO) 0.1 10^3/uL (0.0-0.3); EOSINOPHILS % (AUTO) 1 % (0-10); HEMOGLOBIN 8.3 g/dL (13.3-17.7); LYMPHOCYTES # (AUTO) 2.2 10^3/uL (1.0-4.0); MEAN CORPUSCULAR HEMOGLOBIN 31 pg (25-34); MEAN CORPUSCULAR HGB CONC 33 g/dL (32-36); MEAN PLATELET VOLUME 11.9 fL (9.0-12.2); MONOCYTES # (AUTO) 0.7 10^3/uL (0.0-1.0); MONOCYTES % (AUTO) 6 % (0-12); NEUTROPHILS % (AUTO) 72 % (42-75); RETICULOCYTE % 1.92 % (0.50-2.40)
[2022-02-21 11:58] LABS: HEMATOCRIT 25 % (40-54); LYMPHOCYTES % (AUTO) 21 % (12-44); MEAN CORPUSCULAR VOLUME 93 fL (80-99); NEUTROPHILS # (AUTO) 7.4 10^3/uL (1.8-7.8); PLATELET COUNT 286 10^3/uL (130-400); WHITE BLOOD COUNT 10.4 10^3/uL (4.3-11.0)
[2022-02-21 12:12] LABS: ANISOCYTOSIS SLIGHT; BAND NEUTROPHILS 2 %; BASOPHILS % (MANUAL) 0 %; EOSINOPHILS % (MANUAL) 0 %; LYMPHOCYTES % (MANUAL) 15 %; MONOCYTES % (MANUAL) 6 %; NEUTROPHILS % (MANUAL) 77 %
[2022-02-21 15:28] VITALS: BP 121/67
[2022-02-21 20:00] VITALS: BP 102/63
[2022-02-22 00:17] VITALS: BP 149/77
[2022-02-22 04:57] VITALS: BP 103/65
[2022-02-22] MEDS: inSUlin ASPART (NovoLOG) 1 UNIT/0.01 ML (CHARGE PER UNIT) SC SCH (05:03)
[2022-02-22] MEDS: ACETAMINOPHEN 500 MG TAB (TYLENOL) PO PRN (06:11)
[2022-02-22] MEDS: GABAPENTIN 300 MG (NEURONTIN) CAP PO PRN (06:11)
[2022-02-22 06:37] LABS: BASOPHILS % (AUTO) 0 % (0-10); EOSINOPHILS # (AUTO) 0.1 10^3/uL (0.0-0.3); EOSINOPHILS % (AUTO) 1 % (0-10); HEMATOCRIT 25 % (40-54); HEMOGLOBIN 8.2 g/dL (13.3-17.7); LYMPHOCYTES % (AUTO) 22 % (12-44); MEAN CORPUSCULAR HEMOGLOBIN 31 pg (25-34); MEAN CORPUSCULAR HGB CONC 33 g/dL (32-36); MEAN CORPUSCULAR VOLUME 94 fL (80-99); MEAN PLATELET VOLUME 11.3 fL (9.0-12.2); MONOCYTES # (AUTO) 0.6 10^3/uL (0.0-1.0); MONOCYTES % (AUTO) 6 % (0-12); NEUTROPHILS # (AUTO) 6.4 10^3/uL (1.8-7.8); NEUTROPHILS % (AUTO) 71 % (42-75); PLATELET COUNT 304 10^3/uL (130-400)
[2022-02-22 07:18] LABS: ALBUMIN 2.2 GM/DL (3.2-4.5); BILIRUBIN,TOTAL 0.5 MG/DL (0.1-1.0); CALCIUM 8.4 MG/DL (8.5-10.1); CREATININE SERUM 0.93 MG/DL (0.60-1.30); POTASSIUM 3.6 MMOL/L (3.6-5.0); TOTAL PROTEIN 6.6 GM/DL (6.4-8.2)
[2022-02-22] MEDS: APIXABAN 2.5 MG (ELIQUIS) TABLET PO SCH (07:49)
[2022-02-22 08:51] VITALS: BP 123/78
[2022-02-22] MEDS ORDERED: DILT180C85 PO (09:51)
[2022-02-22] MEDS ORDERED: APIX2.5T PO (09:51)
[2022-02-22] MEDS ORDERED: APIX5TAB PO (09:53)
[2022-02-22] MEDS ORDERED: APIXABAN 5 MG (ELIQUIS) TABLET PO SCH (21:00)
== END 2022-02-22 11:30 | DRG 682 ==
LOC: EDUNIT# 16:15 → ER 16:17 → ICU 19:30 → 4TH 02-14 17:51
PROVIDERS: ADMIT Family Medicine; ATTEND Internal Medicine
DX: N17.9 Acute kidney failure, unspecified (principal); U07.1 COVID-19; G72.81 Critical illness myopathy; I48.0 Paroxysmal atrial fibrillation; I12.9 Hypertensive chronic kidney disease with stage 1 through stage 4 chronic kidney disease, or unspecified chronic kidney disease; E11.22 Type 2 diabetes mellitus with diabetic chronic kidney disease; N18.9 Chronic kidney disease, unspecified; E11.40 Type 2 diabetes mellitus with diabetic neuropathy, unspecified; Z66 Do not resuscitate; R62.7 Adult failure to thrive; Z68.31 Body mass index [BMI] 31.0-31.9, adult; I45.10 Unspecified right bundle-branch block; K57.90 Diverticulosis of intestine, part unspecified, without perforation or abscess without bleeding; D64.9 Anemia, unspecified; R53.81 Other malaise; R53.1 Weakness; Z79.4 Long term (current) use of insulin; Z79.84 Long term (current) use of oral hypoglycemic drugs
CPT/HCPCS: 36415; 71045; 73630; 80053; 80306; 80320; 81000; 82550; 82607; 82746; 82947; 83540; 83550; 83605; 83735; 84100; 84145; 84439; 84443; 85007; 85025; 85027; 85045; 85055; 85610; 85730; 86141; 87040; 87081; 87636; 93005; 93306; 94760; 96361; 96365; 96366; 96367; 96368

== ENCOUNTER 2022-02-22 09:55 | Inpatient (IN) | payer OTHER, MEDICARE ==
[~2022-02-22] VITALS: Ht 172.7 cm; Wt 89.9 kg
[~2022-02-22 09:55] MED LIST changes: +APIX2.5T PO; +APIX5TAB PO; +DILT180C85 PO; +OMEP20CA18 PO; +UBID100C44 PO
--- NOTE | 2022-02-22 10:04 | PM&R Post Admission Assessment ---
PM&R HP Date of Visit: Feb 22, 2022 Time of Visit: 11:00 History of Present Illness CC: Myopathy/debility HPI: Bandar Crabtree is 76-year-old male with past medical history of chronic kidney disease who inititially presented to the emergency department due to weakness 02/14/22. He was just discharged before this from the hospital after an admission for generalized weakness where he had been admitted 2 weeks ago for weakness and was discharged home with home health and failed. Despite this he was denied skilled benefits after his last hospitalization and returned home with home health. He lives alone and states since returning home he had continued to worsen and was unable to get up from his couch. He said he had been crawling around on the floor for couple of days because he was unable to stand. He had been working to get into a facility near his daughter in [place] but he states that that does not look feasible now due to the e xpense. On arrival here he was found to have atrial fibrillation with rapid ventricular rate which he states is not new but he was not previously on any medications for it. He was also found to have an acute kidney injury with a creatinine of 2.05. He was admitted to the ICU for IV Cardizem and fluids. He did have a leukocytosis of concerning lesion on his foot so he was started on antibiotics to cover for infection. He then tested positive for covid on 02/15/22 and was placed into quarentine, he said today 02/22/22 that he is feeling much better but has had a headache the entire time of his stay saying that theres sinus pressure and the pain ranges from 4 to a 10. Denies ever having imaging done on his head. Along with his muscle weakness he says there is a constant myalgia that he rates 2-3. He reported that he also has severe stool retention but that was normal before being admitted and that he would poop ~1/month, but says his urinary output is almost hourly. PMH: Cardiac: Atrial Fibrillation Neurological: Neuropathy Genitourinary: Renal Failure Gastrointestinal: Diverticulosis, Hiatal Hernia Endocrine: Diabetes, Insulin dep HEENT: Cataract History of Blood Disorders: Yes (Anemia) PSH:Abdominal, Eye Surgery All: No Known Drug Allergies (Unverified , 03/04/21) MEDs: Scheduled Allopurinol (Allopurinol), 300 MG PO DAILY, (Reported) Apixaban (Eliquis), 5 MG PO BID Ascorbate Calcium (Vitamin C), 500 MG PO 1200, (Reported) Atorvastatin Calcium (Atorvastatin Calcium), 40 MG PO HS, (Reported) Cholecalciferol (Vitamin D3) (Vitamin D3), 50 MCG PO 1200, (Reported) Diltiazem HCl (Diltiazem 24Hr ER), 180 MG PO DAILY Empagliflozin (Jardiance), 12.5 MG PO DAILY, (Reported) Fish Oil/Dha/Epa (Fish Oil 1,200 mg Fish Oil), 1 EACH PO 1200, (Reported) Insulin Detemir (Levemir Flextouch), 20 UNIT SQ HS, (Reported) Metformin HCl (Metformin HCl), 1,000 MG PO BID, (Reported) Metoprolol Succinate (Metoprolol Succinate), 50 MG PO HS, (Reported) Multivitamin (Multivitamin), 1 EACH PO 1200, (Reported) Omeprazole (Omeprazole), 20 MG PO DAILY, (Reported) Pregabalin (Pregabalin), 200 MG PO TID, (Reported) Ubidecarenone (Co Q-10), 100 MG PO DAILY, (Reported) Vitamin E Mixed (Vitamin E), 100 UNIT PO 1200, (Reported) Scheduled PRN Furosemide (Furosemide), 40 MG PO DAILY PRN for FLUID RETENTION, (Reported) Tramadol HCl (Tramadol HCl), 50-100 MG PO HS PRN for PAIN-MODERATE (5-7), (Reported) Zolpidem Tartrate (Zolpidem Tartrate), 5 MG PO HS PRN for SLEEP, (Reported) SH: 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 He didnt report really any hobbies and denied any substance use of any kind. He said he was active and always working on stuff before the initial onset of weakness months ago. FH: no pertinent family Hx ROS: Constitutional: No chills, No fever, reports of malaise, weakness EENTM: no symptoms reported Respiratory: No cough, No short of breath Cardiovascular: no symptoms reported Gastrointestinal: decreased bowel movements Genitourinary: no symptoms reported Musculoskeletal: see HPI Skin: no symptoms reported Psychiatric/Neurological: No Symptoms Reported Exams: V/S: T(36.2) HR(111) RR(18) BP(123/78) SpO2(91 RA) General: no acute distress, WN/WD, appears weak and fatigued Respiratory: No accessory muscle use; other (fair to good air entry, diminished at the bases) Cardiovascular: irregularly irregular, systolic murmur (soft GENEVA at card base), no rubs or gallops Gastrointestional: Non tender; soft; No guarding, No rebound; audible bowel sounds Extremities: No clubbing, No cyanosis, generalized muscle weakness of all extremities 3/5 Neurologic/Psychiatric: oriented x 3, moves all limbs equally, dermatomes intact, depressed mood/affect Skin: normal color, warm/dry; No rash on exposed areas, No ulcerations on expos ed areas Labs: Covid(+), Hgb(8.2), Glucose (148), elevated PT/aPTT A: Acute Myopathy COVID-19 Infection Atrial fibrillation with RVR Debility S/P Acute kidney injury superimposed on chronic kidney disease. HTN HLD T2DM P: Aggressive OT/PT vital monitoring and completion of paxlovid continue oral therapy for cardiac rate mantainence continue BP regimen Continue blood fat/sugar regulation TOLU SHELTON Past [id number]-[id number] Hx Past Med/Social Hx: Reviewed Nursing Past Med/Soc Hx, Reviewed and Corrections made Patient Social History Marrital Status: single Alcohol Use: Denies Use Smoking Status: Never a Smoker Past Medical History Surgeries: Abdominal, Eye Surgery Respiratory: Pneumonia Cardiac: Atrial Fibrillation Neurological: Neuropathy Genitourinary: Renal Failure Gastrointestinal: Diverticulosis, Hiatal Hernia Endocrine: Diabetes, Insulin dep HEENT: Cataract History of Blood Disorders: Yes (Anemia) Family History No Pertinent Family Hx PM&R Allergy/Meds/Data Review Allergies Coded Allergies: No Known Drug Allergies (Unverified , 03/04/21) Home Medications Scheduled Allopurinol (Allopurinol), 300 MG PO DAILY, (Reported) Apixaban (Eliquis), 5 MG PO BID Ascorbate Calcium (Vitamin C), 500 MG PO 1200, (Reported) Atorvastatin Calcium (Atorvastatin Calcium), 40 MG PO HS, (Reported) Cholecalciferol (Vitamin D3) (Vitamin D3), 50 MCG PO 1200, (Reported) Diltiazem HCl (Diltiazem 24Hr ER), 180 MG PO DAILY Empagliflozin (Jardiance), 12.5 MG PO DAILY, (Reported) Fish Oil/Dha/Epa (Fish Oil 1,200 mg Fish Oil), 1 EACH PO 1200, (Reported) Insulin Detemir (Levemir Flextouch), 20 UNIT SQ HS, (Reported) Metformin HCl (Metformin HCl), 1,000 MG PO BID, (Reported) Metoprolol Succinate (Metoprolol Succinate), 50 MG PO HS, (Reported) Multivitamin (Multivitamin), 1 EACH PO 1200, (Reported) Omeprazole (Omeprazole), 20 MG PO DAILY, (Reported) Pregabalin (Pregabalin), 200 MG PO TID, (Reported) Ubidecarenone (Co Q-10), 100 MG PO DAILY, (Reported) Vitamin E Mixed (Vitamin E), 100 UNIT PO 1200, (Reported) Scheduled PRN Furosemide (Furosemide), 40 MG PO DAILY PRN for FLUID RETENTION, (Reported) Tramadol HCl (Tramadol HCl), 50-100 MG PO HS PRN for PAIN-MODERATE (5-7), (Reported) Zolpidem Tartrate (Zolpidem Tartrate), 5 MG PO HS PRN for SLEEP, (Reported) Discontinued Medications Apixaban (Eliquis), 2.5 MG PO BID Discontinued Reason: Prescription changed Current Medications Current Medications Reviewed Review of Systems Constitutional: see HPI, malaise, weakness EENTM: no symptoms reported Respiratory: dyspnea on exertion, short of breath Cardiovascular: no symptoms reported Gastrointestinal: no symptoms reported Genitourinary: no symptoms reported Musculoskeletal: back pain Skin: no symptoms reported Psychiatric/Neurological: Anxiety, Depressed All Other Systems Reviewed Negative Unless Noted: Yes Physical Exam Physical Exam Vital Signs Capillary Refill : Height, Weight, BMI Height: '" Weight: lbs. oz. kg; 31.91 BMI Method: General Appearance: No Apparent Distress, WD/WN, Chronically ill Eyes: Bilateral Eye Normal Inspection, Bilateral Eye PERRL HEENT: PERRL/EOMI, Normal ENT Inspection, Pharynx Normal Neck: Full Range of Motion, Normal Inspection, Non Tender, Supple, Carotid Bruit Respiratory: Chest Non Tender, Lungs Clear, No Accessory Muscle Use, No Respiratory Distress, Decreased Breath Sounds Cardiovascular: Regular Rate, Rhythm, No Edema, No Gallop, No JVD, No Murmur, Normal Peripheral Pulses Gastrointestinal: Normal Bowel Sounds, No Organomegaly, No Pulsatile Mass, Non Tender, Soft Back: Normal Inspection, No CVA Tenderness, No Vertebral Tenderness Extremity: Normal Capillary Refill, Normal Inspection, Normal Range of Motion, Non Tender, No Calf Tenderness, No Pedal Edema Neurologic/Psychiatric: Alert, Oriented x3, Abnormal Gait, Depressed Affect, Motor Weakness (Generalized) Skin: Normal Color, Warm/Dry Lymphatic: No Adenopathy PM&R Medical Assessment & Plan REHAB/MEDICAL ASSESSMENT AND PLAN: REHAB IMPAIRMENT GROUP: Myopathy ETIOLOGIC DIAGNOSIS: Myopathy The comorbidities that impact the patients function and/or functional outcome by: Severe weakness, acute kidney injury, diabetes, multiple hospitalizations recently REHAB PLAN: The patient is being admitted to our comprehensive inpatient rehabilitation facility and can tolerate the intensity of service consisting of at least: 180 minutes of therapy a day, 5 out of 7 days a week Rehab treatment will consist of: PT and OT will focus on regaining function with use of assistive devices in order to gain strength and regain independence in ADLs in order to return home The patient/family has a good understanding of our discharge process and will benefit from an interdisciplinary inpatient rehabilitation program. The patient has potential to make improvement and is in need of at least two of the following multidisciplinary therapies including but not limited to physical, occupational, speech, and prosthetics and orthotics. Additionally the patient will need services from respiratory, nutritional services, wound care, psychology, etc. (Customize this to each patient). Given the patients complex condition and risk of further medical complications, rehabilitation services cannot be safely or effectively provided at a lower level of care such as a shelter facility. BARRIERS TO DISCHARGE: Severe weakness ESTIMATED LOS: 7 days DISPOSITION: Home RELEVANT CHANGES SINCE PREADMISSION SCREENING: I have compared the patients medical and functional status at the time of the preadmission screening and there are: No changes PROGNOSIS: Good REHABILITATION GOALS: 1. PT and OT will focus on regaining function with use of assistive devices in order to gain strength and regain independence in ADLs in order to return home All the above goals were reviewed with the patient and he/she is in agreement. By signing this document, I acknowledge that I have personally performed a full physical examination on this patient within 24 hours of admission to this inpatient rehabilitation facility and have determined the patient to be able to tolerate the above course of treatment at an intensive level for a reasonable period of time. I will be completing a detailed individualized Plan of Care for this patient by day #4 of the patients stay based upon the Preadmission Screen, the Post-Admission Evaluation, and the therapy evaluations. Admission Dx/Comorbidities: (1) Myopathy ICD Codes: G72.9 - Myopathy, unspecified (2) T2DM (type 2 diabetes mellitus) Status: Chronic ICD Codes: E11.9 - Type 2 diabetes mellitus without complications (3) COVID-19 Status: Acute ICD Codes: U07.1 - COVID-19 (4) Acute kidney injury superimposed on chronic kidney disease Status: Acute ICD Codes: N17.9 - Acute kidney failure, unspecified; N18.9 - Chronic kidney disease, unspecified (5) HLD (hyperlipidemia) Status: Chronic ICD Codes: E78.5 - Hyperlipidemia, unspecified (6) HTN (hypertension) Status: Chronic ICD Codes: I10 - Essential (primary) hypertension (7) Debility Status: Acute ICD Codes: R53.81 - Other malaise (8) Atrial fibrillation with RVR Status: Acute ICD Codes: I48.91 - Unspecified atrial fibrillation (9) Generalized weakness ICD Codes: R53.1 - Weakness (10) CKD (chronic kidney disease) ICD Codes: N18.9 - Chronic kidney disease, unspecified (11) Neuropathic pain Status: Acute ICD Codes: M79.2 - Neuralgia and neuritis, unspecified (12) Iron deficiency Status: Acute ICD Codes: E61.1 - Iron deficiency (13) Noncompliance with medication regimen Status: Acute ICD Codes: Z91.14 - Patient's other noncompliance with medication regimen (14) Diabetic neuropathy Status: Acute ICD Codes: E11.40 - Type 2 diabetes mellitus with diabetic neuropathy, unspecified Assessment/Plan Assessment and Plan Assess & Plan/Chief Complaint Assessment: Myopathy COVID-19 Atrial fibrillation Diabetes Acute on chronic renal failure Neuropathy Constipation Plan: Supportive care Monitor closely MALINA HOOVER DO Feb 22, 2022 10:04
[2022-02-22] MEDS ORDERED: FLEET ENEMA ADULT 1 EA BTL PR PRN (10:15)
[2022-02-22] MEDS ORDERED: LOPERAMIDE 2 MG (IMODIUM) TABLET PO PRN (10:15)
[2022-02-22] MEDS ORDERED: ALPRAZolam 0.25 MG (XANAX) TAB PO PRN (10:15)
[2022-02-22] MEDS ORDERED: DOCUSATE SODIUM 100 MG (COLACE) CAP PO PRN (10:15)
[2022-02-22] MEDS ORDERED: ONDANSETRON 4 MG (ZOFRAN) ORAL DISSOLVE TAB PO PRN (10:15)
[2022-02-22] MEDS ORDERED: BISACODYL 10 MG SUPP (DULCOLAX) PR PRN (10:15)
[2022-02-22] MEDS ORDERED: ACETAMINOPHEN 325 MG TABLET PO PRN (10:15)
[2022-02-22] MEDS ORDERED: guaiFENesin/CODEINE (ROBITUSSIN AC) 10ML UDC PO PRN (10:15)
[2022-02-22] MEDS ORDERED: diphenhydrAMINE 25 MG TAB (BENADRYL) PO PRN (10:15)
[2022-02-22] MEDS ORDERED: MELATONIN 3 MG TABLET PO PRN (10:15)
[2022-02-22] MEDS ORDERED: CALCIUM CARBONATE 500 MG (TUMS) TAB.CHEW PO PRN (10:15)
[2022-02-22 11:10] VITALS: BP 126/63
--- NOTE | 2022-02-22 11:37 | Occupational Therapy Eval ---
OT Evaluation-General/PLF Medical Diagnosis Admission Date 02/22/22 Medical Diagnosis: Critical illness myopathy, Covid 19 Onset Date: Feb 13, 2022 Therapy Diagnosis Therapy Diagnosis: reduced adl status Precautions Precautions/Isolations: Airborne Isolation, Contact Isolation, Fall Prevention Referral Physician: Sami Veronica Reason: Evaluation/Treatment Medical History Pertinent Medical History: DM, HTN, Neuropathy, Renal Insufficiency Current History Pt presented to hospital with generalized weakness. Found to have Covid 19. Pt with multiple recent admissions. Per patient, he lives alone in a single story home. After his last discharge, his son was staying with him for a short time. Pt reports that he was independent prior to multiple recent admissions but that he continues to worsen. Pt was using a walker prior to admission. Reviewed History: Yes Social History Home: Single Level Current Living Status: Alone Entry Into Home: Stairs With Railing ADL-Prior Level of Function SCALE: Activities may be completed with or without assistive devices. 8-[id number]-[id number] completes the activity by him/herself with no assistance from a helper. 5-Set-up or Clean-up Assistance-helper sets up or cleans up; patient completes activity. [place] assists only prior to or following the activity. 4-Supervision or Touching Assistance-helper provides verbal cues and/or touching/steadying and/or contact guard assistance as patient completes activity. Assistance may be provided throughout the activity or intermittently. 3-Partial/Moderate Assistance-helper does LESS THAN HALF the effort. [place] lifts, holds or supports trunk or limbs, but provides less than half the effort. 2-Substantial/Maximal Assistance-helper does MORE THAN HALF the effort. [place] l ifts or holds trunk or limbs and provides more than half the effort. 1-Ejbpfbzll-wupaee does ALL the effort. Patient does none of the effort to complete the activity. Or, the assistance of 2 or more helpers is required for the patient to complete the activity. If activity was not attempted, code reason: 7-Patient Refused. 9-Not Applicable-not attempted and the patient did not perform the activity before the current illness, exacerbation or injury. 10-Not Attempted due to Environmental Limitations-(lack of equipment, weather restraints, etc.). 88-Not Attempted due to Medical Conditions or Safety Concerns. Self Care: Independent Functional Cognition: Independent DME/Equipment: Bath Chair, Tub/Shower OT Current Status Subjective Pt very weak, agreeable to evaluation. Co-treat with PT for part of treatment secondary to weakness, poor mobility, high fall risk, fatigue, and need of 2 skilled clinicians to progress indep and safety with adls and functional mobility. Appearance Pt left sitting on the side of the bed, physical therapy present, PINON entering room to take over treatment. Mental Status/Objective Patient Orientation: Person, Place, Situation Attachments: IV Current Glasses/Contacts: Yes Hearing Aids: No Dentures/Partials: No Hand Dominance: Right Upper Extremity ROM Bilateral shoulder flexion ~150 degrees Elbows WFL Wrist/hand limited by edema and pain ADL-Treatment Eating (QC): 4 (per patient report) Oral Hygiene (QC): 4 (per patient report) Shower/Bathe Self (QC): 3 (mod) Upper Body Dressing (QC): 3 (min) Lower Body Dressing (QC): 3 (mod) On/Off Footwear (QC): 3 (min) Toileting Hygiene (QC): 2 Pt reports taking a shower previous date. Agreeable to Sponge bath (with wet wipes). Majority of Activity performed seated in chair. Pt stood only briefly to wash edi area/buttocks. Assist needed for thoroughness when washing edi area, dependent to wash backside due to poor reach/balance. Pt requires at least 1UE support on walker to maintain standing balance, min a for steadying also needed in standing. When sitting, he was able to bend at waist to reach his feet, but requires assist for thoroughness secondary to fatigue. No assist needed to wash upper body, however pt does complain of pain when horizontally adducting R arm when reaching for L axilla. Cues for correct orientation needed when donning shirt. Assist also to pull shirt over his head due to fatigue and limited shoulder ROM. Extra time/effort noted when threading feet into pants but no physical assistance required. Again, min a for balance needed as he stood to pull clothing over his hips. Mod a to pull up on R side as pt pulled over L hip. Pt was able to don R sock with significant effort, cues for compensatory strategies. Min a needed to pull sock over L heel after pt initiated over toes. Mod a to stand for all sit<>stands. PINON entering room to take over remaining treatment time. Education OT Patient Education: Correct positioning, Disease process, Energy conservation, Modified ADL techniques, Purpose of tx/functional activities, Rehab process, Safety issues, Transfer techniques Teaching Recipient: Patient Teaching Methods: Discussion Response to Teaching: Verbalize Understanding, Return Demonstration, Reinforcement Needed OT Short Term Goals Short Term Goals Time Frame: Mar 01, 2022 Eatin Oral hygiene: 5 Toileting hygiene: 3 Shower/bathe self: 3 Upper body dressin Lower body dressin Putting on/taking off footwear: 4 OT Snf Goals Snf Goals Time Frame: Mar 08, 2022 Eating (QC): 5 Oral Hygiene (QC): 5 Toileting Hygiene (QC): 6 Shower/Bathe Self (QC): 5 Upper Body Dressing (QC): 5 Lower Body Dressing (QC): 5 On/Off Footwear (QC): 5 Additional Goals: 1-Demonstrate ADL Tasks, 2-Verbalize Understanding, 3- ImproveStrength/Darcie 1=Demonstrate adherence to instructed precautions during ADL tasks. 2=Patient will verbalize/demonstrate understanding of assistive devices/modifications for ADL. 3=Patient will improve strength/tolerance for activity to enable patient to perform ADL's. OT Education/Plan Problem List/Assessment Assessment: Decreased Activ Tolerance, Decreased Safety Aware, Decreased UE Strength, Edema, Impaired Cognition, Impaired Funct Balance, Impaired I ADL's, Impaired Self-Care Skills, Restricted Funct UE ROM Discharge Recommendations Plan/Recommendations: Continue POC Therapy Discharge Recommendati: Post Acute OT Treatment Plan/Plan of Care Treatment,Training & Education: Yes Patient would benefit from OT for education, treatment and training to promote independence in ADL's, mobility, safety and/or upper extremity function for ADL's. Plan of Care: ADL Retraining, Cognitive Retraining, Functional Mobility, Group Exercise/Act as Ind, UE Funct Exercise/Act Treatment Duration: Mar 08, 2022 Frequency: At least 5 of 7 days/Wk (IRF) Estimated Hrs Per Day: 1.5 hours per day (75-90 min/day ) Rehab Potential: Fair Time Start Time: 11:00 Stop Time: 11:30 DATE: Feb 22, 2022 Total Time Billed (hr/min): 30 Billed Treatment Time 1 visit EVM (10 min) ADL (20 min) Evelin Padilla OT Feb 22, 2022 11:37
[2022-02-22] MEDS ORDERED: ONDANSETRON 4 MG/2 ML (SDV) Z0FRAN IV PRN (12:00)
--- NOTE | 2022-02-22 12:09 | Occupational Ther Daily Note ---
OT Current Status-Daily Note Subjective Took over care from OTR/L. Pt alert sitting on EOB. Co-treat with PT ([id number]), skills of 2 clinicians required to decrease fall risk, increase activity tolerance due to medical diagnosis, increase overall strength and ADL skills. PT focusing on transfers, ambulation and B LE strengthening while OT focusing on ADLs, functional mobility and B UE strengthening. Mental Status/Objective Patient Orientation: Person, Place, Time, Situation Attachments: IV ADL-Treatment Pt ambulated into bathroom using FWW with PT (CGA for safety) then sat at sink to complete oral care. Min A for sit <--> stand. Pt required assistance to unscrew lid on toothpaste due to increased swelling in hands which hinders ROM and strength. Pt able to complete rest of oral care by self. Pt then ambulated to bed and sat EOB to complete B UE/LE exercises. Pt has decreased ROM throughout B UE's and increased pain with movement. 1 set 20 reps of 4 B UE exercises against gravity. After session, pt lying in bed with call light/phone in reach. All needs met. Therapy Code Descriptions/Definitions Functional [place] Measure: 0=Not Assessed/NA 4=Minimal Assistance 1=Total Assistance 5=Supervision or Setup 2=Maximal Assistance 6=Modified [place] 3=Moderate Assistance 7=Complete IndependenceSCALE: Activities may be completed with or without assistive devices. 7-Ywwifbufpz-ovctzmf completes the activity by him/herself with no assistance from a helper. 5-Set-up or Clean-up Assistance-helper sets up or cleans up; patient completes activity. [place] assists only prior to or following the activity. 4-Supervision or Touching Assistance-helper provides verbal cues and/or touching/steadying and/or contact guard assistance as patient completes activity. Assistance may be provided throughout the activity or intermittently. 3-Partial/Moderate Assistance-helper does LESS THAN HALF the effort. [place] lifts, holds or supports trunk or limbs, but provides less than half the effort. 2-Substantial/Maximal Assistance-helper does MORE THAN HALF the effort. [place] lifts or holds trunk or limbs and provides more than half the effort. 6-Qszhifgkd-ejpjeh does ALL the effort. Patient does none of the effort to complete the activity. Or, the assistance of 2 or more helpers is required for the patient to complete the activity. If activity was not attempted, code reason: 7-Patient Refused. 9-Not Applicable-not attempted and the patient did not perform the activity before the current illness, exacerbation or injury. 10-Not Attempted due to Environmental Limitations-(lack of equipment, weather restraints, etc.). 88-Not Attempted due to Medical Conditions or Safety Concerns. Oral Hygiene (QC): 5 Pt will need built up handles for eating utensils and tooth brush. Pt had therapy sponges in room on 4th floor. Will make sure either pt has them when room is cleaned or will issue new ones to decrease B hand edema and increase strength/ROM. BIMS CAM BIMS Expression of Ideas and Wants: Without Difficulty Understanding Verbal Content: Understands Brief Interview/Mental Status: Yes IRF STEVEN BIMS: IRF STEVEN BIMS Response (Comments) Value Repitition of Three Words Three 3 Recalls Socks Yes, No Cue Required 2 Recalls Blue Yes, No Cue Required 2 Recalls Bed Yes, No Cue Required 2 Year Correct 3 Month Accurate Within 5 Days 2 Day Correct 1 Total 15 Patient Normally Able to Recal: Current Session, That he/she in a hsp Should Staff Asses. 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 2=Patient will verbalize/demonstrate understanding of assistive devices/modifica tions for ADL. 3=Patient will improve strength/tolerance for activity to enable patient to perform ADL's. OT Education/Plan Problem List/Assessment Assessment: Decreased Activ Tolerance, Decreased UE Strength, Impaired I ADL's, Restricted Funct UE ROM Discharge Recommendations Plan/Recommendations: Continue POC Treatment Plan/Plan of Care Patient would benefit from OT for education, treatment and training to promote independence in ADL's, mobility, safety and/or upper extremity function for ADL's. Plan of Care: ADL Retraining, Cognitive Retraining, Functional Mobility, Group Exercise/Act as Ind, UE Funct Exercise/Act Treatment Duration: Mar 08, 2022 Frequency: At least 5 of 7 days/Wk (IRF) Estimated Hrs Per Day: 1.5 hours per day (75-90 min/day ) Rehab Potential: Fair Time Start Time: 11:30 Stop Time: 12:15 DATE: Feb 22, 2022 Total Time Billed (hr/min): 45 Billed Treatment Time 1 visit-ADL 1 (20 min) EX 1 (15 min) FA 1 (10 min) co-treat with PT [id number] MIKE PLAZA Feb 22, 2022 12:09
--- NOTE | 2022-02-22 12:27 | ST Cognitive Linguistic Eval ---
Speech Evaluation-General Medical Diagnosis Critical Illness Myopathy, Covid 19 Onset Date: Feb 13, 2022 Therapy Diagnosis Therapy Diagnosis: Intact (Baseline) Cogntive Linguistic Skills Precautions Precautions: Fall Precautions/Isolations: Airborne Isolation, Fall Prevention Referral Referring Physician: Dr. Gallardo Reason for Referral: Evaluation/Treatment Medical History Pertinent Medical History: DM, HTN, Neuropathy, Renal Insufficiency Current History The patient is a 76 year-old male with a past medical history of DM, HTN, neuropathy, and renal insufficiency, who presented to ARU with general weakness and COVID 19. Reviewed History: Yes Social History Current Living Status: Alone Speech PLF-Current Status Prior Level of Function The patient denied any recent concerns or changes with his cognition, speech, language, or swallowing. Subjective The patient was lying in bed, awake and alert, upon entrance to his room by the clinician. The patient greeted the clinician appropriately and was agreeable to participation in the cognitive linguistic assessment. Language Eval: Auditory Comprehends Simple Yes/No Ques: Functional Indent/Objects Multiple M[place]on[place]: Functional Follows 1-Step Commands: Functional Follows General Conversations: Functional Language Eval: Verbal Language Completes Spontaneous Greeting: Functional Produces Auto, Serial Info: Functional Imitates Simple Words/Phrases: Functional Word Finding: Functional Requests Basic Needs: Functional States Basic Personal Info: Functional Language Evaluation: Reading Follows Simple Written Direct: Functional Cognitive Patient Orientation The patient was independently oriented to self, location, month, day of the week, and year. Objective Cognitive Domain Attention: WNL Memory: WNL Problem Solving: Functional Executive Functions: WNL Visuospatial Skills: WNL (Glasses present at bedside.) Composite Severity Rating: WNL The patient politely deferred clock drawing and writing exercises due to edema in his hands. The RN is aware of the edema present. Objective Formal/Standardized Tests [facility] Mental Status Exam (UMS) Results The patient demonstrated a result of +26/26 on the SLUMS correlating to a result within normal limits. Four points were removed from the total and score due to the clock drawing exercise. Oral Motor/Speech Production The patient does not display dysarthria or apraxia of speech. The patient is 100% intelligible in known and unknown contexts. Impression The patient demonstrated cognitive linguistic skills within normal limits and at self-reported baseline. Speech-Plan Treatment Plan Speech Therapy Treatment Plan: Discontinue ST Treatment Duration: Feb 22, 2022 Frequency: 1 time per week Estimated Hrs Per Day: .5 hour per day Rehab Potential: Good Safety Risks/Education Teaching Recipient: Patient Teaching Methods: Discussion Response to Teaching: Verbalize Understanding Education Topics Provided: Results, Recommendations, Plan of Care Time Speech Therapy Time In: 12:00 Speech Therapy Time Out: 12:30 DATE: Feb 22, 2022 Total Billed Time: 30 Billed Treatment Time 1, LG GAMA Feb 22, 2022 12:27
[2022-02-22] MEDS: ACETAMINOPHEN 500 MG TAB (TYLENOL) PO PRN ×2 (12:47→18:55)
[2022-02-22] MEDS: GABAPENTIN 300 MG (NEURONTIN) CAP PO PRN ×2 (12:47→18:55)
--- NOTE | 2022-02-22 13:28 | Physical Therapy Evaluation ---
PT Evaluation-General Medical Diagnosis Admission Date Feb 22, 2022 at 10:50 Medical Diagnosis: Critical illness myopathy, Covid 19 Onset Date: Feb 13, 2022 Therapy Diagnosis Therapy Diagnosis: impaired mobility, strength Precautions Precautions/Isolations: Airborne Isolation, Contact Isolation, Fall Prevention Referral Physician: Angela Gallardo DO Reason for Referral: Evaluation/Treatment Medical History Pertinent Medical History: DM, HTN, Neuropathy, Renal Insufficiency Reviewed History: Yes Social History Home: Single Level Current Living Status: Alone Entry Into Home: Stairs With Railing PT Steps Into Home: 4 Prior Prior Level of Function SCALE: Activities may be completed with or without assistive devices. 5-Ohagvwmvpm-bytyetv completes the activity by him/herself with no assistance from a helper. 5-Set-up or Clean-up Assistance-helper sets up or cleans up; patient completes activity. [place] assists only prior to or following the activity. 4-Supervision or Touching Assistance-helper provides verbal cues and/or touching/steadying and/or contact guard assistance as patient completes activity. Assistance may be provided throughout the activity or intermittently. 3-Partial/Moderate Assistance-helper does LESS THAN HALF the effort. [place] lifts, holds or supports trunk or limbs, but provides less than half the effort. 2-Substantial/Maximal Assistance-helper does MORE THAN HALF the effort. [place] lifts or holds trunk or limbs and provides more than half the effort. 6-Iwaovkxsu-qfugwl does ALL the effort. Patient does none of the effort to complete the activity. Or, the assistance of 2 or more helpers is required for the patient to complete the activity. If activity was not attempted, code reason: 7-Patient Refused. 9-Not Applicable-not attempted and the patient did not perform the activity before the current illness, exacerbation or injury. 10-Not Attempted due to Environmental Limitations-(lack of equipment, weather restraints, etc.). 88-Not Attempted due to Medical Conditions or Safety Concerns. Bed Mobility: 6 Transfers (B,C,W/C): 6 Gait: 6 Stairs: 6 Indoor Mobility (Ambulation): Independent Stairs: Independent Patient has been using a rolling walker and cane recently due to illness. PT Evaluation-Current Subjective Patient in recliner pre tx, agrees to PT, has 4/10 headache. Will be co- treating with OT for part of tx due to poor patient mobility, strength, endurance, severe debility, coordinate UE and LE during activity, safety and reduce risk of falls. Pain Section J - Health Conditions 1. Rarely or not at all 2. Occasionally 3. Frequently 4. Almost constantly 8. Unable to answer Pain Effect on Sleep: 1 Pain Interference with Therapy: 1 Pain Interference w/Day-to-Day: 1 Pt/Family Goals to be independent at home. Objective Patient Orientation: Person, Place, Situation ROM/Strength ROM Lower Extremities WNL Strength Lower Extremities LLE (hip flexion 3/5, knee flexion 3+/5, knee extension 4/5, dorsiflexion 4/5), RLE (hip flexion 3/5, knee flexion 3+/5, knee extension 4/5, dorsiflexion 4/5) Integumentary/Posture Integumentary patient has a lot of swelling in hands and feet. Sensory Vision: Wears Glasses Hearing: Functional Hand Dominance: Right Sensation Right Lower Extremit: Impaired Sensation Left Lower Extremity: Impaired Transfers Roll Left & Right (QC): 4 Sit to Lying (QC): 4 Lying to Sitting/Side of Bed(Q: 4 Sit to Stand (QC): 3 Chair/Rvy-nl-Jchcu Xfer(QC): 4 Toilet Transfer (QC): 4 Car Transfer (QC): 4 Patient performs rolling and supine <-> sit with SBA, sit <-> stand mod assist, transfers CGA, car transfer CGA. Patient needs occasional cues for hand placement and positioning. Gait Does the Patient Walk?: Yes Mode of Locomotion: Walk Anticipated Mode of Locomotion: Walk Walk 10 feet (QC): 4 Walk 50 ft with 2 Turns(QC): 4 Walk 150 ft (QC): 88 Walking 10ft/uneven surface-QC: 4 Distance: 80' Gait Assistive Device: FWW Comments/Gait Description Patient can ambulate 80' with a rolling walker with CGA (including 50' with at least 2 turns of 90 degrees and 10' over an uneven surface). Patient needs occasional steadying assist especially with turning. Wheelchair Training Wheel 50 ft with 2 turns (QC): 9 Wheel 150 ft (QC): 9 Stairs #of Steps: 1 1 Step (curb) (QC): 3 4 Steps (QC): 88 12 Steps (QC): 88 Walking Assistive Device: Walker Patient can go up and down 1 step using a rolling walker with min assist, cues for foot placement Balance Sitting Static: Normal Sitting Dynamic: Normal Standing Static: Fair Standing Dynamic: Fair Picking up an Object (QC): 4 (CGA using knot picker cloth) Treatment Patient also performed dressing and bathing, and ADL's at the sink. PT performed bed mobility and transfers, stair training, gait training, standing and positioning during bathing and dressing and ADL's, OT performed bathing, dressing, ADL's, UE positioning and safety during activity. Patient also performed seated LE exercises x20 (AP, LAQ, marching, hip abd/add) Assessment/Needs Patient in bed post tx with nurse call, phone, tray, all needs met. Patient has impaired mobility and strength, needs significant assist to stand from lower surfaces. Rehab Potential: Fair PT Short Term Goals Short Term Goals Time Frame: Mar 01, 2022 Sit to stand: 3 (min A) Chair/bqr-tn-ywjfs transfer: 4 (SBA) Walk 10 feet: 4 (SBA) Walk 50 feet with two turns: 4 (SBA) Walk 150 feet: 4 (SBA) PT Centralized Traffic Control Operator Goals Detention Goals PT Centralized Traffic Control Operator Goals Time Frame: Mar 08, 2022 Roll Left to Right (QC): 6 Sit to Lying (QC): 6 Lying-Sitting on Side/Bed(QC): 6 Sit to Stand (QC): 6 Chair/Xya-jc-Abgrh Xfer(QC): 6 Toilet/Commode Transfer (QC): 6 Car Transfer (QC): 6 Does the Patient Walk: Yes Walk 10 feet (QC): 6 Walk 10ft-Uneven Surface(QC): 6 Walk 50ft with 2 Turns (QC): 6 Walk 150 ft (QC): 6 Wheel 50 feet with 2 turns (QC: 9 Wheel 150 feet: 9 1 Step (curb) (QC): 4 4 Steps (QC): 4 12 Steps (QC): 88 Picking up an Object (QC): 6 (using knot picker cloth) PT Plan Problem List Problem List: Activity Tolerance, Functional Strength, Safety, Balance, Gait, Transfer, Bed Mobility, ROM Treatment/Plan Treatment Plan: Continue Plan of Care Treatment Plan: Bed Mobility, Education, Functional Activity Darcie, Functional Strength, Group Therapy, Gait, Safety, Therapeutic Exercise, Transfers Treatment Duration: Mar 08, 2022 Frequency: At least 5 of 7 days/Wk (IRF) Estimated Hrs Per Day: 1.5 hours per day Patient and/or Family Agrees t: Yes Safety Risks/Education Patient Education: Gait Training, Transfer Techniques, Steps, Correct Positioning, Safety Issues Teaching Recipient: Patient Teaching Methods: Demonstration, Discussion Response to Teaching: Reinforcement Needed Discharge Recommendations Plan Patient will perform bed mobility and transfer training, balance and endurance training, functional strengthening, stair training ,gait training, and education, to improve functional mobility and independence at home. Therapy Discharge Recommendati: Scheduled Assistance, Home & Family, Post Acute PT Time Time In: 1050 Time Out: 1215 DATE: Feb 22, 2022 Total Billed Treatment Time: 75 Total Billed Treatment 1 visit EX 15' EVM 10' FA 50 PT eval from [id number], OT eval from [id number], co-treat from [id number] DARYA KIM PT Feb 22, 2022 13:28
--- NOTE | 2022-02-22 13:38 | Progress Note ---
TOLU SHELTON 02/22/22 1338: Progress Note CC: Myopathy/debility HPI: Bandar Crabtree is 76-year-old male with past medical history of chronic kidney disease who inititially presented to the emergency department due to weakness 02/14/22. He was just discharged before this from the hospital after an admission for generalized weakness where he had been admitted 2 weeks ago for weakness and was discharged home with home health and failed. Despite this he was denied skilled benefits after his last hospitalization and returned home with home health. He lives alone and states since returning home he had c ontinued to worsen and was unable to get up from his couch. He said he had been crawling around on the floor for couple of days because he was unable to stand. He had been working to get into a facility near his daughter in [place] but he states that that does not look feasible now due to the expense. On arrival here he was found to have atrial fibrillation with rapid ventricular rate which he states is not new but he was not previously on any medications for it. He was also found to have an acute kidney injury with a creatinine of 2.05. He was admitted to the ICU for IV Cardizem and fluids. He did have a leukocytosis of c oncerning lesion on his foot so he was started on antibiotics to cover for infection. He then tested positive for covid on 02/15/22 and was placed into quarentine, he said today 02/22/22 that he is feeling much better but has had a headache the entire time of his stay saying that theres sinus pressure and the pain ranges from 4 to a 10. Denies ever having imaging done on his head. Along with his muscle weakness he says there is a constant myalgia that he rates 2-3. He reported that he also has severe stool retention but that was normal before being admitted and that he would poop ~1/month, but says his urinary output is almost hourly. PMH: Cardiac: Atrial Fibrillation Neurological: Neuropathy Genitourinary: Renal Failure Gastrointestinal: Diverticulosis, Hiatal Hernia Endocrine: Diabetes, Insulin dep HEENT: Cataract History of Blood Disorders: Yes (Anemia) PSH:Abdominal, Eye Surgery All: No Known Drug Allergies (Unverified , 03/04/21) MEDs: Scheduled Allopurinol (Allopurinol), 300 MG PO DAILY, (Reported) Apixaban (Eliquis), 5 MG PO BID Ascorbate Calcium (Vitamin C), 500 MG PO 1200, (Reported) Atorvastatin Calcium (Atorvastatin Calcium), 40 MG PO HS, (Reported) Cholecalciferol (Vitamin D3) (Vitamin D3), 50 MCG PO 1200, (Reported) Diltiazem HCl (Diltiazem 24Hr ER), 180 MG PO DAILY Empagliflozin (Jardiance), 12.5 MG PO DAILY, (Reported) Fish Oil/Dha/Epa (Fish Oil 1,200 mg Fish Oil), 1 EACH PO 1200, (Reported) Insulin Detemir (Levemir Flextouch), 20 UNIT SQ HS, (Reported) Metformin HCl (Metformin HCl), 1,000 MG PO BID, (Reported) Metoprolol Succinate (Metoprolol Succinate), 50 MG PO HS, (Reported) Multivitamin (Multivitamin), 1 EACH PO 1200, (Reported) Omeprazole (Omeprazole), 20 MG PO DAILY, (Reported) Pregabalin (Pregabalin), 200 MG PO TID, (Reported) Ubidecarenone (Co Q-10), 100 MG PO DAILY, (Reported) Vitamin E Mixed (Vitamin E), 100 UNIT PO 1200, (Reported) Scheduled PRN Furosemide (Furosemide), 40 MG PO DAILY PRN for FLUID RETENTION, (Reported) Tramadol HCl (Tramadol HCl), 50-100 MG PO HS PRN for PAIN-MODERATE (5-7), (Reported) Zolpidem Tartrate (Zolpidem Tartrate), 5 MG PO HS PRN for SLEEP, (Reported) SH: 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 He didnt report really any hobbies and denied any substance use of any kind. He said he was active and always working on stuff before the initial onset of weakness months ago. FH: no pertinent family Hx ROS: Constitutional: No chills, No fever, reports of malaise, weakness EENTM: no symptoms reported Respiratory: No cough, No short of breath Cardiovascular: no symptoms reported Gastrointestinal: decreased bowel movements Genitourinary: no symptoms reported Musculoskeletal: see HPI Skin: no symptoms reported Psychiatric/Neurological: No Symptoms Reported Exams: V/S: T(36.2) HR(111) RR(18) BP(123/78) SpO2(91 RA) General: no acute distress, WN/WD, appears weak and fatigued Respiratory: No accessory muscle use; other (fair to good air entry, diminished at the bases) Cardiovascular: irregularly irregular, systolic murmur (soft GENEVA at card base), no rubs or gallops Gastrointestional: Non tender; soft; No guarding, No rebound; audible bowel sounds Extremities: No clubbing, No cyanosis, generalized muscle weakness of all extremities 3/5 Neurologic/Psychiatric: oriented x 3, moves all limbs equally, dermatomes intact, depressed mood/affect Skin: normal color, warm/dry; No rash on exposed areas, No ulcerations on exposed areas Labs: Covid(+), Hgb(8.2), Glucose (148), elevated PT/aPTT A: Acute Myopathy COVID-19 Infection Atrial fibrillation with RVR Debility S/P Acute kidney injury superimposed on chronic kidney disease. HTN HLD T2DM P: Aggressive OT/PT vital monitoring and completion of paxlovid continue oral therapy for cardiac rate mantainence continue BP regimen Continue blood fat/sugar regulation ANGELA GALLARDO DO 02/23/22 0503: Supervisory-Addendum Brief Verification & Attestation Participated in pt care: history, MDM, physical Personally performed: exam, history, MDM, supervision of care Care discussed with: Medical Student Procedures: n/a Results interpretation: Verified all documentation Verification and Attestation of Medical Student E/M Service A medical student performed and documented this service in my presence. I reviewed and verified all information documented by the medical student and made modifications to such information, when appropriate. I personally performed the physical exam and medical decision making. Angela Gallardo Feb 23, 2022,05:03 TOLU SHELTON Feb 22, 2022 13:38 ANGELA GALLARDO DO Feb 23, 2022 05:03
[2022-02-22] MEDS: inSUlin ASPART (NovoLOG) 1 UNIT/0.01 ML (CHARGE PER UNIT) SC SCH ×2 (16:44→21:46)
[2022-02-22 19:45] VITALS: BP 119/67
[2022-02-22] MEDS: APIXABAN 5 MG (ELIQUIS) TABLET PO SCH (21:45)
[2022-02-22] MEDS: SENNA W/DOCUSATE (SENOKOT S) TABLET PO SCH (21:45)
[2022-02-22] MEDS: DOCUSATE SODIUM 100 MG (COLACE) CAP PO SCH (21:45)
[2022-02-22] MEDS: polyethylene glycoL POWDER 17 GM (MIRALAX) PACK PO SCH (21:46)
[2022-02-23] MEDS: ACETAMINOPHEN 500 MG TAB (TYLENOL) PO PRN ×4 (01:16→21:56)
[2022-02-23] MEDS: GABAPENTIN 300 MG (NEURONTIN) CAP PO PRN ×4 (01:16→21:56)
[2022-02-23 06:06] LABS: BASOPHILS % (AUTO) 0 % (0-10); EOSINOPHILS # (AUTO) 0.1 10^3/uL (0.0-0.3); EOSINOPHILS % (AUTO) 1 % (0-10); HEMATOCRIT 28 % (40-54); LYMPHOCYTES # (AUTO) 2.8 10^3/uL (1.0-4.0); LYMPHOCYTES % (AUTO) 27 % (12-44); MEAN CORPUSCULAR HEMOGLOBIN 31 pg (25-34); MEAN CORPUSCULAR HGB CONC 32 g/dL (32-36); MEAN CORPUSCULAR VOLUME 94 fL (80-99); MEAN PLATELET VOLUME 11.5 fL (9.0-12.2); MONOCYTES # (AUTO) 0.7 10^3/uL (0.0-1.0); MONOCYTES % (AUTO) 6 % (0-12); NEUTROPHILS % (AUTO) 65 % (42-75); PLATELET COUNT 348 10^3/uL (130-400); WHITE BLOOD COUNT 10.6 10^3/uL (4.3-11.0)
--- NOTE | 2022-02-23 06:11 | PM&R Progress Note ---
Subjective HPI/CC On Admission Date Seen by Provider: Feb 23, 2022 Time Seen by Provider: 08:30 Subjective/Events-last exam 02/23/2022: Patient doing well No major problems Out of isolation soon Monitoring oxygen level Reviewed labs Review of Systems General: Fatigue, Malaise Pulmonary: Dyspnea Objective Exam Vital Signs Vital Signs Date Time Temp Pulse Resp B/P (MAP) Pulse Ox O2 Delivery O2 Flow Rate FiO2 02/23/22 20:56 37.1 72 20 118/65 (82) 93 Room Air Capillary Refill : General Appearance: No Apparent Distress, WD/WN, Chronically ill HEENT: PERRL/EOMI, Normal ENT Inspection, Pharynx Normal Neck: Full Range of Motion, Normal Inspection, Non Tender, Supple, Carotid Bruit Respiratory: Chest Non Tender, Lungs Clear, No Accessory Muscle Use, No Respiratory Distress, Decreased Breath Sounds Cardiovascular: Regular Rate, Rhythm, No Edema, No Gallop, No JVD, No Murmur, Normal Peripheral Pulses Gastrointestinal: Normal Bowel Sounds, No Organomegaly, No Pulsatile Mass, Non Tender, Soft Back: Normal Inspection, No CVA Tenderness, No Vertebral Tenderness Extremity: Normal Capillary Refill, Normal Inspection, Normal Range of Motion, Non Tender, No Calf Tenderness, No Pedal Edema Neurologic/Psychiatric: Alert, Oriented x3, Abnormal Gait, Depressed Affect, Motor Weakness (Generalized) Skin: Normal Color, Warm/Dry Lymphatic: No Adenopathy Results/Procedures Lab Laboratory Tests 02/23/22 05:50 Patient resulted labs reviewed. FIM Transfers Therapy Code Descriptions/Definitions Functional [place] Measure: 0=Not Assessed/NA 4=Minimal Assistance 1=Total Assistance 5=Supervision or Setup 2=Maximal Assistance 6=Modified [place] 3=Moderate Assistance 7=Complete IndependenceSCALE: Activities may be completed with or without assistive devices. 0-Prchwqyjtt-qifwdki completes the activity by him/herself with no assistance from a helper. 5-Set-up or Clean-up Assistance-helper sets up or cleans up; patient completes activity. [place] assists only prior to or following the activity. 4-Supervision or Touching Assistance-helper provides verbal cues and/or touching/steadying and/or contact guard assistance as patient completes activity. Assistance may be provided throughout the activity or intermittently. 3-Partial/Moderate Assistance-helper does LESS THAN HALF the effort. [place] lifts, holds or supports trunk or limbs, but provides less than half the effort. 2-Substantial/Maximal Assistance-helper does MORE THAN HALF the effort. [place] lifts or holds trunk or limbs and provides more than half the effort. 6-Nlextavmo-cuinzc does ALL the effort. Patient does none of the effort to complete the activity. Or, the assistance of 2 or more helpers is required for the patient to complete the activity. If activity was not attempted, code reason: 7-Patient Refused. 9-Not Applicable-not attempted and the patient did not perform the activity before the current illness, exacerbation or injury. 10-Not Attempted due to Environmental Limitations-(lack of equipment, weather restraints, etc.). 88-Not Attempted due to Medical Conditions or Safety Concerns. Roll Left to Right (QC): 4 Sit to Lying (QC): 4 Sit to Stand (QC): 3 Chair/Bwd-lw-Kvcnw Xfer(QC): 4 Car Transfer (QC): 4 Gait Training Does the Patient Walk?: Yes Walk 10 feet (QC): 4 Walk 50 ft with 2 Turns(QC): 4 Walk 150 ft (QC): 88 Walking 10ft/uneven surface-QC: 4 Gait Assistive Device: FWW Wheelchair Training Wheel 50 ft with 2 turns (QC): 9 Wheel 150 ft (QC): 9 Stair Training #of Steps: 1 1 Step (curb) (QC): 3 4 Steps (QC): 88 12 Steps (QC): 88 Balance Picking up an Object (QC): 4 (CGA using rn prior authorization) ADL-Treatment Eating (QC): 4 (per patient report) Oral Hygiene (QC): 5 Shower/Bathe Self (QC): 3 (mod) Upper Body Dressing (QC): 3 (min) Lower Body Dressing (QC): 3 (mod) On/Off Footwear (QC): 3 (min) Toileting Hygiene (QC): 2 Assessment/Plan Assessment and Plan Assess & Plan/Chief Complaint Assessment: Myopathy COVID-19 Atrial fibrillation Diabetes Acute on chronic renal failure Neuropathy Constipation Plan: Supportive care Monitor closely 02/23/2022: Bowel regimen Diabetes management (1) Myopathy (2) T2DM (type 2 diabetes mellitus) Status: Chronic (3) COVID-19 Status: Acute (4) Acute kidney injury superimposed on chronic kidney disease Status: Acute (5) HLD (hyperlipidemia) Status: Chronic (6) HTN (hypertension) Status: Chronic (7) Debility Status: Acute (8) Atrial fibrillation with RVR Status: Acute (9) Generalized weakness (10) CKD (chronic kidney disease) (11) Neuropathic pain Status: Acute (12) Iron deficiency Status: Acute (13) Noncompliance with medication regimen Status: Acute (14) Diabetic neuropathy Status: Acute MALINA HOOVER DO Feb 23, 2022 06:11
--- NOTE | 2022-02-23 06:11 | Individualized Plan of Care ---
Individualized Plan of Care Rehab Nursing IPOC Order Admission Date Feb 22, 2022 at 10:50 Current Orders Orders Admission Order(Inpt,Obs,Sdc) (02/22/22 10:02) Jamaal Ferrell (02/22/22 10:02) Sequential Compression Device (02/22/22 10:02) Street Light Servicer Supervisor-Inpt Rehab Con (02/22/22 10:02) Rehab Nursing Orders-Ipoc (02/22/22 10:02) Physical Therapy Rehab Orders (02/22/22 10:02) Occupational Therapy Rehab Ord (02/22/22 10:02) Speech Therapy Rehab Orders (02/22/22 10:02) Cbc With Automated Diff (02/23/22 06:00) Comprehensive Metabolic Panel (02/23/22 06:00) Precautions (Aru) (02/22/22 10:02) Weekly Weight WEEK (02/22/22 10:02) Rehab-Intensity Of Therapy (02/22/22 10:02) Initiate Admission Nursing Pro .admission (02/22/22 10:02) Alprazolam Tablet (Xanax Tablet) (02/22/22 10:15) Calcium Carbonate Chew Tablet (Antacid C (02/22/22 10:15) Diphenhydramine Tablet (Benadryl Tablet) (02/22/22 10:15) Docusate Sodium Capsule (Colace Capsule) (02/22/22 21:00) Docusate Sodium Capsule (Colace Capsule) (02/22/22 10:15) Bisacodyl Suppository (Dulcolax Supposit (02/22/22 10:15) Lactulose Oral Solution (Enulose Oral So (02/22/22 10:15) Na Phos/Na Biphos Enema (Fleet Enema Siddharth (02/22/22 10:15) Guaifenesin/Codeine Syrup (Robitussin Ac (02/22/22 10:15) Loperamide Tablet (Imodium Tablet) (02/22/22 10:15) Melatonin Tablet (Melatonin Tablet) (02/22/22 10:15) Polyethylene Glycol Powder Pkt (Miralax (02/22/22 21:00) Ondansetron Oral Dissolve Tab (Zofran (02/22/22 10:15) Senna S Tablet (Senokot S Tablet) (02/22/22 21:00) Acetaminophen Tablet/Caplet (Tylenol T (02/22/22 10:15) Code/Resuscitation (02/22/22 10:02) Initiate Admission Nursing Pro .admission (02/22/22 10:02) Isolation Central Supply Req (02/22/22 10:02) Admission Arrival Bed Request (02/22/22 11:25) Isolation Central Supply Req (02/22/22 11:25) Code/Resuscitation (02/22/22 11:56) Accucheck Achs ACHS (02/22/22 11:56) Initiate Admission Nursing Pro .admission (02/22/22 11:56) Weight Bearing As Tolerated (02/22/22 11:56) Cho 75g/M 1snack (21-2400 Abner) (02/22/22 Lunch) Acetaminophen Tablet (Tylenol Tablet) (02/22/22 12:00) Apixaban Tablet (Eliquis Tablet) (02/22/22 21:00) Gabapentin Capsule/Tablet (Neurontin Cap (02/22/22 12:00) Ondansetron Injection (Zofran Injectio (02/22/22 12:00) Diltiazem Cd 24 Hr Capsule (Cardizem Cd (02/23/22 09:00) Insulin Aspart (Novolog) (Novolog (Charg (02/22/22 16:00) Insulin Determir (Per Unit) (Levemir (Pe (02/22/22 21:00) Consult Cardiology (02/22/22 11:56) Patient Visit (02/22/22 ) Speech Sound Lang Comp (02/22/22 ) Treat. Speech/Lang/Voice (02/22/22 ) Ensure Plus Vanilla (02/22/22 13:06) Patient Visit (02/22/22 ) Pt Eval Moderate Complexity (02/22/22 ) Exercise Therap, Ea 15 Min (02/22/22 ) Functional Activities, Ea 15 (02/22/22 ) Bisacodyl Suppository (Dulcolax Supposit (02/23/22 09:00) Soap Suds Enema Until Clear (02/23/22 08:49) Patient Visit (02/23/22 ) Exercise Therap, Ea 15 Min (02/23/22 ) Functional Activities, Ea 15 (02/23/22 ) Gait Training, Ea 15 Min (02/23/22 ) Rehab Nursing Orders: Ongoing Assess. of Cognitive Status, Ongoing Assess. of Function Status, Bladder Management, Bladder Scan, Bladder Training, Bowel Management, Bowel Training, Disease Management & Educaiton, DVT Prophylaxis, Fall Prevention, Fluid/Electrolyte/Nutrition Mgmt, Infection Prevention, Medication Management & Education, Management of Risks & Complications, Man agement of Skin Intergrity, Nutrition Management, Pain Management, Patient/Family Support, Safety Management Intensity of Therapy to be met Patient to be seen: Min.3h per day/5 of 7d PT IPOC Problem List: Activity Tolerance, Functional Strength, Safety, Balance, Gait, Transfer, Bed Mobility, ROM Treatment Plan: Continue Plan of Care Bed Mobility, Education, Functional Activity Darcie, Functional Strength, Group Therapy, Gait, Safety, Therapeutic Exercise, Transfers Treatment Duration: Mar 08, 2022 Frequency: At least 5 of 7 days/Wk (IRF) Estimated Hrs Per Day: 1.5 hours per day OT IPOC Problems: Decreased Activ Tolerance, Decreased UE Strength, Impaired I ADL's, Restricted Funct UE ROM OT Treatment, Training and Edu: Yes Plan of Care: ADL Retraining, Cognitive Retraining, Functional Mobility, Group Exercise/Act as Ind, UE Funct Exercise/Act Treatment Duration: Mar 08, 2022 Frequency: At least 5 of 7 days/Wk (IRF) Estimated Hrs Per Day: 1.5 hours per day (75-90 min/day ) ST IPOC Speech Therapy Treatment Plan: Discontinue ST Treatment Duration: Feb 22, 2022 Frequency: 1 time per week Estimated Hrs Per Day: .[address] Light Servicer Supervisor/Case Mgmt Street Light Servicer Supervisor/Case Managemen: Discharge Planning Dietitian/Vascular Radiologist Dietitian/Vascular Radiologist to monitor nutritional status and make changes and/or recommendations as needed and work with speech pathology on dietary upgrades as the occur. Physician IPOC Medical Issues being managed closely and that require the 24 hour availability of a physician: Recent COVID elg-vk-bbpfhkl diabetes and generalized weakness will require close monitoring to prevent hypoxia and decompensation Medical Issues: Bowel/Bladder Function, DVT Prophylaxis, Falls Precautions, Fluid/Electrolyte/Nutrition Balance, Infection Protection, Pain Management Brief Synthesis of Preadmission Screen, Post-Admission Evaluation, and Therapy Evaluations: PT and OT will focus on regaining function with use of assistive devices in order to regain function and stamina to return home and live independently Medical Prognosis: Good Anticipated Length of Stay: 7 days MALINA HOOVER DO Feb 23, 2022 06:11
[2022-02-23 06:28] LABS: ALBUMIN 2.5 GM/DL (3.2-4.5); BILIRUBIN,TOTAL 0.4 MG/DL (0.1-1.0); CALCIUM 8.8 MG/DL (8.5-10.1); CREATININE SERUM 0.99 MG/DL (0.60-1.30); POTASSIUM 3.6 MMOL/L (3.6-5.0); TOTAL PROTEIN 7.4 GM/DL (6.4-8.2)
[2022-02-23] MEDS: inSUlin ASPART (NovoLOG) 1 UNIT/0.01 ML (CHARGE PER UNIT) SC SCH ×4 (06:30→21:56)
[2022-02-23 07:20] VITALS: BP 128/86
[2022-02-23] MEDS: SENNA W/DOCUSATE (SENOKOT S) TABLET PO SCH ×2 (08:08→21:57)
[2022-02-23] MEDS: DOCUSATE SODIUM 100 MG (COLACE) CAP PO SCH ×2 (08:08→21:57)
[2022-02-23] MEDS: APIXABAN 5 MG (ELIQUIS) TABLET PO SCH ×2 (08:08→21:56)
[2022-02-23] MEDS ORDERED: BISACODYL 10 MG SUPP (DULCOLAX) PR NR (09:00)
[2022-02-23] MEDS: polyethylene glycoL POWDER 17 GM (MIRALAX) PACK PO SCH ×2 (09:22→21:57)
--- NOTE | 2022-02-23 09:44 | Occupational Ther Daily Note ---
OT Current Status-Daily Note Subjective Pt c/o headache, 09/20. Agreeable to shower. Appearance Pt returned to reclined in bed, all needs within reach, RN notified and she reports pain meds were given just prior to start of OT session Mental Status/Objective Patient Orientation: Person, Place, Situation Attachments: IV ADL-Treatment Therapy Code Descriptions/Definitions Functional [place] Measure: 0=Not Assessed/NA 4=Minimal Assistance 1=Total Assistance 5=Supervision or Setup 2=Maximal Assistance 6=Modified [place] 3=Moderate Assistance 7=Complete IndependenceSCALE: Activities may be completed with or without assistive devices. 5-Sgservzhax-svkdrdo completes the activity by him/herself with no assistance from a helper. 5-Set-up or Clean-up Assistance-helper sets up or cleans up; patient completes activity. [place] assists only prior to or following the activity. 4-Supervision or Touching Assistance-helper provides verbal cues and/or touching/steadying and/or contact guard assistance as patient completes activity. Assistance may be provided throughout the activity or intermittently. 3-Partial/Moderate Assistance-helper does LESS THAN HALF the effort. [place] lifts, holds or supports trunk or limbs, but provides less than half the effort. 2-Substantial/Maximal Assistance-helper does MORE THAN HALF the effort. [place] lifts or holds trunk or limbs and provides more than half the effort. 2-Wjctkvnxu-uibbzz does ALL the effort. Patient does none of the effort to complete the activity. Or, the assistance of 2 or more helpers is required for the patient to complete the activity. If activity was not attempted, code reason: 7-Patient Refused. 9-Not Applicable-not attempted and the patient did not perform the activity before the current illness, exacerbation or injury. 10-Not Attempted due to Environmental Limitations-(lack of equipment, weather restraints, etc.). 88-Not Attempted due to Medical Conditions or Safety Concerns. Oral Hygiene (QC): 5 Shower/Bathe Self (QC): 3 Upper Body Dressing (QC): 3 Lower Body Dressing (QC): 3 On/Off Footwear: 3 Toileting Hygiene (QC): 3 Toilet Transfer (QC): 4 Shower performed; 100% completed in sitting. Cues/encouragement to wash all body parts as pt did not want help and stated "I'll just go stinky." Assist to wash buttocks as pt leaned R/L. Clothing donned seated on shower bench. Pt able to don shirt overhead this date but required assist to pull down around torso secondary to fatigue and UE weakness/ROM. Min a to thread feet through LB clothing. Pt able to stand with SBA, requires assist to pull clothing full up in back, again due to limited shoulder ROM. Mod a to don bilateral socks as after patient initiated socks over toes he c/o a headache and needs assist to veneer puller heels. Grooming performed in sitting with set up. Pt often needs cues to attempt tasks prior to asking for help as he will often hold out hand/foot/etc for therapist to complete. Education OT Patient Education: Correct positioning, Energy conservation, Modified ADL te chniques, Purpose of tx/functional activities, Safety issues, Transfer techniques Teaching Recipient: Patient Teaching Methods: Demonstration, Discussion Response to Teaching: Verbalize Understanding, Return Demonstration, Reinforcement Needed OT Short Term Goals Short Term Goals Time Frame: Mar 01, 2022 Eatin Oral hygiene: 5 Toileting hygiene: 3 Shower/bathe self: 3 Upper body dressin Lower body dressin Putting on/taking off footwear: 4 OT Intermediate Goals Psychiatric Nurse Goals Time Frame: Mar 08, 2022 Acute change in mental status: 0 Inattention: 0 Disorganized thinkin Altered level of consciousness: 0 Eating (QC): 5 Oral Hygiene (QC): 5 Toileting Hygiene (QC): 6 Shower/Bathe Self (QC): 5 Upper Body Dressing (QC): 5 Lower Body Dressing (QC): 5 On/Off Footwear (QC): 5 Additional Goals: 1-Demonstrate ADL Tasks, 2-Verbalize Understanding, 3- ImproveStrength/Darcie 1=Demonstrate adherence to instructed precautions during ADL tasks. 2=Patient will verbalize/demonstrate understanding of assistive devices/modifications for ADL. 3=Patient will improve strength/tolerance for activity to enable patient to perform ADL's. OT Education/Plan Problem List/Assessment Assessment: Decreased Activ Tolerance, Decreased Safety Aware, Decreased UE Strength, Impaired Cognition, Impaired Funct Balance, Impaired I ADL's, Impaired Self-Care Skills, Restricted Funct UE ROM Discharge Recommendations Plan/Recommendations: Continue POC Treatment Plan/Plan of Care Treatment,Training & Education: Yes Patient would benefit from OT for education, treatment and training to promote independence in ADL's, mobility, safety and/or upper extremity function for ADL's. Plan of Care: ADL Retraining, Cognitive Retraining, Functional Mobility, Group Exercise/Act as Ind, UE Funct Exercise/Act Treatment Duration: Mar 08, 2022 Frequency: At least 5 of 7 days/Wk (IRF) Estimated Hrs Per Day: 1.5 hours per day (75-90 min/day ) Rehab Potential: Good Time Start Time: 08:25 Stop Time: 09:55 DATE: Feb 23, 2022 Total Time Billed (hr/min): 90 Billed Treatment Time 1 visit ADL x6 Evelin Padilla OT Feb 23, 2022 09:44
--- NOTE | 2022-02-23 11:37 | Physical Therapy Daily Note ---
PT Daily Note-Current Subjective Pt sitting up in bed upon arrival. Pt agrees to PT. Pain Location: No Pain Reported Section J - Health Conditions 1. Rarely or not at all 2. Occasionally 3. Frequently 4. Almost constantly 8. Unable to answer Pain Effect on Sleep: 1 Pain Interference with Therapy: 1 Pain Interference w/Day-to-Day: 1 Mental Status Patient Orientation: Person, Place, Time, Situation Transfers SCALE: Activities may be completed with or without assistive devices. 9-Ygpslbenns-bpeicnw completes the activity by him/herself with no assistance from a helper. 5-Set-up or Clean-up Assistance-helper sets up or cleans up; patient completes activity. [place] assists only prior to or following the activity. 4-Supervision or Touching Assistance-helper provides verbal cues and/or touching/steadying and/or contact guard assistance as patient completes activity. Assistance may be provided throughout the activity or intermittently. 3-Partial/Moderate Assistance-helper does LESS THAN HALF the effort. [place] lifts, holds or supports trunk or limbs, but provides less than half the effort. 2-Substantial/Maximal Assistance-helper does MORE THAN HALF the effort. [place] l ifts or holds trunk or limbs and provides more than half the effort. 7-Gkmzsbjkl-ynidka does ALL the effort. Patient does none of the effort to complete the activity. Or, the assistance of 2 or more helpers is required for the patient to complete the activity. If activity was not attempted, code reason: 7-Patient Refused. 9-Not Applicable-not attempted and the patient did not perform the activity before the current illness, exacerbation or injury. 10-Not Attempted due to Environmental Limitations-(lack of equipment, weather restraints, etc.). 88-Not Attempted due to Medical Conditions or Safety Concerns. Lying to Sitting/Side of Bed(Q: 5 Sit to Stand (QC): 5 Weight Bearing Full Weight Bearing Full Weight Bearing Gait Training Does the Patient Walk?: Yes Distance: 80' Walk 10 feet (QC): 5 Walk 50 ft with 2 Turns(QC): 5 Gait Assistive Device: FWW Wheelchair Training Does the Pt Use a Wheelchair?: No Exercises Supine Ex: Ankle pumps, Quad Set, Glut sets, Heel Slides, Short Arc Quads, Straight leg raise, Hip abd/add Supine Reps: 15 Seated Therapy Exercises: Ankle pumps, Long arc quads, Hip flexion, Hip abd/add, Glut set Seated Reps: 15 Treatments Pt completed Supine EX in bed then TF to EOB. Pt completes Seated EX w/RB as needed. Pt amb. in room returning to EOB to rest. Pt sits at EOB working on dynamic sitting balance. Pt calls lunch order in then TF back to Supine in bed for rest. All needs met, call light in hand. Assessment Current Status: Good Progress Pt demonstrates improved independence of tasks, transfers & ambulation. PT Short Term Goals Short Term Goals Time Frame: Mar 01, 2022 Sit to stand: 3 (min A) Chair/cbu-fk-krtsk transfer: 4 (SBA) Walk 10 feet: 4 (SBA) Walk 50 feet with two turns: 4 (SBA) Walk 150 feet: 4 (SBA) PT Resource Development Director Goals Resource Development Director Goals PT Resource Development Director Goals Time Frame: Mar 08, 2022 Roll Left & Right (QC): 6 Sit to Lying (QC): 6 Lying-Sitting on Side/Bed(QC): 6 Sit to Stand (QC): 6 Chair/Nsg-sk-Ddcui Xfer(QC): 6 Toilet Transfer (QC): 6 Car Transfer (QC): 6 Does the Patient Walk: Yes Walk 10 feet (QC): 6 Walk 50ft with 2 Turns (QC): 6 Walk 150 ft (QC): 6 Walking 10ft on Uneven Surface: 6 1 Step (curb) (QC): 4 4 Steps (QC): 4 12 Steps (QC): 88 Picking up an Object (QC): 6 (using forepart reducer) Wheel 50 feet with 2 turns (QC: 9 Wheel 150 feet: 9 PT Plan Problem List Problem List: Activity Tolerance Treatment/Plan Treatment Plan: Continue Plan of Care Treatment Plan: Bed Mobility, Education, Functional Activity Darcie, Functional Strength, Group Therapy, Gait, Safety, Therapeutic Exercise, Transfers Treatment Duration: Mar 08, 2022 Frequency: At least 5 of 7 days/Wk (IRF) Estimated Hrs Per Day: 1.5 hours per day Patient and/or Family Agrees t: Yes Time Time In: 1000 Time Out: 1130 DATE: Feb 23, 2022 Total Billed Treatment Time: 90 Total Billed Treatment 1, EX x2 (35m), FA x2 (25m) & GT x2 (30m) LAURIE MELTON JOURNEYMAN PAINTER Feb 23, 2022 11:37
--- NOTE | 2022-02-23 12:27 | Progress Note ---
TOLU SHELTON 02/23/22 1227: Progress Note S: Bandar Crabtree is 76-year-old male with past medical history of chronic kidney disease who inititially presented to the emergency department due to weakness 02/14/22. He was just discharged before this from the hospital after an admission for generalized weakness where he had been admitted 2 weeks ago for weakness and was discharged home with home health and failed. Despite this he was denied skilled benefits after his last hospitalization and returned home with home health. He lives alone and states since returning home he had continued to worsen and was unable to get up from his couch. He said he had been crawling around on the floor for couple of days because he was unable to stand. He had been working to get into a facility near his daughter in [place] but he states that that does not look feasible now due to the expense. On arrival here he was found to have atrial fibrillation with rapid ventricular rate which he states is not new but he was not previously on any medications for it. He was also found to have an acute kidney injury with a creatinine of 2.05. He was admitted to the ICU for IV Cardizem and fluids. He did have a leukocytosis of concerning lesion on his foot so he was started on antibiotics to cover for infection. He then tested positive for covid on 02/15/22 and was placed into quarentine, he said today 02/22/22 that he is feeling much better but has had a headache the entire time of his stay saying that theres sinus pressure and the pain ranges from 4 to a 10. Denies ever having imaging done on his head. Along with his muscle weakness he says there is a constant myalgia that he rates 2-3. He reported that he also has severe stool retention but that was normal before being admitted and that he would poop ~1/month, but says his urinary output is almost hourly. Pt today was seen sitting up, he communicated that he was suffering from "one of the worst headaches of his life" he was visibly grumpy and with talking to the patient it seems like he may be depressed. He had no other new complaints and continues to recover well. His constipation continues to be an issue and he is taking suppositories, his bowels will continue to be monitored. O: V/S: T(36.2) HR(111) RR(18) BP(123/78) SpO2(91 RA) General: no acute distress, WN/WD, appears weak and fatigued Respiratory: No accessory muscle use; other (fair to good air entry, diminished at the bases) Cardiovascular: irregularly irregular, systolic murmur (soft GENEVA at card base), no rubs or gallops Gastrointestional: Non tender; soft; No guarding, No rebound; audible bowel sounds Extremities: No clubbing, No cyanosis, generalized muscle weakness of all extremities 3/5 Neurologic/Psychiatric: oriented x 3, moves all limbs equally, dermatomes intact, depressed mood/affect Skin: normal color, warm/dry; No rash on exposed areas, No ulcerations on exposed areas Labs: Covid(+), Hgb(9.0), Glucose (169), elevated PT/aPTT A: Acute Myopathy COVID-19 Infection Atrial fibrillation with RVR Debility S/P Acute kidney injury superimposed on chronic kidney disease. HTN HLD T2DM Anemia Constipation ROQUE P: Aggressive OT/PT vital monitoring and completion of paxlovid continue oral therapy for cardiac rate mantainence continue BP regimen Continue blood fat/sugar regulation Suppository administered Gabapentin and acetamenophin ANGELA HOOVER DO 02/24/22 0438: Supervisory-Addendum Brief Verification & Attestation Participated in pt care: history, MDM, physical Personally performed: exam, history, MDM, supervision of care Care discussed with: Medical Student Procedures: n/a Results interpretation: Verified all documentation Verification and Attestation of Medical Student E/M Service A medical student performed and documented this service in my presence. I reviewed and verified all information documented by the medical student and made modifications to such information, when appropriate. I personally performed the physical exam and medical decision making. Angela Hoover, Feb 24, 2022,04:38 TOLU SHELTON Feb 23, 2022 12:27 ANGELA HOOVER DO Feb 24, 2022 04:38
[2022-02-23 20:56] VITALS: BP 118/65
[2022-02-24] MEDS: GABAPENTIN 300 MG (NEURONTIN) CAP PO PRN ×3 (03:59→22:13)
[2022-02-24] MEDS: ACETAMINOPHEN 500 MG TAB (TYLENOL) PO PRN ×3 (04:01→22:14)
[2022-02-24] MEDS: inSUlin ASPART (NovoLOG) 1 UNIT/0.01 ML (CHARGE PER UNIT) SC SCH ×4 (05:43→21:40)
--- NOTE | 2022-02-24 06:06 | PM&R Progress Note ---
Subjective HPI/CC On Admission Date Seen by Provider: Feb 24, 2022 Time Seen by Provider: 08:30 Subjective/Events-last exam 02/24/2022: Much improved Out of isolation Breathing well No pain reported BM are slow and this is chronic 02/23/2022: Patient doing well No major problems Out of isolation soon Monitoring oxygen level Reviewed labs Review of Systems General: Fatigue, Malaise Pulmonary: Dyspnea Gastrointestinal: Constipation Objective Exam Vital Signs Vital Signs Date Time Temp Pulse Resp B/P (MAP) Pulse Ox O2 Delivery O2 Flow Rate FiO2 02/24/22 19:07 37.3 91 20 134/71 (92) 94 Room Air Capillary Refill : General Appearance: No Apparent Distress, WD/WN, Chronically ill HEENT: PERRL/EOMI, Normal ENT Inspection, Pharynx Normal Neck: Full Range of Motion, Normal Inspection, Non Tender, Supple, Carotid Bruit Respiratory: Chest Non Tender, Lungs Clear, No Accessory Muscle Use, No Respiratory Distress, Decreased Breath Sounds Cardiovascular: Regular Rate, Rhythm, No Edema, No Gallop, No JVD, No Murmur, Normal Peripheral Pulses Gastrointestinal: Normal Bowel Sounds, No Organomegaly, No Pulsatile Mass, Non Tender, Soft Back: Normal Inspection, No CVA Tenderness, No Vertebral Tenderness Extremity: Normal Capillary Refill, Normal Inspection, Normal Range of Motion, Non Tender, No Calf Tenderness, No Pedal Edema Neurologic/Psychiatric: Alert, Oriented x3, Abnormal Gait, Depressed Affect, Motor Weakness (Generalized) Skin: Normal Color, Warm/Dry Lymphatic: No Adenopathy Results/Procedures Lab Patient resulted labs reviewed. FIM Transfers Therapy Code Descriptions/Definitions Functional [place] Measure: 0=Not Assessed/NA 4=Minimal Assistance 1=Total Assistance 5=Supervision or Setup 2=Maximal Assistance 6=Modified [place] 3=Moderate Assistance 7=Complete IndependenceSCALE: Activities may be completed with or without assistive devices. 0-Kcgfztnsnl-pzlejah completes the activity by him/herself with no assistance from a helper. 5-Set-up or Clean-up Assistance-helper sets up or cleans up; patient completes activity. [place] assists only prior to or following the activity. 4-Supervision or Touching Assistance-helper provides verbal cues and/or touching/steadying and/or contact guard assistance as patient completes activity. Assistance may be provided throughout the activity or intermittently. 3-Partial/Moderate Assistance-helper does LESS THAN HALF the effort. [place] lifts, holds or supports trunk or limbs, but provides less than half the effort. 2-Substantial/Maximal Assistance-helper does MORE THAN HALF the effort. [place] lifts or holds trunk or limbs and provides more than half the effort. 1-Vlbkmmcjo-qsydyq does ALL the effort. Patient does none of the effort to complete the activity. Or, the assistance of 2 or more helpers is required for the patient to complete the activity. If activity was not attempted, code reason: 7-Patient Refused. 9-Not Applicable-not attempted and the patient did not perform the activity before the current illness, exacerbation or injury. 10-Not Attempted due to Environmental Limitations-(lack of equipment, weather restraints, etc.). 88-Not Attempted due to Medical Conditions or Safety Concerns. Roll Left to Right (QC): 4 Sit to Lying (QC): 4 Sit to Stand (QC): 5 Chair/Mfx-ly-Zbxbf Xfer(QC): 4 Car Transfer (QC): 4 Gait Training Does the Patient Walk?: Yes Distance: 80' Walk 10 feet (QC): 5 Walk 50 ft with 2 Turns(QC): 5 Walk 150 ft (QC): 88 Walking 10ft/uneven surface-QC: 4 Gait Assistive Device: FWW Wheelchair Training Does the Pt Use a Wheelchair?: No Wheel 50 ft with 2 turns (QC): 9 Wheel 150 ft (QC): 9 Stair Training #of Steps: 1 1 Step (curb) (QC): 3 4 Steps (QC): 88 12 Steps (QC): 88 Balance Picking up an Object (QC): 4 (CGA using special needs caregiver) ADL-Treatment Eating (QC): 4 (per patient report) Oral Hygiene (QC): 5 Shower/Bathe Self (QC): 3 Upper Body Dressing (QC): 3 Lower Body Dressing (QC): 3 On/Off Footwear (QC): 3 Toileting Hygiene (QC): 3 Toilet Transfer (QC): 4 Assessment/Plan Assessment and Plan Assess & Plan/Chief Complaint Assessment: Myopathy COVID-19 Atrial fibrillation Diabetes Acute on chronic renal failure Neuropathy Constipation Plan: Supportive care Monitor closely 02/23/2022: Bowel regimen Diabetes management 02/24/2022: Out of isolation Monitor closely (1) Myopathy (2) T2DM (type 2 diabetes mellitus) Status: Chronic (3) COVID-19 Status: Acute (4) Acute kidney injury superimposed on chronic kidney disease Status: Acute (5) HLD (hyperlipidemia) Status: Chronic (6) HTN (hypertension) Status: Chronic (7) Debility Status: Acute (8) Atrial fibrillation with RVR Status: Acute (9) Generalized weakness (10) CKD (chronic kidney disease) (11) Neuropathic pain Status: Acute (12) Iron deficiency Status: Acute (13) Noncompliance with medication regimen Status: Acute (14) Diabetic neuropathy Status: Acute MALINA HOOVER DO Feb 24, 2022 06:06
[2022-02-24 08:00] VITALS: BP 123/70
[2022-02-24] MEDS: APIXABAN 5 MG (ELIQUIS) TABLET PO SCH ×2 (08:08→20:02)
[2022-02-24] MEDS: SENNA W/DOCUSATE (SENOKOT S) TABLET PO SCH ×2 (08:08→20:02)
[2022-02-24] MEDS: DOCUSATE SODIUM 100 MG (COLACE) CAP PO SCH ×2 (08:08→20:02)
[2022-02-24] MEDS: polyethylene glycoL POWDER 17 GM (MIRALAX) PACK PO SCH ×2 (08:09→20:01)
--- NOTE | 2022-02-24 09:19 | Occupational Ther Daily Note ---
OT Current Status-Daily Note Subjective Pt continues to report a headache, declines having OT ask RN for pain meds. Appearance Pt left sitting in recliner, BLE's elevated, all needs within reach at OT departure. Mental Status/Objective Patient Orientation: Person, Place, Situation ADL-Treatment Therapy Code Descriptions/Definitions Functional [place] Measure: 0=Not Assessed/NA 4=Minimal Assistance 1=Total Assistance 5=Supervision or Setup 2=Maximal Assistance 6=Modified [place] 3=Moderate Assistance 7=Complete IndependenceSCALE: Activities may be completed with or without assistive devices. 7-Dmocefjcwu-zhxcwny completes the activity by him/herself with no assistance from a helper. 5-Set-up or Clean-up Assistance-helper sets up or cleans up; patient completes activity. [place] assists only prior to or following the activity. 4-Supervision or Touching Assistance-helper provides verbal cues and/or touching/steadying and/or contact guard assistance as patient completes activity. Assistance may be provided throughout the activity or intermittently. 3-Partial/Moderate Assistance-helper does LESS THAN HALF the effort. [place] lifts, holds or supports trunk or limbs, but provides less than half the effort. 2-Substantial/Maximal Assistance-helper does MORE THAN HALF the effort. [place] lifts or holds trunk or limbs and provides more than half the effort. 0-Zrjkfsyat-cpimbf does ALL the effort. Patient does none of the effort to complete the activity. Or, the assistance of 2 or more helpers is required for the patient to complete the activity. If activity was not attempted, code reason: 7-Patient Refused. 9-Not Applicable-not attempted and the patient did not perform the activity before the current illness, exacerbation or injury. 10-Not Attempted due to Environmental Limitations-(lack of equipment, weather restraints, etc.). 88-Not Attempted due to Medical Conditions or Safety Concerns. Eating (QC): 5 Oral Hygiene (QC): 4 On/Off Footwear: 3 (mod a to pipe puller heel, pt able to intiate over toes.) Toileting Hygiene (QC): 4 Toilet Transfer (QC): 4 Pt reports need to void at OT arrival. He stood with SBA and ambulated in/out of bathroom with use of walker and intermittent CGA for safety. Slow but steady gait. Pt able to manage clothing over hips this date with extra time and cues. He stood at sink to complete grooming tasks, close supervision for safety. Other Treatment Pt sat in chair to complete UE and core exercises. 2# dowel devyn for bicep exercises. No resistance for shoulder and wrist. R shoulder fatigues very quickly and pt only able to complete full AROM for ~2-3 reps before needing AAROM. Significant weakness noted throughout RUE. 1x12 biceps, 1x10 all shoulder planes. Modified sit up in sitting 1x10. Several rest breaks needed throughout exercises due to fatigue. Education OT Patient Education: Correct positioning, Energy conservation, Exercise program, Modified ADL techniques, Progress toward Goal/Update tx plan, Purpose of tx/functional activities, Reviewed precautions, Rehab process, Safety issues, Transfer techniques Teaching Recipient: Patient Teaching Methods: Demonstration, Discussion Response to Teaching: Verbalize Understanding, Return Demonstration, Reinforcement Needed OT Short Term Goals Short Term Goals Time Frame: Mar 01, 2022 Eatin Oral hygiene: 5 Toileting hygiene: 3 Shower/bathe self: 3 Upper body dressin Lower body dressin Putting on/taking off footwear: 4 OT Board Design Engineer Goals [facility] Goals Time Frame: Mar 08, 2022 Acute change in mental status: 0 Inattention: 0 Disorganized thinkin Altered level of consciousness: 0 Eating (QC): 5 Oral Hygiene (QC): 5 Toileting Hygiene (QC): 6 Shower/Bathe Self (QC): 5 Upper Body Dressing (QC): 5 Lower Body Dressing (QC): 5 On/Off Footwear (QC): 5 Additional Goals: 1-Demonstrate ADL Tasks, 2-Verbalize Understanding, 3- ImproveStrength/Darcie 1=Demonstrate adherence to instructed precautions during ADL tasks. 2=Patient will verbalize/demonstrate understanding of assistive devices/modific ations for ADL. 3=Patient will improve strength/tolerance for activity to enable patient to perform ADL's. OT Education/Plan Problem List/Assessment Assessment: Decreased Activ Tolerance, Decreased Safety Aware, Decreased UE Strength, Edema, Impaired Coordination, Impaired Funct Balance, Impaired I ADL's, Impaired Self-Care Skills, Restricted Funct UE ROM Discharge Recommendations Plan/Recommendations: Continue POC Therapy Discharge Recommendati: Post Acute OT Treatment Plan/Plan of Care Treatment,Training & Education: Yes Patient would benefit from OT for education, treatment and training to promote independence in ADL's, mobility, safety and/or upper extremity function for ADL's. Plan of Care: ADL Retraining, Cognitive Retraining, Functional Mobility, Group Exercise/Act as Ind, UE Funct Exercise/Act Treatment Duration: Mar 08, 2022 Frequency: At least 5 of 7 days/Wk (IRF) Estimated Hrs Per Day: 1.5 hours per day (75-90 min/day ) Rehab Potential: Good Time Start Time: 08:20 Stop Time: 09:20 DATE: Feb 24, 2022 Total Time Billed (hr/min): 60 Billed Treatment Time 1 visit ADL x2 (25 min) EX x2 (35 min) Evelin Padilla OT Feb 24, 2022 09:19
[2022-02-24] MEDS: toPIRamate 25 MG (TOPAMAX) TAB PO SCH ×2 (09:31→20:02)
--- NOTE | 2022-02-24 12:07 | Physical Therapy Daily Note ---
PT Daily Note-Current Subjective Pt laying Supine in bed upon arrival. Pt agrees to PT but reports being given a laxative so may need BR soon. Pain Location: No Pain Reported Section J - Health Conditions 1. Rarely or not at all 2. Occasionally 3. Frequently 4. Almost constantly 8. Unable to answer Pain Effect on Sleep: 1 Pain Interference with Therapy: 1 Pain Interference w/Day-to-Day: 1 Mental Status Patient Orientation: Person, Place, Time, Situation Transfers SCALE: Activities may be completed with or without assistive devices. 0-[place]xf[place]-ypdphod completes the activity by him/herself with no assistance from a helper. 5-Set-up or Clean-up Assistance-helper sets up or cleans up; patient completes activity. [place] assists only prior to or following the activity. 4-Supervision or Touching Assistance-helper provides verbal cues and/or touching/steadying and/or contact guard assistance as patient completes activity. Assistance may be provided throughout the activity or intermittently. 3-Partial/Moderate Assistance-helper does LESS THAN HALF the effort. [place] lifts, holds or supports trunk or limbs, but provides less than half the effort. 2-Substantial/Maximal Assistance-helper does MORE THAN HALF the effort. [place] lifts or holds trunk or limbs and provides more than half the effort. 2-Pztlhsudq-cgxcpu does ALL the effort. Patient does none of the effort to complete the activity. Or, the assistance of 2 or more helpers is required for the patient to complete the activity. If activity was not attempted, code reason: 7-Patient Refused. 9-Not Applicable-not attempted and the patient did not perform the activity before the current illness, exacerbation or injury. 10-Not Attempted due to Environmental Limitations-(lack of equipment, weather restraints, etc.). 88-Not Attempted due to Medical Conditions or Safety Concerns. Sit to Lying (QC): 6 Lying to Sitting/Side of Bed(Q: 6 Sit to Stand (QC): 4 Weight Bearing Full Weight Bearing Full Weight Bearing Gait Training Does the Patient Walk?: Yes Distance: 150' x2 Walk 10 feet (QC): 5 Walk 50 ft with 2 Turns(QC): 5 Walk 150 ft (QC): 5 Gait Assistive Device: FWW Exercises Supine Ex: Ankle pumps, Quad Set, Glut sets, Heel Slides, Straight leg raise, Hip abd/add Supine Reps: 15 NuStep Minutes: 16 NuStep Workload: 5 Treatments Pt completes Supine EX in bed before TF to EOB then standing. Pt amb. in hallway then uses NuStep before taking RB. Pt amb. in hallway and returns to room to rest and eat lunch. All needs met, call light in hand. Assessment Current Status: Good Progress Pt is improving with transfers and mobility although still needs occasional RB for fatigue. PT Short Term Goals Short Term Goals Time Frame: Mar 01, 2022 Sit to stand: 3 (min A) Chair/tfi-re-gvwwb transfer: 4 (SBA) Walk 10 feet: 4 (SBA) Walk 50 feet with two turns: 4 (SBA) Walk 150 feet: 4 (SBA) PT Senior Living Goals Hand Tool Filer Goals PT Senior Living Goals Time Frame: Mar 08, 2022 Roll Left & Right (QC): 6 Sit to Lying (QC): 6 Lying-Sitting on Side/Bed(QC): 6 Sit to Stand (QC): 6 Chair/Ufe-bc-Twxpo Xfer(QC): 6 Toilet Transfer (QC): 6 Car Transfer (QC): 6 Does the Patient Walk: Yes Walk 10 feet (QC): 6 Walk 50ft with 2 Turns (QC): 6 Walk 150 ft (QC): 6 Walking 10ft on Uneven Surface: 6 1 Step (curb) (QC): 4 4 Steps (QC): 4 12 Steps (QC): 88 Picking up an Object (QC): 6 (using motion study analyst) Wheel 50 feet with 2 turns (QC: 9 Wheel 150 feet: 9 PT Plan Problem List Problem List: Activity Tolerance Treatment/Plan Treatment Plan: Continue Plan of Care Treatment Plan: Bed Mobility, Education, Functional Activity Darcie, Functional Strength, Group Therapy, Gait, Safety, Therapeutic Exercise, Transfers Treatment Duration: Mar 08, 2022 Frequency: At least 5 of 7 days/Wk (IRF) Estimated Hrs Per Day: 1.5 hours per day Patient and/or Family Agrees t: Yes Safety Risks/Education Patient Education: Gait Training, Transfer Techniques, Correct Positioning, Safety Issues Teaching Recipient: Patient Teaching Methods: Discussion Response to Teaching: Verbalize Understanding Time Time In: 1100 Time Out: 1200 DATE: Feb 24, 2022 Total Billed Treatment Time: 60 Total Billed Treatment 1, EX x2 (30m) & GT x2 (30m) LAURIE MELTON RETAIL ZONE SPECIALIST Feb 24, 2022 12:07
--- NOTE | 2022-02-24 13:21 | Progress Note ---
TOLU SHELTON 02/24/22 1321: Progress Note S: Bandar Crabtree is 76-year-old male with past medical history of chronic kidney disease who inititially presented to the emergency department due to weakness 02/14/22. He was just discharged before this from the hospital after an admission for generalized weakness where he had been admitted 2 weeks ago for weakness and was discharged home with home health and failed. Despite this he was denied skilled benefits after his last hospitalization and returned home with home health. He lives alone and states since returning home he had continued to worsen and was unable to get up from his couch. He said he had been crawling around on the floor for couple of days because he was unable to stand. He had been working to get into a facility near his daughter in [place] but he states that that does not look feasible now due to the expense. On arrival here he was found to have atrial fibrillation with rapid ventricular rate which he states is not new but he was not previously on any medications for it. He was also found to have an acute kidney injury with a creatinine of 2.05. He was admitted to the ICU for IV Cardizem and fluids. He did have a leukocytosis of concerning lesion on his foot so he was started on antibiotics to cover for infection. He then tested positive for covid on 02/15/22 and was placed into [facility], he said today 02/22/22 that he is feeling much better but has had a headache the entire time of his stay saying that theres sinus pressure and the pain ranges from 4 to a 10. Denies ever having imaging done on his head. Along with his muscle weakness he says there is a constant myalgia that he rates 2-3. He reported that he also has severe stool retention but that was normal before being admitted and that he would poop ~1/month, but says his urinary output is almost hourly. Bandar was visibly frustrated this morning because while he was being transported to a new room out of [facility] isolation his silverware given to him from his children was taken from the room. He is still very weak with motor strength and balance, but he reports feeling better and breathing better. He continues to complain about his constant headache and rates it an 8 when he thinks about it. He is being started on a topiramate treatment and will be monitored for improvements. Continuing treatment of involuntary stool continence. O: V/S: T(35.8) HR(97) RR(18) BP(123/70) SpO2(98 RA) General: no acute distress, WN/WD, appears weak and fatigued Respiratory: No accessory muscle use; other (fair to good air entry, diminished at the bases) Cardiovascular: irregularly irregular, systolic murmur (soft GENEVA at card base), no rubs or gallops Gastrointestional: Non tender; soft; No guarding, No rebound; audible bowel sounds Extremities: No clubbing, No cyanosis, generalized muscle weakness of all extremities 3/5 Neurologic/Psychiatric: oriented x 3, moves all limbs equally, dermatomes intact, depressed mood/affect Skin: normal color, warm/dry; No rash on exposed areas, No ulcerations on exposed areas Labs: glucometer(utd=595 Hqel=[id number]) A: Acute Myopathy S/P COVID-19 Infection Atrial fibrillation with RVR Debility S/P Acute kidney injury superimposed on chronic kidney disease. HTN HLD T2DM Anemia Constipation ROQUE P: Aggressive OT/PT vital monitoring and completion of paxlovid continue oral therapy for cardiac rate maintenance continue BP regimen Continue blood fat/sugar regulation Suppository administered(miralax) Gabapentin and acetamenophin +topiramate ANGELA HOOVER DO 02/24/221955: Supervisory-Addendum Brief Verification & Attestation Participated in pt care: history, MDM, physical Personally performed: exam, history, MDM, supervision of care Care discussed with: Medical Student Procedures: n/a Results interpretation: Verified all documentation Verification and Attestation of Medical Student E/M Service A medical student performed and documented this service in my presence. I reviewed and verified all information documented by the medical student and made modifications to such information, when appropriate. I personally performed the physical exam and medical decision making. Angela Hoover Feb 24, 2022,19:56 TOLU SHELTON Feb 24, 2022 13:21 ANGELA HOOVER DO Feb 24, 2022 19:56
--- NOTE | 2022-02-24 15:08 | Therapy Group Daily Note ---
Therapy Daily Group Note Patient Education Topic Other List Below (Hospital bed education/mobility and ARU description/expectations) Exercises LE Seated Exercise, UE Exercise Session Ratio (pt:therapist): 4:1 Goal of Session: Education on ARU Expectations, UE/LE Strengthing, Safety with Transfers Goal Met for this Session: Yes Pt Benefit of Group: Contributions to Others, Increased Functional Safety, Increased Functional Strength, Improved Cognition, Recognition of Peers, Socialization Other/Notes Pt ambulates to [facility] area for OT/PT group using FWW. Group consisted of introductions(name, place, favorite wintertime activity), socialization, pt led B UE/LE seated activities, education on hospital bed function/mobility and ARU description/expectations. Pt introduced self appropriately and actively listened to peers. Pt able to complete B UE/LE seated exercises and give personal favorite exercise. Pt acknowledged understanding of educational topic by answering/asking questions and confirming understanding by nodding head in affirmation. After session, pt lying in bed with call light/phone in reach. All needs met in room. Start Time: 12:50 Stop Time: 14:15 Total Billed Treatment Time: 85 Total Billed Treatment 1, GRP (85m) GERONIMOLAURIE CRIME SCENE INVESTIGATOR Feb 24, 2022 15:08
[2022-02-24] MEDS: LACTULOSE SYRUP 10GM/15ML (ENULOSE) 30ML UDC PO PRN (15:39)
[2022-02-24 19:07] VITALS: BP 134/71
[2022-02-25] MEDS: GABAPENTIN 300 MG (NEURONTIN) CAP PO PRN ×3 (04:51→19:32)
[2022-02-25] MEDS: ACETAMINOPHEN 500 MG TAB (TYLENOL) PO PRN ×3 (04:51→19:32)
--- NOTE | 2022-02-25 04:59 | PM&R Progress Note ---
Subjective HPI/CC On Admission Date Seen by Provider: Feb 25, 2022 Time Seen by Provider: 12:00 Subjective/Events-last exam 02/25/2022: Doing well Set for discharge for tomorrow Moving around really well No oxygen needed Refuses laxatives Only has a BM once a month 02/24/2022: Much improved Out of isolation Breathing well No pain reported BM are slow and this is chronic 02/23/2022: Patient doing well No major problems Out of isolation soon Monitoring oxygen level Reviewed labs Review of Systems General: Fatigue, Malaise Pulmonary: Dyspnea, Cough Objective Exam Vital Signs Vital Signs Date Time Temp Pulse Resp B/P (MAP) Pulse Ox O2 Delivery O2 Flow Rate FiO2 02/25/22 21:25 93 02/25/22 21:00 Room Air 02/25/22 20:30 37.2 22 125/85 (98) 93 Capillary Refill : General Appearance: No Apparent Distress, WD/WN, Chronically ill HEENT: PERRL/EOMI, Normal ENT Inspection, Pharynx Normal Neck: Full Range of Motion, Normal Inspection, Non Tender, Supple, Carotid Bruit Respiratory: Chest Non Tender, Lungs Clear, No Accessory Muscle Use, No Respiratory Distress, Decreased Breath Sounds Cardiovascular: Regular Rate, Rhythm, No Edema, No Gallop, No JVD, No Murmur, Normal Peripheral Pulses Gastrointestinal: Normal Bowel Sounds, No Organomegaly, No Pulsatile Mass, Non Tender, Soft Back: Normal Inspection, No CVA Tenderness, No Vertebral Tenderness Extremity: Normal Capillary Refill, Normal Inspection, Normal Range of Motion, Non Tender, No Calf Tenderness, No Pedal Edema Neurologic/Psychiatric: Alert, Oriented x3, Abnormal Gait, Depressed Affect, Motor Weakness (Generalized) Skin: Normal Color, Warm/Dry Lymphatic: No Adenopathy Results/Procedures Lab Patient resulted labs reviewed. FIM Transfers Therapy Code Descriptions/Definitions Functional [place] Measure: 0=Not Assessed/NA 4=Minimal Assistance 1=Total Assistance 5=Supervision or Setup 2=Maximal Assistance 6=Modified [place] 3=Moderate Assistance 7=Complete IndependenceSCALE: Activities may be completed with or without assistive devices. 4-Vrdnpgpylb-nradvey completes the activity by him/herself with no assistance from a helper. 5-Set-up or Clean-up Assistance-helper sets up or cleans up; patient completes activity. [place] assists only prior to or following the activity. 4-Supervision or Touching Assistance-helper provides verbal cues and/or touching/steadying and/or contact guard assistance as patient completes activity. Assistance may be provided throughout the activity or intermittently. 3-Partial/Moderate Assistance-helper does LESS THAN HALF the effort. [place] lifts, holds or supports trunk or limbs, but provides less than half the effort. 2-Substantial/Maximal Assistance-helper does MORE THAN HALF the effort. [place] lifts or holds trunk or limbs and provides more than half the effort. 6-Xhevwjeqp-sgjigq does ALL the effort. Patient does none of the effort to complete the activity. Or, the assistance of 2 or more helpers is required for the patient to complete the activity. If activity was not attempted, code reason: 7-Patient Refused. 9-Not Applicable-not attempted and the patient did not perform the activity before the current illness, exacerbation or injury. 10-Not Attempted due to Environmental Limitations-(lack of equipment, weather restraints, etc.). 88-Not Attempted due to Medical Conditions or Safety Concerns. Roll Left to Right (QC): 4 Sit to Lying (QC): 6 Sit to Stand (QC): 4 Chair/Mhv-pv-Nnuae Xfer(QC): 4 Car Transfer (QC): 4 Gait Training Does the Patient Walk?: Yes Distance: 150' x2 Walk 10 feet (QC): 5 Walk 50 ft with 2 Turns(QC): 5 Walk 150 ft (QC): 5 Walking 10ft/uneven surface-QC: 4 Gait Assistive Device: FWW Wheelchair Training Does the Pt Use a Wheelchair?: No Wheel 50 ft with 2 turns (QC): 9 Wheel 150 ft (QC): 9 Stair Training #of Steps: 1 1 Step (curb) (QC): 3 4 Steps (QC): 88 12 Steps (QC): 88 Balance Picking up an Object (QC): 4 (CGA using abrasive mixer) ADL-Treatment Eating (QC): 5 Oral Hygiene (QC): 4 Shower/Bathe Self (QC): 3 Upper Body Dressing (QC): 3 Lower Body Dressing (QC): 3 On/Off Footwear (QC): 3 (mod a to sample puller heel, pt able to intiate over toes.) Toileting Hygiene (QC): 4 Toilet Transfer (QC): 4 Assessment/Plan Assessment and Plan Assess & Plan/Chief Complaint Assessment: Myopathy COVID-19 Atrial fibrillation Diabetes Acute on chronic renal failure Neuropathy Constipation Plan: Supportive care Monitor closely 02/23/2022: Bowel regimen Diabetes management 02/24/2022: Out of isolation Monitor closely 02/25/2022: Supportive care Monitor closely Discharge tomorrow (1) Myopathy (2) T2DM (type 2 diabetes mellitus) Status: Chronic (3) COVID-19 Status: Acute (4) Acute kidney injury superimposed on chronic kidney disease Status: Acute (5) HLD (hyperlipidemia) Status: Chronic (6) HTN (hypertension) Status: Chronic (7) Debility Status: Acute (8) Atrial fibrillation with RVR Status: Acute (9) Generalized weakness (10) CKD (chronic kidney disease) (11) Neuropathic pain Status: Acute (12) Iron deficiency Status: Acute (13) Noncompliance with medication regimen Status: Acute (14) Diabetic neuropathy Status: Acute MALINA HOOVER DO Feb 25, 2022 04:59
[2022-02-25] MEDS: inSUlin ASPART (NovoLOG) 1 UNIT/0.01 ML (CHARGE PER UNIT) SC SCH ×4 (05:29→21:14)
[2022-02-25 07:32] VITALS: BP 117/73
--- NOTE | 2022-02-25 08:47 | Progress Note ---
TOLU SHELTON 02/25/22 0847: Progress Note S: Bandar Crabtree is 76-year-old male with past medical history of chronic kidney disease who inititially presented to the emergency department due to weakness 02/14/22. He was just discharged before this from the hospital after an admission for generalized weakness where he had been admitted 2 weeks ago for weakness and was discharged home with home health and failed. Despite this he was denied skilled benefits after his last hospitalization and returned home with home health. He lives alone and states since returning home he had continued to worsen and was unable to get up from his couch. He said he had been crawling around on the floor for couple of days because he was unable to stand. He had been working to get into a facility near his daughter in [place] but he states that that does not look feasible now due to the expense. On arrival here he was found to have atrial fibrillation with rapid ventricular rate which he states is not new but he was not previously on any medications for it. He was also found to have an acute kidney injury with a creatinine of 2.05. He was admitted to the ICU for IV Cardizem and fluids. He did have a leukocytosis of concerning lesion on his foot so he was started on antibiotics to cover for infection. He then tested positive for covid on 02/15/22 and was placed into quarentine, he said today 02/22/22 that he is feeling much better but has had a headache the entire time of his stay saying that theres sinus pressure and the pain ranges from 4 to a 10. Denies ever having imaging done on his head. Along with his muscle weakness he says there is a constant myalgia that he rates 2-3. He reported that he also has severe stool retention but that was normal before being admitted and that he would poop ~1/month, but says his urinary output is almost hourly. Bandar was seen today sitting up in his chair, he has no new complaints and commented saying that the topiramate helped a little but not a lot. The dosage has been doubled today and will continue to monitor for any benefit. Bandar has a noticeable depressed affect and may benefit from psych evaluation. He is tolerating his therapy decently. O: V/S: T(36.6) HR(90) RR(20) BP(117/73) SpO2(97 RA) General: no acute distress, WN/WD, appears weak and fatigued Respiratory: No accessory muscle use; other (fair to good air entry, diminished at the bases) Cardiovascular: irregularly irregular, systolic murmur (soft GENEVA at card base), no rubs or gallops Gastrointestional: Non tender; soft; No guarding, No rebound; audible bowel sounds Extremities: No clubbing, No cyanosis, generalized muscle weakness of all extremities 3/5 Neurologic/Psychiatric: oriented x 3, moves all limbs equally, dermatomes intact, depressed mood/affect Skin: normal color, warm/dry; No rash on exposed areas, No ulcerations on exposed areas Labs: glucometer(95-145) A: Acute Myopathy S/P COVID-19 Infection Atrial fibrillation with RVR Debility S/P Acute kidney injury superimposed on chronic kidney disease. HTN HLD T2DM Anemia Constipation ROQUE P: Aggressive OT/PT vital monitoring and completion of paxlovid continue oral therapy for cardiac rate maintenance continue BP regimen Continue blood fat/sugar regulation Suppository administered(miralax) Gabapentin and acetamenophin +topiramate(increase from 12.5 to 25) ANGELA HOOVER DO 02/25/222036: Supervisory-Addendum Brief Verification & Attestation Participated in pt care: history, MDM, physical Personally performed: exam, history, MDM, supervision of care Care discussed with: Medical Student Procedures: n/a Results interpretation: Verified all documentation Verification and Attestation of Medical Student E/M Service A medical student performed and documented this service in my presence. I reviewed and verified all information documented by the medical student and made modifications to such information, when appropriate. I personally performed the physical exam and medical decision making. Angela Hoover Feb 25, 2022,20:37 TOLU SHELTON Feb 25, 2022 08:47 ANGELA HOOVER DO Feb 25, 2022 20:37
[2022-02-25] MEDS: SENNA W/DOCUSATE (SENOKOT S) TABLET PO SCH ×2 (08:55→20:40)
[2022-02-25] MEDS: DOCUSATE SODIUM 100 MG (COLACE) CAP PO SCH ×2 (08:55→20:39)
[2022-02-25] MEDS: APIXABAN 5 MG (ELIQUIS) TABLET PO SCH ×2 (08:55→21:18)
[2022-02-25] MEDS: toPIRamate 25 MG (TOPAMAX) TAB PO SCH ×2 (08:56→21:18)
[2022-02-25] MEDS: polyethylene glycoL POWDER 17 GM (MIRALAX) PACK PO SCH ×3 (08:56→20:40)
[2022-02-25] MEDS: LACTULOSE SYRUP 10GM/15ML (ENULOSE) 30ML UDC PO PRN (08:58)
--- NOTE | 2022-02-25 10:27 | Occupational Ther Daily Note ---
OT Current Status-Daily Note Subjective Pt continues to c/o a headache. States that "no pain meds help." Appearance Pt left sitting in recliner, BLE's elevated, all needs within reach. Mental Status/Objective Patient Orientation: Person, Place, Situation ADL-Treatment Therapy Code Descriptions/Definitions Functional [place] Measure: 0=Not Assessed/NA 4=Minimal Assistance 1=Total Assistance 5=Supervision or Setup 2=Maximal Assistance 6=Modified [place] 3=Moderate Assistance 7=Complete IndependenceSCALE: Activities may be completed with or without assistive devices. 0-Wbzkijnnhw-hjskils completes the activity by him/herself with no assistance from a helper. 5-Set-up or Clean-up Assistance-helper sets up or cleans up; patient completes activity. [place] assists only prior to or following the activity. 4-Supervision or Touching Assistance-helper provides verbal cues and/or touching/steadying and/or contact guard assistance as patient completes activity. Assistance may be provided throughout the activity or intermittently. 3-Partial/Moderate Assistance-helper does LESS THAN HALF the effort. [place] lifts, holds or supports trunk or limbs, but provides less than half the effort. 2-Substantial/Maximal Assistance-helper does MORE THAN HALF the effort. [place] lifts or holds trunk or limbs and provides more than half the effort. 2-Lfyjmchoi-qksmbu does ALL the effort. Patient does none of the effort to complete the activity. Or, the assistance of 2 or more helpers is required for the patient to complete the activity. If activity was not attempted, code reason: 7-Patient Refused. 9-Not Applicable-not attempted and the patient did not perform the activity before the current illness, exacerbation or injury. 10-Not Attempted due to Environmental Limitations-(lack of equipment, weather restraints, etc.). 88-Not Attempted due to Medical Conditions or Safety Concerns. Oral Hygiene (QC): 6 Shower/Bathe Self (QC): 5 Upper Body Dressing (QC): 3 Lower Body Dressing (QC): 4 On/Off Footwear: 3 Toileting Hygiene (QC): 4 Toilet Transfer (QC): 4 Supine>sit: Indep. Pt continues to c/o headache with all movement/activities. "This towel even hurts my head (when drying hair)." Shower performed; 100% completed in sitting. OT introduced and instructed pt on use of LHS to assist in reducing bending (which increases head pain) and improve reach to wash buttocks. Post education, pt able to complete without assist. No physical assistance needed to wash body parts this date. Assist needed to pull shirt down around torso, but little effort given by patient. He often will initiate arm/leg out towards OT in order for therapist to complete for him. Encouragement and reminders on why patient needs to attempt first. Post instruction on use of health information internship, pt was able to manage LB clothing over feet. Despite showing significantly less effort when performing step with health information internship, pt still verbalizes "I don't know if I like this." He stood to pull clothing over his hips with Supervision and extra time. Jamaal hose donned by OT. Again, in order to reduce bending which increases his headache pain, OT instructed pt on use of sock aid. Mod a needed to don sock with tool secondary to reduced FM and UE strength. Pt requires less assist when bending (min a). Pt also reports that he did not like using sock aid. Grooming tasks performed in sitting, no assist. Education OT Patient Education: Correct positioning, Energy conservation, Modified ADL techniques, Progress toward Goal/Update tx plan, Purpose of tx/functional activities, Rehab process, Transfer techniques, Use of adapted equipment Teaching Recipient: Patient Teaching Methods: Demonstration, Discussion Response to Teaching: Verbalize Understanding, Return Demonstration, Reinforcem ent Needed OT Short Term Goals Short Term Goals Time Frame: Mar 01, 2022 Eatin Oral hygiene: 5 Toileting hygiene: 3 Shower/bathe self: 3 Upper body dressin Lower body dressin Putting on/taking off footwear: 4 OT Mcfp Goals Mcfp Goals Time Frame: Mar 08, 2022 Acute change in mental status: 0 Inattention: 0 Disorganized thinkin Altered level of consciousness: 0 Eating (QC): 5 Oral Hygiene (QC): 5 Toileting Hygiene (QC): 6 Shower/Bathe Self (QC): 5 Upper Body Dressing (QC): 5 Lower Body Dressing (QC): 5 On/Off Footwear (QC): 5 Additional Goals: 1-Demonstrate ADL Tasks, 2-Verbalize Understanding, 3-ImproveStrength/Darcie 1=Demonstrate adherence to instructed precautions during ADL tasks. 2=Patient will verbalize/demonstrate understanding of assistive devices/modifications for ADL. 3=Patient will improve strength/tolerance for activity to enable patient to perform ADL's. OT Education/Plan Problem List/Assessment Assessment: Decreased Activ Tolerance, Decreased UE Strength, Edema, Impaired I ADL's, Impaired Self-Care Skills, Restricted Funct UE ROM Discharge Recommendations Plan/Recommendations: Continue POC Therapy Discharge Recommendati: Assisted Living, Post Acute OT Treatment Plan/Plan of Care Treatment,Training & Education: Yes Patient would benefit from OT for education, treatment and training to promote independence in ADL's, mobility, safety and/or upper extremity function for ADL's. Plan of Care: ADL Retraining, Cognitive Retraining, Functional Mobility, Group Exercise/Act as Ind, UE Funct Exercise/Act Treatment Duration: Mar 08, 2022 Frequency: At least 5 of 7 days/Wk (IRF) Estimated Hrs Per Day: 1.5 hours per day (75-90 min/day ) Rehab Potential: Good Time Start Time: 08:50 Stop Time: 10:20 DATE: Feb 25, 2022 Total Time Billed (hr/min): 90 Billed Treatment Time 1 visit ADL x6 Evelin Padilla OT Feb 25, 2022 10:27
--- NOTE | 2022-02-25 13:01 | Physical Therapy Daily Note ---
PT Daily Note-Current Subjective Pt found seated in recliner upon entry. Agreed to PT. Reports having a "debilitating headache" since he had COVID a week ago. Does not rate or describe pain. Pain Section J - Health Conditions 1. Rarely or not at all 2. Occasionally 3. Frequently 4. Almost constantly 8. Unable to answer Pain Effect on Sleep: 1 Pain Interference with Therapy: 1 Pain Interference w/Day-to-Day: 1 Mental Status Patient Orientation: Normal For Age Transfers SCALE: Activities may be completed with or without assistive devices. 4-Psrjiettfi-ghfrtmt completes the activity by him/herself with no assistance from a helper. 5-Set-up or Clean-up Assistance-helper sets up or cleans up; patient completes activity. [place] assists only prior to or following the activity. 4-Supervision or Touching Assistance-helper provides verbal cues and/or touching/steadying and/or contact guard assistance as patient completes activity. Assistance may be provided throughout the activity or intermittently. 3-Partial/Moderate Assistance-helper does LESS THAN HALF the effort. [place] lifts, holds or supports trunk or limbs, but provides less than half the effort. 2-Substantial/Maximal Assistance-helper does MORE THAN HALF the effort. [place] lifts or holds trunk or limbs and provides more than half the effort. 7-Olcuigztv-yrjaok does ALL the effort. Patient does none of the effort to complete the activity. Or, the assistance of 2 or more helpers is required for the patient to complete the activity. If activity was not attempted, code reason: 7-Patient Refused. 9-Not Applicable-not attempted and the patient did not perform the activity before the current illness, exacerbation or injury. 10-Not Attempted due to Environmental Limitations-(lack of equipment, weather restraints, etc.). 88-Not Attempted due to Medical Conditions or Safety Concerns. Sit to Lying (QC): 6 Sit to Stand (QC): 4 Pt CGA /c sit<->stand trfs and indepedent /c bed mobility. Weight Bearing Full Weight Bearing Full Weight Bearing Gait Training Does the Patient Walk?: Yes Distance: 150, 150 Walk 10 feet (QC): 6 Walk 50 ft with 2 Turns(QC): 6 Walk 150 ft (QC): 6 Gait Persons Needed: 1 Gait Assistive Device: FWW Pt independent /c gait training using FWW. Amb. 120ft total. Exercises Seated Therapy Exercises: Long arc quads, Hamstring Curls, Hip abd/add Seated Reps: 15 NuStep Minutes: 15 NuStep Workload: 5 Assessment Current Status: Good Progress Pt tolerated Tx well /c no report of increased pain. Pt is unable to complete standing exercise d/t weakness. Continue to progress pt as tolerated per POC to improve endurance, strength, and functional ability. PT Short Term Goals Short Term Goals Time Frame: Mar 01, 2022 Sit to stand: 3 (min A) Chair/age-hs-xoyzf transfer: 4 (SBA) Walk 10 feet: 4 (SBA) Walk 50 feet with two turns: 4 (SBA) Walk 150 feet: 4 (SBA) PT Correction Goals Correction Goals PT Spinner Frame Goals Time Frame: Mar 08, 2022 Roll Left & Right (QC): 6 Sit to Lying (QC): 6 Lying-Sitting on Side/Bed(QC): 6 Sit to Stand (QC): 6 Chair/Sls-kl-Herzo Xfer(QC): 6 Toilet Transfer (QC): 6 Car Transfer (QC): 6 Does the Patient Walk: Yes Walk 10 feet (QC): 6 Walk 50ft with 2 Turns (QC): 6 Walk 150 ft (QC): 6 Walking 10ft on Uneven Surface: 6 1 Step (curb) (QC): 4 4 Steps (QC): 4 12 Steps (QC): 88 Picking up an Object (QC): 6 (using filling separator) Wheel 50 feet with 2 turns (QC: 9 Wheel 150 feet: 9 PT Plan Treatment/Plan Treatment Plan: Continue Plan of Care Treatment Plan: Bed Mobility, Education, Functional Activity Darcie, Functional Strength, Group Therapy, Gait, Safety, Therapeutic Exercise, Transfers Treatment Duration: Mar 08, 2022 Frequency: At least 5 of 7 days/Wk (IRF) Estimated Hrs Per Day: 1.5 hours per day Patient and/or Family Agrees t: Yes Time Time In: 1045 Time Out: 1145 DATE: Feb 25, 2022 Total Billed Treatment Time: 60 Total Billed Treatment 1 visit GT 1x EX 3x MAJOR,GEORGE ENGRAVER [employer] Feb 25, 2022 13:01
--- NOTE | 2022-02-25 15:20 | Physical Therapy Daily Note ---
PT Daily Note-Current Subjective Pt found laying in bed upon entry. Agreed to PT. Reports that his headache has not improved and he will not be able to take medication till 7pm. States that he would have a little bit of an easier time completing therapy if his head did not hurt so bad. Reports that headache feels like "pressure." Pt states he has hi story of TMJ problems that may be contributing to his headaches. Does not rate pain. Pain Section J - Health Conditions 1. Rarely or not at all 2. Occasionally 3. Frequently 4. Almost constantly 8. Unable to answer Pain Effect on Sleep: 1 Pain Interference with Therapy: 1 Pain Interference w/Day-to-Day: 1 Mental Status Patient Orientation: Normal For Age Transfers SCALE: Activities may be completed with or without assistive devices. 3-Xfhxrpurlm-gdbuxis completes the activity by him/herself with no assistance from a helper. 5-Set-up or Clean-up Assistance-helper sets up or cleans up; patient completes activity. [place] assists only prior to or following the activity. 4-Supervision or Touching Assistance-helper provides verbal cues and/or touching/steadying and/or contact guard assistance as patient completes activity. Assistance may be provided throughout the activity or intermittently. 3-Partial/Moderate Assistance-helper does LESS THAN HALF the effort. [place] lifts, holds or supports trunk or limbs, but provides less than half the effort. 2-Substantial/Maximal Assistance-helper does MORE THAN HALF the effort. [place] lifts or holds trunk or limbs and provides more than half the effort. 4-Geglqkdem-bmqvir does ALL the effort. Patient does none of the effort to complete the activity. Or, the assistance of 2 or more helpers is required for the patient to complete the activity. If activity was not attempted, code reason: 7-Patient Refused. 9-Not Applicable-not attempted and the patient did not perform the activity before the current illness, exacerbation or injury. 10-Not Attempted due to Environmental Limitations-(lack of equipment, weather restraints, etc.). 88-Not Attempted due to Medical Conditions or Safety Concerns. Roll Left & Right (QC): 6 Sit to Lying (QC): 6 Lying to Sitting/Side of Bed(Q: 6 Sit to Stand (QC): 6 Chair/Htz-df-Nojpb Xfer(QC): 6 Toilet Transfer (QC): 6 Car Transfer (QC): 6 Pt independent /c all trfs. Weight Bearing Full Weight Bearing Full Weight Bearing Gait Training Does the Patient Walk?: Yes Distance: 75, 75, 150 Walk 10 feet (QC): 6 Walk 50 ft with 2 Turns(QC): 6 Walk 150 ft (QC): 6 Walking 10ft/uneven surface-QC: 6 Gait Persons Needed: 1 Gait Assistive Device: FWW Pt independent /c all gait training using FWW. Amb. 300ft total. Wheelchair Training Does the Pt Use a Wheelchair?: No Stair Training Stair Training: Handrails/: 2 handrails #of Steps: 12 1 Step (curb) (QC): 4 4 Steps (QC): 4 12 Steps (QC): 4 Stairs: Pattern: Step to Pt CGA /c stair training. Completed 12 steps total. Balance Picking up an Object (QC): 6 Special Test Comments Pt able to warehouse order picker item /c handheld grabber independently while standing at FWW. Assessment Current Status: Good Progress Pt tolerated Tx well /c no report of increased pain. Pt required seated RBs during Tx d/t fatigue and headache. Continue to progress endurance and strengthening as tolerated per POC to increase functional ability. PT Short Term Goals Short Term Goals Time Frame: Mar 01, 2022 Sit to stand: 3 (min A) Chair/sds-xr-odghf transfer: 4 (SBA) Walk 10 feet: 4 (SBA) Walk 50 feet with two turns: 4 (SBA) Walk 150 feet: 4 (SBA) PT Penitentiary Goals Client Service Representative Goals PT Client Service Representative Goals Time Frame: Mar 08, 2022 Roll Left & Right (QC): 6 Sit to Lying (QC): 6 Lying-Sitting on Side/Bed(QC): 6 Sit to Stand (QC): 6 Chair/Ubc-sc-Sikzx Xfer(QC): 6 Toilet Transfer (QC): 6 Car Transfer (QC): 6 Does the Patient Walk: Yes Walk 10 feet (QC): 6 Walk 50ft with 2 Turns (QC): 6 Walk 150 ft (QC): 6 Walking 10ft on Uneven Surface: 6 1 Step (curb) (QC): 4 4 Steps (QC): 4 12 Steps (QC): 88 Picking up an Object (QC): 6 (using mailing machine assistant) Wheel 50 feet with 2 turns (QC: 9 Wheel 150 feet: 9 PT Plan Treatment/Plan Treatment Plan: Continue Plan of Care Treatment Plan: Bed Mobility, Education, Functional Activity Darcie, Functional Strength, Group Therapy, Gait, Safety, Therapeutic Exercise, Transfers Treatment Duration: Mar 08, 2022 Frequency: At least 5 of 7 days/Wk (IRF) Estimated Hrs Per Day: 1.5 hours per day Patient and/or Family Agrees t: Yes Time Time In: 1415 Time Out: 1445 DATE: Feb 25, 2022 Total Billed Treatment Time: 30 Total Billed Treatment 1 visit GT 1x FA 1x GEORGE WALTON PRINCIPAL DATABASE DEVELOPER Feb 25, 2022 15:19
[2022-02-25 20:30] VITALS: BP 125/85
[2022-02-26] MEDS: ACETAMINOPHEN 500 MG TAB (TYLENOL) PO PRN (02:34)
[2022-02-26] MEDS: GABAPENTIN 300 MG (NEURONTIN) CAP PO PRN (02:34)
[2022-02-26] MEDS: inSUlin ASPART (NovoLOG) 1 UNIT/0.01 ML (CHARGE PER UNIT) SC SCH (05:47)
--- NOTE | 2022-02-26 06:02 | PM&R Progress Note ---
Subjective HPI/CC On Admission Date Seen by Provider: Feb 26, 2022 Time Seen by Provider: 12:00 Subjective/Events-last exam 02/26/2022: 02/25/2022: Doing well Set for discharge for tomorrow Moving around really well No oxygen needed Refuses laxatives Only has a BM once a month 02/24/2022: Much improved Out of isolation Breathing well No pain reported BM are slow and this is chronic 02/23/2022: Patient doing well No major problems Out of isolation soon Monitoring oxygen level Reviewed labs Review of Systems General: Fatigue, Malaise Objective Exam Vital Signs Vital Signs Date Time Temp Pulse Resp B/P (MAP) Pulse Ox O2 Delivery O2 Flow Rate FiO2 02/25/22 21:25 93 02/25/22 21:00 Room Air 02/25/22 20:30 37.2 22 125/85 (98) 93 Capillary Refill : General Appearance: No Apparent Distress, WD/WN, Chronically ill HEENT: PERRL/EOMI, Normal ENT Inspection, Pharynx Normal Neck: Full Range of Motion, Normal Inspection, Non Tender, Supple, Carotid Bruit Respiratory: Chest Non Tender, Lungs Clear, No Accessory Muscle Use, No Respiratory Distress, Decreased Breath Sounds Cardiovascular: Regular Rate, Rhythm, No Edema, No Gallop, No JVD, No Murmur, Normal Peripheral Pulses Gastrointestinal: Normal Bowel Sounds, No Organomegaly, No Pulsatile Mass, Non Tender, Soft Back: Normal Inspection, No CVA Tenderness, No Vertebral Tenderness Extremity: Normal Capillary Refill, Normal Inspection, Normal Range of Motion, Non Tender, No Calf Tenderness, No Pedal Edema Neurologic/Psychiatric: Alert, Oriented x3, Abnormal Gait, Depressed Affect, Motor Weakness (Generalized) Skin: Normal Color, Warm/Dry Lymphatic: No Adenopathy Results/Procedures Lab Patient resulted labs reviewed. FIM Transfers Therapy Code Descriptions/Definitions Functional [place] Measure: 0=Not Assessed/NA 4=Minimal Assistance 1=Total Assistance 5=Supervision or Setup 2=Maximal Assistance 6=Modified [place] 3=Moderate Assistance 7=Complete IndependenceSCALE: Activities may be completed with or without assistive devices. 5-Dhwvwztpwz-gjzgjlu completes the activity by him/herself with no assistance from a helper. 5-Set-up or Clean-up Assistance-helper sets up or cleans up; patient completes activity. [place] assists only prior to or following the activity. 4-Supervision or Touching Assistance-helper provides verbal cues and/or touching/steadying and/or contact guard assistance as patient completes activity. Assistance may be provided throughout the activity or intermittently. 3-Partial/Moderate Assistance-helper does LESS THAN HALF the effort. [place] lifts, holds or supports trunk or limbs, but provides less than half the effort. 2-Substantial/Maximal Assistance-helper does MORE THAN HALF the effort. [place] lifts or holds trunk or limbs and provides more than half the effort. 1-Qofqqdrnl-uyrhsr does ALL the effort. Patient does none of the effort to complete the activity. Or, the assistance of 2 or more helpers is required for the patient to complete the activity. If activity was not attempted, code reason: 7-Patient Refused. 9-Not Applicable-not attempted and the patient did not perform the activity before the current illness, exacerbation or injury. 10-Not Attempted due to Environmental Limitations-(lack of equipment, weather restraints, etc.). 88-Not Attempted due to Medical Conditions or Safety Concerns. Roll Left to Right (QC): 6 Sit to Lying (QC): 6 Sit to Stand (QC): 6 Chair/Gmf-gx-Qfgfq Xfer(QC): 6 Car Transfer (QC): 6 Gait Training Does the Patient Walk?: Yes Distance: 75, 75, 150 Walk 10 feet (QC): 6 Walk 50 ft with 2 Turns(QC): 6 Walk 150 ft (QC): 6 Walking 10ft/uneven surface-QC: 6 Gait Persons Needed: 1 Gait Assistive Device: FWW Wheelchair Training Does the Pt Use a Wheelchair?: No Wheel 50 ft with 2 turns (QC): 9 Wheel 150 ft (QC): 9 Stair Training Stair Training: Handrails/: 2 handrails #of Steps: 12 1 Step (curb) (QC): 4 4 Steps (QC): 4 12 Steps (QC): 4 Stairs: Pattern: Step to Balance Picking up an Object (QC): 6 ADL-Treatment Eating (QC): 5 Oral Hygiene (QC): 6 Shower/Bathe Self (QC): 5 Upper Body Dressing (QC): 3 Lower Body Dressing (QC): 4 On/Off Footwear (QC): 3 Toileting Hygiene (QC): 4 Toilet Transfer (QC): 4 Assessment/Plan Assessment and Plan Assess & Plan/Chief Complaint Assessment: Myopathy COVID-19 Atrial fibrillation Diabetes Acute on chronic renal failure Neuropathy Constipation Plan: Supportive care Monitor closely 02/23/2022: Bowel regimen Diabetes management 02/24/2022: Out of isolation Monitor closely 02/25/2022: Supportive care Monitor closely Discharge tomorrow 02/26/2022: (1) Myopathy (2) T2DM (type 2 diabetes mellitus) Status: Chronic (3) COVID-19 Status: Acute (4) Acute kidney injury superimposed on chronic kidney disease Status: Acute (5) HLD (hyperlipidemia) Status: Chronic (6) HTN (hypertension) Status: Chronic (7) Debility Status: Acute (8) Atrial fibrillation with RVR Status: Acute (9) Generalized weakness (10) CKD (chronic kidney disease) (11) Neuropathic pain Status: Acute (12) Iron deficiency Status: Acute (13) Noncompliance with medication regimen Status: Acute (14) Diabetic neuropathy Status: Acute MALINA HOOVER DO Feb 26, 2022 06:02
[2022-02-26] MEDS ORDERED: TPR25T PO (06:07)
--- NOTE | 2022-02-26 06:08 | D/C HH Face to Face Order ---
D/C Face to Face Orders Reconcile Patient Problems Problems Reviewed?: Yes Instructions for Patient Via [facility], Patient Instructions/FollowUp: pcp 1 week Physician to follow Patient: PCP Discharge Diet for Home: ADA Diet Patient Problems: Debility COVID Patient Data-Allergies,Ht & Wt Patient Allergies: Coded Allergies: No Known Drug Allergies (Unverified , 03/04/21) Home Health Need/Face to Face Date of Face to Face: Feb 26, 2022 Clinical Findings: Generalized weakness and fatigue, Muscle weakness I have seen Pt [id number]: Yes Discharged To: Home Diagnosis/Conditions: Debility Patient is Homebound due to: Muscle weakness Homebound Status Due to the above stated illness, injury or surgical procedure (medical condition or diagnosis) and associated clinical findings, the patient is homebound because of his/her inability to leave home except with aid of a supportive device and/or person AND leaving the home requires a considerable and taxing effort or is medically contraindicated. Pt req the following assistanc: Walker Home Health Nursing Orders Home Health Services Order: Nursing Services, [place] Operator-Evaluate & Treat, Physical Therapy-Evaluate & Treat Certify Stmt I certify that this patient is under my care and that I, a nurse practitioner or a physician; a chemistry research assistant working with me, had a face to face encounter that - meets the physician face to face encounter requirements with this patient as dated. MALINA HOOVER DO Feb 26, 2022 06:08
--- NOTE | 2022-02-26 06:08 | Discharge Summary ---
Diagnosis/Chief Complaint Date of Admission Feb 22, 2022 at 10:50 Date of Discharge Discharge Date: Feb 26, 2022 Discharge Diagnosis Assessment: Myopathy COVID-19 Atrial fibrillation Diabetes Acute on chronic renal failure Neuropathy Constipation Plan: Supportive care Monitor closely 02/23/2022: Bowel regimen Diabetes management 02/24/2022: Out of isolation Monitor closely 02/25/2022: Supportive care Monitor closely Discharge tomorrow (1) Myopathy (2) T2DM (type 2 diabetes mellitus) Status: Chronic (3) COVID-19 Status: Acute (4) Acute kidney injury superimposed on chronic kidney disease Status: Acute (5) HLD (hyperlipidemia) Status: Chronic (6) HTN (hypertension) Status: Chronic (7) Debility Status: Acute (8) Atrial fibrillation with RVR Status: Acute (9) Generalized weakness (10) CKD (chronic kidney disease) (11) Neuropathic pain Status: Acute (12) Iron deficiency Status: Acute (13) Noncompliance with medication regimen Status: Acute (14) Diabetic neuropathy Status: Acute Discharge Summary Discharge Physical Examination Allergies: Coded Allergies: No Known Drug Allergies (Unverified , 03/04/21) Vitals & I&Os Vital Signs Date Time Temp Pulse Resp B/P (MAP) Pulse Ox O2 Delivery O2 Flow Rate FiO2 02/26/22 10:10 36.4 56 18 143/100 98 Room Air General Appearance: Alert, Oriented X3, Cooperative Respiratory: Clear to Auscultation Cardiovascular: Regular Rate Psych/Mental Status: Mental Status NL Hospital Course Was the Problem List Reviewed?: Yes Hospital course: Patient had a brief hospital course of inpatient rehab after suffering from COVID infection and remained in isolation until the last 3 days of hospital stay. He stabilized and was able to participate in all therapies. Overall he gains strength and remained stable and did not require any oxygen supplementation and he will discharge in improved condition and is well supported at home. Labs (last 24 hrs) Laboratory Tests 02/22/22 12:15: Glucometer 181H 02/22/22 16:17: Glucometer 189H 02/22/22 20:30: Glucometer 198H 02/23/22 05:50: White Blood Count 10.6, Red Blood Count 2.95L, Hemoglobin 9.0L, Hematocrit 28L, Mean Corpuscular Volume 94, Mean Corpuscular Hemoglobin 31, Mean Corpuscular Hemoglobin Concent 32, Red Cell Distribution Width 15.1H, Platelet Count 348, Mean Platelet Volume 11.5, Immature Granulocyte % (Auto) 0, Neutrophils (%) (Auto) 65, Lymphocytes (%) (Auto) 27, Monocytes (%) (Auto) 6, Eosinophils (%) (Auto) 1, Basophils (%) (Auto) 0, Neutrophils # (Auto) 7.0, Lymphocytes # (Auto) 2.8, Monocytes # (Auto) 0.7, Eosinophils # (Auto) 0.1, Basophils # (Auto) 0.0, Immature Granulocyte # (Auto) 0.0, Sodium Level 138, Potassium Level 3.6, Chloride Level 104, Carbon Dioxide Level 24, Anion Gap 10, Blood Urea Nitrogen 14, Creatinine 0.99, Estimat Glomerular Filtration Rate 79, BUN/Creatinine Ratio 14, Glucose Level 112H, Calcium Level 8.8, Corrected Calcium 10.0, Total Bilirubin 0.4, Aspartate Amino Transf (AST/SGOT) 20, Alanine Aminotransferase (ALT/SGPT) 25, Alkaline Phosphatase 54, Total Protein 7.4, Albumin 2.5L 02/23/22 10:59: Glucometer 169H 02/23/22 15:46: Glucometer 193H 02/23/22 20:50: Glucometer 197H 02/24/22 05:41: Glucometer 117H 02/24/22 10:45: Glucometer 144H 02/24/22 15:03: Glucometer 205H 02/24/22 20:09: Glucometer 177H 02/25/22 05:27: Glucometer 95 02/25/22 10:47: Glucometer 144H 02/25/22 15:20: Glucometer 148H 02/25/22 20:48: Glucometer 170H Pending Labs Laboratory Tests 02/22/22 12:15: Glucometer 181 02/22/22 16:17: Glucometer 189 02/22/22 20:30: Glucometer 198 02/23/22 05:50: White Blood Count 10.6, Red Blood Count 2.95, Hemoglobin 9.0, Hematocrit 28, Mean Corpuscular Volume 94, Mean Corpuscular Hemoglobin 31, Mean Corpuscular Hemoglobin Concent 32, Red Cell Distribution Width 15.1, Platelet Count 348, Mean Platelet Volume 11.5, Immature Granulocyte % (Auto) 0, Neutrophils (%) (Auto) 65, Lymphocytes (%) (Auto) 27, Monocytes (%) (Auto) 6, Eosinophils (%) (Auto) 1, Basophils (%) (Auto) 0, Neutrophils # (Auto) 7.0, Lymphocytes # (Auto) 2.8, Monocytes # (Auto) 0.7, Eosinophils # (Auto) 0.1, Basophils # (Auto) 0.0, Immature Granulocyte # (Auto) 0.0, Sodium Level 138, Potassium Level 3.6, Chloride Level 104, Carbon Dioxide Level 24, Anion Gap 10, Blood Urea Nitrogen 14, Creatinine 0.99, Estimat Glomerular Filtration Rate 79, BUN/Creatinine Ratio 14, Glucose Level 112, Calcium Level 8.8, Corrected Calcium 10.0, Total Bilirubin 0.4, Aspartate Amino Transf (AST/SGOT) 20, Alanine Aminotransferase (ALT/SGPT) 25, Alkaline Phosphatase 54, Total Protein 7.4, Albumin 2.5 02/23/22 10:59: Glucometer 169 02/23/22 15:46: Glucometer 193 02/23/22 20:50: Glucometer 197 02/24/22 05:41: Glucometer 117 02/24/22 10:45: Glucometer 144 02/24/22 15:03: Glucometer 205 02/24/22 20:09: Glucometer 177 02/25/22 05:27: Glucometer 95 02/25/22 10:47: Glucometer 144 02/25/22 15:20: Glucometer 148 02/25/22 20:48: Glucometer 170 Discharge Home Medications: Active Scripts Active Topamax (Topiramate) 25 Mg Tablet 25 Mg PO BID Eliquis (Apixaban) 5 Mg Tablet 5 Mg PO BID Diltiazem 24Hr ER (Diltiazem HCl) 180 Mg Cap.er.24h 180 Mg PO DAILY Reported Co Q-10 (Ubidecarenone) 100 Mg Capsule 100 Mg PO DAILY Omeprazole 20 Mg Capsule.dr 20 Mg PO DAILY Levemir Flextouch (Insulin Detemir) 100 Unit/Ml (3 Ml) Insuln.pen 20 Unit SQ HS Vitamin D3 (Cholecalciferol (Vitamin D3)) 50 Mcg (2000 Unit) Capsule 50 Mcg PO 1200 Fish Oil 1,200 mg Fish Oil (Fish Oil/Dha/Epa) 1,200 Mg-144 Mg-216 Mg Capsule 1 Each PO 1200 Vitamin E (Vitamin E Mixed) 100 Unit Tablet 100 Unit PO 1200 Vitamin C (Ascorbate Calcium) 500 Mg Tablet 500 Mg PO 1200 Tramadol HCl 50 Mg Tablet 50-100 Mg PO HS PRN Pregabalin 200 Mg Capsule 200 Mg PO TID Furosemide 40 Mg Tablet 40 Mg PO DAILY PRN Jardiance (Empagliflozin) 25 Mg Tablet 12.5 Mg PO DAILY TAKES OF A 25MG TAB Multivitamin 1 Each Tablet 1 Each PO 1200 Atorvastatin Calcium 80 Mg Tablet 40 Mg PO HS TAKES OF AN 80MG TAB Zolpidem Tartrate 5 Mg Tablet 5 Mg PO HS PRN Allopurinol 300 Mg Tablet 300 Mg PO DAILY Metformin HCl 1,000 Mg Tablet 1,000 Mg PO BID Instructions to patient/family Please see electronic discharge instructions given to patient. Diagnosis/Problems Diagnosis/Problems (1) Myopathy (2) T2DM (type 2 diabetes mellitus) Status: Chronic (3) COVID-19 Status: Acute (4) Acute kidney injury superimposed on chronic kidney disease Status: Acute (5) HLD (hyperlipidemia) Status: Chronic (6) HTN (hypertension) Status: Chronic (7) Debility Status: Acute (8) Atrial fibrillation with RVR Status: Acute (9) Generalized weakness (10) CKD (chronic kidney disease) (11) Neuropathic pain Status: Acute (12) Iron deficiency Status: Acute (13) Noncompliance with medication regimen Status: Acute (14) Diabetic neuropathy Status: Acute MALINA HOOVER DO Feb 26, 2022 06:08
[2022-02-26 07:45] VITALS: BP 143/100
[2022-02-26] MEDS: toPIRamate 25 MG (TOPAMAX) TAB PO SCH (07:45)
[2022-02-26] MEDS: DOCUSATE SODIUM 100 MG (COLACE) CAP PO SCH (07:45)
[2022-02-26] MEDS: APIXABAN 5 MG (ELIQUIS) TABLET PO SCH (07:45)
[2022-02-26] MEDS: SENNA W/DOCUSATE (SENOKOT S) TABLET PO SCH (07:45)
[2022-02-26] MEDS: polyethylene glycoL POWDER 17 GM (MIRALAX) PACK PO SCH (08:34)
--- NOTE | 2022-02-26 10:08 | Therapy Team Discharge Summary ---
Therapy Discharge Summary Discharge Recommendations Date of Discharge Therapy D/C Recommendations: Assisted Living, Bath Aide, Homemaker Support, Shelter (TCU/NH) Physical Therapy Roll Left to Right (QC): 6 Sit to Lying (QC): 6 Lying to Sitting/Side of Bed(Q: 6 Sit to Stand (QC): 6 Chair/Vxx-rm-Vqirv Xfer(QC): 6 Toilet Transfer (QC): 5 Car Transfer (QC): 6 Does the Patient Walk: Yes Mode of Locomotion: Walk Anticipated Mode of Locomotion: Walk Walk 10 feet (QC): 6 Walk 50 ft with 2 Turns(QC): 6 Walk 150 ft (QC): 6 Walking 10ft on uneven surface: 6 Distance: 80' Gait Assistive Device: FWW Does the Pt Use a Wheelchair: No Wheel 50 ft with 2 turns (QC): 9 Wheel 150 ft (QC): 9 #of Steps: 12 1 Step (curb) (QC): 4 4 Steps (QC): 4 12 Steps (QC): 4 Walking Assistive Device: Walker Balance Sitting Static: Normal Balance Sitting Dynamic: Normal Balance-Standing Static: Fair Picking up an Object (QC): 6 Occupational Therapy 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 At time of evaluation, he was max a for toileting, mod a for LB dressing and bathing, min a for footwear and upper body dressing, and SBA for eating and oral care. During his rehab stay, OT focused on AE, safety, energy conservation, balance, endurance, and UE strengthening needed for functional tasks. Pt made fair progress. 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 See below for current levels of assistance. Pt will be discharging from this facility today and will be discharged from OT at this time. Decreased Activ Tolerance, Decreased UE Strength, Edema, Impaired I ADL's, Impaired Self-Care Skills, Restricted Funct UE ROM Eating (QC): 5 Oral Hygiene (QC): 6 Shower/Bathe Self (QC): 5 Upper Body Dressing (QC): 3 Lower Body Dressing (QC): 4 On/Off Footwear (QC): 3 Toileting Hygiene (QC): 4 PT Intermediate Goals Warp Changer Goals PT Warp Changer Goals Time Frame: Mar 08, 2022 Roll Left to Right (QC): 6 Sit to Lying (QC): 6 Lying-Sitting on Side/Bed(QC): 6 Sit to Stand (QC): 6 Chair/Kog-pu-Mrgvb Xfer(QC): 6 Toilet/Commode Transfer (QC): 6 Car Transfer (QC): 6 Does the Patient Walk: Yes Walk 10 feet (QC): 6 Walk 10ft-Uneven Surface(QC): 6 Walk 50ft with 2 Turns (QC): 6 Walk 150 ft (QC): 6 Wheel 50 feet with 2 turns (QC: 9 Wheel 150 feet: 9 1 Step (curb) (QC): 4 4 Steps (QC): 4 12 Steps (QC): 88 Picking up an Object (QC): 6 (using vice president of operations) OT Intermediate Goals Warp Changer Goals Time Frame: Mar 08, 2022 Acute change in mental status: 0 Inattention: 0 Disorganized thinkin Altered level of consciousness: 0 Eating (QC): 5 Oral Hygiene (QC): 5 Toileting Hygiene (QC): 6 Shower/Bathe Self (QC): 5 Upper Body Dressing (QC): 5 Lower Body Dressing (QC): 5 On/Off Footwear (QC): 5 Additional Goals: 1-Demonstrate ADL Tasks, 2-Verbalize Understanding, 3- ImproveStrength/Darcie 1=Demonstrate adherence to instructed precautions during ADL tasks. 2=Patient will verbalize/demonstrate understanding of assistive devices/modifications for ADL. 3=Patient will improve strength/tolerance for activity to enable patient to perform ADL's. Evelin Padilla OT Feb 26, 2022 10:08
[2022-02-26 10:10] VITALS: BP 143/100
--- NOTE | 2022-02-26 11:32 | Therapy Team Discharge Summary ---
Therapy Discharge Summary Discharge Recommendations Date of Discharge Feb 26, 2022 at 10:23 Therapy D/C Recommendations: Assisted Living, Bath Aide, Homemaker Support, Penitentiary (TCU/NH) Physical Therapy Patient came to rehab with Critical illness myopathy, Covid 19. Upon evaluation patient performs rolling and supine <-> sit with SBA, sit <-> stand mod assist, transfers CGA, car transfer CGA, ambulate 80' with a rolling walker with CGA (including 50' with at least 2 turns of 90 degrees and 10' over an uneven surface), go up and down 1 step using a rolling walker with min assist, and picked up an object from the floor with CGA using a divinity teacher. Patient has been performing bed mobility and transfer training, balance and endurance training, functional strengthening, stair training, gait training, and education. Patient has made good progress and has met all of his half-way goals. Now, patient performs rolling and supine <-> sit with independence, sit <-> stand and transfers with independence, car transfer independent, ambulates 150' with a rolling walker with independence (including 50' with at least 2 turns of 90 degrees and 10' over an uneven surface), can go up and down 12 steps using 2 handrails with CGA, and can sisal picker an object from the floor using a divinity teacher with independence. Patient has been discharged from this facility and will be discharged from PT at this time. Roll Left to Right (QC): 6 Sit to Lying (QC): 6 Lying to Sitting/Side of Bed(Q: 6 Sit to Stand (QC): 6 Chair/Lxp-nk-Dxcjs Xfer(QC): 6 Toilet Transfer (QC): 5 Car Transfer (QC): 6 Does the Patient Walk: Yes Mode of Locomotion: Walk Anticipated Mode of Locomotion: Walk Walk 10 feet (QC): 6 Walk 50 ft with 2 Turns(QC): 6 Walk 150 ft (QC): 6 Walking 10ft on uneven surface: 6 Distance: 80' Gait Assistive Device: FWW Does the Pt Use a Wheelchair: No Wheel 50 ft with 2 turns (QC): 9 Wheel 150 ft (QC): 9 #of Steps: 12 1 Step (curb) (QC): 4 4 Steps (QC): 4 12 Steps (QC): 4 Walking Assistive Device: Walker Balance Sitting Static: Normal Balance Sitting Dynamic: Normal Balance-Standing Static: Fair Picking up an Object (QC): 6 Occupational Therapy Decreased Activ Tolerance, Decreased UE Strength, Edema, Impaired I ADL's, Impaired Self-Care Skills, Restricted Funct UE ROM Eating (QC): 5 Oral Hygiene (QC): 6 Shower/Bathe Self (QC): 5 Upper Body Dressing (QC): 3 Lower Body Dressing (QC): 4 On/Off Footwear (QC): 3 Toileting Hygiene (QC): 4 PT Sba Underwriter Goals Sba Underwriter Goals PT Sba Underwriter Goals Time Frame: Mar 08, 2022 Roll Left to Right (QC): 6 Sit to Lying (QC): 6 Lying-Sitting on Side/Bed(QC): 6 Sit to Stand (QC): 6 Chair/Bgc-dm-Rkxmo Xfer(QC): 6 Toilet/Commode Transfer (QC): 6 Car Transfer (QC): 6 Does the Patient Walk: Yes Walk 10 feet (QC): 6 Walk 10ft-Uneven Surface(QC): 6 Walk 50ft with 2 Turns (QC): 6 Walk 150 ft (QC): 6 Wheel 50 feet with 2 turns (QC: 9 Wheel 150 feet: 9 1 Step (curb) (QC): 4 4 Steps (QC): 4 12 Steps (QC): 88 Picking up an Object (QC): 6 (using divinity teacher) OT Group Home Goals Sba Underwriter Goals Time Frame: Mar 08, 2022 Acute change in mental status: 0 Inattention: 0 Disorganized thinkin Altered level of consciousness: 0 Eating (QC): 5 Oral Hygiene (QC): 5 Toileting Hygiene (QC): 6 Shower/Bathe Self (QC): 5 Upper Body Dressing (QC): 5 Lower Body Dressing (QC): 5 On/Off Footwear (QC): 5 Additional Goals: 1-Demonstrate ADL Tasks, 2-Verbalize Understanding, 3- ImproveStrength/Darcie 1=Demonstrate adherence to instructed precautions during ADL tasks. 2=Patient will verbalize/demonstrate understanding of assistive devices/modifications for ADL. 3=Patient will improve strength/tolerance for activity to enable patient to perform ADL's. DARYA KIM PT Feb 26, 2022 11:32
== END 2022-02-26 10:23 | disposition home health service (06) | DRG 91 ==
PROVIDERS: ADMIT Internal Medicine; ATTEND Internal Medicine
PROC: 8E0ZXY6 Isolation (ICD-10-PCS; principal; 2022-02-22)
DX: G72.9 Myopathy, unspecified (principal); U07.1 COVID-19; N17.9 Acute kidney failure, unspecified; I48.91 Unspecified atrial fibrillation; E11.40 Type 2 diabetes mellitus with diabetic neuropathy, unspecified; E11.22 Type 2 diabetes mellitus with diabetic chronic kidney disease; I12.9 Hypertensive chronic kidney disease with stage 1 through stage 4 chronic kidney disease, or unspecified chronic kidney disease; N18.9 Chronic kidney disease, unspecified; E78.5 Hyperlipidemia, unspecified; Z66 Do not resuscitate; K59.00 Constipation, unspecified; Z79.4 Long term (current) use of insulin; Z60.2 Problems related to living alone; R53.81 Other malaise; D64.9 Anemia, unspecified; R51.9 Headache, unspecified; Z91.14 Patient's other noncompliance with medication regimen; E61.1 Iron deficiency
CPT/HCPCS: 36415; 80053; 82947; 85025

== ENCOUNTER 2022-05-13 10:00 | Inpatient (IN) | payer OTHER, MEDICARE ==
[~2022-05-13] VITALS: Ht 170.2 cm; Wt 89.2 kg
[~2022-05-13 10:00] MED LIST changes: +TPR25T PO
[2022-05-13] MEDS ORDERED: dilTIAZem DRIP PRE-MIX 125 ML IV SCH (11:45)
[2022-05-13 12:00] LABS: BASOPHILS % (AUTO) 0 % (0-10); EOSINOPHILS # (AUTO) 0.1 10^3/uL (0.0-0.3); EOSINOPHILS % (AUTO) 1 % (0-10); HEMATOCRIT 30 % (40-54); HEMOGLOBIN 9.5 g/dL (13.3-17.7); LYMPHOCYTES # (AUTO) 2.5 10^3/uL (1.0-4.0); LYMPHOCYTES % (AUTO) 30 % (12-44); MEAN CORPUSCULAR HEMOGLOBIN 30 pg (25-34); MEAN CORPUSCULAR HGB CONC 32 g/dL (32-36); MEAN CORPUSCULAR VOLUME 92 fL (80-99); MONOCYTES # (AUTO) 0.5 10^3/uL (0.0-1.0); MONOCYTES % (AUTO) 5 % (0-12); NEUTROPHILS # (AUTO) 5.4 10^3/uL (1.8-7.8); NEUTROPHILS % (AUTO) 64 % (42-75); PLATELET COUNT 261 10^3/uL (130-400); WHITE BLOOD COUNT 8.4 10^3/uL (4.3-11.0)
[2022-05-13 12:20] LABS: ALBUMIN 2.7 GM/DL (3.2-4.5); BILIRUBIN,TOTAL 0.3 MG/DL (0.1-1.0); CALCIUM 8.2 MG/DL (8.5-10.1); CREATININE SERUM 1.43 MG/DL (0.60-1.30); POTASSIUM 3.5 MMOL/L (3.6-5.0); TOTAL PROTEIN 6.8 GM/DL (6.4-8.2)
--- NOTE | 2022-05-13 12:51 | Diagnostic Imaging Report ---
CHEST 1 VIEW, AP/PA ONLY INDICATION: Atrial fibrillation with dyspnea. COMPARISON: 02/13/2022. FINDINGS: New bibasilar heterogeneous consolidations are greater on the left. Potential small bilateral pleural effusions. No pneumothorax. Cardiomegaly is present. IMPRESSION: 1. New basilar pulmonary opacities may be on the basis of pulmonary edema. Other possibilities would include aspiration, multifocal pneumonia or hemorrhage. Dictated by: Dictated on workstation # [id number]
[2022-05-13 13:14] LABS: MAGNESIUM 0.8 MG/DL (1.6-2.4)
[2022-05-13] MEDS ORDERED: NS IV 500 ML 500 ML IV PRN (13:15)
[2022-05-13 13:16] LABS: BILIRUBIN,URINE NEGATIVE (NEGATIVE); CLARITY,URINE CLEAR; COLOR,URINE YELLOW; GLUCOSE, URINE (UA) 3+ (NEGATIVE); KETONES,URINE NEGATIVE (NEGATIVE); LEUKOCYTE ESTERASE ,URINE NEGATIVE (NEGATIVE); NITRITE,URINE NEGATIVE (NEGATIVE); PROTEIN,URINE TRACE (NEGATIVE)
[2022-05-13 13:30] LABS: AMORPHOUS SEDIMENT,UR FEW AMOR URATES /LPF; BACTERIA,URINE TRACE /HPF; RBC,URINE RARE /HPF; SQUAMOUS EPITHELIAL CELL,UR 0-2 /HPF
[2022-05-13 13:31] LABS: HYALINE CASTS, URINE 0-2 /LPF; URINE OTHER RARE TRANS EPI /HPF
[2022-05-13] MEDS: MAGNESIUM 1 GM/100 ML IVPB 100 ML IV SCH ×8 (14:02→21:11)
[2022-05-13] MEDS ORDERED: ENOXAPARIN 100 MG/1 ML (LOVENOX) SYR SC SCH (15:00)
[2022-05-13] MEDS ORDERED: DIGOXIN 0.25 MG/ML (LANOXIN) 2 ML AMP IV NR (15:00)
[2022-05-13] MEDS ORDERED: DIGOXIN 0.25 MG/ML (LANOXIN) 2 ML AMP IV PRN (15:00)
--- NOTE | 2022-05-13 15:27 | Speech Therapy Progress Note ---
Therapy Progress Note Speech pathology received the consultation for a clinical bedside swallowing evaluation and the patient's chart was reviewed. The consultation will be completed on the subsequent treatment date of May 14. Thank you for the consultation. LG KRAUS May 13, 2022 15:27
[2022-05-13] MEDS ORDERED: INSU100I78 SQ (16:01)
[2022-05-13] MEDS: ENOXAPARIN 80 MG/0.8 ML (LOVENOX) SYR SC SCH (16:01)
[2022-05-13] MEDS ORDERED: DILT180C85 PO (16:01)
[2022-05-13] MEDS ORDERED: APIX5TAB PO (16:01)
[2022-05-13] MEDS ORDERED: GABA-486 PO (16:01)
[2022-05-13] MEDS ORDERED: NAPR220T66 PO (16:01)
[2022-05-13] MEDS ORDERED: TOPI25TA10 PO (16:01)
[2022-05-13] MEDS ORDERED: VIT-10 PO (16:01)
[2022-05-13] MEDS ORDERED: CHOL500044 PO (16:01)
[2022-05-13] MEDS ORDERED: TMSL.4C PO (16:01)
[2022-05-13] MEDS ORDERED: DOCU100C37 PO (16:02)
[2022-05-13] MEDS ORDERED: APIXABAN 5 MG (ELIQUIS) TABLET PO SCH (21:00)
[2022-05-13] MEDS: GABAPENTIN 100 MG (NEURONTIN) CAP PO SCH (21:10)
[2022-05-13] MEDS: toPIRamate 25 MG (TOPAMAX) TAB PO SCH (21:11)
[2022-05-13] MEDS: inSUlin ASPART (NovoLOG) 1 UNIT/0.01 ML (CHARGE PER UNIT) SC SCH (21:11)
[2022-05-13] MEDS ORDERED: MELATONIN 3 MG TABLET PO SCH (23:30)
[2022-05-14] MEDS: ENOXAPARIN 80 MG/0.8 ML (LOVENOX) SYR SC SCH ×2 (04:59→17:26)
[2022-05-14 05:30] LABS: BASOPHILS % (AUTO) 0 % (0-10); EOSINOPHILS # (AUTO) 0.1 10^3/uL (0.0-0.3); EOSINOPHILS % (AUTO) 1 % (0-10); HEMATOCRIT 31 % (40-54); HEMOGLOBIN 9.9 g/dL (13.3-17.7); LYMPHOCYTES # (AUTO) 2.8 10^3/uL (1.0-4.0); LYMPHOCYTES % (AUTO) 29 % (12-44); MEAN CORPUSCULAR HEMOGLOBIN 29 pg (25-34); MEAN CORPUSCULAR HGB CONC 32 g/dL (32-36); MEAN CORPUSCULAR VOLUME 91 fL (80-99); MONOCYTES # (AUTO) 0.6 10^3/uL (0.0-1.0); MONOCYTES % (AUTO) 6 % (0-12); NEUTROPHILS # (AUTO) 6.2 10^3/uL (1.8-7.8); NEUTROPHILS % (AUTO) 64 % (42-75); PLATELET COUNT 288 10^3/uL (130-400); WHITE BLOOD COUNT 9.8 10^3/uL (4.3-11.0)
[2022-05-14 05:40] LABS: POTASSIUM 3.4 MMOL/L (3.6-5.0)
[2022-05-14 05:42] LABS: CALCIUM 8.4 MG/DL (8.5-10.1)
[2022-05-14 05:46] LABS: CREATININE SERUM 1.14 MG/DL (0.60-1.30); PHOSPHORUS 3.2 MG/DL (2.3-4.7)
[2022-05-14 05:48] LABS: MAGNESIUM 2.3 MG/DL (1.6-2.4)
[2022-05-14] MEDS: POTASSIUM CL 10MEQ/50ML IVPB 50 ML IV SCH (05:50)
[2022-05-14] MEDS: inSUlin ASPART (NovoLOG) 1 UNIT/0.01 ML (CHARGE PER UNIT) SC SCH ×4 (05:50→21:18)
[2022-05-14] MEDS: KCL 20 MEQ TAB (K-DUR) PO SCH (05:50)
[2022-05-14] MEDS: MAGNESIUM 1 GM/100 ML IVPB 100 ML IV SCH (05:50)
[2022-05-14] MEDS ORDERED: CATHETER FLUSH 10 ML SYR IVP PRN (08:00)
--- NOTE | 2022-05-14 08:09 | Progress Note - Cardiology ---
Cardiology SOAP Progress Note Objective: I&O/Vital Signs 05/13/22 05/13/22 05/13/22 05/13/22 21:00 22:00 23:00 23:57 Temp 36.9 Pulse 111 111 105 Resp 18 16 B/P (MAP) 120/82 (95) 109/80 (90) 101/66 (78) Pulse Ox 92 92 93 O2 Delivery Nasal Cannula Nasal Cannula Nasal Cannula O2 Flow Rate 2.00 2.00 2.00 05/13/22 05/14/22 05/14/22 05/14/22 23:59 00:00 01:00 01:00 Pulse 98 94 108 Resp 13 24 B/P (MAP) 103/78 (86) 98/63 (75) Pulse Ox 93 90 92 O2 Delivery Nasal Cannula Nasal Cannula Nasal Cannula O2 Flow Rate 2.00 2.00 2.00 05/14/22 05/14/22 05/14/22 05/14/22 02:00 03:00 03:37 04:00 Temp 37.3 Pulse 106 113 98 Resp 18 29 24 B/P (MAP) 96/69 (78) 104/78 (87) 114/79 (91) Pulse Ox 92 93 95 O2 Delivery Nasal Cannula Nasal Cannula Nasal Cannula O2 Flow Rate 2.00 2.00 2.00 05/14/22 05/14/22 05/14/22 05/14/22 04:00 05:00 06:00 07:00 Pulse 112 94 109 Resp 25 B/P (MAP) 110/75 (87) 107/75 (86) Pulse Ox 93 96 92 O2 Delivery Nasal Cannula Nasal Cannula Nasal Cannula O2 Flow Rate 2.00 2.00 2.00 05/14/22 00:00 Intake Total 1075 ml Output Total 800 ml Balance 275 ml Results/Procedures: Labs Laboratory Tests 05/13/22 11:51: White Blood Count 8.4, Red Blood Count 3.21L, Hemoglobin 9.5L, Hematocrit 30L, Mean Corpuscular Volume 92, Mean Corpuscular Hemoglobin 30, Mean Corpuscular Hemoglobin Concent 32, Red Cell Distribution Width 16.8H, Platelet Count 261, Mean Platelet Volume 11.0, Immature Granulocyte % (Auto) 0, Neutrophils (%) (Auto) 64, Lymphocytes (%) (Auto) 30, Monocytes (%) (Auto) 5, Eosinophils (%) (Auto) 1, Basophils (%) (Auto) 0, Neutrophils # (Auto) 5.4, Lymphocytes # (Auto) 2.5, Monocytes # (Auto) 0.5, Eosinophils # (Auto) 0.1, Basophils # (Auto) 0.0, Immature Granulocyte # (Auto) 0.0, Sodium Level 138, Potassium Level 3.5L, Chloride Level 102, Carbon Dioxide Level 24, Anion Gap 12, Blood Urea Nitrogen 30H, Creatinine 1.43H, Estimat Glomerular Filtration Rate 51, BUN/Creatinine Ratio 21, Glucose Level 162H, Calcium Level 8.2L, Corrected Calcium 9.2, Magnesium Level 0.8*L, Total Bilirubin 0.3, Aspartate Amino Transf (AST/SGOT) 8, Alanine Aminotransferase (ALT/SGPT) 7, Alkaline Phosphatase 55, Total Protein 6.8, Albumin 2.7L, Thyroid Stimulating Hormone (TSH) 4.13 05/13/22 13:00: Urine Color YELLOW, Urine Clarity CLEAR, Urine pH 6.0, Urine Specific [place] 1.010L, Urine Protein TRACEH, Urine Glucose (UA) 3+H, Urine Ketones NEGATIVE, Urine Nitrite NEGATIVE, Urine Bilirubin NEGATIVE, Urine Urobilinogen 1.0, Urine Leukocyte Esterase NEGATIVE, Urine RBC (Auto) NEGATIVE, Urine RBC RARE, Urine WBC 2-5, Urine Squamous Epithelial Cells 0-2, Urine Crystals PRESENTH, Urine Amorphous Sediment FEW ARIELLE URATESH, Urine Bacteria TRACE, Urine Casts PRESENT, Urine Hyaline Casts 0-2H, Urine Mucus NEGATIVE, Urine Other RARE TRANS EPI, Urine Culture Indicated NO 05/13/22 16:49: Glucometer 169H 05/13/22 20:57: Glucometer 173H 05/14/22 05:15: White Blood Count 9.8, Red Blood Count 3.38L, Hemoglobin 9.9L, Hematocrit 31L, Mean Corpuscular Volume 91, Mean Corpuscular Hemoglobin 29, Mean Corpuscular Hemoglobin Concent 32, Red Cell Distribution Width 16.9H, Platelet Count 288, Mean Platelet Volume 11.0, Immature Granulocyte % (Auto) 0, Neutrophils (%) (Auto) 64, Lymphocytes (%) (Auto) 29, Monocytes (%) (Auto) 6, Eosinophils (%) (Auto) 1, Basophils (%) (Auto) 0, Neutrophils # (Auto) 6.2, Lymphocytes # (Auto) 2.8, Monocytes # (Auto) 0.6, Eosinophils # (Auto) 0.1, Basophils # (Auto) 0.0, Immature Granulocyte # (Auto) 0.0, Sodium Level 136, Potassium Level 3.4L, Chloride Level 101, Carbon Dioxide Level 21, Anion Gap 14, Blood Urea Nitrogen 24H, Creatinine 1.14, Estimat Glomerular Filtration Rate 67, BUN/Creatinine Ratio 21, Glucose Level 151H, Calcium Level 8.4L, Phosphorus Level 3.2, Magnesium Level 2.3 A/P: Assessment: Persistent A Fib with RVR - first diagnosed several years earlier, according to the patient, but he is unable to provide any details - TSH normal (0.66) on 02/13/22 and on 05/13/21 (4.13) Ac on chronic diastolic CHF - echo on 02-15-22: LVEF 50%, grade 2 rosas dysfunction, mild to mod LAE, mild AI, PASP 20-25 mmHg RBBB on ECG COVID in Feb 2022 Chronic gen weakness and malaise - etiology undetermined Chronic bilat leg swelling and peripheral neuropathy Plan: * Increase oral dilt * Continue OAC * Increase diuretics for CHF * Replenish lytes * Close outpatient f/u SRI KEENAN MD FACP [facility] May 14, 2022 08:09
[2022-05-14] MEDS ORDERED: KCL 20 MEQ TAB (K-DUR) PO ONE ×2 (08:30→09:00)
[2022-05-14] MEDS: toPIRamate 25 MG (TOPAMAX) TAB PO SCH ×2 (08:59→21:19)
[2022-05-14] MEDS: GABAPENTIN 100 MG (NEURONTIN) CAP PO SCH ×2 (09:00→21:20)
[2022-05-14] MEDS: MAGNESIUM OXIDE (MAG-OX)400 MG TAB PO SCH (09:00)
[2022-05-14] MEDS: FUROSEMIDE 40 MG (LASIX) TAB PO SCH (09:00)
[2022-05-14] MEDS: TAMSULOSIN 0.4 MG (FLOMAX) CAP PO SCH (09:01)
--- NOTE | 2022-05-14 09:34 | ST Dysphagia Evaluation ---
Speech Evaluation-General Medical Diagnosis A Fib with RVR Onset Date: May 13, 2022 Therapy Diagnosis Therapy Diagnosis: Suspected Pharyngeal-Esophageal Precautions Precautions: Fall, Aspiration Precautions/Isolations: Aspiration, Fall Prevention, Standard Precautions Referral Referring Physician: Candace Aldana APRN Reason for Referral: Evaluation/Treatment Medical History Pertinent Medical History: DM, HTN, Neuropathy, Renal Insufficiency Reviewed History: Yes Speech PLF/Current-Dysphagia Prior Level of Function The patient stated he currently consumes a regular consistency diet with thin liquids. Per patient, large pills and dry meat become "stuck in my throat." The patient localizes the globus sensation to the laryngeal region. The patient reported his son cuts his large pills in half which aids in pharyngeal clearance. Additionally, the patient reported, "I cough if I take too big of a drink." Subjective The patient was lying in bed, awake and alert, upon entrance to his room by the clinician. The patient greeted the clinician appropriately and was agreeable to participation in the clinical bedside swallowing evaluation. At this time, the patient is receiving a regular consistency diet with moderate ly thick liquids. The clinician is unable to locate the rationale for the thickened liquids in the patient's medical chart at this time. CXR: 05/13/22: 1. New basilar pulmonary opacities may be on the basis of pulmonary edema. Other possibilities would include aspiration, multifocal pneumonia or hemorrhage. Cognitive Status Patient Orientation: Person, Place, Time, Situation, Normal For Age Oral Motor Skills Dentition: Natural Current Food Consistancy: Regular, Thin Liquids Ability to Follow Directions: Good Oral Expression Ability: No Impairment Voice Voice Phonatory-Based Quality: Normal Voice Pitch: Normal Voice Loudness: Normal Face Facial Symmetry: Symmetrical Oral-Facial Assessment Oral-Facial Dentition: Normal Labial Seal Description: Normal Lingual Protrusion: Normal Lingual ROM: Normal Lingual Strength: Normal Volitional Dry Swallow: Yes Voluntary Cough: Yes Can Clear Throat Volitionally: Yes Productive Cough: Yes Productive Throat Clear: Yes Dysphagia Evaluation Consistencies Presented: Regular, Thin Liquid, Pureed, Mixed Pills (whole, in half, and crushed in puree). The patient does not display oral impairments to the swallow function at this time. Pharyngeal Phase: Multiple Swallow Attempts The patient completes multiple effortful swallow per bolus. Laryngeal elevation is present to palpation. As the clinician entered the room, the patient consumed a large, consecutive straw drink of thin liquid while reclined in bed. An immediate, rigorous cough was displayed. Per patient, "I took too big of a drink, I knew that would happen but I was thirsty." Following, the patient consumed ice chips, teaspoon size, cup edge, and single straw sips of thin liquid. No s/s of suspected aspiration were demonstrated and the patient's vocal quality remained clear following the swallow. The patient consumed puree, mixed consistencies and solid consistencies. No s/s of suspected aspiration was demonstrated following the swallow. At the close of the session, the patient's RN was present and the clinician remained to visualized consumption of medication (pills). The patient attempted to consume potassium, cut in half, with water. The patient displayed an immediate, rigorous cough with a decline is SpO2% noted. The patient reported the pill became lodged in the proximal esophagus. The clinician provided teaspoons of applesauce to aid in clearance. Following patient recovery, the patient consumed medication crushed in applesauce, displaying a delayed throat clear intermittently. Dietary Recommendations: Regular Liquid Recommendations: Thin Recommendations: - Regular consistency diet with thin liquids, as tolerated. - Fully upright and alert for P.O. intake. - Crush medication and place in puree for administration. - Small, single bites and sips, only. - Additional sauces and gravies to dry, solid consistencies to aid in pharyngeal clearance. - Monitor for s/s of suspected aspiration with P.O. intake. If demonstrated, please contact speech pathology. - Completion of a modified barium swallow to assess for the presence of aspiration with P.O. consistencies due to the difficulties displayed by the patient during pill administration. The results and recommendations were provided to the patient and the patient's RN. The modified barium swallow is scheduled for 10:30 on this date. Additional recommendations to following completion of the MBS. Dysphagia Evaluation Summary The patient demonstrated pharyngeal esophageal dysphagia characterized by decre ased airway protection during the swallow and suspected decreased pharyngeal contractions. Speech Short Term Goals Short Term Goals Short Term Goals 1. The patient will display safe swallowing precautions with 80% accuracy, independently. Time Frame-STG: Three Days. Speech Surveyor Goals Surveyor Goals 1. The patient will tolerate the least restrictive diet consistency without s/s of suspected aspiration. Time Frame: One Week. Speech-Plan Treatment Plan Speech Therapy Treatment Plan: Continue Plan of Care Treatment Duration: May 21, 2022 Frequency: 4 times per week Estimated Hrs Per Day: .25 hour per day Rehab Potential: Fair Pt/Family Agrees to Plan: Yes Safety Risks/Education Teaching Recipient: Patient Teaching Methods: Discussion Response to Teaching: Verbalize Understanding, Reinforcement Needed Education Topics Provided: Results, Recommendations, Safe Swallowing Precautions, Plan of Care Time Speech Therapy Time In: 08:15 Speech Therapy Time Out: 09:25 DATE: May 14, 2022 Total Billed Time: 70 Billed Treatment Time 1, NAVEED MEYERS [facility] May 14, 2022 09:34
--- NOTE | 2022-05-14 10:46 | Diagnostic Imaging Report ---
INDICATION: Choking episode. The study was performed in conjunction with speech pathology. Video fluoroscopy was performed during swallowing of barium in multiple consistencies. A total of 85 seconds of fluoroscopic time was utilized. Patient ingested thin barium as well as applesauce and cracker consistency. Patient was also given a barium tablet with thin barium. There were episodes of laryngeal penetration during swallowing of thin barium, however, this did appear to clear appropriately. No aspiration was observed. Applesauce and cracker consistencies were unremarkable. The patient swallowed the pill without difficulty, however, there was penetration during the swallowing of the thin barium with the pill. No significant vallecular or piriform sinus residue is seen. IMPRESSION: Multiple episodes of laryngeal penetration during the swallowing of thin barium. No aspiration was observed. Dictated by: Dictated on workstation # [id number]
--- NOTE | 2022-05-14 11:16 | ST Mod Barium Swallow ---
Speech Evaluation-General Medical Diagnosis A Fib with RVR Onset Date: May 13, 2022 Therapy Diagnosis Therapy Diagnosis: Mild to Moderate Pharyngeal Esophageal Dysphagia Precautions Precautions: Fall, Aspiration Precautions/Isolations: Aspiration, Fall Prevention, Standard Precautions Referral Referring Physician: Dr. Tubbs Reason for Referral: Evaluation/Treatment Medical History Pertinent Medical History: DM, HTN, Neuropathy, Renal Insufficiency Reviewed History: Yes Speech Mod Barium Swallow Prior Level of Function Please refer to the "clinical bedside swallowing" report for full information and details regarding the patient's prior level of function. Oral Motor Skills Dentition Natural Dentures: Full Lingual Protrusion: Normal Lingual ROM: Normal Lingual Strength: Normal Volitional Dry Swallow: Yes Voluntary Cough: Yes Can Clear Throat Volitionally: Yes Textures-Lateral View Lateral View Food Presentation: Thin Liquid via Spoon, Thin Liquid via Straw, Pureed Solids, Regular Solids, Barrium Tablet Oral Phase Labial Closure: No Impairment (WFL) Bolus Formation Pooling L/R: No Impairment (WFL) Bolus Formation Placement: No Impairment (WFL) Mastication Rotary Chew: No Impairment (WFL) A/P Lingual Propulsion: No Impairment (WFL) Lingual Movement: No Impairment (WFL) The patient demonstrated mild oral dysphagia characterized by reduced lingual coordination and displayed through premature spillage of all thin liquid consistencies to the level of the pyriform sinuses and into the open laryngeal vestibule (laryngeal penetration prior to the swallow). Pharyngeal Phase Swallow Response: Mild Impairment (Mild to moderate.) Base of Tongue: Mild Impairment Epiglottic Movement: No Impairment (WFL) Laryngeal Elevation: Mild Impairment Vallecular Residue: Mild Pharyngeal Wall Residue: No Impairment (WFL) Piriform Sinus Residue: No Impairment (WFL) Laryngeal Penetration: Mild Aspiration Observations: None The patient demonstrated a delay in the pharyngeal swallow response, with the swallow response occurring as the head of the bolus reached the laryngeal surface of the epiglottis and the open laryngeal vestibule (thin liquids) prior to the swallow. Mildly reduced laryngeal elevation and hyo-laryngeal excursion were present with complete epiglottic inversion observed. Laryngeal penetration continued throughout the swallow with thin liquids secondary to premature spillage of material to the laryngeal vestibule. Penetration descended deeper into the laryngeal vestibule with larger sip size. Mildly reduced base of tongue retraction and intact pharyngeal contractions were appreciated. Mild vallecular residue was observed with all consistencies following the swallow. Cricopharyngeal prominence with a moderate obstruction of bolus flow was visualized at the proximal esophageal region correlation with cervical vertebrae six. The clinician suspects large pills remain at this location as the patient describes. Summary/Impressions The patient demonstrated mild to moderate oropharyngeal-esophageal dysphagia characterized by decreased lingual coordination, reduced laryngeal elevation, decreased hyo-laryngeal excursion, a delayed onset of the pharyngeal swallow, poor airway protection in the presence of bolus material, mildly reduced base of tongue retraction and cricopharyngeal prominence (moderate) visualized at cervical vertebrae six. Laryngeal penetration occurred prior to and during the swallow with thin liquids. An increase in sip size correlated with increased laryngeal penetration. No aspiration was visualized throughout the study. Recommendations: - Regular consistency diet with thin liquids, as tolerated. - Fully upright and alert for P.O. intake. - If pills are larger than the size of a pencil eraser, the pill should be cut into half or thirds for administration with thin liquid. The patient may also place medication (once cut in half or crushed) in puree for administration. - Small, single bites and sips, only. - Additional sauces and gravies to dry, solid consistencies to aid in pharyngeal clearance. - Monitor for s/s of suspected aspiration with P.O. intake. If demonstrated, please contact speech pathology. The patient reports he has a "swallow appointment" in [place] at the [facility] in the n ear future. The clinician recommends the patient keep the appointment due to the cricopharyngeal prominence viewed throughout the swallow study. The results and recommendations were shared with the patient immediately following completion of the study. The RN was contacted by the clinician, however, was not reached. The clinician will re-attempt contact as able. If the swallowing precautions listed above are not followed, the patient will remain at a high risk for aspiration with thin liquids and thin liquids during pill administration. Speech Short Term Goals Short Term Goals Short Term Goals 1. The patient will display safe swallowing precautions with 80% accuracy, independently. Time Frame-STG: Three Days. Speech Rehabilitation Manager Goals Snf Goals 1. The patient will tolerate the least restrictive diet consistency without s/s of suspected aspiration. Time Frame: One Week. Speech-Plan Treatment Plan Speech Therapy Treatment Plan: Continue Plan of Care Treatment Duration: May 21, 2022 Frequency: 3 times per week Estimated Hrs Per Day: .25 hour per day Rehab Potential: Fair Pt/Family Agrees to Plan: Yes Safety Risks/Education Teaching Recipient: Patient Teaching Methods: Demonstration, Discussion Response to Teaching: Verbalize Understanding, Return Demonstration Education Topics Provided: Results, Recommendations, Plan of Care, Safe Swallowing Precautions Time Speech Therapy Time In: 10:10 Speech Therapy Time Out: 10:30 DATE: May 14, 2022 Total Billed Time: 20 Billed Treatment Time 1, MOD, DYST LG KRAUS May 14, 2022 11:16
--- NOTE | 2022-05-14 12:03 | Consultation - Hospitalist ---
HPI History of Present Illness: HPI/Chief Complaint Bandar Crabtree is a 76 year old male with PMH HTN, T2DM, HLD, AFib, anemia, who was admitted with AFib with RVR. He denies chest pain and palpitations. He denies shortness of breath and cough. He has been having trouble swallowing pills. He has no other complaints. Source: patient Exam Limitations: no limitations Date Seen 05/14/22 Attending Physician No,Local Physician PCP Admitting Physician: Mia Tubbs MD [facility] Attending Physician: Mia Tubbs MD [facility] Referring Physician Date of Admission May 13, 2022 at 10:13 Home Medications & Allergies Home Medications Reviewed patient Home Medication Reconciliation performed by pharmacy medication reconciliations park maintenance technician and/or nursing. Patients Allergies have been reviewed. Allergies Allergies Coded Allergies No Known Drug Allergies (Dnogfnwytg03/22/21) Past Evnnzar-Baikko-Iwzqnl Hx Patient Social History Tobacco Use?: No Smoking Status: Never a Smoker Use of E-Cig and/or Vaping dev: No Substance use?: No Alcohol Use?: No Pt feels they are or have been: No Immunizations Up To Date Date of Influenza Vaccine: Jan 11, 2022 First/Initial COVID19 Vaccinat: RECEIVED, UNK WHEN Second COVID19 Vaccination Brandon: RECEIVED, UNK WHEN Tetanus Booster (TDap): Unknown Hepatitis A: No Hepatitis B: No Current Status Advance Directives: No Primary Language: Maori Preferred Spoken Language: Maori Is interpretation needed?: No Past Medical History Surgeries: Abdominal, Eye Surgery Atrial Fibrillation Neuropathy Renal Failure Diverticulosis, Hiatal Hernia Diabetes, Insulin dep Cataract Blood Disorders: Yes (Anemia) Family Medical History No Pertinent Family Hx Review of Systems Constitutional: no symptoms reported EENTM: no symptoms reported Respiratory: no symptoms reported Cardiovascular: no symptoms reported Gastrointestinal: dysphagia Physical Exam Physical Exam Vital Signs Vital Signs - First Documented 05/13/22 11:00 Pulse 130 Resp 29 B/P (MAP) 102/79 (87) Pulse Ox 92 O2 Delivery Room Air Capillary Refill : Height, Weight, BMI Height: '" Weight: lbs. oz. kg; 28.37 BMI Method: General Appearance: No Apparent Distress, Chronically ill HEENT: PERRL/EOMI, Pharynx Normal Neck: Normal Inspection, Supple Respiratory: Lungs Clear, No Respiratory Distress Cardiovascular: Irregularly Irregular, Tachycardia Gastrointestinal: Normal Bowel Sounds, Non Tender, Soft Extremity: Normal Inspection, No Pedal Edema; No Inflammation Neurologic/Psychiatric: Alert, No Motor/Sensory Deficits, Depressed Affect Skin: Normal Color, Warm/Dry Results Results/Procedures Labs Laboratory Tests 05/13/22 11:51 05/14/22 05:15 Patient resulted labs reviewed. Assessment/Plan Assessment and Plan Assess & Plan/Chief Complaint AFib with RVR Cardiology primary Off Cardizem gtt Transitioned to oral Cardizem Lovenox Planning for cardioversion tomorrow Dysphagia Speech consulted Barium swallow T2DM Sliding scale insulin HTN HLD Anemia CKD Resume home meds as able Diagnosis/Problems Diagnosis/Problems (1) Atrial fibrillation with RVR Status: Acute (2) Dysphagia Status: Acute (3) HTN (hypertension) Status: Chronic (4) HLD (hyperlipidemia) Status: Chronic (5) T2DM (type 2 diabetes mellitus) Status: Chronic (6) CKD (chronic kidney disease) (7) Acute kidney injury Status: Acute (8) Anemia Status: Acute ALIS ANDERSON MD May 14, 2022 12:03
[2022-05-14 13:40] VITALS: BP 96/71
[2022-05-14] MEDS ORDERED: RT-ALBUTEROL SULF 2.5 MG/3 ML PRE-MIX VIAL ONE (13:48)
--- NOTE | 2022-05-14 13:49 | Diagnostic Imaging Report ---
INDICATION: Short of breath. EXAMINATION: Chest from 05/14/2022. COMPARISON: 05/13/2022. FINDINGS: Single-view chest. Heart is prominent. Pulmonary vasculature is stable. There is an infiltrate at the left lung base which is improved compared to previous. There are no significant effusions. No pneumothorax. IMPRESSION: Left base infiltrate, improving since previous imaging. Remaining chest is stable. Dictated by: Dictated on workstation # [id number]
[2022-05-14] MEDS: ACETAMINOPHEN 325 MG TABLET PO PRN (14:06)
[2022-05-14] MEDS: RT-ALBUTEROL SULF 2.5 MG/3 ML PRE-MIX VIAL INH SCH (20:06)
[2022-05-15] MEDS: ENOXAPARIN 80 MG/0.8 ML (LOVENOX) SYR SC SCH ×2 (04:39→17:18)
[2022-05-15 04:44] LABS: BASOPHILS % (AUTO) 0 % (0-10); EOSINOPHILS % (AUTO) 1 % (0-10); HEMATOCRIT 29 % (40-54); HEMOGLOBIN 9.1 g/dL (13.3-17.7); LYMPHOCYTES # (AUTO) 2.8 10^3/uL (1.0-4.0); LYMPHOCYTES % (AUTO) 33 % (12-44); MEAN CORPUSCULAR HEMOGLOBIN 29 pg (25-34); MEAN CORPUSCULAR HGB CONC 32 g/dL (32-36); MEAN CORPUSCULAR VOLUME 90 fL (80-99); MEAN PLATELET VOLUME 12.4 fL (9.0-12.2); MONOCYTES # (AUTO) 0.5 10^3/uL (0.0-1.0); MONOCYTES % (AUTO) 6 % (0-12); NEUTROPHILS # (AUTO) 4.9 10^3/uL (1.8-7.8); NEUTROPHILS % (AUTO) 59 % (42-75); PLATELET COUNT 255 10^3/uL (130-400); WHITE BLOOD COUNT 8.2 10^3/uL (4.3-11.0)
[2022-05-15 04:59] LABS: CALCIUM 8.7 MG/DL (8.5-10.1); CREATININE SERUM 1.13 MG/DL (0.60-1.30); MAGNESIUM 1.9 MG/DL (1.6-2.4); PHOSPHORUS 3.2 MG/DL (2.3-4.7); POTASSIUM 3.6 MMOL/L (3.6-5.0)
[2022-05-15] MEDS: KCL 20 MEQ TAB (K-DUR) PO SCH ×2 (05:05→06:43)
[2022-05-15] MEDS: MAGNESIUM 1 GM/100 ML IVPB 100 ML IV SCH (05:05)
[2022-05-15] MEDS: POTASSIUM CL 10MEQ/50ML IVPB 50 ML IV SCH (05:05)
[2022-05-15] MEDS: inSUlin ASPART (NovoLOG) 1 UNIT/0.01 ML (CHARGE PER UNIT) SC SCH ×4 (05:07→20:15)
[2022-05-15] MEDS: MAGNESIUM OXIDE (MAG-OX)400 MG TAB PO SCH (06:43)
[2022-05-15] MEDS: RT-ALBUTEROL SULF 2.5 MG/3 ML PRE-MIX VIAL INH SCH ×2 (07:07→20:57)
[2022-05-15] MEDS ORDERED: LIDOCAINE 2% VISCOUS 15 ML UDC ONE (08:51)
--- NOTE | 2022-05-15 08:51 | Cardiology Progress Note ---
Subjective Date Seen by Provider: May 15, 2022 Time Seen by Provider: 08:48 Subjective/Events-last exam Patient was seen at bedside laying down comfortably I visited and discussed with the family regarding cardioversion, patient has missed couple of doses of Eliquis in the past week. Review of Systems General: No Chills, No Night Sweats, No Fatigue, No Malaise, No Appetite, No Other HEENT: No Head Aches, No Visual Changes, No Eye Pain, No Ear Pain, No Dysphasia, No Sinus Congestion, No Post Nasal Drip, No Sore Throat, No Other Pulmonary: No Dyspnea, No Cough, No Pleuritic Chest Pain, No Other Cardiovascular: No: Chest Pain, Palpitations, Orthopnea, Paroxysmal Noc. Dyspnea, Edema, Lt Headedness, Other Objective-Cardiology Exam Last Set of Vital Signs Vital Signs 05/15/22 05/15/22 07:54 08:00 Temp 36.7 Pulse 100 Resp 18 B/P (MAP) 114/76 (89) Pulse Ox 92 O2 Delivery Nasal Cannula O2 Flow Rate 2.00 I&O Intake and Output 05/15/22 00:00 Intake Total 1365 ml Output Total 1670 ml Balance -305 ml Intake Oral 1240 ml IV Total 125 ml Output Urine Total 1670 ml General: Alert, Oriented X3, Cooperative HEENT: Atraumatic, PERRLA Neck: Supple, No JVD, No Thyromegaly Lungs: Clear to Auscultation, Normal Air Movement Heart: Normal S1, Normal S2, Other (Atrial fibrillation, systolic murmur) Abdomen: Normal Bowel Sounds, Soft, No Tenderness, No Hepatosplenomegaly, No Masses Extremities: No Clubbing, No Cyanosis, No Edema, Normal Pulses, No Tenderness/Swelling Skin: No Rashes, No Breakdown, No Significant Lesion Neuro: Normal Gait, Normal Speech, Strength at 5/5 X4 Ext, Normal Tone, Sensation Intact Psych/Mental Status: Mental Status NL, Mood NL Results Lab Laboratory Tests 05/15/22 03:12 A/P-Cardiology Admission Diagnosis Atrial fibrillation Tachycardia Congestive heart failure, chronic compensated left ventricular diastolic dysfunction Diabetes mellitus Assessment/Plan Persistent atrial fibrillation Reported that he started on Eliquis around mid March but he missed couple of doses Currently borderline tachycardic I discussed with the family and the patient the management plan recommended RUPALI with electrical cardioversion. CHADVASC score 5, maintained on Eliquis Acute on chronic left ventricular diastolic dysfunction 2D echo done in February 2022 with ejection fraction 50%, grade 2 diastolic dysfunction, mild to moderate left atrial enlargement, mild aortic regurgitation, PA pressure 20 to 25 mmHg Chronic right bundle branch block Status post COVID-19 infection in February 2022 Diabetes mellitus, followed and managed by primary care physician Generalized weakness and loss of energy Chronic bilateral lower extremities edema and peripheral neuropathy LINDSEY WITT MD May 15, 2022 08:51
[2022-05-15] MEDS ORDERED: LIDOCAINE 2% VISCOUS 15 ML UDC PO ONE (09:00)
[2022-05-15] MEDS ORDERED: MIDAZOLAM 2 MG/2 ML (VERSED) VIAL ONE (09:09)
[2022-05-15] MEDS ORDERED: proPOfol 200 MG/20 ML (DIPRIVAN) VIAL IV ONE (09:09)
--- NOTE | 2022-05-15 09:54 | Cardioversion ---
Cardioversion PROCEDURE PHYSICIAN: Lindsey Desai DATE OF PROCEDURE: 05/15/22 DIRECT EXTERNAL ELECTRICAL CARDIOVERSION: Indications: Atrial Fibrillation with rapid ventricular rate Preoperative diagnoses: Atrial Fibrillation with rapid ventricular rate Postoperative diagnosis: Sinus rhythm, Successful Electrical Cardioversion History: 76-year-old gentleman admitted with atrial fibrillation and rapid ventricular response, continue to be tachycardic, underwent RUPALI which showed cardiomyopathy with ejection fraction 30%, no clot or thrombus was noted Anesthesia: By Anesthesia services Complications: None Specimen: None Contrast: 0 Flouroscopy: none Procedure Details: The patient was brought the label drier after informed consent was taken, all the risks and complications were explained including the risk of stroke. Electrical cardioversion was carried out with anesthesia support with propofol. 200 joules of synchronized shock was delivered through external patches which promptly restored sinus rhythm. The patient tolerated the procedure well. Conclusions: Successful electrical cardioversion, patient failed to maintain sinus rhythm He will be loaded with amiodarone and will reattempt cardioversion in the [facility] LINDSEY DESAI MD May 15, 2022 09:54
[2022-05-15] MEDS ORDERED: AMIODARONE FOR BOLUS 150 MG in NS (IVPB) 100 ML IV ONE ×4 (10:00)
[2022-05-15] MEDS ORDERED: AMIODARONE INJECTION 450 MG in NORMAL SALINE 250 ML IV SCH (10:00)
--- NOTE | 2022-05-15 10:29 | Anesthesia-General Post-Op ---
MAC Patient Condition Mental Status/LOC: Same as Preop Cardiovascular: Satisfactory Nausea/Vomiting: Absent Respiratory: Satisfactory Pain: Controlled Complications: Absent Post Op Complications Complications None Follow Up Care/Instructions Patient Instructions None needed. Anesthesiology Discharge Order Discharge Order Patient is doing well, no complaints, stable vital signs, no apparent adverse anesthesia problems. No complications reported per nursing. ANAT MORALES CRNA May 15, 2022 10:29
[2022-05-15] MEDS ORDERED: LOSARTAN 25 MG (COZAAR) TAB PO SCH (11:00)
[2022-05-15] MEDS: AMIODARONE INJECTION 450 MG in NORMAL SALINE 250 ML IV SCH ×2 (11:19→21:09)
[2022-05-15] MEDS: RT-ALBUTEROL SULF 2.5 MG/3 ML PRE-MIX VIAL INH PRN (11:33)
--- NOTE | 2022-05-15 11:37 | Progress Note - Hospitalist ---
Subjective HPI/CC On Admission Date Seen by Provider: May 15, 2022 Bandar Crabtree is a 76 year old male with PMH HTN, T2DM, HLD, AFib, anemia, who was admitted with AFib with RVR. He denies chest pain and palpitations. He denies shortness of breath and cough. He has been having trouble swallowing pills. He has no other complaints. Subjective/Events-last exam Pt reports doing ok. About to undergo cardioversion. SUPPORT STAFF in the room. Family at bedside. Objective Exam Vital Signs Vital Signs Date Time Temp Pulse Resp B/P (MAP) Pulse Ox O2 Delivery O2 Flow Rate FiO2 05/15/22 10:33 100 114/76 05/15/22 08:00 92 Nasal Cannula 2.00 05/15/22 07:54 36.7 18 Capillary Refill : NONE General Appearance: No Apparent Distress, Chronically ill Respiratory: Lungs Clear, No Respiratory Distress Cardiovascular: Irregularly Irregular, Tachycardia Gastrointestinal: Normal Bowel Sounds, Non Tender, Soft Neurologic/Psychiatric: Alert, Oriented x3 Results/Procedures Lab Laboratory Tests 05/15/22 03:12 Patient resulted labs reviewed. Assessment/Plan Assessment and Plan Assess & Plan/Chief Complaint AFib with RVR Cardiology primary About to undergo cardioversion On Cardizem, amiodarone and metoprolol ordered by Cardiology this AM Lovenox Dysphagia Speech consulted Modified Barium swallow done and demonstrated mild to moderate oropharygenal esophageal dysphagia and they recommended regular diet with thin liquids and small single bites with sips only and full upright for meals T2DM Sliding scale insulin HTN HLD Anemia CKD Continue home meds as appropriate Family requesting home health on discharge- previously used [facility] and want to use them again LEVAR CULP MD May 15, 2022 11:37
[2022-05-15] MEDS: ACETAMINOPHEN 325 MG TABLET PO PRN (11:46)
[2022-05-15] MEDS: GABAPENTIN 100 MG (NEURONTIN) CAP PO SCH ×2 (11:57→20:15)
[2022-05-15] MEDS: FUROSEMIDE 40 MG (LASIX) TAB PO SCH (11:57)
[2022-05-15] MEDS: toPIRamate 25 MG (TOPAMAX) TAB PO SCH ×2 (11:57→20:15)
[2022-05-15] MEDS: TAMSULOSIN 0.4 MG (FLOMAX) CAP PO SCH (11:58)
--- NOTE | 2022-05-15 15:30 | Physical Therapy Evaluation ---
PT Evaluation-General Medical Diagnosis Admission Date May 13, 2022 at 10:13 Medical Diagnosis: A Fib with RVR Onset Date: May 13, 2022 Therapy Diagnosis Therapy Diagnosis: impaired mobility Precautions Precautions/Isolations: Standard Precautions Weight Bear Status Right Lower Extremity: Right Full Weight Bearing Left Lower Extremity: Left Full Weight Bearing Referral Physician: Mia Tubbs MD Reason for Referral: Evaluation/Treatment Medical History Pertinent Medical History: Atrial Fib, DM, HTN, Neuropathy, Renal Insufficiency Current History Admit with a-fib and extreme fatigue/lethargy. Reviewed History: Yes Social History Home: Single Level Current Living Status: Children Entry Into Home: Stairs With Railing PT Steps Into Home: 5 PT Steps Inside Home: 0 Adult son is currently living with him to help with his care. His son indicated that Bandar may be going to an [facility] or NH in [place] very soon. Prior Prior Level of Function SCALE: Activities may be completed with or without assistive devices. 7-Orcgwachfi-rgrgvan completes the activity by him/herself with no assistance from a helper. 5-Set-up or Clean-up Assistance-helper sets up or cleans up; patient completes activity. [place] assists only prior to or following the activity. 4-Supervision or Touching Assistance-helper provides verbal cues and/or touching/steadying and/or contact guard assistance as patient completes activity. Assistance may be provided throughout the activity or intermittently. 3-Partial/Moderate Assistance-helper does LESS THAN HALF the effort. [place] lifts, holds or supports trunk or limbs, but provides less than half the effort. 2-Substantial/Maximal Assistance-helper does MORE THAN HALF the effort. [place] lifts or holds trunk or limbs and provides more than half the effort. 2-Alammpsim-gmtsrl does ALL the effort. Patient does none of the effort to complete the activity. Or, the assistance of 2 or more helpers is required for the patient to complete the activity. If activity was not attempted, code reason: 7-Patient Refused. 9-Not Applicable-not attempted and the patient did not perform the activity before the current illness, exacerbation or injury. 10-Not Attempted due to Environmental Limitations-(lack of equipment, weather restraints, etc.). 88-Not Attempted due to Medical Conditions or Safety Concerns. Bed Mobility: 6 Transfers (B,C,W/C): 6 Gait: 6 Stairs: 4 Indoor Mobility (Ambulation): Needed Some Help Stairs: Needed Some Help Prior Devices Use: Walker Son indicated that Bandar only ambulated in the home, short distances. No community activity in the past 6 months. PT Evaluation-Current Subjective Pt notes sacrum/coccyx pain from lying down. Weakness and fatigue reported with minimal activity. Pain Numeric Pain Scale: 6 Location: Posterior Location Body Site: Pelvic Pain Description: Ache, Dull Pt/Family Goals undecided Objective Patient Orientation: Person, Place, Time, Situation Attachments: IV ROM/Strength ROM Upper Extremities WFL ROM Lower Extremities WFL Strength Upper Extremities 4-/5 (B) UE gross MMT. Strength Lower Extremities 4-/5 (B) LE gross MMT Integumentary/Posture Bowel Incontinence: No Neuromuscular (Tone, Coordination, Reflexes) intact Sensory Vision: Wears Glasses Hearing: Functional Hand Dominance: Right Sensation Right Upper Extremit: Intact Sensation Left Upper Extremity: Intact Sensation Right Lower Extremit: Intact Transfers Roll Left to Right (QC): 4 Sit to Lying (QC): 4 Lying to Sitting/Side of Bed(Q: 6 Sit to Stand (QC): 6 Pt was able to stand for 30-40 seconds with the walker, with no assistance. Gait Does the Patient Walk?: Yes Mode of Locomotion: Walk Anticipated Mode of Locomotion: Walk Walk 10 feet (QC): 88 Distance: 3ft Gait Assistive Device: FWW Balance Sitting Static: Good Sitting Dynamic: Good Standing Static: Good Standing Dynamic: Fair Assessment/Needs Pt performed well with bed mobility and transfer to standing. Nursing reported he had been requiring additional assistance with transfers. Rehab Potential: Fair PT Almond Blancher Operator Goals Long-Term Goals PT Long-Term Goals Time Frame: May 29, 2022 Roll Left & Right (QC): 6 Sit to Lying (QC): 6 Lying-Sitting on Side/Bed(QC): 6 Sit to Stand (QC): 6 Chair/Xup-ec-Dtrno Xfer(QC): 6 Toilet Transfer (QC): 6 Does the Patient Walk: Yes Walk 10 feet (QC): 6 Walk 50ft with 2 Turns (QC): 6 Walk 150 ft (QC): 4 PT Plan Problem List Problem List: Activity Tolerance, Functional Strength, Gait, Transfer, Bed Mobility Treatment/Plan Treatment Plan: Continue Plan of Care Treatment Plan: Bed Mobility, Functional Activity Darcie, Functional Strength, Gait, Therapeutic Exercise, Transfers Treatment Duration: May 15, 2022 Frequency: 6 times per week Estimated Hrs Per Day: .25 hour per day Patient and/or Family Agrees t: Yes Time Time In: 1332 Time Out: 1350 DATE: May 15, 2022 Total Billed Treatment Time: 18 Total Billed Treatment 1, diane 18 JACE HOWELL PT May 15, 2022 15:29
[2022-05-15] MEDS: meTOprolol TARTRATE 25 MG (LOPRESSOR) TABLET PO SCH (20:15)
[2022-05-15] MEDS ORDERED: ALBUMIN 5% 12.5 GM/250 ML 250 ML IV ONE ×2 (20:53→21:00)
--- NOTE | 2022-05-15 21:10 | Diagnostic Imaging Report ---
INDICATION: Hypoxia. COMPARISON: 05/14/2022. FINDINGS: Heart is enlarged. There is vascular congestion. There is pulmonary edema and small pleural effusions, greater right. Infiltrates owing to pneumonia in a perihilar and right basilar distribution superimposed could not be excluded. IMPRESSION: Worsened cardiomegaly, congestion and likely edema. Pneumonia superimposed not excluded. Right greater than left pleural effusions probably increased as well. Dictated by: Dictated on workstation # [id number]
[2022-05-15] MEDS ORDERED: DOPamine DRIP 250 ML IV ONE (22:24)
[2022-05-15] MEDS: DOPamine DRIP 250 ML IV SCH (22:25)
[2022-05-15] MEDS: PHENYLEPHRINE DRIP 250 ML IV SCH (22:33)
[2022-05-15 22:35] VITALS: BP 82/65
[2022-05-16 02:13] VITALS: BP 91/73
[2022-05-16] MEDS: ENOXAPARIN 80 MG/0.8 ML (LOVENOX) SYR SC SCH ×2 (03:35→16:38)
[2022-05-16] MEDS: DOPamine DRIP 250 ML IV SCH ×3 (04:33→17:53)
[2022-05-16 04:39] LABS: BASOPHILS % (AUTO) 0 % (0-10); EOSINOPHILS % (AUTO) 0 % (0-10); HEMATOCRIT 33 % (40-54); HEMOGLOBIN 10.4 g/dL (13.3-17.7); LYMPHOCYTES # (AUTO) 1.7 10^3/uL (1.0-4.0); LYMPHOCYTES % (AUTO) 21 % (12-44); MEAN CORPUSCULAR HEMOGLOBIN 29 pg (25-34); MEAN CORPUSCULAR HGB CONC 32 g/dL (32-36); MEAN CORPUSCULAR VOLUME 91 fL (80-99); MEAN PLATELET VOLUME 11.7 fL (9.0-12.2); MONOCYTES # (AUTO) 0.4 10^3/uL (0.0-1.0); MONOCYTES % (AUTO) 5 % (0-12); NEUTROPHILS % (AUTO) 74 % (42-75); PLATELET COUNT 284 10^3/uL (130-400); WHITE BLOOD COUNT 8.1 10^3/uL (4.3-11.0)
[2022-05-16 05:25] LABS: POTASSIUM 3.5 MMOL/L (3.6-5.0)
[2022-05-16 05:26] LABS: CALCIUM 9.2 MG/DL (8.5-10.1)
[2022-05-16 05:30] LABS: CREATININE SERUM 1.52 MG/DL (0.60-1.30); PHOSPHORUS 3.7 MG/DL (2.3-4.7)
[2022-05-16 05:33] LABS: MAGNESIUM 1.7 MG/DL (1.6-2.4)
[2022-05-16] MEDS: POTASSIUM CL 10MEQ/50ML IVPB 50 ML IV SCH ×5 (05:38→09:19)
[2022-05-16] MEDS: MAGNESIUM 1 GM/100 ML IVPB 100 ML IV SCH ×5 (05:38→09:19)
[2022-05-16] MEDS: KCL 20 MEQ TAB (K-DUR) PO SCH ×2 (05:38→08:25)
[2022-05-16] MEDS: inSUlin ASPART (NovoLOG) 1 UNIT/0.01 ML (CHARGE PER UNIT) SC SCH ×4 (05:56→20:18)
[2022-05-16] MEDS: meTOprolol TARTRATE 25 MG (LOPRESSOR) TABLET PO SCH ×2 (07:45→20:07)
[2022-05-16] MEDS ORDERED: FUROSEMIDE 40 MG/4 ML INJ (LASIX) IVP ONE ×2 (08:00→09:30)
[2022-05-16] MEDS: RT-ALBUTEROL SULF 2.5 MG/3 ML PRE-MIX VIAL INH SCH ×2 (08:22→20:32)
[2022-05-16] MEDS: MAGNESIUM OXIDE (MAG-OX)400 MG TAB PO SCH (08:25)
--- NOTE | 2022-05-16 09:09 | Progress Note - Hospitalist ---
Subjective HPI/CC On Admission Date Seen by Provider: May 16, 2022 Bandar Crabtree is a 76 year old male with PMH HTN, T2DM, HLD, AFib, anemia, who was admitted with AFib with RVR. He denies chest pain and palpitations. He denies shortness of breath and cough. He has been having trouble swallowing pills. He has no other complaints. Subjective/Events-last exam Pt reports having a rough night. Was on BiPAP overnight but now on NC. States he is grump and that dopamine didn't help him. He otherwise has no specific complaints. Objective Exam Vital Signs Vital Signs Date Time Temp Pulse Resp B/P (MAP) Pulse Ox O2 Delivery O2 Flow Rate FiO2 05/17/22 08:57 83 96/80 05/17/22 08:20 95 High Flow N/C 8.00 05/17/22 03:00 27 05/17/22 00:00 36.4 05/15/22 23:00 30 Capillary Refill : Less Than 3 Seconds General Appearance: No Apparent Distress Respiratory: Lungs Clear, No Respiratory Distress Cardiovascular: No Murmur, Irregularly Irregular Gastrointestinal: Normal Bowel Sounds, Non Tender, Soft Neurologic/Psychiatric: Alert, Oriented x3, Depressed Affect Results/Procedures Lab Laboratory Tests 05/17/22 03:35 Patient resulted labs reviewed. Assessment/Plan Assessment and Plan Assess & Plan/Chief Complaint AFib with RVR Cardiogenic shock Cardiology primary Unsuccessful cardioversion yesterday Loaded with amiodarone yesterday Became hypotensive overnight and now on dopamine with improved BP Lovenox Acute respiratory failure due to pulm edema Was on BiPAP overnight Album given, BP not amenable to lasix at this point TeleICU, appreciate recs HAYLEY Creatinine up today Trend Monitor UOP Dysphagia Speech consulted Modified Barium swallow done and demonstrated mild to moderate oropharygenal esophageal dysphagia and they recommended regular diet with thin liquids and small single bites with sips only and full upright for meals T2DM Sliding scale insulin HTN HLD Anemia CKD Continue home meds as appropriate Family requesting home health on discharge- previously used [facility] and want to use them again Diagnosis/Problems Diagnosis/Problems (1) Acute respiratory failure (2) Cardiogenic shock (3) Atrial fibrillation with RVR Status: Acute (4) T2DM (type 2 diabetes mellitus) Status: Chronic (5) HLD (hyperlipidemia) Status: Chronic (6) HTN (hypertension) Status: Chronic (7) LEVAR Narayanan MD May 16, 2022 09:09
--- NOTE | 2022-05-16 09:17 | Cardiology Progress Note ---
Subjective Date Seen by Provider: May 16, 2022 Time Seen by Provider: 09:15 Subjective/Events-last exam Patient became hypotensive and short of breath last night Currently feeling slightly better, back in sinus rhythm Review of Systems HEENT: No Head Aches, No Visual Changes, No Eye Pain, No Ear Pain, No Dysphasia, No Sinus Congestion, No Post Nasal Drip, No Sore Throat, No Other Pulmonary: Dyspnea Cardiovascular: No: Chest Pain, Palpitations, Orthopnea, Paroxysmal Noc. Dyspnea, Edema, Lt Headedness, Other Objective-Cardiology Exam Last Set of Vital Signs Vital Signs 05/15/22 05/16/22 05/16/22 23:00 03:23 09:00 Temp 36.9 Pulse 84 Resp 20 B/P (MAP) 99/62 (79) Pulse Ox 95 O2 Delivery High Flow N/C O2 Flow Rate 4.00 FiO2 30 I&O Intake and Output 05/16/22 00:00 Intake Total 1834 ml Output Total 1225 ml Balance 609 ml Intake Oral 1325 ml IV Total 509 ml Output Urine Total 1225 ml # Voids 1 General: Alert, Oriented X3, Cooperative HEENT: Atraumatic, PERRLA Neck: Supple, No JVD, No Thyromegaly Lungs: Clear to Auscultation, Normal Air Movement Heart: Normal S1, Normal S2 Abdomen: Normal Bowel Sounds, Soft, No Tenderness, No Hepatosplenomegaly, No Masses Extremities: No Clubbing, No Cyanosis, No Edema, Normal Pulses, No Tenderness/Swelling Skin: No Rashes, No Breakdown, No Significant Lesion Neuro: Normal Gait, Normal Speech, Strength at 5/5 X4 Ext, Normal Tone, Sensation Intact Psych/Mental Status: Mental Status NL, Mood NL Results Lab Laboratory Tests 05/16/22 04:01 A/P-Cardiology Admission Diagnosis Atrial fibrillation Tachycardia Congestive heart failure, chronic compensated left ventricular diastolic dysfunction Diabetes mellitus Assessment/Plan Persistent atrial fibrillation Reported that he started on Eliquis around mid March but he missed couple of doses Underwent RUPALI and electrical cardioversion on May 15, 2022 Going in and out of atrial fibrillation, started on amiodarone bolus and a drip Currently back in sinus rhythm, having multiple breakthrough atrial fibrillation Hypotension, probably secondary to medication and congestive heart failure CHADVASC score 5, maintained on Eliquis 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 Starting low-dose beta-blockers if he can tolerate it. Chronic right bundle branch block Status post COVID-19 infection in February 2022 Diabetes mellitus, followed and managed by primary care physician Generalized weakness and loss of energy Chronic bilateral lower extremities edema and peripheral neuropathy LINDSEY WITT MD May 16, 2022 09:17
[2022-05-16] MEDS ORDERED: LIDOCAINE UROJET 2% GEL 10 ML PKG ONE (09:26)
[2022-05-16] MEDS: AMIODARONE 200 MG (CORDARONE) TAB PO SCH ×2 (09:50→20:08)
[2022-05-16] MEDS: toPIRamate 25 MG (TOPAMAX) TAB PO SCH ×2 (09:51→20:08)
[2022-05-16] MEDS: GABAPENTIN 100 MG (NEURONTIN) CAP PO SCH ×2 (09:51→20:08)
[2022-05-16] MEDS: TAMSULOSIN 0.4 MG (FLOMAX) CAP PO SCH (09:51)
[2022-05-16] MEDS: FUROSEMIDE 40 MG (LASIX) TAB PO SCH (09:51)
[2022-05-16] MEDS ORDERED: LIDOCAINE UROJET 2% GEL 10 ML PKG TOP ONE (10:00)
[2022-05-16] MEDS: PHENYLEPHRINE DRIP 250 ML IV SCH (13:23)
--- NOTE | 2022-05-16 15:21 | Consultation - Surgery ---
BONITA VANEGAS 05/16/22 1521: History of Present Illness History of Present Illness Patient Consulted On(cherelle/time) 05/16/22 15:16 Date Seen by Provider: May 16, 2022 Time Seen by Provider: 15:16 History of Present Illness We were consulted for central venous access. Bandar Crabtree is a 76M admitted for afib. He has been treated with rate control and anticoagulation. Cardioversion on 05/15. He is currently endorsing palpitations and some shortness of breath. Denies chest pain and N/V. Denies any other pain at this time. Tolerating regular diet. No BM in a week, this is common for him. Takes laxatives to assist. Allergies and Home Medications Allergies Coded Allergies: No Known Drug Allergies (Unverified , 03/04/21) Patient Home Medication List Home Medication List Reviewed: Yes Allopurinol (Allopurinol) 300 Mg Tablet, 300 MG PO DAILY, (Reported) Entered as Reported by: FRANKLIN GARCIA on 05/08/21 1302 Last Action: Held Apixaban (Eliquis) 5 Mg Tablet, 5 MG PO BID, (Reported) Entered as Reported by: ES STUART on 05/13/22 1601 Last Action: Held Ascorbate Calcium (Vitamin C) 500 Mg Tablet, 500 MG PO 1200, (Reported) Entered as Reported by: ES STUART on 01/21/22 1109 Last Action: Held Atorvastatin Calcium (Atorvastatin Calcium) 80 Mg Tablet, 40 MG PO HS, (Reported) Entered as Reported by: FRANKLIN GARCIA on 05/08/21 1302 Last Action: Held Cholecalciferol (Vitamin D3) (Vitamin D3) 125 Mcg (5000 Unit) Tablet, 125 MCG PO 1200, (Reported) Entered as Reported by: ES STUART on 05/13/22 1601 Last Action: Held Diltiazem HCl (Diltiazem 24Hr ER) 180 Mg Cap.er.24h, 180 MG PO DAILY, (Reported) Entered as Reported by: ES STUART on 05/13/22 160 Last Action: Held Docusate Sodium (Docusate Sodium) 100 Mg Capsule, 200 MG PO DAILY PRN for CONSTIPATION-1ST LINE, (Reported) Entered as Reported by: ES STUART on 05/13/22 160 Last Action: Held Empagliflozin (Jardiance) 25 Mg Tablet, 12.5 MG PO DAILY, (Reported) Entered as Reported by: ES STUART on 01/21/221108 Last Action: Held Fish Oil/Dha/Epa (Fish Oil 1,200 mg Fish Oil) 1,200 Mg-144 Mg-216 Mg Capsule, 1 EACH PO 1200, (Reported) Entered as Reported by: ES STUART on 01/21/221108 Last Action: Held Furosemide (Furosemide) 40 Mg Tablet, 40 MG PO DAILY, (Reported) Entered as Reported by: ES STUART on 01/21/221108 Last Action: Held Gabapentin (Gabapentin) 100 Mg Capsule, 200 MG PO BID, (Reported) Entered as Reported by: ES STUART on 05/13/221600 Last Action: Continued Insulin Glargine,Hum.rec.anlog (Insulin Glargine Solostar) 100 Unit/Ml (3 Ml) Insuln.pen, 20 UNIT SQ HS, (Reported) Entered as Reported by: ES STUART on 05/13/221600 Last Action: Held Metformin HCl (Metformin HCl) 1,000 Mg Tablet, 1,000 MG PO BID WITH MEALS, (Reported) Entered as Reported by: FRANKLIN GARCIA on 05/08/21 1302 Last Action: Held Naproxen Sodium (Aleve) 220 Mg Tablet, 220 MG PO BID PRN for PAIN-MILD (1-4), (Reported) Entered as Reported by: ES STUART on 05/13/221600 Last Action: Held Omeprazole (Omeprazole) 20 Mg Capsule.dr, 20 MG PO DAILY, (Reported) Entered as Reported by: ERIK LOU on 02/15/22 0950 Last Action: Held Tamsulosin HCl (Flomax) 0.4 Mg Cap, 0.4 MG PO DAILY, (Reported) Entered as Reported by: ES STUART on 05/13/221600 Last Action: Continued Topiramate (Topiramate) 25 Mg Tablet, 25 MG PO BID, (Reported) Entered as Reported by: ES STUART on 05/13/221600 Last Action: Continued Tramadol HCl (Tramadol HCl) 50 Mg Tablet, 100 MG PO HS PRN for PAIN-MODERATE (5- 7), (Reported) Entered as Reported by: ES STUART on 01/21/22 1109 Last Action: Held Ubidecarenone (Co Q-10) 100 Mg Capsule, 100 MG PO 1200, (Reported) Entered as Reported by: ERIK LOU on 02/15/22 0950 Last Action: Held Vit A/C/E/Zinc/Selenium/Copper (Vision Formula Tablet) 1,000-60-30 Tablet, 1 EACH PO 1200, (Reported) Entered as Reported by: ES STUART on 05/13/22 1601 Last Action: Held Zolpidem Tartrate (Zolpidem Tartrate) 5 Mg Tablet, 5 MG PO HS PRN for SLEEP, (Reported) Entered as Reported by: FRANKLIN GARCIA on 05/08/21 1302 Last Action: Held Discontinued Medications Apixaban (Eliquis) 5 Mg Tablet, 5 MG PO BID Discontinued Reason: Duplicate Order Prescribed by: LEVAR MCKEON on 02/22/22 0953 Last Action: Discontinued Cholecalciferol (Vitamin D3) (Vitamin D3) 50 Mcg (2000 Unit) Capsule, 50 MCG PO 1200, (Reported) Discontinued Reason: Prescription changed Entered as Reported by: ES STUART on 01/21/22 1109 Diltiazem HCl (Diltiazem 24Hr ER) 180 Mg Cap.er.24h, 180 MG PO DAILY Discontinued Reason: Duplicate Order Prescribed by: LEVAR MCKEON on 02/22/22 0951 Last Action: Discontinued Insulin Detemir (Levemir Flextouch) 100 Unit/Ml (3 Ml) Insuln.pen, 20 UNIT SQ HS, (Reported) Discontinued Reason: Prescription changed Entered as Reported by: ERIK LOU on 02/15/22 0949 Multivitamin (Multivitamin) 1 Each Tablet, 1 EACH PO 1200, (Reported) Discontinued Reason: No Longer Taking Entered as Reported by: FRANKLIN GARCIA on 05/08/21 1302 Last Action: Discontinued Pregabalin (Pregabalin) 200 Mg Capsule, 200 MG PO TID, (Reported) Discontinued Reason: Duplicate Order Entered as Reported by: ES SUTART on 01/21/22 1109 Last Action: Discontinued Topiramate (Topamax) 25 Mg Tablet, 25 MG PO BID Discontinued Reason: Duplicate Order Prescribed by: MALINA HOOVER on 02/26/22 0607 Last Action: Discontinued Vitamin E Mixed (Vitamin E) 100 Unit Tablet, 100 UNIT PO 1200, (Reported) Discontinued Reason: No Longer Taking Entered as Reported by: ES STUART on 01/21/22 1109 Last Action: Discontinued Past Rabpluc-Llaozn-Ohbnnm Hx Patient Social History Smoking Status: Never a Smoker Alcohol Use?: No Have you traveled recently?: No Immunizations Up To Date Date of Influenza Vaccine: Jan 11, 2022 Surgeries History of Surgeries: Yes Surgeries: Abdominal, Eye Surgery, Orthopedic Respiratory History of Respiratory Disorde: No Cardiovascular History of Cardiac Disorders: Yes Cardiac Disorders: Atrial Fibrillation, Hypertension Neurological History of Neurological Disord: Yes (Tremor) Neurological Disorders: Neuropathy Genitourinary History of Genitourinary Disor: Yes Genitourinary Disorders: Renal Failure Gastrointestinal History of Gastrointestinal Di: Yes Gastrointestinal Disorders: Diverticulosis, Hiatal Hernia Musculoskeletal History of Musculoskeletal Dis: Yes Musculoskeletal Disorders: Arthritis Endocrine History of Endocrine Disorders: Yes Endocrine Disorders: Diabetes, Insulin dep HEENT History of HEENT Disorders: Yes HEENT Disorders: Cataract Cancer History of Cancer: No Psychosocial History of Psychiatric Problem: No Blood Transfusions History of Blood Disorders: Yes (Anemia) Family Medical History Significant Family History: No Pertinent Family Hx, Cancer (pancreatic cancer in mother), Diabetes, Hypertension Review of Systems-General Constitutional: No chills, No fever EENTM: No tearing, No mouth swelling Respiratory: No cough; short of breath Cardiovascular: No chest pain; palpitations Gastrointestinal: No abdominal pain, No nausea, No vomiting Genitourinary: No dysuria, No hematuria Musculoskeletal: back pain; No joint pain Skin: No change in color, No change in hair/nails Psychiatric/Neurological: Denies Anxiety, Denies Depressed, Denies Emotional Problems All Other Systems Reviewed Negative Unless Noted: Yes (Negative excepted noted.) Physical Exam-General Problems Physical Exam Vital Signs Vital Signs - First Documented 05/13/22 05/15/22 11:00 23:00 Pulse 130 Resp 29 B/P (MAP) 102/79 (87) Pulse Ox 92 O2 Delivery Room Air FiO2 30 Capillary Refill : Less Than 3 Seconds General Appearance: WD/WN, no apparent distress HEENT: PERRL/EOMI Neck: supple, normal inspection Respiratory: chest non-tender, lungs clear, no respiratory distress, no accessory muscle use Cardiovascular: normal peripheral pulses, tachycardia, irregularly irregular Gastrointestinal: non tender, soft Rectal: deferred Back: normal inspection, other (paravertebral pain) Extremities: non-tender, no pedal edema, normal capillary refill Neurologic/Psychiatric: alert, normal mood/affect, oriented x 3 Skin: normal color, warm/dry Lymphatic: no adenopathy Data Review Labs Laboratory Tests 05/15/22 15:57: Glucometer 198H 05/15/22 20:02: Glucometer 210H 05/16/22 04:01: White Blood Count 8.1, Red Blood Count 3.60L, Hemoglobin 10.4L, Hematocrit 33L, Mean Corpuscular Volume 91, Mean Corpuscular Hemoglobin 29, Mean Corpuscular Hemoglobin Concent 32, Red Cell Distribution Width 16.6H, Platelet Count 284, Mean Platelet Volume 11.7, Immature Granulocyte % (Auto) 0, Neutrophils (%) (Auto) 74, Lymphocytes (%) (Auto) 21, Monocytes (%) (Auto) 5, Eosinophils (%) (Auto) 0, Basophils (%) (Auto) 0, Neutrophils # (Auto) 6.0, Lymphocytes # (Auto) 1.7, Monocytes # (Auto) 0.4, Eosinophils # (Auto) 0.0, Basophils # (Auto) 0.0, I mmature Granulocyte # (Auto) 0.0, Sodium Level 137, Potassium Level 3.5L, Chloride Level 98, Carbon Dioxide Level 24, Anion Gap 15H, Blood Urea Nitrogen 28H, Creatinine 1.52H, Estimat Glomerular Filtration Rate 47, BUN/Creatinine Ratio 18, Glucose Level 246H, Calcium Level 9.2, Phosphorus Level 3.7, Magnesium Level 1.7 05/16/22 10:22: Glucometer 260H Assessment/Plan Assessment/Plan Assessment/Plan Atrial fibrillation palpitations shortness of breath Femoral central line placed at bedside No other surgical intervention indicated at this time HARISH TORIBIO DO 05/17/22 1520: History of Present Illness History of Present Illness History of Present Illness Consult requested by Dr. Mckeon for central line placment. Patient is a 76 year old male with afib rvr in icu. He has had hypotension and requiring pressor. Has been given through peripheral line. Needing central line access. Patient is on Anticoagulation. Patient has not been able to have pressors weaned yet. Allergies and Home Medications Allergies Coded Allergies: No Known Drug Allergies (Unverified , 03/04/21) Patient Home Medication List Home Medication List Reviewed: Yes Allopurinol (Allopurinol) 300 Mg Tablet, 300 MG PO DAILY, (Reported) Entered as Reported by: FRANKLIN GARCIA on 05/08/211301 Last Action: Held Apixaban (Eliquis) 5 Mg Tablet, 5 MG PO BID, (Reported) Entered as Reported by: ES STUART on 05/13/221600 Last Action: Held Ascorbate Calcium (Vitamin C) 500 Mg Tablet, 500 MG PO 1200, (Reported) Entered as Reported by: ES STUART on 01/21/221108 Last Action: Held Atorvastatin Calcium (Atorvastatin Calcium) 80 Mg Tablet, 40 MG PO HS, (Reported) Entered as Reported by: FRANKLIN GARCIA on 05/08/211301 Last Action: Held Cholecalciferol (Vitamin D3) (Vitamin D3) 125 Mcg (5000 Unit) Tablet, 125 MCG PO 1200, (Reported) Entered as Reported by: ES STUART on 05/13/221600 Last Action: Held Diltiazem HCl (Diltiazem 24Hr ER) 180 Mg Cap.er.24h, 180 MG PO DAILY, (Reported) Entered as Reported by: ES STUART on 05/13/221600 Last Action: Held Docusate Sodium (Docusate Sodium) 100 Mg Capsule, 200 MG PO DAILY PRN for CONSTIPATION-1ST LINE, (Reported) Entered as Reported by: ES STUART on 05/13/221601 Last Action: Held Empagliflozin (Jardiance) 25 Mg Tablet, 12.5 MG PO DAILY, (Reported) Entered as Reported by: ES STUART on 01/21/221108 Last Action: Held Fish Oil/Dha/Epa (Fish Oil 1,200 mg Fish Oil) 1,200 Mg-144 Mg-216 Mg Capsule, 1 EACH PO 1200, (Reported) Entered as Reported by: ES STUART on 01/21/221108 Last Action: Held Furosemide (Furosemide) 40 Mg Tablet, 40 MG PO DAILY, (Reported) Entered as Reported by: ES STUART on 01/21/221108 Last Action: Held Gabapentin (Gabapentin) 100 Mg Capsule, 200 MG PO BID, (Reported) Entered as Reported by: ES STUART on 05/13/22 160 Last Action: Continued Insulin Glargine,Hum.rec.anlog (Insulin Glargine Solostar) 100 Unit/Ml (3 Ml) Insuln.pen, 20 UNIT SQ HS, (Reported) Entered as Reported by: ES STUART on 05/13/22 160 Last Action: Held Metformin HCl (Metformin HCl) 1,000 Mg Tablet, 1,000 MG PO BID WITH MEALS, (Reported) Entered as Reported by: FRANKLIN GARCIA on 05/08/21 1302 Last Action: Held Naproxen Sodium (Aleve) 220 Mg Tablet, 220 MG PO BID PRN for PAIN-MILD (1-4), (Reported) Entered as Reported by: ES STUART on 05/13/221600 Last Action: Held Omeprazole (Omeprazole) 20 Mg Capsule.dr, 20 MG PO DAILY, (Reported) Entered as Reported by: ERIK LOU on 02/15/22 0950 Last Action: Held Tamsulosin HCl (Flomax) 0.4 Mg Cap, 0.4 MG PO DAILY, (Reported) Entered as Reported by: ES STUART on 05/13/22 160 Last Action: Continued Topiramate (Topiramate) 25 Mg Tablet, 25 MG PO BID, (Reported) Entered as Reported by: ES STUART on 05/13/221600 Last Action: Continued Tramadol HCl (Tramadol HCl) 50 Mg Tablet, 100 MG PO HS PRN for PAIN-MODERATE (5- 7), (Reported) Entered as Reported by: ES STUART on 01/21/22 1109 Last Action: Held Ubidecarenone (Co Q-10) 100 Mg Capsule, 100 MG PO 1200, (Reported) Entered as Reported by: ERIK LOU on 02/15/22 0950 Last Action: Held Vit A/C/E/Zinc/Selenium/Copper (Vision Formula Tablet) 1,000-60-30 Tablet, 1 EACH PO 1200, (Reported) Entered as Reported by: ES STUART on 05/13/22 160 Last Action: Held Zolpidem Tartrate (Zolpidem Tartrate) 5 Mg Tablet, 5 MG PO HS PRN for SLEEP, (Reported) Entered as Reported by: FRANKLIN GARCIA on 05/08/21 1302 Last Action: Held Discontinued Medications Apixaban (Eliquis) 5 Mg Tablet, 5 MG PO BID Discontinued Reason: Duplicate Order Prescribed by: LEVAR MCKEON on 02/22/22 0953 Last Action: Discontinued Cholecalciferol (Vitamin D3) (Vitamin D3) 50 Mcg (2000 Unit) Capsule, 50 MCG PO 1200, (Reported) Discontinued Reason: Prescription changed Entered as Reported by: ES STUART on 01/21/221108 Diltiazem HCl (Diltiazem 24Hr ER) 180 Mg Cap.er.24h, 180 MG PO DAILY Discontinued Reason: Duplicate Order Prescribed by: LEVAR MCKEON on 02/22/22 0951 Last Action: Discontinued Insulin Detemir (Levemir Flextouch) 100 Unit/Ml (3 Ml) Insuln.pen, 20 UNIT SQ HS, (Reported) Discontinued Reason: Prescription changed Entered as Reported by: ERIK LOU on 02/15/22 0949 Multivitamin (Multivitamin) 1 Each Tablet, 1 EACH PO 1200, (Reported) Discontinued Reason: No Longer Taking Entered as Reported by: FRANKLIN GARCIA on 05/08/21 1302 Last Action: Discontinued Pregabalin (Pregabalin) 200 Mg Capsule, 200 MG PO TID, (Reported) Discontinued Reason: Duplicate Order Entered as Reported by: ES STUART on 01/21/221108 Last Action: Discontinued Topiramate (Topamax) 25 Mg Tablet, 25 MG PO BID Discontinued Reason: Duplicate Order Prescribed by: MALINA HOOVER on 02/26/22 0607 Last Action: Discontinued Vitamin E Mixed (Vitamin E) 100 Unit Tablet, 100 UNIT PO 1200, (Reported) Discontinued Reason: No Longer Taking Entered as Reported by: ES STUART on 01/21/221108 Last Action: Discontinued Past Sezllja-Stgqhu-Isqgsg Hx Reviewed Nursing Assessment Reviewed/Agree w Nursing PMH: Yes Family Medical History Significant Family History: Cancer (pancreatic cancer in mother) Review of Systems-General Constitutional: No chills, No fever EENTM: No blurred vision, No double vision, No mouth swelling Respiratory: No cough; short of breath Cardiovascular: No chest pain; palpitations Gastrointestinal: No abdominal pain, No nausea, No vomiting Genitourinary: No dysuria, No hematuria Musculoskeletal: back pain; No joint pain Skin: No change in color, No change in hair/nails Psychiatric/Neurological: Denies Anxiety, Denies Depressed, Denies Emotional Problems All Other Systems Reviewed Negative Unless Noted: Yes (Negative excepted noted.) Physical Exam-General Problems Physical Exam General Appearance: WD/WN, no apparent distress HEENT: PERRL/EOMI, normal ENT inspection Neck: non-tender, supple, normal inspection Respiratory: chest non-tender, no respiratory distress, no accessory muscle use Cardiovascular: no JVD, irregularly irregular Gastrointestinal: non tender, soft Rectal: deferred Back: normal inspection, other (paravertebral pain) Extremities: non-tender, no pedal edema Neurologic/Psychiatric: alert, normal mood/affect, oriented x 3 Skin: normal color, warm/dry Lymphatic: no adenopathy Assessment/Plan Assessment/Plan Assessment/Plan Atrial fibrillation palpitations shortness of breath Poor venous access Detention anticoagulation Discussed risks and benefits of central line placement and wishes to proceed. Consent obtained WIll place femoral line due to anticoagulation, would recommend changing to a PICC line within 3 days. Will sign off, call if needed. PROCEDURE: U/s guided left femoral vein central line placment. U/s used to isolate left femoral vein. 3 mL of 1%lidocaine used to anesthetize the area. Left femoral vein accessed, dark nonpulsatile blood withdrawn. Wire was inserted and needle was removed. 11 blade was used to make skin incision. Dilator was advanced over wire and removed. The catheter was advanced over the wire and wire removed. Catheter was secured. All ports ned blood and flushed without difficulty. Sterile bandage was applied. Supervisory-Addendum Brief Verification & Attestation Participated in pt care: history, MDM, physical Personally performed: exam, history, MDM, supervision of care Care discussed with: Medical Student Procedures: n/a Results interpretation: Verified all documentation Verification and Attestation of Medical Student E/M Service A medical student performed and documented this service in my presence. I reviewed and verified all information documented by the medical student and made modifications to such information, when appropriate. I personally performed the physical exam and medical decision making. Harish Toribio May 16, 2022,17:20 BONITA VANEGAS May 16, 2022 15:21 HARISH TORIBIO DO May 17, 2022 15:20
[2022-05-17] MEDS: DOPamine DRIP 250 ML IV SCH ×2 (00:47→08:57)
[2022-05-17] MEDS: PHENYLEPHRINE DRIP 250 ML IV SCH ×2 (00:48→12:49)
[2022-05-17] MEDS: ENOXAPARIN 80 MG/0.8 ML (LOVENOX) SYR SC SCH (03:22)
[2022-05-17 03:50] LABS: BASOPHILS % (AUTO) 0 % (0-10); EOSINOPHILS % (AUTO) 0 % (0-10); HEMATOCRIT 29 % (40-54); HEMOGLOBIN 9.2 g/dL (13.3-17.7); LYMPHOCYTES # (AUTO) 2.2 10^3/uL (1.0-4.0); LYMPHOCYTES % (AUTO) 20 % (12-44); MEAN CORPUSCULAR HEMOGLOBIN 29 pg (25-34); MEAN CORPUSCULAR HGB CONC 32 g/dL (32-36); MEAN CORPUSCULAR VOLUME 92 fL (80-99); MEAN PLATELET VOLUME 11.4 fL (9.0-12.2); MONOCYTES # (AUTO) 0.5 10^3/uL (0.0-1.0); MONOCYTES % (AUTO) 5 % (0-12); NEUTROPHILS # (AUTO) 7.9 10^3/uL (1.8-7.8); NEUTROPHILS % (AUTO) 74 % (42-75); PLATELET COUNT 253 10^3/uL (130-400); WHITE BLOOD COUNT 10.6 10^3/uL (4.3-11.0)
[2022-05-17 05:07] LABS: CALCIUM 8.2 MG/DL (8.5-10.1); CREATININE SERUM 1.57 MG/DL (0.60-1.30); PHOSPHORUS 3.1 MG/DL (2.3-4.7); POTASSIUM 3.6 MMOL/L (3.6-5.0)
[2022-05-17] MEDS: KCL 20 MEQ TAB (K-DUR) PO SCH ×2 (05:13→08:58)
[2022-05-17] MEDS: MAGNESIUM 1 GM/100 ML IVPB 100 ML IV SCH (05:13)
[2022-05-17] MEDS: POTASSIUM CL 10MEQ/50ML IVPB 50 ML IV SCH ×3 (05:13→05:28)
[2022-05-17] MEDS: inSUlin ASPART (NovoLOG) 1 UNIT/0.01 ML (CHARGE PER UNIT) SC SCH ×4 (05:26→21:48)
[2022-05-17] MEDS: RT-ALBUTEROL SULF 2.5 MG/3 ML PRE-MIX VIAL INH SCH ×2 (08:20→20:45)
[2022-05-17] MEDS: MAGNESIUM OXIDE (MAG-OX)400 MG TAB PO SCH (08:57)
[2022-05-17] MEDS: AMIODARONE 200 MG (CORDARONE) TAB PO SCH ×2 (08:58→20:20)
[2022-05-17] MEDS: toPIRamate 25 MG (TOPAMAX) TAB PO SCH ×2 (08:58→20:20)
[2022-05-17] MEDS: GABAPENTIN 100 MG (NEURONTIN) CAP PO SCH ×2 (08:58→20:20)
[2022-05-17] MEDS: FUROSEMIDE 40 MG (LASIX) TAB PO SCH (08:59)
[2022-05-17] MEDS: meTOprolol TARTRATE 25 MG (LOPRESSOR) TABLET PO SCH (08:59)
[2022-05-17] MEDS: TAMSULOSIN 0.4 MG (FLOMAX) CAP PO SCH (08:59)
--- NOTE | 2022-05-17 09:47 | Speech Therapy Daily Note ---
Speech Daily Progress Note Subjective Date Seen by Provider: May 17, 2022 Time Seen by Provider: 09:05 The patient was seated upright in the recliner, awake and alert, upon entrance to his room by the clinician. The patient greeted the clinician appropriately and was agreeable to participation in the dysphagia treatment session. Objective The patient consumed small pills whole in water (multiple) and large pills crushed in pudding (all medication provided by the RN). The patient did not display s/s of suspected aspiration with the medication. The patient did report one occasion of a globus sensation, however, was able to clear the globus sensation with a subsequent drink of water. The patient's safe swallowing strategies were reviewed and he verbalized comprehension. The patient's large mug straw was switched with a normal size straw which was effective at reducing sip size. Assessment Assessment Current Status: Good Progress Treatment Plan Continue Plan of Care Speech Short Term Goals Short Term Goals Short Term Goals 1. The patient will display safe swallowing precautions with 80% accuracy, independently. Time Frame-STG: Three Days. Speech Civil Engineering Technician Goals Retirement Goals 1. The patient will tolerate the least restrictive diet consistency without s/s of suspected aspiration. Time Frame: One Week. Speech-Plan Treatment Plan Speech Therapy Treatment Plan: Continue Plan of Care Treatment Duration: May 21, 2022 Frequency: 3 times per week Estimated Hrs Per Day: .25 hour per day Rehab Potential: Fair Safety Risks/Education Teaching Recipient: Patient Teaching Methods: Demonstration, Discussion Response to Teaching: Verbalize Understanding, Return Demonstration Education Topics Provided: Safe Swallowing Precautions Time Speech Therapy Time In: 09:05 Speech Therapy Time Out: 09:15 DATE: May 17, 2022 Total Billed Time: 10 Billed Treatment Time [address] May 17, 2022 09:47
[2022-05-17] MEDS ORDERED: DIGOXIN 0.25 MG/ML (LANOXIN) 2 ML AMP IV NR (10:00)
--- NOTE | 2022-05-17 10:06 | Progress Note - Hospitalist ---
Subjective HPI/CC On Admission Date Seen by Provider: May 17, 2022 Bandar Crabtree is a 76 year old male with PMH HTN, T2DM, HLD, AFib, anemia, who was admitted with AFib with RVR. He denies chest pain and palpitations. He denies shortness of breath and cough. He has been having trouble swallowing pills. He has no other complaints. Subjective/Events-last exam Pt reports doing better today. No complaints. Objective Exam Vital Signs Vital Signs Date Time Temp Pulse Resp B/P (MAP) Pulse Ox O2 Delivery O2 Flow Rate FiO2 05/17/22 08:57 83 96/80 05/17/22 08:20 95 High Flow N/C 8.00 05/17/22 03:00 27 05/17/22 00:00 36.4 05/15/22 23:00 30 Capillary Refill : Less Than 3 Seconds General Appearance: No Apparent Distress, Chronically ill Respiratory: Lungs Clear, No Respiratory Distress Cardiovascular: No Murmur, Irregularly Irregular Gastrointestinal: Normal Bowel Sounds, Non Tender, Soft Neurologic/Psychiatric: Alert, Oriented x3 Results/Procedures Lab Laboratory Tests 05/17/22 03:35 Patient resulted labs reviewed. Assessment/Plan Assessment and Plan Assess & Plan/Chief Complaint AFib with RVR Cardiogenic shock Cardiology primary Unsuccessful cardioversion 05/15 Remains on dopamine Lovenox Management per cardiology Acute respiratory failure due to pulm edema Back on HFNC at 6lpm TeleICU, appreciate recs HAYLEY Creatinine up to 1.5 Likely due to hypotension UOP Marginal but adequate yesterday Trend Dysphagia Speech consulted Modified Barium swallow done and demonstrated mild to moderate oropharygenal esophageal dysphagia and they recommended regular diet with thin liquids and small single bites with sips only and full upright for meals T2DM Sliding scale insulin HTN HLD Anemia CKD Continue home meds as appropriate Family requesting home health on discharge- previously used [facility] and want to use them again Diagnosis/Problems Diagnosis/Problems (1) Acute respiratory failure (2) Cardiogenic shock (3) Atrial fibrillation with RVR Status: Acute (4) T2DM (type 2 diabetes mellitus) Status: Chronic (5) HLD (hyperlipidemia) Status: Chronic (6) HTN (hypertension) Status: Chronic (7) Afib LEVAR CULP MD May 17, 2022 10:06
--- NOTE | 2022-05-17 10:35 | Physical Therapy Daily Note ---
PT Daily Note-Current Subjective Patient agrees to PT. Patient voices frustration with being in the hospital again. Pain Section J - Health Conditions 1. Rarely or not at all 2. Occasionally 3. Frequently 4. Almost constantly 8. Unable to answer Pain Effect on Sleep: 2 Pain Interference with Therapy: 2 Pain Interference w/Day-to-Day: 2 Mental Status Patient Orientation: Normal For Age Attachments: Central Line, Oxygen, Worrell Catheter Transfers SCALE: Activities may be completed with or without assistive devices. 2-Fmmsafygoz-wnyvbvk completes the activity by him/herself with no assistance from a helper. 5-Set-up or Clean-up Assistance-helper sets up or cleans up; patient completes activity. [place] assists only prior to or following the activity. 4-Supervision or Touching Assistance-helper provides verbal cues and/or touching/steadying and/or contact guard assistance as patient completes activity. Assistance may be provided throughout the activity or intermittently. 3-Partial/Moderate Assistance-helper does LESS THAN HALF the effort. [place] lifts, holds or supports trunk or limbs, but provides less than half the effort. 2-Substantial/Maximal Assistance-helper does MORE THAN HALF the effort. [place] lifts or holds trunk or limbs and provides more than half the effort. 2-Sgmnjsvsz-ghczih does ALL the effort. Patient does none of the effort to complete the activity. Or, the assistance of 2 or more helpers is required for the patient to complete the activity. If activity was not attempted, code reason: 7-Patient Refused. 9-Not Applicable-not attempted and the patient did not perform the activity before the current illness, exacerbation or injury. 10-Not Attempted due to Environmental Limitations-(lack of equipment, weather restraints, etc.). 88-Not Attempted due to Medical Conditions or Safety Concerns. Sit to Stand (QC): 4 Chair/Vrc-mh-Vskcy Xfer(QC): 4 Weight Bearing Right Lower Extremity: Right Full Weight Bearing Left Lower Extremity: Left Full Weight Bearing Gait Training Distance: 5 steps Gait Assistive Device: None SCHOOL ADJUSTMENT COUNSELOR of PT Exercises Seated Therapy Exercises: Ankle pumps, Sit to stand (5 sets), Long arc quads, Hip flexion Seated Reps: 15 Assessment Patient requires recovery periods due to SOA and decrease SAO2. Patient currently on 8L NC HF. RT present for breathing treatment. Increase activity as tolerated by patient. PT Disbursing Agent Goals Group Home Goals PT Disbursing Agent Goals Time Frame: May 29, 2022 Roll Left & Right (QC): 6 Sit to Lying (QC): 6 Lying-Sitting on Side/Bed(QC): 6 Sit to Stand (QC): 6 Chair/Gmg-cz-Wrpbd Xfer(QC): 6 Toilet Transfer (QC): 6 Does the Patient Walk: Yes Walk 10 feet (QC): 6 Walk 50ft with 2 Turns (QC): 6 Walk 150 ft (QC): 4 PT Plan Treatment/Plan Treatment Plan: Continue Plan of Care Treatment Plan: Bed Mobility, Functional Activity Darcie, Functional Strength, Gait, Therapeutic Exercise, Transfers Treatment Duration: May 15, 2022 Frequency: 6 times per week Estimated Hrs Per Day: .25 hour per day Patient and/or Family Agrees t: Yes Time Time In: 800 Time Out: 823 DATE: May 17, 2022 Total Billed Treatment Time: 23 Total Billed Treatment 1 visit EX 11 min FA 12 min MIRZA LI PT May 17, 2022 10:35
--- NOTE | 2022-05-17 12:08 | Tele-ICU Progress Note ---
Subjective Date Seen by a Provider: May 17, 2022 Time Seen by a Provider: 12:08 Subjective/Events-last exam (Tele-ICU Physician , Progress Note ) Service provided via interactive audio and video telecommunications E-CARE system to a patient admitted to ICU bed in [facility]. Patient is seen today due to persistent need of ICU care Available chart/ vitals / labs / Images reviewed Video assessment done using teleICU camera, rest of exam as per RN Discussed with RN Events overnight : Afebrile hemodynamically stable Respiratory - 4 l I/O = Drips: Pressors- no Hospital course: (05/13) 76M Admitted for rapid afib. 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 Discussed with RN to reach out if any questions or concerns A total of 24 minutes of critical care time was devoted to this patient today, required to treat and/or prevent further deterioration of critical care condition ( as above ) . Sepsis Event Evaluation Height, Weight, BMI Height: '" Weight: lbs. oz. kg; 29.37 BMI Method: Exam Exam Patient acknowledged, consented, and participated in this virtual visit which was conducted using real time audio/video Vital Signs Date Time Temp Pulse Resp B/P (MAP) Pulse Ox O2 Delivery O2 Flow Rate FiO2 05/17/22 11:00 80 31 113/94 (100) 100 High Flow N/C 6.00 05/17/22 10:00 88 28 110/84 (93) 98 High Flow N/C 6.00 05/17/22 09:00 76 30 110/75 (87) 97 High Flow N/C 6.00 05/17/22 08:57 83 96/80 05/17/22 08:20 95 High Flow N/C 8.00 05/17/22 08:00 85 119/76 (90) 91 High Flow N/C 6.00 05/17/22 07:39 86 05/17/22 07:00 81 93/66 (75) 90 High Flow N/C 6.00 05/17/22 06:00 90 101/80 (87) 93 High Flow N/C 6.00 05/17/22 05:00 98 120/99 (106) 93 High Flow N/C 6.00 05/17/22 04:00 91 High Flow N/C 6.00 05/17/22 04:00 89 88/63 (71) 86 High Flow N/C 6.00 05/17/22 03:00 100 27 105/73 (84) 91 High Flow N/C 6.00 05/17/22 02:04 92 High Flow N/C 6.00 05/17/22 02:00 93 31 112/71 (85) 100 High Flow N/C 5.00 05/17/22 01:00 91 23 100/85 (90) 94 High Flow N/C 5.00 05/17/22 00:48 89 90/71 05/17/22 00:47 89 90/71 05/17/22 00:23 89 05/17/22 00:00 36.4 High Flow N/C 5.00 05/17/22 00:00 92 21 90/71 (77) 92 High Flow N/C 5.00 05/16/22 23:59 94 High Flow N/C 5.00 05/16/22 23:00 85 22 83/65 (71) 90 High Flow N/C 5.00 05/16/22 22:00 82 25 96/78 (84) 99 High Flow N/C 5.00 05/16/22 21:00 98 28 103/80 (88) 97 High Flow N/C 5.00 05/16/22 20:32 93 High Flow N/C 5.00 05/16/22 20:27 92 High Flow N/C 5.00 05/16/22 20:15 70/43 05/16/22 20:00 37.2 High Flow N/C 5.00 05/16/22 20:00 112 23 70/43 (52) 94 High Flow N/C 5.00 05/16/22 19:15 92 30 121/88 (99) 93 High Flow N/C 5.00 05/16/22 19:00 86 28 101/79 (86) 88 High Flow N/C 5.00 05/16/22 18:59 109 05/16/22 18:00 86 25 92/74 (80) 92 High Flow N/C 4.00 05/16/22 17:00 105 31 99/90 (93) 94 High Flow N/C 4.00 05/16/22 16:00 94 32 103/79 (88) 96 High Flow N/C 4.00 05/16/22 16:00 94 High Flow N/C 5.00 05/16/22 15:00 94 98/81 (86) 90 High Flow N/C 4.00 05/16/22 14:00 92 29 90/74 (77) 96 High Flow N/C 4.00 05/16/22 13:23 85 76/62 05/16/22 13:00 85 23 76/62 (70) 96 High Flow N/C 4.00 05/16/22 12:51 89 I & O 05/17/22 07:00 Intake Total 1050 ml Output Total 850 ml Balance 200 ml Height & Weight Height: '" Weight: lbs. oz. kg; 29.37 BMI Method: General Appearance: No Apparent Distress HEENT: PERRL/EOMI, Pharynx Normal Neck: Normal Inspection, Supple Respiratory: Lungs Clear, No Respiratory Distress Cardiovascular: No Murmur, Irregularly Irregular Capillary Refill: Less Than 3 Seconds Gastrointestinal: non tender, soft Extremity: Normal Inspection, No Pedal Edema; No Inflammation Neurologic/Psychiatric: Alert, Oriented x3, Depressed Affect Skin: Normal Color, Warm/Dry Results Lab Laboratory Tests 05/16/22 04:01 05/17/22 03:35 Assessment/Plan Assessment/Plan 1 SWEETIE GONZALEZ MD May 17, 2022 12:08
[2022-05-17] MEDS ORDERED: ALPRAZolam 0.25 MG (XANAX) TAB ONE (12:13)
[2022-05-17] MEDS: ALPRAZolam 0.25 MG (XANAX) TAB PO PRN ×3 (12:14→16:33)
--- NOTE | 2022-05-17 13:09 | Progress Note - Cardiology ---
Cardiology SOAP Progress Note Subjective: Gen weakness that did not improve post cardioversion Shortness of breath with activity Has generally felt unwell since Covid in late 2021: poor appetite, poor stamina, mild swallowing difficulty, impaired smell and tase No cp or palp or syncope No swelling No n/v/d Wishes to go home Objective: I&O/Vital Signs 05/17/22 05/17/22 05/17/22 05/17/22 02:00 02:04 03:00 04:00 Pulse 93 100 89 Resp 31 27 B/P (MAP) 112/71 (85) 105/73 (84) 88/63 (71) Pulse Ox 100 92 91 86 O2 Delivery High Flow N/C High Flow N/C High Flow N/C High Flow N/C O2 Flow Rate 5.00 6.00 6.00 6.00 05/17/22 05/17/22 05/17/22 05/17/22 04:00 05:00 06:00 07:00 Pulse 98 90 81 B/P (MAP) 120/99 (106) 101/80 (87) 93/66 (75) Pulse Ox 91 93 93 90 O2 Delivery High Flow N/C High Flow N/C High Flow N/C High Flow N/C O2 Flow Rate 6.00 6.00 6.00 6.00 05/17/22 05/17/22 05/17/22 05/17/22 07:39 08:00 08:20 08:57 Pulse 86 85 83 B/P (MAP) 119/76 (90) 96/80 Pulse Ox 91 95 O2 Delivery High Flow N/C High Flow N/C O2 Flow Rate 6.00 8.00 05/17/22 05/17/22 05/17/22 05/17/22 09:00 10:00 11:00 12:00 Pulse 76 88 80 77 Resp 30 28 31 31 B/P (MAP) 110/75 (87) 110/84 (93) 113/94 (100) 99/81 (87) Pulse Ox 97 98 100 91 O2 Delivery High Flow N/C High Flow N/C High Flow N/C High Flow N/C O2 Flow Rate 6.00 6.00 6.00 6.00 05/17/22 12:23 Pulse 83 05/17/22 00:00 Intake Total 450 ml Output Total 425 ml Balance 25 ml Constitutional: AAO x 3, well-developed, well-nourished Respiratory: No accessory muscle use; other (fair to good air entry, somewhat diminished at the bases) Cardiovascular: irregularly irregular, S1 and S2, systolic murmur (soft GENEVA at cardiac base) Gastrointestional: No tender; soft; No guarding, No rebound; audible bowel sounds Extremities: No clubbing, No cyanosis, No significant edema Neurologic/Psychiatric: oriented x 3, other (moves all limbs equally) Skin: No rash on exposed areas, No ulcerations on exposed areas Results/Procedures: Labs Laboratory Tests 05/16/22 16:35: Glucometer 231H 05/16/22 20:09: Glucometer 191H 05/17/22 03:35: White Blood Count 10.6, Red Blood Count 3.14L, Hemoglobin 9.2L, Hematocrit 29L, Mean Corpuscular Volume 92, Mean Corpuscular Hemoglobin 29, Mean Corpuscular Hemoglobin Concent 32, Red Cell Distribution Width 16.5H, Platelet Count 253, Mean Platelet Volume 11.4, Immature Granulocyte % (Auto) 0, Neutrophils (%) (Auto) 74, Lymphocytes (%) (Auto) 20, Monocytes (%) (Auto) 5, Eosinophils (%) (Auto) 0, Basophils (%) (Auto) 0, Neutrophils # (Auto) 7.9H, Lymphocytes # (Auto) 2.2, Monocytes # (Auto) 0.5, Eosinophils # (Auto) 0.0, Basophils # (Auto) 0.0, Immature Granulocyte # (Auto) 0.0, Sodium Level 132L, Potassium Level 3.6, Chloride Level 102, Carbon Dioxide Level 18L, Anion Gap 12, Blood Urea Nitrogen 29H, Creatinine 1.57H, Estimat Glomerular Filtration Rate 46, BUN/Creatinine Ratio 18, Glucose Level 200H, Calcium Level 8.2L, Phosphorus Level 3.1, Magnesium Level 2.0 05/17/22 11:36: Glucometer 215H Laboratory Tests 05/16/22 04:01 05/17/22 03:35 A/P: Assessment: 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 - poor appetite, poor stamina, mild swallowing difficulty, wgt loss, impaired smell and taste PAF - first diagnosed several years earlier, according to the patient, but he is unable to provide any details - TSH normal (0.66) on 02/13/22 and on 05/13/21 (4.13) - Elec CV on 05/15/22 (Dr Desai) followed by continuing PAF - currently on oral amiodarone Ac on chronic diastolic and systolic CHF - TTE on 02-15-22: LVEF 50%, grade 2 rosas dysfunction, mild to mod LAE, mild AI, PASP 20-25 mmHg - RUPALI on 05-15-22 (Dr Desai): dilated LV with LVEF 30%, mild MR, mild AI RBBB on ECG COVID in Feb 2022 Chronic gen weakness and malaise - etiology undetermined Chronic bilat leg swelling and peripheral neuropathy Plan: * Complex management. Pt reports his symptoms are chronic and unchanged with current therapy. He wishes to be managed conservatively only and wishes to go home * D/c dilt because of low bp and low EF * Add dig to control ventricular response to A Fib * Not suitable for bb or IVY-inhib/ARB because of low bp * Wean off dopamine. Consider d/c (per pt request) if able to get off dopamine * Continue OAC * Reduce diuretic SRI KEENAN MD FACP [facility] May 17, 2022 13:09
[2022-05-17] MEDS: RT-ALBUTEROL SULF 2.5 MG/3 ML PRE-MIX VIAL INH PRN (13:48)
[2022-05-17] MEDS: APIXABAN 5 MG (ELIQUIS) TABLET PO SCH (20:20)
[2022-05-18] MEDS: PHENYLEPHRINE DRIP 250 ML IV SCH ×2 (03:04→17:43)
[2022-05-18 03:28] LABS: BASOPHILS % (AUTO) 0 % (0-10); EOSINOPHILS % (AUTO) 0 % (0-10); HEMATOCRIT 26 % (40-54); HEMOGLOBIN 8.1 g/dL (13.3-17.7); LYMPHOCYTES # (AUTO) 1.9 10^3/uL (1.0-4.0); LYMPHOCYTES % (AUTO) 24 % (12-44); MEAN CORPUSCULAR HEMOGLOBIN 29 pg (25-34); MEAN CORPUSCULAR HGB CONC 31 g/dL (32-36); MEAN CORPUSCULAR VOLUME 92 fL (80-99); MEAN PLATELET VOLUME 11.3 fL (9.0-12.2); MONOCYTES # (AUTO) 0.5 10^3/uL (0.0-1.0); MONOCYTES % (AUTO) 6 % (0-12); NEUTROPHILS # (AUTO) 5.6 10^3/uL (1.8-7.8); NEUTROPHILS % (AUTO) 69 % (42-75); PLATELET COUNT 222 10^3/uL (130-400)
[2022-05-18 03:48] LABS: CALCIUM 8.5 MG/DL (8.5-10.1); CREATININE SERUM 1.83 MG/DL (0.60-1.30); PHOSPHORUS 3.9 MG/DL (2.3-4.7); POTASSIUM 4.2 MMOL/L (3.6-5.0)
[2022-05-18] MEDS: KCL 20 MEQ TAB (K-DUR) PO SCH ×2 (04:36→09:08)
[2022-05-18] MEDS: POTASSIUM CL 10MEQ/50ML IVPB 50 ML IV SCH (04:36)
[2022-05-18] MEDS: MAGNESIUM 1 GM/100 ML IVPB 100 ML IV SCH (04:36)
[2022-05-18] MEDS: inSUlin ASPART (NovoLOG) 1 UNIT/0.01 ML (CHARGE PER UNIT) SC SCH ×4 (04:36→20:30)
[2022-05-18] MEDS: ACETAMINOPHEN 325 MG TABLET PO PRN (05:53)
[2022-05-18] MEDS: ALPRAZolam 0.25 MG (XANAX) TAB PO PRN ×3 (05:53→20:28)
[2022-05-18] MEDS: RT-ALBUTEROL SULF 2.5 MG/3 ML PRE-MIX VIAL INH SCH ×2 (06:31→21:27)
--- NOTE | 2022-05-18 08:35 | Diagnostic Imaging Report ---
CHEST 1 VIEW, AP/PA ONLY Indication: Hypoxia Comparison: 05/15/2022 Findings: Small right pleural effusion has increased in size. Small left pleural effusion has also increased. Perihilar opacities have worsened, greater on the right. No pneumothorax. Stable cardiac silhouette. Impression: 1. Worsening bilateral pleural effusions, greater on the right. Dictated by: Dictated on workstation # [id number]
[2022-05-18] MEDS ORDERED: NS IV 500 ML 500 ML IV SCH (08:45)
--- NOTE | 2022-05-18 08:46 | Progress Note - Cardiology ---
Cardiology SOAP Progress Note Subjective: Sitting up in recliner at the bedside Continues to feel SOB, but slightly better No c/o CP or palpitations No c/o n/v/d Objective: I&O/Vital Signs 05/18/22 05/18/22 05/18/22 05/18/22 20:00 20:00 21:00 21:27 Temp 36.2 Pulse 62 67 Resp 30 25 B/P (MAP) 130/72 (94) 129/80 (98) Pulse Ox 95 95 94 O2 Delivery High Flow N/C High Flow N/C High Flow N/C O2 Flow Rate 5.00 5.00 5.00 05/18/22 05/18/22 05/18/22 05/18/22 22:00 23:00 23:25 23:25 Temp 36.4 Pulse 65 63 Resp 29 B/P (MAP) 105/60 (69) 114/64 (83) Pulse Ox 95 94 96 O2 Delivery High Flow N/C High Flow N/C High Flow N/C High Flow N/C O2 Flow Rate 5.00 5.00 5.00 5.00 05/19/22 05/19/22 05/19/22 05/19/22 00:00 01:00 01:00 01:30 Pulse 67 62 62 61 Resp 18 23 B/P (MAP) 114/79 (91) 130/83 (106) 102/57 (72) Pulse Ox 97 97 96 O2 Delivery High Flow N/C High Flow N/C High Flow N/C O2 Flow Rate 5.00 5.00 5.00 05/19/22 05/19/22 05/19/22 05/19/22 02:00 03:00 03:25 04:00 Temp 36.6 Pulse 62 73 56 Resp 17 22 22 B/P (MAP) 115/69 (86) 94/74 (81) 99/57 (63) Pulse Ox 93 94 94 97 O2 Delivery High Flow N/C High Flow N/C High Flow N/C High Flow N/C O2 Flow Rate 5.00 5.00 5.00 5.00 05/19/22 05/19/22 05/19/22 05:00 06:00 07:09 Pulse 56 65 Resp 16 B/P (MAP) 100/61 (78) 117/63 (82) Pulse Ox 94 O2 Delivery High Flow N/C High Flow N/C O2 Flow Rate 5.00 5.00 05/19/22 00:00 Intake Total 475 ml Output Total 450 ml Balance 25 ml Constitutional: AAO x 3, well-developed, well-nourished Respiratory: No accessory muscle use; other (diminished ) Cardiovascular: irregularly irregular, bradycardia, S1 and S2, systolic murmur (soft [place]EVA at cardiac base) Gastrointestional: No tender; soft; No guarding, No rebound; audible bowel sounds Extremities: No clubbing, No cyanosis; significant edema Neurologic/Psychiatric: oriented x 3, other (moves all limbs equally) Skin: pallor; No rash on exposed areas, No ulcerations on exposed areas Results/Procedures: Labs Laboratory Tests 05/18/22 11:11: Glucometer 181H 05/18/22 15:52: Glucometer 158H 05/18/22 20:26: Glucometer 163H 05/19/22 05:01: White Blood Count 6.0, Red Blood Count 3.06L, Hemoglobin 8.8L, Hematocrit 28L, Mean Corpuscular Volume 90, Mean Corpuscular Hemoglobin 29, Mean Corpuscular Hemoglobin Concent 32, Red Cell Distribution Width 17.2H, Platelet Count 221, Mean Platelet Volume 11.4, Immature Granulocyte % (Auto) 0, Neutrophils (%) (Auto) 68, Lymphocytes (%) (Auto) 25, Monocytes (%) (Auto) 6, Eosinophils (%) (Auto) 1, Basophils (%) (Auto) 0, Neutrophils # (Auto) 4.1, Lymphocytes # (Auto) 1.5, Monocytes # (Auto) 0.4, Eosinophils # (Auto) 0.0, Basophils # (Auto) 0.0, I mmature Granulocyte # (Auto) 0.0, Sodium Level 131L, Potassium Level 4.4, Chloride Level 99, Carbon Dioxide Level 20L, Anion Gap 12, Blood Urea Nitrogen 38H, Creatinine 1.75H, Estimat Glomerular Filtration Rate 40, BUN/Creatinine Ratio 22, Glucose Level 136H, Calcium Level 8.7, Phosphorus Level 4.1, Magnesium Level 2.1, Digoxin Level 1.15 05/19/22 05:32: Glucometer 135H Procedures NAME: PETER ORTEGA REC#: [id number] PT STATUS: ADM IN : 1945 PHYSICIAN: LEVAR CULP MD ADMIT DATE: 05/15/22/ICU Draft Date of Exam:05/18/22 CHEST 1 VIEW, AP/PA ONLY CHEST 1 VIEW, AP/PA ONLY Indication: Hypoxia Comparison: 05/15/2022 Findings: Small right pleural effusion has increased in size. Small left pleural effusion has also increased. Perihilar opacities have worsened, greater on the right. No pneumothorax. Stable cardiac silhouette. Impression: 1. Worsening bilateral pleural effusions, greater on the right. 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 - poor appetite, poor stamina, mild swallowing difficulty, wgt loss, impaired smell and taste PAF - first diagnosed several years earlier, according to the patient, but he is unable to provide any details - TSH normal (0.66) on 02/13/22 and on 05/13/21 (4.13) - Elec CV on 05/15/22 (Dr Desai) followed by continuing PAF - currently on oral amiodarone Ac on chronic diastolic and systolic CHF - TTE on 02-15-22: LVEF 50%, grade 2 rosas dysfunction, mild to mod LAE, mild AI, PASP 20-25 mmHg - RUPALI on 05-15-22 (Dr Desai): dilated LV with LVEF 30%, mild MR, mild AI RBBB on ECG COVID in Feb 2022 Chronic gen weakness and malaise - etiology undetermined Chronic bilat leg swelling and peripheral neuropathy Plan: * Complex management * He feels his SOB is essentially unchanged; no c/o CP or palpitations; c/o LE swelling - states he wants to go home today * Diltiazem stopped because of low bp and low EF * Continue dig to control ventricular response to A Fib * Not suitable for bb or IVY-inhib/ARB because of low bp and worsening renal function * He is off Dopamine * Anemia of undetermined etiology - he is agreeable to 1 unit PRBC * Continue OAC * Worsening infiltrates seen on CXR - give IV Lasix after transfusion * Evaluate for home oxygen * Plan of care discussed with JUAN Kay May 18, 2022 08:46
[2022-05-18] MEDS ORDERED: DIGOXIN 0.25 MG (LANOXIN) TAB PO SCH (09:00)
[2022-05-18] MEDS ORDERED: FUROSEMIDE 40 MG/4 ML INJ (LASIX) IVP NR (09:00)
[2022-05-18] MEDS: MAGNESIUM OXIDE (MAG-OX)400 MG TAB PO SCH (09:08)
[2022-05-18] MEDS: FUROSEMIDE 40 MG (LASIX) TAB PO SCH (09:08)
[2022-05-18] MEDS: toPIRamate 25 MG (TOPAMAX) TAB PO SCH ×2 (09:08→20:28)
[2022-05-18] MEDS: APIXABAN 5 MG (ELIQUIS) TABLET PO SCH ×2 (09:08→20:28)
[2022-05-18] MEDS: TAMSULOSIN 0.4 MG (FLOMAX) CAP PO SCH (09:08)
[2022-05-18] MEDS: AMIODARONE 200 MG (CORDARONE) TAB PO SCH ×2 (09:08→20:27)
[2022-05-18] MEDS: GABAPENTIN 100 MG (NEURONTIN) CAP PO SCH ×2 (09:09→20:28)
--- NOTE | 2022-05-18 10:08 | Physical Therapy Daily Note ---
PT Daily Note-Current Subjective Patient agrees to PT. Pain Section J - Health Conditions 1. Rarely or not at all 2. Occasionally 3. Frequently 4. Almost constantly 8. Unable to answer Pain Effect on Sleep: 2 Pain Interference with Therapy: 2 Pain Interference w/Day-to-Day: 2 Mental Status Patient Orientation: Normal For Age Attachments: Oxygen (14L HF NC), Worrell Catheter, IV Transfers SCALE: Activities may be completed with or without assistive devices. 3-Vushaezcrd-sqryatm completes the activity by him/herself with no assistance from a helper. 5-Set-up or Clean-up Assistance-helper sets up or cleans up; patient completes activity. [place] assists only prior to or following the activity. 4-Supervision or Touching Assistance-helper provides verbal cues and/or touching/steadying and/or contact guard assistance as patient completes activity. Assistance may be provided throughout the activity or intermittently. 3-Partial/Moderate Assistance-helper does LESS THAN HALF the effort. [place] lifts, holds or supports trunk or limbs, but provides less than half the effort. 2-Substantial/Maximal Assistance-helper does MORE THAN HALF the effort. [place] lifts or holds trunk or limbs and provides more than half the effort. 9-Uqvfqkgxs-nebucl does ALL the effort. Patient does none of the effort to complete the activity. Or, the assistance of 2 or more helpers is required for the patient to complete the activity. If activity was not attempted, code reason: 7-Patient Refused. 9-Not Applicable-not attempted and the patient did not perform the activity befo re the current illness, exacerbation or injury. 10-Not Attempted due to Environmental Limitations-(lack of equipment, weather re straints, etc.). 88-Not Attempted due to Medical Conditions or Safety Concerns. Lying to Sitting/Side of Bed(Q: 4 Sit to Stand (QC): 4 Chair/Bmz-dd-Sdplx Xfer(QC): 4 Weight Bearing Right Lower Extremity: Right Full Weight Bearing Left Lower Extremity: Left Full Weight Bearing Exercises Supine Ex: Ankle pumps, Quad Set, Heel Slides, Straight leg raise Supine Reps: 12 Seated Therapy Exercises: Ankle pumps, Long arc quads, Hip flexion Seated Reps: 12 Assessment Patient's SAO2 decreases to low 80's with minimal activity. Patient requires multiple seated recovery periods due to SOA and decreased SAO2. Patient is up in recliner with needs met. Continue to increase activity as tolerated by patient. PT Wearing Apparel Presser Goals Wearing Apparel Presser Goals PT Wearing Apparel Presser Goals Time Frame: May 29, 2022 Roll Left & Right (QC): 6 Sit to Lying (QC): 6 Lying-Sitting on Side/Bed(QC): 6 Sit to Stand (QC): 6 Chair/Ueo-oh-Rkhtw Xfer(QC): 6 Toilet Transfer (QC): 6 Does the Patient Walk: Yes Walk 10 feet (QC): 6 Walk 50ft with 2 Turns (QC): 6 Walk 150 ft (QC): 4 PT Plan Treatment/Plan Treatment Plan: Continue Plan of Care Treatment Plan: Bed Mobility, Functional Activity Darcie, Functional Strength, Gait, Therapeutic Exercise, Transfers Treatment Duration: May 15, 2022 Frequency: 6 times per week Estimated Hrs Per Day: .25 hour per day Patient and/or Family Agrees t: Yes Time Time In: 720 Time Out: 744 DATE: May 18, 2022 Total Billed Treatment Time: 24 Total Billed Treatment 1 visit EX x 2 24 min MIRZA LI PT May 18, 2022 10:08
--- NOTE | 2022-05-18 10:55 | Tele-ICU Progress Note ---
Subjective Date Seen by a Provider: May 18, 2022 Time Seen by a Provider: 10:54 Subjective/Events-last exam (Tele-ICU Physician , Progress Note ) Service provided via interactive audio and video telecommunications E-CARE system to a patient admitted to ICU bed in [facility]. Patient is seen today due to persistent need of ICU care Available chart/ vitals / labs / Images reviewed Video assessment done using teleICU camera, rest of exam as per RN Discussed with RN Events overnight : Afebrile hemodynamically stable Respiratory - 7 l I/O = Drips: Pressors- no Hospital course: (05/13) 76M Admitted for rapid afib. (05/15) s/p cardioversion 05/17 - on dopa for hypotension 05/18 - 7 L , transfusion 1 u PRBC for hb 8.1, HAYLEY worsening Ct 1.8 , off dopa Acute hypoxix resp failure - with volume overload- on furosemide - worsening Gio2 to 7L NC , cxr 05/18 with increased effusions R>>L . Furosemide dose down 05/18 to po 40 from 80 with rising Cr - need to monitor fluid status carefully . 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 Discussed with RN to reach out if any questions or concerns A total of 24 minutes of critical care time was devoted to this patient today, required to treat and/or prevent further deterioration of critical care condition ( as above ) . Sepsis Event Evaluation Height, Weight, BMI Height: '" Weight: lbs. oz. kg; 30.55 BMI Method: Exam Exam Patient acknowledged, consented, and participated in this virtual visit which was conducted using real time audio/video Vital Signs Date Time Temp Pulse Resp B/P (MAP) Pulse Ox O2 Delivery O2 Flow Rate FiO2 05/18/22 09:00 61 28 114/79 (91) 95 High Flow N/C 7.00 05/18/22 08:02 36.1 05/18/22 08:00 55 20 113/79 (90) 90 High Flow N/C 7.00 05/18/22 07:50 High Flow N/C 7.00 05/18/22 07:23 58 05/18/22 07:00 55 26 93/56 (68) 90 High Flow N/C 10.00 05/18/22 06:31 88 High Flow N/C 10.00 05/18/22 06:00 55 24 104/93 (97) 94 High Flow N/C 10.00 05/18/22 05:00 58 15 97/61 (73) 87 High Flow N/C 10.00 05/18/22 04:00 94 High Flow N/C 10.00 05/18/22 04:00 55 24 117/77 (90) 95 High Flow N/C 10.00 05/18/22 03:00 56 25 94/55 (68) 92 High Flow N/C 10.00 05/18/22 02:00 55 28 94/60 (71) 94 High Flow N/C 10.00 05/18/22 01:00 65 19 101/58 (72) 88 High Flow N/C 10.00 05/18/22 01:00 65 05/18/22 00:00 37.2 90 High Flow N/C 10.00 05/18/22 00:00 61 23 85/53 (64) 90 High Flow N/C 8.00 05/17/22 23:59 90 High Flow N/C 10.00 05/17/22 23:00 68 24 103/52 (69) 91 High Flow N/C 8.00 05/17/22 22:00 65 24 114/76 (89) 99 High Flow N/C 8.00 05/17/22 21:00 119/76 05/17/22 21:00 62 24 120/44 (69) 99 High Flow N/C 8.00 05/17/22 20:46 98 High Flow N/C 10.00 05/17/22 20:15 High Flow N/C 8.00 05/17/22 20:00 63 27 125/101 (109) 97 High Flow N/C 10.00 05/17/22 19:43 94 High Flow N/C 10.00 05/17/22 19:32 36.3 05/17/22 19:00 64 05/17/22 19:00 63 49 96/65 (75) 95 High Flow N/C 10.00 05/17/22 18:00 64 27 93/67 (76) 94 High Flow N/C 10.00 05/17/22 17:00 60 18 112/79 (90) 97 High Flow N/C 10.00 05/17/22 16:04 36.9 05/17/22 16:00 63 31 122/72 (89) 90 High Flow N/C 10.00 05/17/22 16:00 92 High Flow N/C 10.00 05/17/22 15:00 62 35 91/64 (73) 91 High Flow N/C 10.00 05/17/22 14:00 66 34 107/67 (80) 91 High Flow N/C 10.00 05/17/22 13:48 95 High Flow N/C 10.00 05/17/22 13:39 High Flow N/C 10.00 05/17/22 13:00 71 31 103/76 (85) 97 High Flow N/C 6.00 05/17/22 12:23 83 05/17/22 12:00 93 High Flow N/C 10.00 05/17/22 12:00 77 31 99/81 (87) 91 High Flow N/C 8.00 05/17/22 11:00 80 31 113/94 (100) 100 High Flow N/C 8.00 I & O 05/18/22 07:00 Intake Total 750 ml Output Total 550 ml Balance 200 ml Height & Weight Height: '" Weight: lbs. oz. kg; 30.55 BMI Method: General Appearance: No Apparent Distress HEENT: PERRL/EOMI, Pharynx Normal Neck: Normal Inspection, Supple Respiratory: Lungs Clear, No Respiratory Distress Cardiovascular: No Murmur, Irregularly Irregular Capillary Refill: Less Than 3 Seconds Gastrointestinal: non tender, soft Extremity: Normal Inspection, No Pedal Edema; No Inflammation Neurologic/Psychiatric: Alert, Oriented x3, Depressed Affect Skin: Normal Color, Warm/Dry Results Lab Laboratory Tests 05/17/22 03:35 05/18/22 03:10 Assessment/Plan Assessment/Plan 1 SWEETIE GONZALEZ MD May 18, 2022 10:54
--- NOTE | 2022-05-18 11:11 | Speech Therapy Daily Note ---
Speech Daily Progress Note Subjective Date Seen by Provider: May 18, 2022 Time Seen by Provider: 10:40 The patient was lying in his bed, awake and alert, upon entrance to his room by the clinician. The patient greeted the clinician appropriately and was agreeable to participation in the dysphagia treatment session. The patient's son is at bedside and remained for the treatment session. Objective CXR: 05/18/22: 1. Worsening bilateral pleural effusions, greater on the right. The patient's safe swallowing strategies were reviewed extensively and he v erbalized comprehension. The patient remains with a smaller straw in his hospital provided mug for assistance in smaller sip size. The patient denied s/s of suspected aspiration throughout meals, however, does report a continued decreased appetite. Per patient, "The potassium got me again this morning." The patient stated the potassium pill was cut in half but was still too large. The patient stated he "eventually got it down with three or four drinks." The patient was seated upright in his bed to demonstrate sip size to the clinician. The patient continues to display small sip size while the clinician is present, not displaying s/s of suspected aspiration throughout the treatment session. The clinician discussed the patient's larger pills with the RN following the treatment session, as pills seem to be the only item continuing to result in swallowing difficulty. The RN stated he may look into a different form of potassium (one with provided liquid) to assist the patient with administration. If the additional form is not appropriate for the patient, the clinician recommended all medication be crushed and placed in puree for patient safety. The patient continues to request discharge home which the clinician stated would be addressed by his medical team. Assessment Assessment Current Status: Good Progress Treatment Plan Continue Plan of Care Speech Short Term Goals Short Term Goals Short Term Goals 1. The patient will display safe swallowing precautions with 80% accuracy, independently. Time Frame-STG: Three Days. Speech Welder Fabricator Goals Detention Goals 1. The patient will tolerate the least restrictive diet consistency without s/s of suspected aspiration. Time Frame: One Week. Speech-Plan Treatment Plan Speech Therapy Treatment Plan: Continue Plan of Care Treatment Duration: May 21, 2022 Frequency: 3 times per week Estimated Hrs Per Day: .25 hour per day Rehab Potential: Fair Pt/Family Agrees to Plan: Yes Safety Risks/Education Teaching Recipient: Patient, Family Teaching Methods: Demonstration, Discussion Response to Teaching: Verbalize Understanding, Return Demonstration Education Topics Provided: Safe Swallowing Precautions Time Speech Therapy Time In: 10:40 Speech Therapy Time Out: 10:55 DATE: May 18, 2022 Total Billed Time: 15 Billed Treatment Time 1, LG EDMONDS May 18, 2022 11:11
--- NOTE | 2022-05-18 11:19 | Progress Note - Hospitalist ---
Subjective HPI/CC On Admission Date Seen by Provider: May 18, 2022 Bandar Crabtree is a 76 year old male with PMH HTN, T2DM, HLD, AFib, anemia, who was admitted with AFib with RVR. He denies chest pain and palpitations. He denies shortness of breath and cough. He has been having trouble swallowing pills. He has no other complaints. Subjective/Events-last exam Pt reports feeling better today and that he would like to go home. Discussed that I don't think he is medically stable for discharge and would benefit from Nephrology evaluate as creatinine increased and UOP was down yesterday. He declined this and stated he was going home. I again reminded him that I think that would be very detrimental to his health. He said he understood and that he would be leaving today to go home and if he felt he was getting worse he would go to [place]. I offered trying to facilitate transfer from here directly to [place] and he also declined this. I advised him to talk this over further with Dr Tubbs and his family before electing to leave [place]. Objective Exam Vital Signs Vital Signs Date Time Temp Pulse Resp B/P (MAP) Pulse Ox O2 Delivery O2 Flow Rate FiO2 05/18/22 09:00 61 28 114/79 (91) 95 High Flow N/C 7.00 05/18/22 08:02 36.1 05/15/22 23:00 30 Capillary Refill : Less Than 3 Seconds General Appearance: No Apparent Distress Respiratory: Lungs Clear, No Respiratory Distress Cardiovascular: Regular Rate, Rhythm, No Murmur Neurologic/Psychiatric: Alert, Oriented x3 Results/Procedures Lab Laboratory Tests 05/18/22 03:10 Patient resulted labs reviewed. Assessment/Plan Assessment and Plan Assess & Plan/Chief Complaint AFib with RVR Cardiogenic shock Cardiology primary Unsuccessful cardioversion 05/15 Weaned off dopamine Diltiazem DC-ed by cardiology and on digoxin Lovenox Management per cardiology Acute respiratory failure due to pulm edema Up to 10lpm HFNC TeleICU, isabell Azevedo ordered HAYLEY Creatinine up to 1.8 Likely due to hypotension UOP trended down yesterday Recommended nephrology evaluation and he declined Dysphagia Speech consulted Modified Barium swallow done and demonstrated mild to moderate oropharygenal esophageal dysphagia and they recommended regular diet with thin liquids and small single bites with sips only and full upright for meals T2DM Sliding scale insulin HTN HLD Anemia CKD Continue home meds as appropriate Family requesting home health on discharge- previously used [facility] and want to use them again Diagnosis/Problems Diagnosis/Problems (1) Acute respiratory failure (2) Cardiogenic shock (3) Atrial fibrillation with RVR Status: Acute (4) T2DM (type 2 diabetes mellitus) Status: Chronic (5) HLD (hyperlipidemia) Status: Chronic (6) HTN (hypertension) Status: Chronic (7) LEVAR Narayanan MD May 18, 2022 11:19
[2022-05-18 13:05] VITALS: BP 120/74
[2022-05-18 13:10] VITALS: BP 124/71
[2022-05-18 13:15] VITALS: BP 118/77
[2022-05-18 13:20] VITALS: BP 115/77
[2022-05-18] MEDS ORDERED: MELATONIN 3 MG TABLET PO PRN (13:30)
--- NOTE | 2022-05-18 14:12 | Consultation ---
History of Present Illness History of Present Illness Patient Consulted On(brandon/time) 05/18/22 14:09 Date Seen by Provider: May 18, 2022 Time Seen by Provider: 14:09 History of Present Illness Mr. Crabtree is a very pleasant 76 y/o m with h/o Pt noted to have a rise in creatinine after complications with afib and cardiogenic shock. Pt's O2 requirements were high and are coming down slowly. Allergies and Home Medications Allergies Coded Allergies: No Known Drug Allergies (Unverified , 03/04/21) Patient Home Medication List Allopurinol (Allopurinol) 300 Mg Tablet, 300 MG PO DAILY, (Reported) Entered as Reported by: FRANKLIN GARCIA on 05/08/21 1302 Last Action: Held Apixaban (Eliquis) 5 Mg Tablet, 5 MG PO BID, (Reported) Entered as Reported by: ES STUART on 05/13/22 160 Last Action: Held Ascorbate Calcium (Vitamin C) 500 Mg Tablet, 500 MG PO 1200, (Reported) Entered as Reported by: ES STUART on 01/21/22 110 Last Action: Held Atorvastatin Calcium (Atorvastatin Calcium) 80 Mg Tablet, 40 MG PO HS, (Reported) Entered as Reported by: FRANKLIN GARCIA on 05/08/21 1302 Last Action: Held Cholecalciferol (Vitamin D3) (Vitamin D3) 125 Mcg (5000 Unit) Tablet, 125 MCG PO 1200, (Reported) Entered as Reported by: ES STUART on 05/13/22 1601 Last Action: Held Diltiazem HCl (Diltiazem 24Hr ER) 180 Mg Cap.er.24h, 180 MG PO DAILY, (Reported) Entered as Reported by: ES STUART on 05/13/22 160 Last Action: Held Docusate Sodium (Docusate Sodium) 100 Mg Capsule, 200 MG PO DAILY PRN for CONSTIPATION-1ST LINE, (Reported) Entered as Reported by: ES STUART on 05/13/22 160 Last Action: Held Empagliflozin (Jardiance) 25 Mg Tablet, 12.5 MG PO DAILY, (Reported) Entered as Reported by: ES STUART on 01/21/22 110 Last Action: Held Fish Oil/Dha/Epa (Fish Oil 1,200 mg Fish Oil) 1,200 Mg-144 Mg-216 Mg Capsule, 1 EACH PO 1200, (Reported) Entered as Reported by: ES STUART on 01/21/221108 Last Action: Held Furosemide (Furosemide) 40 Mg Tablet, 40 MG PO DAILY, (Reported) Entered as Reported by: ES STUART on 01/21/221108 Last Action: Held Gabapentin (Gabapentin) 100 Mg Capsule, 200 MG PO BID, (Reported) Entered as Reported by: ES STUART on 05/13/221600 Last Action: Continued Insulin Glargine,Hum.rec.anlog (Insulin Glargine Solostar) 100 Unit/Ml (3 Ml) Insuln.pen, 20 UNIT SQ HS, (Reported) Entered as Reported by: ES STUART on 05/13/221600 Last Action: Held Metformin HCl (Metformin HCl) 1,000 Mg Tablet, 1,000 MG PO BID WITH MEALS, (Reported) Entered as Reported by: FRANKLIN GARCIA on 05/08/21 1302 Last Action: Held Naproxen Sodium (Aleve) 220 Mg Tablet, 220 MG PO BID PRN for PAIN-MILD (1-4), (Reported) Entered as Reported by: ES STUART on 05/13/221600 Last Action: Held Omeprazole (Omeprazole) 20 Mg Capsule.dr, 20 MG PO DAILY, (Reported) Entered as Reported by: ERIK LOU on 02/15/22 0950 Last Action: Held Tamsulosin HCl (Flomax) 0.4 Mg Cap, 0.4 MG PO DAILY, (Reported) Entered as Reported by: ES STUART on 05/13/221600 Last Action: Continued Topiramate (Topiramate) 25 Mg Tablet, 25 MG PO BID, (Reported) Entered as Reported by: ES STUART on 05/13/221600 Last Action: Continued Tramadol HCl (Tramadol HCl) 50 Mg Tablet, 100 MG PO HS PRN for PAIN-MODERATE (5- 7), (Reported) Entered as Reported by: ES STUART on 01/21/221108 Last Action: Held Ubidecarenone (Co Q-10) 100 Mg Capsule, 100 MG PO 1200, (Reported) Entered as Reported by: ERIK LOU on 02/15/22 0950 Last Action: Held Vit A/C/E/Zinc/Selenium/Copper (Vision Formula Tablet) 1,000-60-30 Tablet, 1 EACH PO 1200, (Reported) Entered as Reported by: ES STUART on 05/13/22 1601 Last Action: Held Zolpidem Tartrate (Zolpidem Tartrate) 5 Mg Tablet, 5 MG PO HS PRN for SLEEP, (Reported) Entered as Reported by: FRANKLIN GARCIA on 05/08/21 1302 Last Action: Held Discontinued Medications Apixaban (Eliquis) 5 Mg Tablet, 5 MG PO BID Discontinued Reason: Duplicate Order Prescribed by: LEVAR CULP on 02/22/22 0953 Last Action: Discontinued Cholecalciferol (Vitamin D3) (Vitamin D3) 50 Mcg (2000 Unit) Capsule, 50 MCG PO 1200, (Reported) Discontinued Reason: Prescription changed Entered as Reported by: ES STUART on 01/21/22 110 Diltiazem HCl (Diltiazem 24Hr ER) 180 Mg Cap.er.24h, 180 MG PO DAILY Discontinued Reason: Duplicate Order Prescribed by: LEVAR CULP on 02/22/22 0951 Last Action: Discontinued Insulin Detemir (Levemir Flextouch) 100 Unit/Ml (3 Ml) Insuln.pen, 20 UNIT SQ HS, (Reported) Discontinued Reason: Prescription changed Entered as Reported by: ERIK LOU on 02/15/22 0949 Multivitamin (Multivitamin) 1 Each Tablet, 1 EACH PO 1200, (Reported) Discontinued Reason: No Longer Taking Entered as Reported by: FRANKLIN GARCIA on 05/08/21 1302 Last Action: Discontinued Pregabalin (Pregabalin) 200 Mg Capsule, 200 MG PO TID, (Reported) Discontinued Reason: Duplicate Order Entered as Reported by: ES STUART on 01/21/22 110 Last Action: Discontinued Topiramate (Topamax) 25 Mg Tablet, 25 MG PO BID Discontinued Reason: Duplicate Order Prescribed by: MALINA HOOVER on 02/26/22 0607 Last Action: Discontinued Vitamin E Mixed (Vitamin E) 100 Unit Tablet, 100 UNIT PO 1200, (Reported) Discontinued Reason: No Longer Taking Entered as Reported by: ES STUART on 01/21/22 110 Last Action: Discontinued Past Wbzomhn-Skjwot-Pymihh Hx Patient Social History Tobacco Use?: No Smoking Status: Never a Smoker Use of E-Cig and/or Vaping dev: No Substance use?: No Alcohol Use?: No Pt feels they are or have been: No Immunizations Up To Date Influenza Vaccine Up-to-Date: Yes; Up-to-Date First/Initial COVID19 Vaccinat: RECEIVED, UNK WHEN Second COVID19 Vaccination Brandon: RECEIVED, UNK WHEN Third COVID19 Vaccination Date: RECEIVED, UNK WHEN COVID19 Vaccine Felled Seam Operator: PORTER Past Medical History Surgery/Hospitalization HX: HOSPITALIZED FOR WEAKNESS, FEB 2022 HOSPITALLIZED FOR COVID Surgeries: Yes Abdominal, Eye Surgery, Orthopedic Respiratory: No Cardiac: Yes Atrial Fibrillation, Hypertension Neurological: Yes (Tremor) Neuropathy Genitourinary: Yes Renal Failure Gastrointestinal: Yes Diverticulosis, Hiatal Hernia Musculoskeletal: Yes Arthritis Endocrine: Yes Diabetes, Insulin dep HEENT: Yes Cataract Cancer: No Psychosocial: No Blood Disorders: Yes (Anemia) Family Medical History Cancer (pancreatic cancer in mother) Physical Exam-General Problems Physical Exam Vital Signs Vital Signs - First Documented 05/13/22 05/15/22 11:00 23:00 Pulse 130 Resp 29 B/P (MAP) 102/79 (87) Pulse Ox 92 O2 Delivery Room Air FiO2 30 Capillary Refill : Less Than 3 Seconds Assessment/Plan Assessment/Plan Admission Diagnosis/Plan SAUL on CKD 2 baseline 1.1-1.4 saul due to hypotension in setting of afib rvr, cardiogenic shock change lasix to prin soa now that O2 requirements are improving would recommend monitor weight daily and taking prn lasix 40mg x1 at home after d/c as pt is adament about dc tomorrow avoid nephrotoxins and hypotension renally dose meds plan to f/u in our office in 1-2 weeks after d/c in [place] afib with rvr cardiology following improving replace k and mag prn anemia sp 1 unit of blood DM encourage adequate control f/u with pcp ROSINA LANGFORD MD May 18, 2022 14:12
[2022-05-18] MEDS: ALBUMIN 25% 25 GM/100 ML 100 ML IV SCH ×2 (15:22→22:21)
--- NOTE | 2022-05-18 15:27 | Progress Note - Cardiology ---
Cardiology SOAP Progress Note Subjective: States feels somewhat better today Chronic weakness and fatigue No cp Shortness of breath with mild to mod activity No palp or syncope Chronic leg swelling, mild to mod Objective: I&O/Vital Signs 05/18/22 05/18/22 05/18/22 05/18/22 04:00 04:00 05:00 06:00 Pulse 55 58 55 Resp 24 15 24 B/P (MAP) 117/77 (90) 97/61 (73) 104/93 (97) Pulse Ox 95 94 87 94 O2 Delivery High Flow N/C High Flow N/C High Flow N/C High Flow N/C O2 Flow Rate 10.00 10.00 10.00 10.00 05/18/22 05/18/22 05/18/22 05/18/22 06:31 07:00 07:23 07:50 Pulse 55 58 Resp 26 B/P (MAP) 93/56 (68) Pulse Ox 88 90 O2 Delivery High Flow N/C High Flow N/C High Flow N/C O2 Flow Rate 10.00 10.00 7.00 05/18/22 05/18/22 05/18/22 05/18/22 08:00 08:00 08:02 09:00 Temp 36.1 Pulse 55 61 Resp 20 28 B/P (MAP) 113/79 (90) 114/79 (91) Pulse Ox 90 94 95 O2 Delivery High Flow N/C High Flow N/C High Flow N/C O2 Flow Rate 7.00 7.00 7.00 05/18/22 05/18/22 05/18/22 05/18/22 10:00 11:00 12:00 12:19 Temp 36.1 Pulse 55 55 56 Resp 21 12 22 B/P (MAP) 110/69 (83) 131/69 (89) 112/86 (95) Pulse Ox 97 98 99 O2 Delivery High Flow N/C High Flow N/C High Flow N/C O2 Flow Rate 7.00 7.00 7.00 05/18/22 05/18/22 05/18/22 05/18/22 13:00 13:00 13:05 13:10 Temp 36.1 36.1 Pulse 57 57 56 56 Resp 29 20 18 B/P (MAP) 112/92 (99) 120/74 124/71 Pulse Ox 98 97 O2 Delivery High Flow N/C Nasal Cannula Nasal Cannula O2 Flow Rate 7.00 5.00 5.00 05/18/22 05/18/22 05/18/22 13:15 13:20 14:00 Temp 36.1 36.1 Pulse 56 56 57 Resp 16 20 29 B/P (MAP) 118/77 115/77 107/81 (90) Pulse Ox 97 90 O2 Delivery Nasal Cannula Nasal Cannula High Flow N/C O2 Flow Rate 5.00 5.00 7.00 05/18/22 00:00 Intake Total 650 ml Output Total 225 ml Balance 425 ml Constitutional: AAO x 3, well-developed, well-nourished Respiratory: No accessory muscle use; other (diminished ) Cardiovascular: irregularly irregular, bradycardia, S1 and S2, systolic murmur (soft GENEVA at cardiac base) Gastrointestional: No tender; soft; No guarding, No rebound; audible bowel sounds Extremities: No clubbing, No cyanosis; significant edema Neurologic/Psychiatric: oriented x 3, other (moves all limbs equally) Skin: pallor; No rash on exposed areas, No ulcerations on exposed areas Results/Procedures: Labs Laboratory Tests 05/17/22 16:16: Glucometer 217H 05/17/22 20:55: Glucometer 155H 05/18/22 03:10: White Blood Count 8.0, Red Blood Count 2.82L, Hemoglobin 8.1L, Hematocrit 26L, Mean Corpuscular Volume 92, Mean Corpuscular Hemoglobin 29, Mean Corpuscular Hemoglobin Concent 31L, Red Cell Distribution Width 16.3H, Platelet Count 222, Mean Platelet Volume 11.3, Immature Granulocyte % (Auto) 0, Neutrophils (%) (Auto) 69, Lymphocytes (%) (Auto) 24, Monocytes (%) (Auto) 6, Eosinophils (%) (Auto) 0, Basophils (%) (Auto) 0, Neutrophils # (Auto) 5.6, Lymphocytes # (Auto) 1.9, Monocytes # (Auto) 0.5, Eosinophils # (Auto) 0.0, Basophils # (Auto) 0.0, Immature Granulocyte # (Auto) 0.0, Sodium Level 130L, Potassium Level 4.2, Chloride Level 99, Carbon Dioxide Level 20L, Anion Gap 11, Blood Urea Nitrogen 33H, Creatinine 1.83H, Estimat Glomerular Filtration Rate 38, BUN/Creatinine Ratio 18, Glucose Level 161H, Calcium Level 8.5, Phosphorus Level 3.9, Magnesium Level 2.0, Procalcitonin 0.33H 05/18/22 11:11: Glucometer 181H Laboratory Tests 05/17/22 03:35 05/18/22 03:10 A/P: Assessment: 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 - poor appetite, poor stamina, mild swallowing difficulty, wgt loss, impaired smell and taste PAF - first diagnosed several years earlier, according to the patient, but he is unable to provide any details - TSH normal (0.66) on 02/13/22 and on 05/13/21 (4.13) - Elec CV on 05/15/22 (Dr Desai) followed by continuing PAF - currently on oral amiodarone Ac on chronic diastolic and systolic CHF - TTE on 02-15-22: LVEF 50%, grade 2 rosas dysfunction, mild to mod LAE, mild AI, PASP 20-25 mmHg - RUPALI on 05-15-22 (Dr Desai): dilated LV with LVEF 30%, mild MR, mild AI HAYLEY (likely due to ATN due to hypotension) on CKD 3 Hypotension now resolved after d/c CCB and BB Marked anemia RBBB on ECG COVID in Feb 2022 Chronic gen weakness and malaise - etiology undetermined Chronic bilat leg swelling and peripheral neuropathy Plan: * Complex management * He feels his SOB is essentially unchanged; no c/o CP or palpitations; c/o LE swelling - states he wants to go home today * Diltiazem stopped because of low bp and low EF * Continue dig to control ventricular response to A Fib. Monitor dig level * Not suitable for bb or IVY-inhib/ARB because of low bp and worsening renal function * He is off Dopamine * Anemia of undetermined etiology - 1 unit PRBC * Continue OAC * Worsening infiltrates seen on CXR - give IV Lasix after transfusion * Evaluate for home oxygen * Monitor labs * Appreciate help from Hosp and Nephrol SRI Hidalgo MD FACP FAC CCDS May 18, 2022 15:27
[2022-05-18] MEDS: DOPamine DRIP 250 ML IV SCH (15:52)
[2022-05-19] MEDS: ACETAMINOPHEN 325 MG TABLET PO PRN (00:18)
[2022-05-19] MEDS: PHENYLEPHRINE DRIP 250 ML IV SCH (05:09)
[2022-05-19] MEDS: DOPamine DRIP 250 ML IV SCH (05:09)
[2022-05-19] MEDS: ALBUMIN 25% 25 GM/100 ML 100 ML IV SCH (05:25)
[2022-05-19] MEDS: KCL 20 MEQ TAB (K-DUR) PO SCH ×2 (05:30→06:07)
[2022-05-19] MEDS: MAGNESIUM OXIDE (MAG-OX)400 MG TAB PO SCH (05:30)
[2022-05-19 05:32] LABS: BASOPHILS % (AUTO) 0 % (0-10); EOSINOPHILS % (AUTO) 1 % (0-10); HEMATOCRIT 28 % (40-54); HEMOGLOBIN 8.8 g/dL (13.3-17.7); LYMPHOCYTES # (AUTO) 1.5 10^3/uL (1.0-4.0); LYMPHOCYTES % (AUTO) 25 % (12-44); MEAN CORPUSCULAR HEMOGLOBIN 29 pg (25-34); MEAN CORPUSCULAR HGB CONC 32 g/dL (32-36); MEAN CORPUSCULAR VOLUME 90 fL (80-99); MEAN PLATELET VOLUME 11.4 fL (9.0-12.2); MONOCYTES # (AUTO) 0.4 10^3/uL (0.0-1.0); MONOCYTES % (AUTO) 6 % (0-12); NEUTROPHILS # (AUTO) 4.1 10^3/uL (1.8-7.8); NEUTROPHILS % (AUTO) 68 % (42-75); PLATELET COUNT 221 10^3/uL (130-400)
[2022-05-19] MEDS: inSUlin ASPART (NovoLOG) 1 UNIT/0.01 ML (CHARGE PER UNIT) SC SCH ×2 (05:32→11:00)
[2022-05-19 05:42] LABS: POTASSIUM 4.4 MMOL/L (3.6-5.0)
[2022-05-19 05:44] LABS: CALCIUM 8.7 MG/DL (8.5-10.1)
[2022-05-19 05:48] LABS: CREATININE SERUM 1.75 MG/DL (0.60-1.30); PHOSPHORUS 4.1 MG/DL (2.3-4.7)
[2022-05-19 05:51] LABS: MAGNESIUM 2.1 MG/DL (1.6-2.4)
[2022-05-19] MEDS: MAGNESIUM 1 GM/100 ML IVPB 100 ML IV SCH (06:06)
[2022-05-19] MEDS: POTASSIUM CL 10MEQ/50ML IVPB 50 ML IV SCH (06:06)
[2022-05-19] MEDS: RT-ALBUTEROL SULF 2.5 MG/3 ML PRE-MIX VIAL INH SCH (07:55)
--- NOTE | 2022-05-19 08:45 | Progress Note - Cardiology ---
Cardiology SOAP Progress Note Subjective: Sitting up in recliner at the bedside States he feels "a little better" States he is going home today and will leave AMA Continues to have LE swelling bilat No c/o CP, palpitations, syncope or near syncope Objective: I&O/Vital Signs 05/19/22 05/19/22 05/19/22 05/19/22 01:30 02:00 03:00 03:25 Temp 36.6 Pulse 61 62 73 Resp 23 17 22 B/P (MAP) 102/57 (72) 115/69 (86) 94/74 (81) Pulse Ox 96 93 94 94 O2 Delivery High Flow N/C High Flow N/C High Flow N/C High Flow N/C O2 Flow Rate 5.00 5.00 5.00 5.00 05/19/22 05/19/22 05/19/22 05/19/22 04:00 05:00 06:00 07:00 Pulse 56 56 57 Resp 22 16 21 B/P (MAP) 99/57 (63) 100/61 (78) 117/63 (82) 111/72 (85) Pulse Ox 97 94 99 O2 Delivery High Flow N/C High Flow N/C High Flow N/C High Flow N/C O2 Flow Rate 5.00 5.00 5.00 5.00 05/19/22 05/19/22 05/19/22 05/19/22 07:09 07:55 08:00 09:00 Pulse 65 61 61 Resp 26 23 B/P (MAP) 104/63 (77) 109/64 (79) Pulse Ox 95 100 100 O2 Delivery High Flow N/C High Flow N/C High Flow N/C O2 Flow Rate 5.00 5.00 5.00 05/19/22 05/19/22 05/19/22 05/19/22 10:00 11:00 12:00 12:53 Temp 36.5 Pulse 65 64 68 Resp 26 36 B/P (MAP) 108/73 (85) 93/64 (74) Pulse Ox 90 91 O2 Delivery High Flow N/C High Flow N/C O2 Flow Rate 5.00 5.00 05/19/22 00:00 Intake Total 475 ml Output Total 450 ml Balance 25 ml Constitutional: AAO x 3, well-developed, well-nourished Respiratory: No accessory muscle use, No respiratory distress; chest expansion is symmetric, chest is bilaterally symmetric, other (diminished ) Cardiovascular: irregularly irregular, S1 and S2, systolic murmur (soft GENEVA at cardiac base) Gastrointestional: No tender; soft; No guarding, No rebound; audible bowel soun ds Extremities: No clubbing, No cyanosis; significant edema (bilat LE pitting edema) Neurologic/Psychiatric: oriented x 3, other (moves all limbs equally) Skin: pallor; No rash on exposed areas, No ulcerations on exposed areas Results/Procedures: Labs Laboratory Tests 05/18/22 15:52: Glucometer 158H 05/18/22 20:26: Glucometer 163H 05/19/22 05:01: White Blood Count 6.0, Red Blood Count 3.06L, Hemoglobin 8.8L, Hematocrit 28L, Mean Corpuscular Volume 90, Mean Corpuscular Hemoglobin 29, Mean Corpuscular Hemoglobin Concent 32, Red Cell Distribution Width 17.2H, Platelet Count 221, Mean Platelet Volume 11.4, Immature Granulocyte % (Auto) 0, Neutrophils (%) (Auto) 68, Lymphocytes (%) (Auto) 25, Monocytes (%) (Auto) 6, Eosinophils (%) (Auto) 1, Basophils (%) (Auto) 0, Neutrophils # (Auto) 4.1, Lymphocytes # (Auto) 1.5, Monocytes # (Auto) 0.4, Eosinophils # (Auto) 0.0, Basophils # (Auto) 0.0, Immature Granulocyte # (Auto) 0.0, Sodium Level 131L, Potassium Level 4.4, Chloride Level 99, Carbon Dioxide Level 20L, Anion Gap 12, Blood Urea Nitrogen 38H, Creatinine 1.75H, Estimat Glomerular Filtration Rate 40, BUN/Creatinine Ratio 22, Glucose Level 136H, Calcium Level 8.7, Phosphorus Level 4.1, Magnesium Level 2.1, Digoxin Level 1.15 05/19/22 05:32: Glucometer 135H 05/19/22 11:01: Glucometer 165H A/P: Assessment: 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 - poor appetite, poor stamina, mild swallowing difficulty, wgt loss, impaired smell and taste PAF - first diagnosed several years earlier, according to the patient, but he is unable to provide any details - TSH normal (0.66) on 02/13/22 and on 05/13/21 (4.13) - Elec CV on 05/15/22 (Dr Desai) followed by continuing PAF - currently on oral amiodarone and dig Ac on chronic diastolic and systolic CHF - TTE on 02-15-22: LVEF 50%, grade 2 rosas dysfunction, mild to mod LAE, mild AI, PASP 20-25 mmHg - RUPALI on 05-15-22 (Dr Desai): dilated LV with LVEF 30%, mild MR, mild AI HAYLEY (likely due to ATN due to hypotension) on CKD 3 - seen by Dr. Claudia Alvarado - note reviewed - measured urine output has been inaccurate d/t urinary incontinence reported per patient following removal of urinary catheter; he reports he has regained bladder control Hypotension improved after d/c CCB and BB Marked anemia - undetermined etiology - H/H improved today following 1 unit PRBC RBBB on ECG COVID in Feb 2022 Chronic gen weakness and malaise - etiology undetermined Chronic bilat leg swelling and peripheral neuropathy Plan: * Complex management * He reports he is feeling better over all and wishes to go home * Diltiazem stopped because of low bp and low EF * Continue dig to control ventricular response to A Fib - dig level greater than 1.0 today - reduce Digoxin to 0.625mcg daily * Not suitable for bb or IVY-inhib/ARB d/t CKD 3 * Anemia of undetermined etiology - 1 unit PRBC given yesterday with improvement in H/H * Acute on chronic renal dz - Cr slightly better than yesterday and has been evaluated by Dr. Claudia Alvarado of nephrology services, will reduce Lasix to every other day * measured urine output has been inaccurate d/t urinary incontinence reported per patient following removal of urinary catheter; he reports he has regained bladder control * Continue OAC * Home oxygen eval done yesterday - qualified * Monitor labs * Appreciate help from Hosp and Nephrol svces * Plan of care discussed with JUAN Kay May 19, 2022 08:45
--- NOTE | 2022-05-19 08:48 | Physical Therapy Daily Note ---
PT Daily Note-Current Subjective Patient sitting in chair upon PT arrival, agreeable to treatment. Patient reports no pain at this time. Pain Section J - Health Conditions 1. Rarely or not at all 2. Occasionally 3. Frequently 4. Almost constantly 8. Unable to answer Pain Effect on Sleep: 2 Pain Interference with Therapy: 2 Pain Interference w/Day-to-Day: 2 Transfers SCALE: Activities may be completed with or without assistive devices. 3-Iopbtsbtlw-bebtrue completes the activity by him/herself with no assistance from a helper. 5-Set-up or Clean-up Assistance-helper sets up or cleans up; patient completes a ctivity. [place] assists only prior to or following the activity. 4-Supervision or Touching Assistance-helper provides verbal cues and/or touching/steadying and/or contact guard assistance as patient completes activity. Assistance may be provided throughout the activity or intermittently. 3-Partial/Moderate Assistance-helper does LESS THAN HALF the effort. [place] lifts, holds or supports trunk or limbs, but provides less than half the effort. 2-Substantial/Maximal Assistance-helper does MORE THAN HALF the effort. [place] lifts or holds trunk or limbs and provides more than half the effort. 4-Runveeftv-srrnka does ALL the effort. Patient does none of the effort to complete the activity. Or, the assistance of 2 or more helpers is required for the patient to complete the activity. If activity was not attempted, code reason: 7-Patient Refused. 9-Not Applicable-not attempted and the patient did not perform the activity before the current illness, exacerbation or injury. 10-Not Attempted due to Environmental Limitations-(lack of equipment, weather restraints, etc.). 88-Not Attempted due to Medical Conditions or Safety Concerns. Sit to Stand (QC): 4 Chair/Jph-ie-Pqacl Xfer(QC): 4 Weight Bearing Right Lower Extremity: Right Full Weight Bearing Left Lower Extremity: Left Full Weight Bearing Gait Training Does the Patient Walk?: Yes Distance: 16 feet Walk 10 feet (QC): 3 Gait Persons Needed: 1 Gait Assistive Device: FWW Exercises Seated Therapy Exercises: Ankle pumps, Long arc quads, Hip flexion, Hamstring Curls, Hip abd/add Seated Reps: 10 Assessment Current Status: Fair Progress Patient tolerated treatment fair. Patient performs LE exercises as listed above while sitting in the chair. Patient performs all observed transfers with CGA. Patient ambulates 16 feet in the room with FWW, with min A. Patient in chair post treatment with all needs met, nursing notified, call light in hand and warm blanket wrapped around him. PT Bread Racker Goals Bread Racker Goals PT Usp Goals Time Frame: May 29, 2022 Roll Left & Right (QC): 6 Sit to Lying (QC): 6 Lying-Sitting on Side/Bed(QC): 6 Sit to Stand (QC): 6 Chair/Swu-sg-Lahjs Xfer(QC): 6 Toilet Transfer (QC): 6 Does the Patient Walk: Yes Walk 10 feet (QC): 6 Walk 50ft with 2 Turns (QC): 6 Walk 150 ft (QC): 4 PT Plan Treatment/Plan Treatment Plan: Continue Plan of Care Treatment Plan: Bed Mobility, Functional Activity Darcie, Functional Strength, Gait, Therapeutic Exercise, Transfers Treatment Duration: May 15, 2022 Frequency: 6 times per week Estimated Hrs Per Day: .25 hour per day Patient and/or Family Agrees t: Yes Safety Risks/Education Patient Education: Gait Training, Transfer Techniques Teaching Recipient: Patient Teaching Methods: Demonstration, Discussion Response to Teaching: Verbalize Understanding, Return Demonstration Time Time In: 822 Time Out: 845 DATE: May 19, 2022 Total Billed Treatment Time: 23 Total Billed Treatment Visit, Tere, LISS Mahoney PT May 19, 2022 08:48
[2022-05-19] MEDS ORDERED: DIGO62.53 PO (09:25)
[2022-05-19] MEDS ORDERED: FURO-124 PO (09:25)
[2022-05-19] MEDS ORDERED: AMIO400T5 PO (09:25)
[2022-05-19] MEDS: AMIODARONE 200 MG (CORDARONE) TAB PO SCH (09:27)
[2022-05-19] MEDS: toPIRamate 25 MG (TOPAMAX) TAB PO SCH (09:27)
[2022-05-19] MEDS: FUROSEMIDE 40 MG (LASIX) TAB PO SCH (09:27)
[2022-05-19] MEDS: TAMSULOSIN 0.4 MG (FLOMAX) CAP PO SCH (09:27)
[2022-05-19] MEDS: GABAPENTIN 100 MG (NEURONTIN) CAP PO SCH (09:27)
--- NOTE | 2022-05-19 09:28 | Discharge Inst-Cardiology ---
Discharge Inst-Cardiac Discharge Medications New Medications: Amiodarone HCl (Amiodarone HCl) 400 Mg Tablet 400 MG PO DAILY, #30 TAB 3 Refills Digoxin (Digoxin) 62.5 Mcg (0.0625 Mg) Tablet 62.5 MCG PO DAILY, #30 TAB 3 Refills Furosemide (Lasix) 40 Mg Tablet 40 MG PO Q48H, #30 TAB 3 Refills Continued Medications: Allopurinol (Allopurinol) 300 Mg Tablet 300 MG PO DAILY, TAB Apixaban (Eliquis) 5 Mg Tablet 5 MG PO BID, TAB Ascorbate Calcium (Vitamin C) 500 Mg Tablet 500 MG PO 1200, TAB Atorvastatin Calcium (Atorvastatin Calcium) 80 Mg Tablet 40 MG PO HS, TAB TAKES OF AN 80MG TAB Cholecalciferol (Vitamin D3) (Vitamin D3) 125 Mcg (5000 Unit) Tablet 125 MCG PO 1200, TAB Docusate Sodium (Docusate Sodium) 100 Mg Capsule 200 MG PO DAILY PRN for CONSTIPATION-1ST LINE, CAP Empagliflozin (Jardiance) 25 Mg Tablet 12.5 MG PO DAILY, TAB TAKES OF A 25MG TAB Fish Oil/Dha/Epa (Fish Oil 1,200 mg Fish Oil) 1,200 Mg-144 Mg-216 Mg Capsule 1 EACH PO 1200, CAP Gabapentin (Gabapentin) 100 Mg Capsule 200 MG PO BID, CAP TAKES 2 (100MG) CAPS Insulin Glargine,Hum.rec.anlog (Insulin Glargine Solostar) 100 Unit/Ml (3 Ml) Insuln.pen 20 UNIT SQ HS, EA Omeprazole (Omeprazole) 20 Mg Capsule.dr 20 MG PO DAILY, CAP Tamsulosin HCl (Flomax) 0.4 Mg Cap 0.4 MG PO DAILY, CAP Topiramate (Topiramate) 25 Mg Tablet 25 MG PO BID, TAB LAST FILLED 02-26-2022 #60/30 DAY SUPPLY Tramadol HCl (Tramadol HCl) 50 Mg Tablet 100 MG PO HS PRN for PAIN-MODERATE (5-7), TAB TAKES 2 (50MG) TABS Ubidecarenone (Co Q-10) 100 Mg Capsule 100 MG PO 1200, CAP Vit A/C/E/Zinc/Selenium/Copper (Vision Formula Tablet) 1,000-60-30 Tablet 1 EACH PO 1200, TAB Zolpidem Tartrate (Zolpidem Tartrate) 5 Mg Tablet 5 MG PO HS PRN for SLEEP, TAB Discontinued Medications: Diltiazem HCl (Diltiazem 24Hr ER) 180 Mg Cap.er.24h 180 MG PO DAILY, CAP Furosemide (Furosemide) 40 Mg Tablet 40 MG PO DAILY, TAB Metformin HCl (Metformin HCl) 1,000 Mg Tablet 1000 MG PO BID WITH MEALS, TAB Naproxen Sodium (Aleve) 220 Mg Tablet 220 MG PO BID PRN for PAIN-MILD (1-4), TAB New, Converted or Re-Newed RX: Transmitted to Pharmacy Patient Instructions Patient Instructions: Please schedule follow up appointment to see Dr. Tubbs in 2 weeks Lab in one week: Digoxin level, CMP and JUAN Mccarthy May 19, 2022 09:28
[2022-05-19] MEDS: APIXABAN 5 MG (ELIQUIS) TABLET PO SCH (10:09)
--- NOTE | 2022-05-19 10:21 | Progress Note - Cardiology ---
Cardiology SOAP Progress Note Subjective: States feels better No cp or palp or syncope Shortness of breath better compared to time of admission Reports a couple of episodes of considerable urinary incontinence after urinary cath was removed (urinated in the bed and urine was not measured). Has regained continence Swelling of the legs is chronic (since Covid-19 in 2021) and has not changed Denies n/v/d Denies any swallowing problems Feels well and insists on going home. Does not wish to stay in the hospital any longer Objective: I&O/Vital Signs 05/18/22 05/18/22 05/18/22 05/19/22 23:00 23:25 23:25 00:00 Temp 36.4 Pulse 63 67 Resp 29 18 B/P (MAP) 114/64 (83) 114/79 (91) Pulse Ox 94 96 97 O2 Delivery High Flow N/C High Flow N/C High Flow N/C High Flow N/C O2 Flow Rate 5.00 5.00 5.00 5.00 05/19/22 05/19/22 05/19/22 05/19/22 01:00 01:00 01:30 02:00 Pulse 62 62 61 62 Resp 23 17 B/P (MAP) 130/83 (106) 102/57 (72) 115/69 (86) Pulse Ox 97 96 93 O2 Delivery High Flow N/C High Flow N/C High Flow N/C O2 Flow Rate 5.00 5.00 5.00 05/19/22 05/19/22 05/19/22 05/19/22 03:00 03:25 04:00 05:00 Temp 36.6 Pulse 73 56 Resp 22 22 B/P (MAP) 94/74 (81) 99/57 (63) 100/61 (78) Pulse Ox 94 94 97 O2 Delivery High Flow N/C High Flow N/C High Flow N/C High Flow N/C O2 Flow Rate 5.00 5.00 5.00 5.00 05/19/22 05/19/22 05/19/22 05/19/22 06:00 07:00 07:09 07:55 Pulse 56 57 65 Resp 16 21 B/P (MAP) 117/63 (82) 111/72 (85) Pulse Ox 94 99 95 O2 Delivery High Flow N/C High Flow N/C High Flow N/C O2 Flow Rate 5.00 5.00 5.00 05/19/22 05/19/22 05/19/22 08:00 09:00 10:00 Pulse 61 61 65 Resp 26 23 26 B/P (MAP) 104/63 (77) 109/64 (79) 108/73 (85) Pulse Ox 100 100 90 O2 Delivery High Flow N/C High Flow N/C High Flow N/C O2 Flow Rate 5.00 5.00 5.00 05/19/22 00:00 Intake Total 475 ml Output Total 450 ml Balance 25 ml Constitutional: AAO x 3, well-developed, well-nourished Respiratory: No accessory muscle use, No respiratory distress; chest expansion is symmetric, chest is bilaterally symmetric, other (diminished ) Cardiovascular: irregularly irregular, S1 and S2, systolic murmur (soft GENEVA at cardiac base) Gastrointestional: No tender; soft; No guarding, No rebound; audible bowel sounds Extremities: No clubbing, No cyanosis; significant edema (bilat LE pitting edema, moderate) Neurologic/Psychiatric: oriented x 3, other (moves all limbs equally) Skin: pallor; No rash on exposed areas, No ulcerations on exposed areas Results/Procedures: Labs Laboratory Tests 05/18/22 11:11: Glucometer 181H 05/18/22 15:52: Glucometer 158H 05/18/22 20:26: Glucometer 163H 05/19/22 05:01: White Blood Count 6.0, Red Blood Count 3.06L, Hemoglobin 8.8L, Hematocrit 28L, Mean Corpuscular Volume 90, Mean Corpuscular Hemoglobin 29, Mean Corpuscular Hemoglobin Concent 32, Red Cell Distribution Width 17.2H, Platelet Count 221, Mean Platelet Volume 11.4, Immature Granulocyte % (Auto) 0, Neutrophils (%) (Auto) 68, Lymphocytes (%) (Auto) 25, Monocytes (%) (Auto) 6, Eosinophils (%) (Auto) 1, Basophils (%) (Auto) 0, Neutrophils # (Auto) 4.1, Lymphocytes # (Auto) 1.5, Monocytes # (Auto) 0.4, Eosinophils # (Auto) 0.0, Basophils # (Auto) 0.0, Immature Granulocyte # (Auto) 0.0, Sodium Level 131L, Potassium Level 4.4, Chloride Level 99, Carbon Dioxide Level 20L, Anion Gap 12, Blood Urea Nitrogen 38H, Creatinine 1.75H, Estimat Glomerular Filtration Rate 40, BUN/Creatinine Ratio 22, Glucose Level 136H, Calcium Level 8.7, Phosphorus Level 4.1, Magnesium Level 2.1, Digoxin Level 1.15 05/19/22 05:32: Glucometer 135H Laboratory Tests 05/18/22 03:10 05/19/22 05:01 A/P: Assessment: 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 Reports modest improvement of these symptoms during this hospitalization. No dysphagia at this time PAF - first diagnosed several years earlier, according to the patient, but he is unable to provide any details - TSH normal (0.66) on 02/13/22 and on 05/13/21 (4.13) - Elec CV on 05/15/22 (Dr Desai) followed by continuing PAF - currently on oral amiodarone and dig Ac on chronic diastolic and systolic CHF - TTE on 02-15-22: LVEF 50%, grade 2 rosas dysfunction, mild to mod LAE, mild AI, PASP 20-25 mmHg - RUPALI on 05-15-22 (Dr Desai): dilated LV with LVEF 30%, mild MR, mild AI HAYLEY (likely due to ATN due to hypotension) on CKD 3 - seen by Dr. Claudia Alvarado - note reviewed - measured urine output has been inaccurate on 05/18/22 d/t urinary incontinence r eported b6 patient following removal of urinary catheter; he reports he has regained bladder control Hypotension improved after d/c CCB and BB Marked anemia - undetermined etiology - H/H improved today following 1 unit PRBC RBBB on ECG COVID in Feb 2022 Chronic gen weakness and malaise - etiology undetermined Chronic bilat leg swelling and peripheral neuropathy Plan: * Complex management * Feels well and insists on going home. Does not wish to stay in the hospital any longer * He wishes to be managed conservatively only. Refuses any invasive procedures such as ICD, pacemaker, cath, etc. He fully understands the potential implications of all of his decisions * Diltiazem stopped because of low bp and low EF * Continue dig to control ventricular response to A Fib - dig level greater than 1.0 today - reduce Digoxin to 62.5 mcg (0.0625 mg) daily * Not suitable for bb or IVY-inhib/ARB d/t CKD 3 * Anemia of undetermined etiology - 1 unit PRBC given yesterday with improvement in H/H. Advised to f/u with pcp for further eval and treatment * Acute on chronic renal dz - Cr slightly better than yesterday and has been evaluated by Dr. Claudia Alvarado of Nephrology services, will reduce Lasix to every other day * measured urine output has been inaccurate d/t urinary incontinence reported per patient following removal of urinary catheter; he reports he has regained bladder control * Continue OAC * Home oxygen eval done yesterday - qualified * Monitor labs * Appreciate help from Hosp and Nephrol svces * Close outpt cardiac f/u advised * Advised to return to ER for any recurrence of symptoms or new symptoms SRI KEENAN MD FACP FAC CCDS May 19, 2022 10:21
--- NOTE | 2022-05-19 10:22 | Cardiology Discharge Summary ---
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 Reports modest improvement of these symptoms during this hospitalization. No dysphagia at this time PAF - first diagnosed several years earlier, according to the patient, but he is unable to provide any details - TSH normal (0.66) on 02/13/22 and on 05/13/21 (4.13) - Elec CV on 05/15/22 (Dr Desai) followed by continuing PAF - currently on oral amiodarone and dig Ac on chronic diastolic and systolic CHF - TTE on 02-15-22: LVEF 50%, grade 2 rosas dysfunction, mild to mod LAE, mild AI, PASP 20-25 mmHg - RUPALI on 05-15-22 (Dr Desai): dilated LV with LVEF 30%, mild MR, mild AI HAYLEY (likely due to ATN due to hypotension) on CKD 3 - seen by Dr. Claudia Alvarado - note reviewed - measured urine output has been inaccurate on 05/18/22 d/t urinary incontinence reported b6 patient following removal of urinary catheter; he reports he has regained bladder control Hypotension improved after d/c CCB and BB Marked anemia - undetermined etiology - H/H improved today following 1 unit PRBC RBBB on ECG COVID in Feb 2022 Chronic gen weakness and malaise - etiology undetermined Chronic bilat leg swelling and peripheral neuropathy Discharge Summary Procedures None. Hospital Course Pending Labs Laboratory Tests 05/19/22 05:01: White Blood Count 6.0, Red Blood Count 3.06, Hemoglobin 8.8, Hematocrit 28, Mean Corpuscular Volume 90, Mean Corpuscular Hemoglobin 29, Mean Corpuscular Hem oglobin Concent 32, Red Cell Distribution Width 17.2, Platelet Count 221, Mean Platelet Volume 11.4, Immature Granulocyte % (Auto) 0, Neutrophils (%) (Auto) 68, Lymphocytes (%) (Auto) 25, Monocytes (%) (Auto) 6, Eosinophils (%) (Auto) 1, Basophils (%) (Auto) 0, Neutrophils # (Auto) 4.1, Lymphocytes # (Auto) 1.5, Monocytes # (Auto) 0.4, Eosinophils # (Auto) 0.0, Basophils # (Auto) 0.0, Immature Granulocyte # (Auto) 0.0, Sodium Level 131, Potassium Level 4.4, Chloride Level 99, Carbon Dioxide Level 20, Anion Gap 12, Blood Urea Nitrogen 38, Creatinine 1.75, Estimat Glomerular Filtration Rate 40, BUN/Creatinine Ratio 22, Glucose Level 136, Calcium Level 8.7, Phosphorus Level 4.1, Magnesium Level 2.1, Digoxin Level 1.15 05/19/22 05:32: Glucometer 135 Discussion & Recommendations Home Medications Reviewed patient Home Medication Reconciliation performed by pharmacy medication reconciliations electrocardiographic technician and/or nursing. Patients Allergies have been reviewed. Discharge Home Medications: Reviewed and agree with Discharge Medication list on patient's Discharge Instruction sheet SRI KEENAN MD FACP FAC CCDS May 19, 2022 10:22
--- NOTE | 2022-05-19 10:29 | Progress Note - Hospitalist ---
Subjective HPI/CC On Admission Date Seen by Provider: May 19, 2022 Bandar Crabtree is a 76 year old male with PMH HTN, T2DM, HLD, AFib, anemia, who was admitted with AFib with RVR. He denies chest pain and palpitations. He denies shortness of breath and cough. He has been having trouble swallowing pills. He has no other complaints. Subjective/Events-last exam Pt reports feeling better. He remains insistent on going home today regardless of his lab results. I discussed my concern with this plan and the implications of oliguric renal failure. We discussed that he could come back in cardiac arrest from hyperkalemia or in respiratory failure from pulm edema due to oliguria or he could before every making it back to the hospital. He states he understands this and still would like to discharge from the hospital and go home. He states he will just go to the ER or [place] if he needs further care after getting home. I again reminded him he could get so ill he may not make it to either place. He was offered transfer to [place] and declined this. He no longer wants to be in any hospital and wants some time at home. Objective Exam Vital Signs Vital Signs Date Time Temp Pulse Resp B/P (MAP) Pulse Ox O2 Delivery O2 Flow Rate FiO2 05/19/22 11:00 64 36 93/64 (74) 91 High Flow N/C 5.00 05/19/22 03:00 36.6 05/15/22 23:00 30 Capillary Refill : Less Than 3 Seconds General Appearance: No Apparent Distress, Chronically ill Respiratory: Lungs Clear, Other (on 5lpm NC) Cardiovascular: Regular Rate, Rhythm Neurologic/Psychiatric: Alert, Oriented x3 Results/Procedures Lab Laboratory Tests 05/19/22 05:01 Patient resulted labs reviewed. Assessment/Plan Assessment and Plan Assess & Plan/Chief Complaint AFib with RVR Cardiogenic shock Cardiology primary Unsuccessful cardioversion 05/15 Off dopamine On Digoxin Eliquis Management per cardiology Transfuse 1 unit pRBCs yesterday Acute respiratory failure due to pulm edema on 5lpm HFNC TeleICU, appreciate recs Home oxygen study done HAYLEY Creatinine 1.75 today Likely due to hypotension UOP still inadequate Discussed this with patient as above Nephrology consulted and saw yesterday Dysphagia Speech consulted Modified Barium swallow done and demonstrated mild to moderate oropharygenal esophageal dysphagia and they recommended regular diet with thin liquids and small single bites with sips only and full upright for meals T2DM Sliding scale insulin HTN HLD Anemia Continue home meds as appropriate Home health arranged by primary Discussed as above with patient and also with [facility] RABBLE FURNACE TENDER about my recommendations for continued hospitalization. Patient insists on leaving despite this. DC planning deferred to primary. Diagnosis/Problems Diagnosis/Problems (1) Acute respiratory failure (2) Cardiogenic shock (3) Atrial fibrillation with RVR Status: Acute (4) T2DM (type 2 diabetes mellitus) Status: Chronic (5) HLD (hyperlipidemia) Status: Chronic (6) HTN (hypertension) Status: Chronic (7) Afib Qualifiers: Qualified Codes: I48.0 - Paroxysmal atrial fibrillation LEVAR CULP MD May 19, 2022 10:29
--- NOTE | 2022-05-19 10:35 | D/C HH Face to Face Order ---
D/C Face to Face Orders Instructions for Patient Via [facility], Patient Instructions/FollowUp: Follow up with Dr. Tubbs on 05-31-22 Physician to follow Patient: Dr. 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 Reports modest improvement of these symptoms during this hospitalization. No dysphagia at this time PAF - first diagnosed several years earlier, according to the patient, but he is unable to provide any details - TSH normal (0.66) on 02/13/22 and on 05/13/21 (4.13) - Elec CV on 05/15/22 (Dr Desai) followed by continuing PAF - currently on oral amiodarone and dig Ac on chronic diastolic and systolic CHF - TTE on 02-15-22: LVEF 50%, grade 2 rosas dysfunction, mild to mod LAE, mild AI, PASP 20-25 mmHg - RUPALI on 05-15-22 (Dr Desai): dilated LV with LVEF 30%, mild MR, mild AI HAYLEY (likely due to ATN due to hypotension) on CKD 3 Hypotension improved after d/c CCB and BB Marked anemia RBBB on ECG COVID in Feb 2022 Chronic gen weakness and malaise Chronic bilat leg swelling and peripheral neuropathy Patient is Homebound due to: Matt fall risk due to instabilty, Shortness of breath/distress Homebound Status Due to the above stated illness, injury or surgical procedure (medical condition or diagnosis) and associated clinical findings, the patient is homebound because of his/her inability to leave home except with aid of a supportive device and/or person AND leaving the home requires a considerable and taxing effort or is medically contraindicated. Pt req the following assistanc: Aid of another person, [facility] Home Health Nursing Orders Home Health Services Order: Nursing Services, Society Editor-Evaluate & Treat, Physical Therapy-Evaluate & Treat Certify Stmt I certify that this patient is under my care and that I, a nurse practitioner or a physician; a account assistant working with me, had a face to face encounter that - meets the physician face to face encounter requirements with this patient as dated. JUAN KURTZ May 19, 2022 10:33
[2022-05-19 16:10] VITALS: BP 98/71
--- NOTE | 2022-05-19 17:04 | Diagnostic Imaging Report ---
EXAMINATION: Chest, one view. HISTORY: Hypoxia. COMPARISON: 05/18/2022. FINDINGS: There is a moderate right and small left pleural effusion. No pneumothorax. There are moderate bilateral interstitial and airspace opacities. Heart size is normal. No change. IMPRESSION: 1. Moderate right and small left effusions with moderate bilateral interstitial and airspace opacities favored to represent edema. Dictated by: Dictated on workstation # [id number]
[2022-05-20] MEDS ORDERED: DIGOXIN 0.125 MG (LANOXIN) TAB PO SCH (09:00)
== END 2022-05-19 16:15 | disposition home or self-care (01) | DRG 308 ==
LOC: ICU 10:13 → INTOOBSV 10:13 → OBSVTOIN 05-15 15:45
PROVIDERS: ADMIT Internal Medicine Cardiovascular Disease; ATTEND Internal Medicine Cardiovascular Disease
PROC: 5A2204Z Restoration of Cardiac Rhythm, Single (ICD-10-PCS; principal; 2022-05-15)
PROC: 5A09357 Assistance with Respiratory Ventilation, Less than 24 Consecutive Hours, Continuous Positive Airway Pressure (ICD-10-PCS; 2022-05-15)
PROC: 5A0945A Assistance with Respiratory Ventilation, 24-96 Consecutive Hours, High Flow/Velocity Cannula (ICD-10-PCS; 2022-05-15)
DX: I48.19 Other persistent atrial fibrillation (principal); I50.33 Acute on chronic diastolic (congestive) heart failure; R57.0 Cardiogenic shock; J96.00 Acute respiratory failure, unspecified whether with hypoxia or hypercapnia; N17.0 Acute kidney failure with tubular necrosis; I13.0 Hypertensive heart and chronic kidney disease with heart failure and stage 1 through stage 4 chronic kidney disease, or unspecified chronic kidney disease; E11.22 Type 2 diabetes mellitus with diabetic chronic kidney disease; N18.9 Chronic kidney disease, unspecified; E11.42 Type 2 diabetes mellitus with diabetic polyneuropathy; R13.12 Dysphagia, oropharyngeal phase; I45.10 Unspecified right bundle-branch block; D64.9 Anemia, unspecified; H26.9 Unspecified cataract; K57.90 Diverticulosis of intestine, part unspecified, without perforation or abscess without bleeding
CPT/HCPCS: 36415; 71045; 74230; 80048; 80053; 80162; 81000; 82947; 83735; 84100; 84145; 84443; 85025; 86850; 86900; 86901; 86920; 93005; 93312; 93320; 93325; 94640; 94660; 94760; 94761; G0378

== ENCOUNTER → 2022-06-08 | Outpatient (CLI) | payer MEDICARE, OTHER ==
[~2022-06-08] MED LIST changes: +AMIO400T5 PO; +CHOL500044 PO; +DIGO62.53 PO; +DOCU100C37 PO; +FURO-124 PO; +GABA-486 PO; +INSU100I78 SQ; +TMSL.4C PO; +TOPI25TA10 PO; +VIT-10 PO
--- NOTE | 2022-06-08 10:19 | Diagnostic Imaging Report ---
CLINICAL INDICATION: Patient having some mental status changes. Exam: MRI of the brain performed without IV contrast. Sequences include axial DWI, ADC map, axial T1, axial T2, axial FLAIR, axial gradient echo, and sagittal T1. Comparison: None. Findings: There is no evidence of acute cerebral infarct, intracranial hemorrhage, or gross mass effect. There is small area of chronic cerebral infarct involving the right parietal lobe with adjacent gliosis. There is diffuse patchy and confluent areas of high T2 signal white matter changes throughout cerebral hemispheres and periventricular regions, likely representing chronic small vessel ischemic disease and leukoaraiosis. The pituitary gland, sella, and suprasellar regions are unremarkable as visualized. There is tortuosity of the basilar vertebral arteries with the left intracranial vertebral artery encroaching and deforming the left anterior aspect of the brainstem medulla. There is no abnormal signal involving the brainstem. Otherwise, the [place] vascular structures show no gross abnormality as visualized. The brain parenchymal volume appears appropriate for patient's age. There is normal leach-white matter distinction. There is no significant midline shift or herniation. There is no evidence of hydrocephalus. The basal cisterns are unremarkable. The skull, extracranial soft tissue, and orbits are unremarkable. There is complete consolidation of right maxillary sinus. There is consolidation involving the right ethmoid sinus and moderate mucosal thickening and secretions involving the right frontal sinus region. Temporal bones show no significant abnormality. IMPRESSION: 1: There is no evidence of acute intracranial process. 2: There is diffuse chronic small vessel ischemic disease and leukoaraiosis. 3: There is right-sided paranasal sinusitis in an ostiomeatal unit obstruction pattern. Dictated by: Dictated on workstation # [id number]
== END ==
LOC: RAD 08:23
PROVIDERS: ATTEND Nurse Practitioner Family
DX: I67.81 Acute cerebrovascular insufficiency (principal); I67.82 Cerebral ischemia; J32.8 Other chronic sinusitis
CPT/HCPCS: 70551

== ENCOUNTER 2022-06-16 12:41 | Emergency (ER) | payer OTHER ==
[~2022-06-16] VITALS: Ht 170 cm; Wt 94.0 kg
[~2022-06-16 12:41] MED LIST changes: -INSU100I29 SQ; +INSU100I30 SQ
--- NOTE | 2022-06-16 13:14 | ED General ---
General Chief Complaint: General Problems/Pain Stated Complaint: RETAINING FLUID Nursing Triage Note: PT STATES HE HAS BEEN RETAINING FLUID THIS PAST WEEK ET WENT FRPM 180 TO 208#. HOME HEALTH NURSE ADVISED HIM TO COME TO THE ER. Source of Information: Patient Exam Limitations: No Limitations History of Present Illness Date Seen by Provider: Jun 16, 2022 Time Seen by Provider: 12:56 Initial Comments 76-year-old male presents for retention of fluid in his legs. Home health comes once a week. His weight last week was 180. His weight today was 208. They recommended he come in for further evaluation. He is on Lasix. About a week ago they decreased his dose from daily to every other day based on his renal function. He does have some orthopnea. He denies any chest pain. Mild dyspnea on exertion. No fevers or chills. He was discharged from the hospital about 3 weeks ago for fluid retention. - TTE on 02-15-22: LVEF 50%, grade 2 rosas dysfunction, mild to mod LAE, mild AI, PASP 20-25 mmHg - RUPALI on 05-15-22 (Dr Desai): dilated LV with LVEF 30%, mild MR, mild AI All other systems reviewed and negative except documented per HPI. Voice recognition software was used to help create this chart Allergies and Home Medications Allergies Coded Allergies: No Known Drug Allergies (Unverified , 03/04/21) Patient Home Medication List Home Medication List Reviewed: Yes Allopurinol (Allopurinol) 300 Mg Tablet, 300 MG PO DAILY, (Reported) Entered as Reported by: FRANKLIN GARCIA on 05/08/21 1302 Amiodarone HCl (Amiodarone HCl) 400 Mg Tablet, 400 MG PO DAILY Prescribed by: JUAN KURTZ on 05/19/22 0925 Apixaban (Eliquis) 5 Mg Tablet, 5 MG PO BID, (Reported) Entered as Reported by: ES STUART on 05/13/22 1601 Ascorbate Calcium (Vitamin C) 500 Mg Tablet, 500 MG PO 1200, (Reported) Entered as Reported by: ES STUART on 01/21/22 1109 Atorvastatin Calcium (Atorvastatin Calcium) 80 Mg Tablet, 40 MG PO HS, (Reported) Entered as Reported by: FRANKLIN GARCIA on 05/08/21 1302 Cholecalciferol (Vitamin D3) (Vitamin D3) 125 Mcg (5000 Unit) Tablet, 125 MCG PO 1200, (Reported) Entered as Reported by: ES STUART on 05/13/22 160 Digoxin (Digoxin) 62.5 Mcg (0.0625 Mg) Tablet, 62.5 MCG PO DAILY Prescribed by: JUAN KURTZ on 05/19/22 0925 Docusate Sodium (Docusate Sodium) 100 Mg Capsule, 200 MG PO DAILY PRN for CONSTIPATION-1ST LINE, (Reported) Entered as Reported by: ES STUART on 05/13/22 160 Empagliflozin (Jardiance) 25 Mg Tablet, 12.5 MG PO DAILY, (Reported) Entered as Reported by: ES STUART on 01/21/22 110 Fish Oil/Dha/Epa (Fish Oil 1,200 mg Fish Oil) 1,200 Mg-144 Mg-216 Mg Capsule, 1 EACH PO 1200, (Reported) Entered as Reported by: ES STUART on 01/21/22 110 Furosemide (Lasix) 40 Mg Tablet, 40 MG PO Q48H Prescribed by: JUAN KURTZ on 05/19/22 09 Gabapentin (Gabapentin) 100 Mg Capsule, 200 MG PO BID, (Reported) Entered as Reported by: ES STUART on 05/13/22 160 Insulin Glargine,Hum.rec.anlog (Insulin Glargine Solostar) 100 Unit/Ml (3 Ml) Insuln.pen, 20 UNIT SQ HS, (Reported) Entered as Reported by: ES STUART on 05/13/22 160 Omeprazole (Omeprazole) 20 Mg Capsule.dr, 20 MG PO DAILY, (Reported) Entered as Reported by: ERIK LOU on 02/15/22 0950 Tamsulosin HCl (Flomax) 0.4 Mg Cap, 0.4 MG PO DAILY, (Reported) Entered as Reported by: ES STUART on 05/13/22 160 Topiramate (Topiramate) 25 Mg Tablet, 25 MG PO BID, (Reported) Entered as Reported by: ES STUART on 05/13/22 160 Tramadol HCl (Tramadol HCl) 50 Mg Tablet, 100 MG PO HS PRN for PAIN-MODERATE (5- 7), (Reported) Entered as Reported by: ES STUART on 01/21/22 1109 Ubidecarenone (Co Q-10) 100 Mg Capsule, 100 MG PO 1200, (Reported) Entered as Reported by: ERIK LOU on 02/15/22 0950 Vit A/C/E/Zinc/Selenium/Copper (Vision Formula Tablet) 1,000-60-30 Tablet, 1 EACH PO 1200, (Reported) Entered as Reported by: ES STUART on 05/13/22 1601 Zolpidem Tartrate (Zolpidem Tartrate) 5 Mg Tablet, 5 MG PO HS PRN for SLEEP, (Reported) Entered as Reported by: FRANKLIN GARCIA on 05/08/21 1302 Review of Systems Review of Systems Constitutional: see HPI Past Mldowqg-Ttsmys-Dozomq Hx Patient Social History Tobacco Use?: No Substance use?: No Alcohol Use?: No Immunizations Up To Date First/Initial COVID19 Vaccinat: RECEIVED, UNK WHEN Second COVID19 Vaccination Brandon: RECEIVED, UNK WHEN Third COVID19 Vaccination Date: RECEIVED, UNK WHEN Past Medical History Surgery/Hospitalization HX: HOSPITALIZED FOR WEAKNESS, FEB 2022 HOSPITALLIZED FOR COVID Surgeries: Yes Abdominal, Eye Surgery, Orthopedic Respiratory: No Cardiac: Yes Atrial Fibrillation, Hypertension Neurological: Yes (Tremor) Neuropathy Genitourinary: Yes Renal Failure Gastrointestinal: Yes Diverticulosis, Hiatal Hernia Musculoskeletal: Yes Arthritis Endocrine: Yes Diabetes, Insulin dep HEENT: Yes Cataract Cancer: No Psychosocial: No Blood Disorders: Yes (Anemia) Family Medical History Reviewed Nursing Family Hx Cancer Physical Exam Vital Signs Vital Signs - First Documented 06/16/22 12:47 Temp 36.3 Pulse 65 Resp 16 B/P (MAP) 122/66 (84) Pulse Ox 93 O2 Delivery Room Air Capillary Refill : Less Than 3 Seconds Height, Weight, BMI Height: '" Weight: lbs. oz. kg; 32.00 BMI Method: General Appearance: No Apparent Distress, WD/WN HEENT: Normal ENT Inspection, Pharynx Normal Neck: Full Range of Motion, Normal Inspection, Non Tender, Supple Respiratory: Chest Non Tender, Lungs Clear, Normal Breath Sounds, No Accessory Muscle Use, No Respiratory Distress Cardiovascular: Regular Rate, Rhythm, No Murmur, Normal Peripheral Pulses Gastrointestinal: Non Tender, Soft Extremity: Normal Capillary Refill, Non Tender, Other (Pitting edema to the mid thigh bilateral lower extremities) Neurologic/Psychiatric: Alert, Oriented x3, No Motor/Sensory Deficits Skin: Normal Color, Warm/Dry Progress/Results/Core Measures Suspected Sepsis SIRS Temperature: Pulse: 65 Respiratory Rate: 16 Laboratory Tests 06/16/22 13:15: White Blood Count 7.0 Blood Pressure 122 /66 Mean: 84 Laboratory Tests 06/16/22 13:15: Creatinine 1.46H, Platelet Count 243, Total Bilirubin 0.4 Results/Orders Lab Results Laboratory Tests Test 06/16/22 13:15 Range/Units White Blood Count 7.0 4.3-11.0 10^3/uL Red Blood Count 3.39 L 4.30-5.52 10^6/uL Hemoglobin 9.6 L 13.3-17.7 g/dL Hematocrit 31 L 40-54 % Mean Corpuscular Volume 92 80-99 fL Mean Corpuscular Hemoglobin 28 25-34 pg Mean Corpuscular Hemoglobin Concent 31 L 32-36 g/dL Red Cell Distribution Width 18.2 H 10.0-14.5 % Platelet Count 243 130-400 10^3/uL Mean Platelet Volume 11.3 9.0-12.2 fL Immature Granulocyte % (Auto) 0 % Neutrophils (%) (Auto) 62 42-75 % Lymphocytes (%) (Auto) 31 12-44 % Monocytes (%) (Auto) 4 0-12 % Eosinophils (%) (Auto) 2 0-10 % Basophils (%) (Auto) 0 0-10 % Neutrophils # (Auto) 4.4 1.8-7.8 10^3/uL Lymphocytes # (Auto) 2.2 1.0-4.0 10^3/uL Monocytes # (Auto) 0.3 0.0-1.0 10^3/uL Eosinophils # (Auto) 0.1 0.0-0.3 10^3/uL Basophils # (Auto) 0.0 0.0-0.1 10^3/uL Immature Granulocyte # (Auto) 0.0 0.0-0.1 10^3/uL Sodium Level 142 135-145 MMOL/L Potassium Level 4.2 3.6-5.0 MMOL/L Chloride Level 105 98-107 MMOL/L Carbon Dioxide Level 26 21-32 MMOL/L Anion Gap 11 5-14 MMOL/L Blood Urea Nitrogen 28 H 7-18 MG/DL Creatinine 1.46 H 0.60-1.30 MG/DL Estimat Glomerular Filtration Rate 50 BUN/Creatinine Ratio 19 Glucose Level 170 H 70-105 MG/DL Calcium Level 8.8 8.5-10.1 MG/DL Corrected Calcium 9.6 8.5-10.1 MG/DL Total Bilirubin 0.4 0.1-1.0 MG/DL Aspartate Amino Transf (AST/SGOT) 8 5-34 U/L Alanine Aminotransferase (ALT/SGPT) 8 0-55 U/L Alkaline Phosphatase 55 40-136 U/L B-Type Natriuretic Peptide 613.3 H <100.0 PG/ML Total Protein 6.8 6.4-8.2 GM/DL Albumin 3.0 L 3.2-4.5 GM/DL My Orders Orders - DALLASSANG DO Bnp [place] (06/16/22 13:09) Cbc With Automated Diff (06/16/22 13:09) Comprehensive Metabolic Panel (06/16/22 13:09) Chest 1 View, Ap/Pa Only (06/16/22 13:09) Furosemide Injection (Lasix Injection) (06/16/22 14:30) Vital Signs/I&O 06/16/22 12:47 Temp 36.3 Pulse 65 Resp 16 B/P (MAP) 122/66 (84) Pulse Ox 93 O2 Delivery Room Air Capillary Refill : Less Than 3 Seconds Blood Pressure Mean: 84 Departure Communication (Admissions) Patient is hemodynamically stable. No respiratory distress. No chest pain. He has acute on chronic heart failure with significant lower extremity edema and weight gain. His respiratory symptoms are at their baseline however. Chest x- ray is improved from his chest x-ray when he was hospitalized last. BNP is 610. Creatinine is significantly improved from his hospital stay. He states he is never seen the reconciliation analyst as an outpatient but Dr Alvarado saw him in the hospital. I spoke with Dr. Desai at 1420. He recommends 80 of Lasix IV now and resume 40 mg daily. Recommends patient call his reconciliation analyst let them know of the change in schedule follow-up for close monitoring. Patient is comfortable agreeable this plan of care. He is given IV Lasix and discharged home in stable condition. Impression Primary Impression: Acute on chronic heart failure Qualified Codes: I50.23 - Acute on chronic systolic (congestive) heart failure Disposition: HOME, SELF-CARE Condition: Stable Departure-Patient Inst. Referrals: ROSINA ALVARADO MD,BOB Vinson APRN (PCP) Primary Care Physician Add. Discharge Instructions: Resume Lasix 40 mg daily rather than every other day. I have given you the name of reconciliation analyst with whom you should call to schedule a follow-up appointment. Please let them know you have resumed daily Lasix rather than every other day dosing. Return to the emergency department for severe shortness of breath, chest pain, or if your symptoms change in any way concerning to you. All discharge instructions reviewed with patient and/or family. Voiced understanding. SANG HAYENS DO Jun 16, 2022 13:14
[2022-06-16 13:24] LABS: BASOPHILS % (AUTO) 0 % (0-10); EOSINOPHILS # (AUTO) 0.1 10^3/uL (0.0-0.3); EOSINOPHILS % (AUTO) 2 % (0-10); HEMATOCRIT 31 % (40-54); HEMOGLOBIN 9.6 g/dL (13.3-17.7); LYMPHOCYTES # (AUTO) 2.2 10^3/uL (1.0-4.0); LYMPHOCYTES % (AUTO) 31 % (12-44); MEAN CORPUSCULAR HEMOGLOBIN 28 pg (25-34); MEAN CORPUSCULAR HGB CONC 31 g/dL (32-36); MEAN CORPUSCULAR VOLUME 92 fL (80-99); MEAN PLATELET VOLUME 11.3 fL (9.0-12.2); MONOCYTES # (AUTO) 0.3 10^3/uL (0.0-1.0); MONOCYTES % (AUTO) 4 % (0-12); NEUTROPHILS # (AUTO) 4.4 10^3/uL (1.8-7.8); NEUTROPHILS % (AUTO) 62 % (42-75); PLATELET COUNT 243 10^3/uL (130-400)
[2022-06-16 13:32] LABS: POTASSIUM 4.2 MMOL/L (3.6-5.0)
[2022-06-16 13:33] LABS: CALCIUM 8.8 MG/DL (8.5-10.1)
[2022-06-16 13:34] LABS: TOTAL PROTEIN 6.8 GM/DL (6.4-8.2)
[2022-06-16 13:36] LABS: BILIRUBIN,TOTAL 0.4 MG/DL (0.1-1.0)
--- NOTE | 2022-06-16 13:36 | Diagnostic Imaging Report ---
INDICATION: Dyspnea. TECHNIQUE: Single AP view of chest is obtained with comparison made to study of 05/19/2022. FINDINGS: There is cardiomegaly and pulmonary venous congestion. There is bilateral airspace disease which may represent edema or pneumonitis. There is continued blunting of the costophrenic sulci, greater on the right, although volume of pleural fluid has shown interval decrease. IMPRESSION: Findings are suggestive of congestive heart failure with small pleural effusions, greater on the right, which are improved compared to previous study. Dictated by: Dictated on workstation # [id number]
[2022-06-16 13:38] LABS: CREATININE SERUM 1.46 MG/DL (0.60-1.30)
[2022-06-16] MEDS ORDERED: FUROSEMIDE 40 MG/4 ML INJ (LASIX) IVP ONE (14:30)
[2022-06-16 14:37] VITALS: BP 114/67
== END 2022-06-16 14:37 | disposition home or self-care (01) ==
LOC: EDUNIT# 12:41 → ER 12:43
DX: I11.0 Hypertensive heart disease with heart failure (principal); I50.23 Acute on chronic systolic (congestive) heart failure; Z79.899 Other long term (current) drug therapy
CPT/HCPCS: 36415; 71045; 80053; 83880; 85025

== ENCOUNTER 2022-07-06 04:54 | Emergency (ER) | payer OTHER ==
[~2022-07-06] VITALS: Ht 170 cm; Wt 83.4 kg
[2022-07-06 05:12] LABS: BASOPHILS % (AUTO) 0 % (0-10); EOSINOPHILS # (AUTO) 0.1 10^3/uL (0.0-0.3); EOSINOPHILS % (AUTO) 2 % (0-10); HEMATOCRIT 31 % (40-54); HEMOGLOBIN 9.5 g/dL (13.3-17.7); LYMPHOCYTES # (AUTO) 2.6 10^3/uL (1.0-4.0); LYMPHOCYTES % (AUTO) 35 % (12-44); MEAN CORPUSCULAR HEMOGLOBIN 29 pg (25-34); MEAN CORPUSCULAR HGB CONC 31 g/dL (32-36); MEAN CORPUSCULAR VOLUME 92 fL (80-99); MEAN PLATELET VOLUME 10.7 fL (9.0-12.2); MONOCYTES # (AUTO) 0.4 10^3/uL (0.0-1.0); MONOCYTES % (AUTO) 5 % (0-12); NEUTROPHILS # (AUTO) 4.4 10^3/uL (1.8-7.8); NEUTROPHILS % (AUTO) 58 % (42-75); PLATELET COUNT 240 10^3/uL (130-400); WHITE BLOOD COUNT 7.5 10^3/uL (4.3-11.0)
--- NOTE | 2022-07-06 05:14 | ED General ---
General Chief Complaint: Glucose Problems Stated Complaint: LOW BLOOD SUGAR Nursing Triage Note: EMS CALLED BY PATIENTS SON FOR PATIENT NOT "RIGHT" DIAPHRETIC, SOB, WITH PATIENT COMPLAINT OF NOT FEELING WELL. EMS CHECKED A BLOOD SUGAR. STATES MACHINE READ "LOW" STARTED IV WITH D10 @ 200. UPON ARRIVAL PATIENT ALERT, DIAPHRETIC, ANSWERING QUESTIONS. Source of Information: Patient Exam Limitations: No Limitations (NALINI OBRIEN MD) History of Present Illness Date Seen by Provider: Jul 06, 2022 Time Seen by Provider: 04:56 Initial Comments Here by EMS with report of low blood sugar. EMS reports they were called to the scene of the patient's home for shortness of breath and not acting right. Patient's son also arrived with the patient. Patient's son reports that the patient will come up was saying that he could not breathe and he was sweaty. Ultimately the son called EMS when his father seemed quite confused. EMS arrive d and evaluated him. They did check his blood sugar and it read low on machine. They did establish an IV and initiated D10 IV 250 mL by. That is nearly complete on their arrival. Patient apparently is responding much better per EMS and the son. Patient states that he does not remember a lot but he was not feeling well earlier and was going to try to drink an orange juice because he thought his blood sugar might be low but he could not. Patient states that he is feeling better now but may be a little nauseous but he does not want to stay here because he has had like 45 days in the hospital recently here. Does have history of CHF, diabetes and hypertension as well as kidney disease. The patient and his son. Son arrives with med list which was reviewed. Patient states he follows with Dr. 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 Timing/Duration: 1 Hour Severity: Moderate Associated Systoms: Nausea/Vomiting (NALINI OBRIEN MD) Allergies and Home Medications Allergies Coded Allergies: No Known Drug Allergies (Unverified , 03/04/21) Patient Home Medication List Home Medication List Reviewed: Yes (NALINI OBRIEN MD) Allopurinol (Allopurinol) 300 Mg Tablet, 300 MG PO DAILY, (Reported) Entered as Reported by: FRANKLIN GARCIA on 05/08/21 1302 Amiodarone HCl (Amiodarone HCl) 400 Mg Tablet, 400 MG PO DAILY Prescribed by: JUAN KURTZ on 05/19/22 09 Apixaban (Eliquis) 5 Mg Tablet, 5 MG PO BID, (Reported) Entered as Reported by: ES STUART on 05/13/22 160 Ascorbate Calcium (Vitamin C) 500 Mg Tablet, 500 MG PO 1200, (Reported) Entered as Reported by: ES STUART on 01/21/22 110 Atorvastatin Calcium (Atorvastatin Calcium) 80 Mg Tablet, 40 MG PO HS, (Reported) Entered as Reported by: FRANKLIN GARCIA on 05/08/21 1302 Cholecalciferol (Vitamin D3) (Vitamin D3) 125 Mcg (5000 Unit) Tablet, 125 MCG PO 1200, (Reported) Entered as Reported by: ES STUART on 05/13/22 160 Digoxin (Digoxin) 62.5 Mcg (0.0625 Mg) Tablet, 62.5 MCG PO DAILY Prescribed by: JUAN KURTZ on 05/19/22 09 Docusate Sodium (Docusate Sodium) 100 Mg Capsule, 200 MG PO DAILY PRN for CONSTIPATION-1ST LINE, (Reported) Entered as Reported by: ES STUART on 05/13/22 160 Empagliflozin (Jardiance) 25 Mg Tablet, 12.5 MG PO DAILY, (Reported) Entered as Reported by: ES STUART on 01/21/22 110 Fish Oil/Dha/Epa (Fish Oil 1,200 mg Fish Oil) 1,200 Mg-144 Mg-216 Mg Capsule, 1 EACH PO 1200, (Reported) Entered as Reported by: ES STUART on 01/21/22 110 Furosemide (Lasix) 40 Mg Tablet, 40 MG PO Q48H Prescribed by: JUAN KURTZ on 05/19/22 09 Gabapentin (Gabapentin) 100 Mg Capsule, 200 MG PO BID, (Reported) Entered as Reported by: ES STUART on 05/13/22 160 Insulin Glargine,Hum.rec.anlog (Insulin Glargine Solostar) 100 Unit/Ml (3 Ml) Insuln.pen, 20 UNIT SQ HS, (Reported) Entered as Reported by: ES STUART on 05/13/22 160 Omeprazole (Omeprazole) 20 Mg Capsule.dr, 20 MG PO DAILY, (Reported) Entered as Reported by: ERIK LOU on 02/15/22 0950 Tamsulosin HCl (Flomax) 0.4 Mg Cap, 0.4 MG PO DAILY, (Reported) Entered as Reported by: ES STUART on 05/13/22 1601 Topiramate (Topiramate) 25 Mg Tablet, 25 MG PO BID, (Reported) Entered as Reported by: ES STUART on 05/13/22 1601 Tramadol HCl (Tramadol HCl) 50 Mg Tablet, 100 MG PO HS PRN for PAIN-MODERATE (5- 7), (Reported) Entered as Reported by: ES STUART on 01/21/22 1109 Ubidecarenone (Co Q-10) 100 Mg Capsule, 100 MG PO 1200, (Reported) Entered as Reported by: ERIK LOU on 02/15/22 0950 Vit A/C/E/Zinc/Selenium/Copper (Vision Formula Tablet) 1,000-60-30 Tablet, 1 EACH PO 1200, (Reported) Entered as Reported by: ES STUART on 05/13/22 1601 Zolpidem Tartrate (Zolpidem Tartrate) 5 Mg Tablet, 5 MG PO HS PRN for SLEEP, (Reported) Entered as Reported by: FRANKLIN GARCIA on 05/08/21 1302 Review of Systems Review of Systems Constitutional: see HPI, chills, diaphoresis; No fever EENTM: no symptoms reported Respiratory: No cough Cardiovascular: No chest pain; edema (Chronic) Gastrointestinal: nausea; No vomiting Genitourinary: no symptoms reported Musculoskeletal: no symptoms reported Skin: change in color; No rash Psychiatric/Neurological: See HPI, Weakness (NALINI OBRIEN MD) Past Inhyynj-Ftqxdq-Ouhvxz Hx Patient Social History Tobacco Use?: No Substance use?: No Alcohol Use?: No (NALINI OBRIEN MD) Immunizations Up To Date First/Initial COVID19 Vaccinat: RECEIVED, UNK WHEN Second COVID19 Vaccination Brandon: RECEIVED, UNK WHEN Third COVID19 Vaccination Date: RECEIVED, UNK WHEN (NALINI OBRIEN MD) Past Medical History Surgery/Hospitalization HX: HOSPITALIZED FOR WEAKNESS, FEB 2022 HOSPITALLIZED FOR COVID Surgeries: Yes Abdominal, Eye Surgery, Orthopedic Respiratory: No Cardiac: Yes Atrial Fibrillation, Chronic Edema/Swelling, Hypertension Neurological: Yes (Tremor) Neuropathy Genitourinary: Yes Renal Failure Gastrointestinal: Yes Diverticulosis, Hiatal Hernia Musculoskeletal: Yes Arthritis Endocrine: Yes Diabetes, Insulin dep HEENT: Yes Cataract Cancer: No Psychosocial: No Blood Disorders: Yes (Anemia) (NALINI OBRIEN MD) Family Medical History Reviewed Nursing Family Hx (NALINI OBRIEN MD) Cancer (NALINI OBRIEN MD) Physical Exam Vital Signs Vital Signs - First Documented 07/06/22 07/06/22 04:54 05:18 Pulse 50 Resp 18 B/P (MAP) 99/67 (78) Pulse Ox 93 O2 Delivery Room Air O2 Flow Rate 2.00 (WALLY KIM MD) Vital Signs Capillary Refill : Less Than 3 Seconds (NALINI OBRIEN MD) Height, Weight, BMI Height: '" Weight: lbs. oz. kg; 28.00 BMI Method: General Appearance: No Apparent Distress, WD/WN HEENT: PERRL/EOMI, Pharynx Normal Neck: Non Tender, Supple Respiratory: Lungs Clear, Normal Breath Sounds Cardiovascular: No Murmur, Bradycardia Gastrointestinal: Non Tender, Soft Extremity: Pedal Edema (2+ to level above-knee bilateral) Skin: Warm/Dry, Pallor (NLAINI OBRIEN MD) Progress/Results/Core Measures Suspected Sepsis SIRS Temperature: Pulse: 50 Respiratory Rate: 18 Laboratory Tests 07/06/22 04:59: White Blood Count 7.5 Blood Pressure 99 /67 Mean: 78 Laboratory Tests 07/06/22 04:59: Creatinine 1.71H, Platelet Count 240, Total Bilirubin 0.3 (NALIIN OBRIEN MD) Results/Orders Lab Results Laboratory Tests Test 07/06/22 04:59 07/06/22 05:38 07/06/22 06:45 07/06/22 07:15 Range/Units White Blood Count 7.5 4.3-11.0 10^3/uL Red Blood Count 3.31 L 4.30-5.52 10^6/uL Hemoglobin 9.5 L 13.3-17.7 g/dL Hematocrit 31 L 40-54 % Mean Corpuscular Volume 92 80-99 fL Mean Corpuscular Hemoglobin 29 25-34 pg Mean Corpuscular Hemoglobin Concent 31 L 32-36 g/dL Red Cell Distribution Width 18.6 H 10.0-14.5 % Platelet Count 240 130-400 10^3/uL Mean Platelet Volume 10.7 9.0-12.2 fL Immature Granulocyte % (Auto) 0 % Neutrophils (%) (Auto) 58 42-75 % Lymphocytes (%) (Auto) 35 12-44 % Monocytes (%) (Auto) 5 0-12 % Eosinophils (%) (Auto) 2 0-10 % Basophils (%) (Auto) 0 0-10 % Neutrophils # (Auto) 4.4 1.8-7.8 10^3/uL Lymphocytes # (Auto) 2.6 1.0-4.0 10^3/uL Monocytes # (Auto) 0.4 0.0-1.0 10^3/uL Eosinophils # (Auto) 0.1 0.0-0.3 10^3/uL Basophils # (Auto) 0.0 0.0-0.1 10^3/uL Immature Granulocyte # (Auto) 0.0 0.0-0.1 10^3/uL Sodium Level 138 135-145 MMOL/L Potassium Level 3.2 L 3.6-5.0 MMOL/L Chloride Level 100 98-107 MMOL/L Carbon Dioxide Level 26 21-32 MMOL/L Anion Gap 12 5-14 MMOL/L Blood Urea Nitrogen 29 H 7-18 MG/DL Creatinine 1.71 H 0.60-1.30 MG/DL Estimat Glomerular Filtration Rate 41 BUN/Creatinine Ratio 17 Glucose Level 95 70-105 MG/DL Glucometer 90 53 *L 60 *L 75 70-110 MG/DL Calcium Level 8.7 8.5-10.1 MG/DL Corrected Calcium 9.6 8.5-10.1 MG/DL Total Bilirubin 0.3 0.1-1.0 MG/DL Aspartate Amino Transf (AST/SGOT) 8 5-34 U/L Alanine Aminotransferase (ALT/SGPT) < 6 0-55 U/L Alkaline Phosphatase 52 40-136 U/L Total Protein 6.9 6.4-8.2 GM/DL Albumin 2.9 L 3.2-4.5 GM/DL Test 07/06/22 08:16 07/06/22 08:22 07/06/22 08:49 07/06/22 08:50 Range/Units Glucometer 48 *L 64 L 80 81 70-110 MG/DL Test 07/06/22 08:54 07/06/22 09:35 Range/Units Glucose Level 86 70-105 MG/DL Glucometer 103 70-110 MG/DL (WALLY KIM MD) My Orders Orders - WALLY KIM MD Potassium Chloride (Tablet) (Klor Con Ta (07/06/22 06:15) Accucheck Stat ONCE (07/06/22 06:04) Accucheck Stat ONCE (07/06/22 06:04) Accucheck Stat ONCE (07/06/22 06:04) General/Regular (07/06/22 Breakfast) Accucheck Stat ONCE (07/06/22 07:04) Accucheck Stat ONCE (07/06/22 07:04) Glucose (07/06/22 08:37) Accucheck Stat ONCE (07/06/22 08:37) Accucheck Stat ONCE (07/06/22 09:21) (WALLY KIM MD) Medications Given in ED Current Medications Medications Dose Ordered Sig/Ministerio Route Start Time Stop Time Status Last Admin Dose Admin Dextrose 250 ml @ ud STK-MED ONCE IV 07/06/22 05:48 07/06/22 05:51 DC 07/06/22 05:53 125 MLS/HR (WALLY KIM MD) Vital Signs/I&O 07/06/22 07/06/22 04:54 05:18 Pulse 50 Resp 18 B/P (MAP) 99/67 (78) Pulse Ox 93 93 O2 Delivery Room Air Nasal Cannula O2 Flow Rate 2.00 (WLALY KIM MD) Vital Signs/I&O Capillary Refill : Less Than 3 Seconds (NALINI OBRIEN MD) Blood Pressure Mean: 78 Progress Note : Progress Note Seen and evaluated. IV established by EMS. Second IV initiated here. We will check CBC and CMP. Patient is pretty specific that he does not really want to stay. He has relented to basic labs and we will try to feed him a snack at least give him some juice. Blood sugar currently 90. O2 saturations currently. Blood pressure on the low side of normal in the upper 90s to low 100s. Monitor patient. Differential diagnosis includes hypoglycemia secondary to insulin use, electrolyte abnormality Labs reviewed and CBC shows slightly low hemoglobin but otherwise no significant findings. Chemistries show mild chronic renal failure which is known and sligh tly low potassium. Glucose is okay. 0545: Repeat glucose is 53. We will initiate D10. He has tolerated 2 orange juices and we will try to get him some food. He still would like to go home but understands that we need to get his blood sugar a little better. Monitor patient. (NALINI OBRIEN MD) Progress Note #1: Time: 06:28 Progress Note Care of this patient was assumed from Dr. OBRIEN at shift change. Verbal report was received. Labs have been reviewed. Oral potassium was ordered to correct his hypokalemia. He is presently receiving D10 and eating and drinking. He is alert and oriented. He is very anxious to return home. Patient states he has been prescribed Levemir 10 mg twice daily but last night he took 14 mg because he ate ice cream at 1700. I cautioned him regarding taking extra insulin, especially at night. I have advised him that we need to see his blood sugar stable for at least 2 more checks before we can consider safely sending him home. Progress Note #2: Time: 07:03 Progress Note Most recent blood sugar was only 60. We will continue to have him consume carbohydrates until we have at least 2 consecutive normal blood sugars. Progress Note #3: Time: 08:38 Progress Note Blood sugar was up to 75 after eating and receiving D10. D10 infusion was then stopped. Blood sugar was checked again and was found to be 48. D10 was restarted. The most recent fingerstick blood sugar was 64. We have noted another unusual hypoglycemic measurement on another patient with the same glucometer. We will obtain a venous puncture and run a glucometer check and a lab glucose on the same specimen to clarify the issue. Patient does not feel hypoglycemic at this time. Progress Note #4: Time: 10:23 Progress Note Patient has not demonstrated multiple stable normal blood sugars. He may be discharged to continue managing his blood sugar at home. (WALLY KIM MD) Departure Impression Primary Impression: Hypoglycemia Additional Impression: Hypokalemia Disposition: 01 HOME, SELF-CARE Condition: Improved Departure-Patient Inst. Referrals: BOB VILLANUEVA APRN (PCP/Family) Primary Care Physician Patient Instructions: Low Blood Sugar in People With Diabetes, Hypokalemia Add. Discharge Instructions: Eat a well-balanced diet today and drink plenty of water. Do not take your morning insulin today. Check your blood sugar immediately upon returning home and then every 2 hours throughout the day today. As long as blood sugars are normal or in the high range this evening, you may resume your prescribed insulin dosage this evening. Do not increase your insulin dosage without speaking with your primary care provider first. After you have demonstrated stable blood sugar with multiple blood sugar checks, do maintenance checks fasting in the morning when you wake up and 2 hours after each meal. Follow-up with your primary care provider soon as possible and report a log of these blood sugars at the follow-up appointment. Your potassium was also mildly low in the emergency room. Please have your primary care provider or kidney specialist recheck your potassium level later this week. Return to the ER if you have any worsening of symptoms or cannot stabilize your blood sugars at home. All discharge instructions reviewed with patient and/or family. Voiced understanding. NALINI OBRIEN MD Jul 06, 2022 05:14 WALLY KIM MD Jul 06, 2022 06:30
[2022-07-06 05:21] LABS: ALBUMIN 2.9 GM/DL (3.2-4.5); CHLORIDE 100 MMOL/L (98-107); POTASSIUM 3.2 MMOL/L (3.6-5.0); SODIUM 138 MMOL/L (135-145)
[2022-07-06 05:22] LABS: CALCIUM 8.7 MG/DL (8.5-10.1)
[2022-07-06 05:23] LABS: GLUCOSE 95 MG/DL (70-105); TOTAL PROTEIN 6.9 GM/DL (6.4-8.2)
[2022-07-06 05:24] LABS: CARBON DIOXIDE 26 MMOL/L (21-32)
[2022-07-06 05:25] LABS: BILIRUBIN,TOTAL 0.3 MG/DL (0.1-1.0)
[2022-07-06 05:27] LABS: ALKALINE PHOSPHATASE 52 U/L (40-136); CREATININE SERUM 1.71 MG/DL (0.60-1.30); GFR ESTIMATED 41
[2022-07-06 05:28] LABS: BUN/CREATININE RATIO 17
[2022-07-06 05:30] LABS: ALANINE AMINOTRANSFERASE < 6 U/L (0-55)
[2022-07-06] MEDS ORDERED: DEXTROSE 24 GM ORAL GEL TUBE ONE (05:47)
[2022-07-06] MEDS ORDERED: DEXTROSE 10% IV SOLUTION 250 ML IV ONE (05:48)
[2022-07-06] MEDS ORDERED: DEXTROSE 10% IV SOLUTION 250 ML IV SCH (06:00)
[2022-07-06] MEDS ORDERED: KCL 10 MEQ TAB (MICRO K) PO ONE ×2 (06:15→10:27)
[2022-07-06 10:47] VITALS: BP 105/69
== END 2022-07-06 10:47 | disposition home or self-care (01) ==
LOC: EDUNIT# 04:54 → ER 04:55
DX: E11.649 Type 2 diabetes mellitus with hypoglycemia without coma (principal); E87.6 Hypokalemia; Z86.16 Personal history of COVID-19; Z79.4 Long term (current) use of insulin
CPT/HCPCS: 36415; 80053; 82947; 85025